=== PATIENT | female | born 1960 | race Caucasian/White ===

== ENCOUNTER → 2017-12-28 06:59 | Outpatient (CLI) | payer MEDICARE, SELFPAY ==
[2017-12-28 08:52] LABS: ALB/GLOB Ratio 0.9 RATIO (0.9-2.4); AST(SGOT) 15 U/L (15-37); Alanine Aminotransfer ALT/SGPT 30 U/L (13-56); Albumin, Serum 3.5 g/dL (3.2-5.0); Alkaline Phosphatase 111 U/L (45-117); Anion Gap 9 (5-15); BUN 21 mg/dL (7-18); BUN/Creat Ratio 24.3 RATIO (10-20); Calcium,Total 9.1 mg/dL (8.5-10.1); Chloride 99 mmol/L (98-107); Cholesterol 165 mg/dL (200); Creatinine, Serum 0.86 mg/dL (0.55-1.02); EST Glomerular Filtration Rate 71 mL/min (>60); Est Glom Filt Rate - Afr Amer 86 mL/min (>60); Globulin 3.8 g/dL (2.2-4.2); Glucose 96 mg/dL (70-110); High Density Lipoprotein 63 mg/dL; Potassium 4.2 mmol/L (3.5-5.1); Protein, Total 7.3 g/dL (6.4-8.2); Sodium Level 136 mmol/L (136-145); T4 Free Direct 1.17 ng/dL (0.76-1.46); Thyroid Stim Hormone (TSH) 1.09 uIU/mL (0.358-3.74); Triglycerides 137 mg/dL; Very Low Density Lipoprotein 27 mg/dL (5-40)
[2017-12-29 10:07] LABS: Vitamin D,25 Hydroxy 44.1 ng/mL (19.95-100.01)
== END ==
PROVIDERS: Family Provider Family Medicine; PCP Family Medicine; Visit Provider Internal Medicine Endocrinology, Diabetes & Metabolism
DX: E03.8 Other specified hypothyroidism (principal); E78.2 Mixed hyperlipidemia; E55.9 Vitamin D deficiency, unspecified
CPT/HCPCS: 36415; 80053; 80061; 82306; 84439; 84443

== ENCOUNTER 2018-01-04 21:58 | Observation (INO) | payer MEDICARE, SELFPAY ==
[2018-01-04 21:59] VITALS: BP 160/100; PULSE 61; RESP 25; TEMP 36.8; O2SAT 98; BMI 43.6
--- NOTE | 2018-01-04 22:01 | NURSING ---
CALLED FOR EKG PER RN REQUEST, PULLED OLD EKG'S FOR
--- NOTE | 2018-01-04 22:12 | EKG12_ITS ---
Test Reason : FLUTTER Blood Pressure : / mmHG Vent. Rate : 060 BPM Atrial Rate : 060 BPM P-R Int : 140 ms QRS Dur : 102 ms QT Int : 428 ms P-R-T Axes : 079 033 015 degrees QTc Int : 428 ms Atrial-paced rhythm Abnormal ECG Confirmed by ROD ELIAS, SUPRIYA ([id number]), clinical editor TAVO HOLLINS ([id number]) on 01/07/2018 2:01:13 PM Referred By: JONATHAN Confirmed By:SUPRIYA VELASCO MD
--- NOTE | 2018-01-04 22:14 | ED.VISSUMM ---
- ER Visit Summary Date of Service: 01/04/18 Chief Complaint: [palpitations, shortness of breath] History of Present Illness: The patient is a 57 F [who presents with palptiations and exertional shortness of breath for 2 days. She has felt very tired and weak. She has two episodes of loose stool nonbloody, nonmelanotic today. She denies fever,cough, congestion. She has had some mild swelling. No abdominal pain. She is afraid this is her heart. She has CAD s/p 5 vessel bypass.She has CHF. She has a history of atrial fibrillation. She is on xarelto. She has pacemaker/defibrillator.] Physical Examination: [] 160/100 rr 25 HR 61 obese tearful distant heart sounds no audible murmur or rub CTAB Symmetric radial pulses and DP pulses no peripheral edema abdomen is soft and nontender normal bowel sounds a/0x3 no focal neurological deficits anxious and tearful Test Results: [] Emergency Department Course and Treatment: [EKG is paced at a rate of 60 no acute ischemic changes. It is not changed from previous EKG. Chest x-ray is unremarkable. Screening labs show a leukocytosis at 14.2. She has got some acute renal insufficiency with a creatinine of 1.17 that is up from 0.8. Troponin is normal. Urine shows no evidence of infection. Patient is very high risk. She could be having episodes of A. fib with RVR versus increased anginal symptoms versus anxiety. PE is very low likely given that she is anticoagulated. She remained stable in the emergency department however on reevaluation she did have frequent PVCs.] Treatment Plan: [] Disposition: [Admit] Impression: [1. Exertional dyspnea 2. Generalized weakness 3. Extensive cardiac history 4. Palpitations] This note was generated with slinkset dictation software. It may contain incorrect words, spelling, and punctuation that were not noted in review of the chart prior to signing ED Disposition - Plan for ED Patient: Chief Complaint: Palpitations Referrals: Erik Barton [Primary Care Provider] -
[2018-01-04 22:15] VITALS: O2SAT 95
[2018-01-04] MEDS: Aspirin 81 MG TAB.CHEW 324 MG PO (22:19)
--- NOTE | 2018-01-04 22:30 | RAD_ITS ---
XR Chest 2 Views INDICATION: PT STATES SHE FEELS A FLULTER IN HER CHEST X3 DAYS. HX OF HEART ABLASION AND AFIB. ALSO C/O DIARRHEA STARTED TODAY COMPARISON: September 2016 TECHNIQUE: 2 views of the chest FINDINGS: Cardiac pacemaker/AICD is in stable position with battery pack over the left chest. Heart size is at the upper limits of normal. Sternotomy wires are noted. Lungs are clear without evidence of a consolidation or pleural effusion. RAD/Chest PA and Lateral IMPRESSION: No radiographic evidence of acute intrathoracic disease. at 2248 Reported and signed by: Kelsea Manzanares MD Electronically Signed: Kelsea Manzanares MD at 21:46 EST Tel , Service support ,
[2018-01-04 22:37] LABS: Absolute Lymphocyte Count 2.36 X10^3/ul (0.83-4.51); Absolute Neutrophil Count 10.4 X10^3/uL (2.0-7.7); Basophil# 0.03 X10^3/uL; Basophil% 0.2 % (0-1); Eosinophils% 0.7 % (0-5); Hematocrit 41.3 % (37-47); Hemoglobin 13.4 g/dl (12.0-15.0); Lymphocyte # 2.36 X10^3/ul (4.0); Lymphocyte % 16.6 % (19-41); Mean Corp Hgb Conc 32.4 g/gl (32-36); Mean Corpuscular Hgb 31.2 pg (27.0-32.0); Mean Corpuscular Volume 96.3 fL (81-99); Mean Platelet Vol. 10.7 fl (6.2-12.0); Monocyte# 1.27 X10^3/uL; Monocyte% 8.9 % (0-10); Neutrophil # 10.43 X10^3/uL (2.7-7.7); Neutrophil % 73.4 % (47-70); POSITIVE COUNT NO; POSITIVE DIFFERENTIAL NO; POSITIVE MORPHOLOGY NO; Platelet Count 194 K/mm3 (150-450); RBC Distribution Width CV 14.3 % (11.6-14.6); RBC Distribution Width SD 49.7 fl (35.1-43.9); Red Blood Count 4.29 M/mm3 (4.2-5.4); White Blood Count 14.2 K/mm3 (4.4-11.0)
[2018-01-04 22:56] LABS: Anion Gap 9 (5-15); BUN 26 mg/dL (7-18); BUN/Creat Ratio 22.2 RATIO (10-20); Calcium,Total 9.2 mg/dL (8.5-10.1); Chloride 99 mmol/L (98-107); Creatinine, Serum 1.17 mg/dL (0.55-1.02); EST Glomerular Filtration Rate 50 mL/min (>60); Est Glom Filt Rate - Afr Amer 61 mL/min (>60); Estimated Creatinine Clearance 44.71 ml/min; Glucose 104 mg/dL (74-106); Potassium 4.1 mmol/L (3.5-5.1); Sodium Level 137 mmol/L (136-145); Thyroid Stim Hormone (TSH) 1.69 uIU/mL (0.358-3.74)
[2018-01-04 23:02] LABS: BNP,B-Type NATRIURETIC PEPTIDE 81.5 pg/mL (0-100)
[2018-01-04 23:16] LABS: Bacteria 0 SEEN /hpf (None Seen); Red Blood Cells-Urine 0 SEEN /hpf (0-5)
[2018-01-04 23:19] LABS: Color, Urine Yellow (Yellow); Glucose, Dipstick Normal (Normal); Ketone-Dipstick Negative (Negative); Leukocyte Esterase-Dipstick 500 /ul (Negative); Nitrite-Dipstick Negative (Negative); Occult Blood-Urine Negative /ul (Negative); Protein-Dipstick Negative (Negative); Specific Gravity, Urine 1.015 (1.002-1.030); Urine Bilirubin Dipstick Negative (Negative); Urine Clarity Sl. Cloudy (Clear); Urine Urobilinogen Normal (Normal)
[2018-01-04 23:26] LABS: Hyaline Cast 5-10 SEEN /lpf (0-5); Mucous, Urine RARE /hpf (<or=2+)
[2018-01-04 23:27] LABS: White Blood Cells 5-10 SEEN /hpf (0-5)
[2018-01-04 23:28] LABS: Squamous Epithelial Cells - UA 0-5 SEEN /hpf (5-10)
[2018-01-04 23:50] VITALS: BP 109/70; PULSE 60; RESP 15; O2SAT 94
[2018-01-04 23:51] VITALS: BP 109/70; PULSE 60; RESP 16; TEMP 36.8; O2SAT 94
--- NOTE | 2018-01-04 23:58 | PCM.HP.STD ---
Problem List (1) CKD (chronic kidney disease), stage III Status: Chronic (2) DM2 (diabetes mellitus, type 2) Status: Chronic (3) Atrial fibrillation and flutter Status: Chronic (4) CAD (coronary artery disease) Status: Chronic (5) Cardiomyopathy, ischemic Status: Chronic (6) Congestive heart failure (CHF) Status: Chronic (7) History of TIA (transient ischemic attack) and stroke Status: Chronic (8) History of breast cancer Status: Chronic Comment: Right (9) History of percutaneous transluminal coronary angioplasty Status: Chronic (10) Hx of CABG Status: Chronic (11) Hyperlipidemia Status: Chronic (12) Hypothyroidism Status: Chronic (13) ICD (implantable cardioverter-defibrillator) in place Status: Chronic Comment: 2003 (14) Obesity (BMI 30-39.9) Status: Chronic (15) Paroxysmal a-fib Status: Chronic (16) Peripheral neuropathy Status: Chronic (17) Venous insufficiency Status: Chronic Comment: I87.2 (18) Palpitations Status: Acute History of Present Illness Date of Admission: 01/04/18 Chief Complaint: chest fluttering. The patient is a 57 year old F with an extensive cardiac history presents with 3 day history of heart fluttering. Denies any overt chest pain however. Patient just has not felt well and has been sleeping a lot during the day as well. Patient was concerned and presented to the emergency room. In the emergency room patient was assessed and had no really acute abnormalities other than some noted PVCs. Patient states that the fluttering is intermittent but does feel like when she has had flareups of her atrial fibrillation in the past. [] Past Medical History Past Medical History (Chronic Problems): Chronic Problems CKD (chronic kidney disease), stage III (Chronic) DM2 (diabetes mellitus, type 2) (Chronic) History of TIA (transient ischemic attack) and stroke (Chronic) History of percutaneous transluminal coronary angioplasty (Chronic) Peripheral neuropathy (Chronic) History of breast cancer (Chronic) Right Obesity (BMI 30-39.9) (Chronic) Venous insufficiency (Chronic) I87.2 Leg edema (Chronic) Delayed wound healing (Chronic) Malnutrition (Chronic) Chronic ulcer of left leg with fat layer exposed (Chronic) Renal insufficiency (Chronic) Cardiomyopathy, ischemic (Chronic) CAD (coronary artery disease) (Chronic) Type II diabetes mellitus, uncontrolled (Chronic) Atrial fibrillation and flutter (Chronic) SVT (supraventricular tachycardia) (Chronic) Afib (Chronic) Congestive heart failure (CHF) (Chronic) Cushings syndrome (Chronic) Hypothyroidism (Chronic) Hyperlipidemia (Chronic) Hypertension (Chronic) History of CVA (cerebrovascular accident) (Chronic) 2006 ICD (implantable cardioverter-defibrillator) in place (Chronic) 2002 Paroxysmal a-fib (Chronic) Hx of CABG (Chronic) Allergies Iodinated Contrast- Oral and IV Dye Allergy (Verified 01/04/18 22:13) Unknown ranolazine [From Ranexa] Allergy (Verified 01/04/18 22:13) Unknown MISC ANTIBIOTIC Allergy (Uncoded 01/04/18 22:13) Unknown Home Medications: Ambulatory Orders Medication Instructions Recorded Atorvastatin Calcium [Lipitor] 40 mg PO QHS 09/09/14 Isosorbide Mononitrate [Isosorbide 60 mg PO DAILY 09/09/14 Mononitrate ER] Levothyroxine [Synthroid] 88 mcg PO DAILY 09/09/14 Lisinopril [Zestril] 5 mg PO QHS 09/09/14 Gabapentin [Neurontin] 400 mg PO 4X/DAY 01/02/16 Lorazepam [Ativan] 1 mg PO 4X/DAY PRN PRN 01/02/16 Furosemide [Lasix] 40 mg PO BID@1000,1800 #60 tablet 10/25/16 Sotalol Hydrochloride [Betapace 80 mg PO BID #60 tablet 10/25/16 (Beta Otto)] Multivitamins,Therapeutic 1 tablet PO DAILY 07/21/17 [Multivitamin] Spironolactone [Aldactone] 25 mg PO DAILY 07/21/17 Calcium Carb/Vitamin D3/Vit K1 1 each PO DAILY 01/04/18 [Citracal Soft Chew] Calcium Carbonate [Calcium] 500 mg PO DAILY 01/04/18 Cholecalciferol (Vitamin D3) 5,000 unit PO DAILY 01/04/18 [Vitamin D3] Magnesium 200 mg PO DAILY 01/04/18 Metoprolol Tartrate 25 mg PO DAILY 01/04/18 Rivaroxaban [Xarelto] 20 mg PO DAILY 01/04/18 Surgical History: angioplasty, coronary bypass surgery, - - Pituitary surgery, right breast mastectomy (2000), hysterectomy, knee arthroscopy, implanted pacemaker/defibrillator, coronary revascularization in 1998, and coronary angioplasties ?18 with 5 implanted coronary stents. Smoking Status: Former smoker - *Family History Maternal History Items: Heart Disease, - - Patient's mother at the age of 58 with a history of breast cancer and myocardial infarction. Paternal History Items: Heart Disease, - - Patient's father at the age of 56, with a history of cardial infarction. Offspring History Items: Heart Disease - 5 heart attacks and her daughter Review of Systems Constitutional: Reports: Malaise. Denies: Anorexia, Chills, Fever Eyes: Denies: Blurred vision, Double vision HEENT: Denies: Head Aches, Sinus Congestion, Sinus Drainage Cardiovascular: Reports: Palpitations, - - Chest fluttering. Denies: Chest Pain Respiratory: Denies: Cough, Shortness of breath at rest, Sputum production Gastrointestinal: Denies: Abdominal Pain, Nausea, Vomiting Genitourinary: Denies: Dysuria Musculoskeletal: Denies: Joint Pain, Joint Tenderness Skin: Reports: Wounds - Healing wounds on her. Denies: Dryness Neurological: Denies: Numbness, Tingling, Focal weakness Psychiatric: Denies: Anxiety, Depression, Homicidal Ideations, Suicidal Ideations Hematologic/ Lymphatic: Denies: Easy Bruising, Easy Bleeding, Hx of blood clot VTE Information - Inpt Only VTE Present on Admission: No VTE Pharm Prophylaxis ordered?: Yes Patient Problems: Active and Suspected Problems Fluttering heart (Acute) Palpitations (Acute) - Physical Exam General: Alert, Cooperative, No apparent distress HEENT: Atraumatic, Normocephalic Neck: No Nodes, Thyroid Normal Size and Texture Lungs: Clear to auscultation, Normal air movement, No rhonchi, No wheeze Cardiovascular: Regular rate, Regular Rhythm, Normal S1, Normal S2, - - 2/6 ANGELES at RUSB Abdomen: Bowel Sounds Present, Soft, Non Tender, Non-Distended, No Hepato-splenomegaly Extremities: No edema, No Calf Tenderness Skin: - - healing LLE wounds Musculoskeletal: No Tenderness to Palpation of Joints or Extremities, No Muscle Wasting Neurological: Deep Tendon Reflexes 2+/4 and Symmetrical, Neuro grossly intact, Muscle tone normal, Sensory exam intact to light touch and pain Psych/Mental Status: Normal Affect, Appropriate Vital Signs Temp Pulse Resp BP Pulse Ox 36.8 C 60 16 109/70 94 01/04/18 23:51 01/04/18 23:51 01/04/18 23:51 01/04/18 23:51 01/04/18 23:51 Oxygen Flow Rate 2 Oxygen Delivery Method Room Air Weight: 115.3 kg Body Mass Index (BMI) 43.6 Microbiology Past 72 Hours 01/04/18 22:55 Influenza Types A,B Direct FA (OLIVIA) - Final Mucosa - Nose Laboratory Tests Past 24 Hrs 01/04/18 01/04/18 01/04/18 22:25 22:25 22:25 WBC 14.2 H RBC 4.29 Hgb 13.4 Hct 41.3 MCV 96.3 MCH 31.2 MCHC 32.4 RDW 14.3 RDW Differential 49.7 H Plt Count 194 MPV 10.7 Immature Gran % (Auto) 0.200 Neut % (Auto) 73.4 H Lymph % (Auto) 16.6 L [place] % (Auto) 8.9 Eos % (Auto) 0.7 Baso % (Auto) 0.2 Absolute Neuts (auto) 10.4 H Absolute Lymphs (auto) 2.36 Total Counted Not Reportable Sodium 137 Potassium 4.1 Chloride 99 Carbon Dioxide 29.0 Anion Gap 9 BUN 26 H Creatinine 1.17 H Estim Creat Clear Calc 44.71 Est GFR (MDRD) Af Amer 61 Est GFR (MDRD) Non-Af 50 L BUN/Creatinine Ratio 22.2 H Glucose 104 Calcium 9.2 Troponin I < 0.02 B-Natriuretic Peptide 81.5 TSH 1.69 Urine Color Urine Clarity Urine pH Ur Specific [place] Urine Protein Urine Glucose (UA) Urine Ketones Urine Occult Blood Urine Nitrite Urine Bilirubin Urine Urobilinogen Ur Leukocyte Esterase Urine RBC Urine WBC Ur Squamous Epith Cells Urine Bacteria Hyaline Casts Urine Mucus 01/04/18 23:10 WBC RBC Hgb Hct MCV MCH MCHC RDW RDW Differential Plt Count MPV Immature Gran % (Auto) Neut % (Auto) Lymph % (Auto) [place] % (Auto) Eos % (Auto) Baso % (Auto) Absolute Neuts (auto) Absolute Lymphs (auto) Total Counted Sodium Potassium Chloride Carbon Dioxide Anion Gap BUN Creatinine Estim Creat Clear Calc Est GFR (MDRD) Af Amer Est GFR (MDRD) Non-Af BUN/Creatinine Ratio Glucose Calcium Troponin I B-Natriuretic Peptide TSH Urine Color Yellow Urine Clarity Sl. Cloudy Urine pH 6.0 Ur Specific [place] 1.015 Urine Protein Negative Urine Glucose (UA) Normal Urine Ketones Negative Urine Occult Blood Negative Urine Nitrite Negative Urine Bilirubin Negative Urine Urobilinogen Normal Ur Leukocyte Esterase 500 H Urine RBC 0 SEEN Urine WBC 5-10 SEEN Ur Squamous Epith Cells 0-5 SEEN Urine Bacteria 0 SEEN Hyaline Casts 5-10 SEEN Urine Mucus RARE Clinical Impression(s) from Imaging Studies Chest X-Ray 01/04/18 22:30 IMPRESSION: No radiographic evidence of acute intrathoracic disease. at 2248 Reported and signed by: Kelsea Manzanares MD Electronically Signed: Kelsea Manzanares MD at 21:46 EST Tel , Service support , EKG was atrial paced. Telemetry reviewed and did show some PVCs. Assessment/Plan Active and Suspected Problems Fluttering heart (Acute) Palpitations (Acute) 1. Palpitations Is unclear if patient is experiencing PVCs or not or if she was having bouts of atrial fibrillation. Patient will be monitored on telemetry, cycle troponins. Check a chemical stress test. Additionally, check Lab work to make sure Her electrolytes to ensure that those are within normal limits. 2. Heart failure with reduced ejection fraction EF of 40% from echocardiogram from 01/03/2016. Clinically compensated at this time. Continue with Lasix, isosorbide, lisinopril, metoprolol tartrate, spironolactone 3. Atrial fibrillation Rate controlled. Continue with Xarelto and metoprolol 4. DVT prophylaxis with anticoagulation. History and physical performed on January 04, 2018. Code Visit OBSV E&M: 21705 Initial observation care L3 - for 01/04/18
[2018-01-05] VITALS (8 sets, daily range): BP systolic 108–147; BP diastolic 61–85; PULSE 60–61; RESP 16–18; TEMP 36.6–36.9; O2SAT 93–98; BMI 42.2
--- NOTE | 2018-01-05 00:08 | HP.PCM_ITS ---
Problem List (1) CKD (chronic kidney disease), stage III Status: Chronic (2) DM2 (diabetes mellitus, type 2) Status: Chronic (3) Atrial fibrillation and flutter Status: Chronic (4) CAD (coronary artery disease) Status: Chronic (5) Cardiomyopathy, ischemic Status: Chronic (6) Congestive heart failure (CHF) Status: Chronic (7) History of TIA (transient ischemic attack) and stroke Status: Chronic (8) History of breast cancer Status: Chronic Comment: Right (9) History of percutaneous transluminal coronary angioplasty Status: Chronic (10) Hx of CABG Status: Chronic (11) Hyperlipidemia Status: Chronic (12) Hypothyroidism Status: Chronic (13) ICD (implantable cardioverter-defibrillator) in place Status: Chronic Comment: 2003 (14) Obesity (BMI 30-39.9) Status: Chronic (15) Paroxysmal a-fib Status: Chronic (16) Peripheral neuropathy Status: Chronic (17) Venous insufficiency Status: Chronic Comment: I87.2 (18) Palpitations Status: Acute History of Present Illness Date of Admission: 01/04/18 Chief Complaint: chest fluttering. The patient is a 57 year old F with an extensive cardiac history presents with 3 day history of heart fluttering. Denies any overt chest pain however. Patient just has not felt well and has been sleeping a lot during the day as well. Patient was concerned and presented to the emergency room. In the emergency room patient was assessed and had no really acute abnormalities other than some noted PVCs. Patient states that the fluttering is intermittent but does feel like when she has had flareups of her atrial fibrillation in the past. [] Past Medical History Past Medical History (Chronic Problems): Chronic Problems CKD (chronic kidney disease), stage III (Chronic) DM2 (diabetes mellitus, type 2) (Chronic) History of TIA (transient ischemic attack) and stroke (Chronic) History of percutaneous transluminal coronary angioplasty (Chronic) Peripheral neuropathy (Chronic) History of breast cancer (Chronic) Right Obesity (BMI 30-39.9) (Chronic) Venous insufficiency (Chronic) I87.2 Leg edema (Chronic) Delayed wound healing (Chronic) Malnutrition (Chronic) Chronic ulcer of left leg with fat layer exposed (Chronic) Renal insufficiency (Chronic) Cardiomyopathy, ischemic (Chronic) CAD (coronary artery disease) (Chronic) Type II diabetes mellitus, uncontrolled (Chronic) Atrial fibrillation and flutter (Chronic) SVT (supraventricular tachycardia) (Chronic) Afib (Chronic) Congestive heart failure (CHF) (Chronic) Cushings syndrome (Chronic) Hypothyroidism (Chronic) Hyperlipidemia (Chronic) Hypertension (Chronic) History of CVA (cerebrovascular accident) (Chronic) 2006 ICD (implantable cardioverter-defibrillator) in place (Chronic) 2002 Paroxysmal a-fib (Chronic) Hx of CABG (Chronic) Allergies Iodinated Contrast- Oral and IV Dye Allergy (Verified 01/04/18 22:13) Unknown ranolazine [From Ranexa] Allergy (Verified 01/04/18 22:13) Unknown MISC ANTIBIOTIC Allergy (Uncoded 01/04/18 22:13) Unknown Home Medications: Ambulatory Orders Medication Instructions Recorded Atorvastatin Calcium [Lipitor] 40 mg PO QHS 09/09/14 Isosorbide Mononitrate [Isosorbide 60 mg PO DAILY 09/09/14 Mononitrate ER] Levothyroxine [Synthroid] 88 mcg PO DAILY 09/09/14 Lisinopril [Zestril] 5 mg PO QHS 09/09/14 Gabapentin [Neurontin] 400 mg PO 4X/DAY 01/02/16 Lorazepam [Ativan] 1 mg PO 4X/DAY PRN PRN 01/02/16 Furosemide [Lasix] 40 mg PO BID@1000,1800 #60 tablet 10/25/16 Sotalol Hydrochloride [Betapace 80 mg PO BID #60 tablet 10/25/16 (Beta Otto)] Multivitamins,Therapeutic 1 tablet PO DAILY 07/21/17 [Multivitamin] Spironolactone [Aldactone] 25 mg PO DAILY 07/21/17 Calcium Carb/Vitamin D3/Vit K1 1 each PO DAILY 01/04/18 [Citracal Soft Chew] Calcium Carbonate [Calcium] 500 mg PO DAILY 01/04/18 Cholecalciferol (Vitamin D3) 5,000 unit PO DAILY 01/04/18 [Vitamin D3] Magnesium 200 mg PO DAILY 01/04/18 Metoprolol Tartrate 25 mg PO DAILY 01/04/18 Rivaroxaban [Xarelto] 20 mg PO DAILY 01/04/18 Surgical History: angioplasty, coronary bypass surgery, - - Pituitary surgery, right breast mastectomy (2000), hysterectomy, knee arthroscopy, implanted pacemaker/defibrillator, coronary revascularization in 1998, and coronary angioplasties ?18 with 5 implanted coronary stents. Smoking Status: Former smoker - *Family History Maternal History Items: Heart Disease, - - Patient's mother at the age of 58 with a history of breast cancer and myocardial infarction. Paternal History Items: Heart Disease, - - Patient's father at the age of 56, with a history of cardial infarction. Offspring History Items: Heart Disease - 5 heart attacks and her daughter Review of Systems Constitutional: Reports: Malaise. Denies: Anorexia, Chills, Fever Eyes: Denies: Blurred vision, Double vision HEENT: Denies: Head Aches, Sinus Congestion, Sinus Drainage Cardiovascular: Reports: Palpitations, - - Chest fluttering. Denies: Chest Pain Respiratory: Denies: Cough, Shortness of breath at rest, Sputum production Gastrointestinal: Denies: Abdominal Pain, Nausea, Vomiting Genitourinary: Denies: Dysuria Musculoskeletal: Denies: Joint Pain, Joint Tenderness Skin: Reports: Wounds - Healing wounds on her. Denies: Dryness Neurological: Denies: Numbness, Tingling, Focal weakness Psychiatric: Denies: Anxiety, Depression, Homicidal Ideations, Suicidal Ideations Hematologic/ Lymphatic: Denies: Easy Bruising, Easy Bleeding, Hx of blood clot VTE Information - Inpt Only VTE Present on Admission: No VTE Pharm Prophylaxis ordered?: Yes Patient Problems: Active and Suspected Problems Fluttering heart (Acute) Palpitations (Acute) - Physical Exam General: Alert, Cooperative, No apparent distress HEENT: Atraumatic, Normocephalic Neck: No Nodes, Thyroid Normal Size and Texture Lungs: Clear to auscultation, Normal air movement, No rhonchi, No wheeze Cardiovascular: Regular rate, Regular Rhythm, Normal S1, Normal S2, - - 2/6 ANGELES at RUSB Abdomen: Bowel Sounds Present, Soft, Non Tender, Non-Distended, No Hepato- splenomegaly Extremities: No edema, No Calf Tenderness Skin: - - healing LLE wounds Musculoskeletal: No Tenderness to Palpation of Joints or Extremities, No Muscle Wasting Neurological: Deep Tendon Reflexes 2+/4 and Symmetrical, Neuro grossly intact, Muscle tone normal, Sensory exam intact to light touch and pain Psych/Mental Status: Normal Affect, Appropriate Vital Signs Temp Pulse Resp BP Pulse Ox 36.8 C 60 16 109/70 94 01/04/18 23:51 01/04/18 23:51 01/04/18 23:51 01/04/18 23:51 01/04/18 23:51 Oxygen Flow Rate 2 Oxygen Delivery Method Room Air Weight: 115.3 kg Body Mass Index (BMI) 43.6 Microbiology Past 72 Hours 01/04/18 22:55 Influenza Types A,B Direct FA (OLIVIA) - Final Mucosa - Nose Laboratory Tests Past 24 Hrs 01/04/18 01/04/18 01/04/18 22:25 22:25 22:25 WBC 14.2 H RBC 4.29 Hgb 13.4 Hct 41.3 MCV 96.3 MCH 31.2 MCHC 32.4 RDW 14.3 RDW Differential 49.7 H Plt Count 194 MPV 10.7 Immature Gran % (Auto) 0.200 Neut % (Auto) 73.4 H Lymph % (Auto) 16.6 L [place] % (Auto) 8.9 Eos % (Auto) 0.7 Baso % (Auto) 0.2 Absolute Neuts (auto) 10.4 H Absolute Lymphs (auto) 2.36 Total Counted Not Reportable Sodium 137 Potassium 4.1 Chloride 99 Carbon Dioxide 29.0 Anion Gap 9 BUN 26 H Creatinine 1.17 H Estim Creat Clear Calc 44.71 Est GFR (MDRD) Af Amer 61 Est GFR (MDRD) Non-Af 50 L BUN/Creatinine Ratio 22.2 H Glucose 104 Calcium 9.2 Troponin I < 0.02 B-Natriuretic Peptide 81.5 TSH 1.69 Urine Color Urine Clarity Urine pH Ur Specific [place] Urine Protein Urine Glucose (UA) Urine Ketones Urine Occult Blood Urine Nitrite Urine Bilirubin Urine Urobilinogen Ur Leukocyte Esterase Urine RBC Urine WBC Ur Squamous Epith Cells Urine Bacteria Hyaline Casts Urine Mucus 01/04/18 23:10 WBC RBC Hgb Hct MCV MCH MCHC RDW RDW Differential Plt Count MPV Immature Gran % (Auto) Neut % (Auto) Lymph % (Auto) [place] % (Auto) Eos % (Auto) Baso % (Auto) Absolute Neuts (auto) Absolute Lymphs (auto) Total Counted Sodium Potassium Chloride Carbon Dioxide Anion Gap BUN Creatinine Estim Creat Clear Calc Est GFR (MDRD) Af Amer Est GFR (MDRD) Non-Af BUN/Creatinine Ratio Glucose Calcium Troponin I B-Natriuretic Peptide TSH Urine Color Yellow Urine Clarity Sl. Cloudy Urine pH 6.0 Ur Specific [place] 1.015 Urine Protein Negative Urine Glucose (UA) Normal Urine Ketones Negative Urine Occult Blood Negative Urine Nitrite Negative Urine Bilirubin Negative Urine Urobilinogen Normal Ur Leukocyte Esterase 500 H Urine RBC 0 SEEN Urine WBC 5-10 SEEN Ur Squamous Epith Cells 0-5 SEEN Urine Bacteria 0 SEEN Hyaline Casts 5-10 SEEN Urine Mucus RARE Clinical Impression(s) from Imaging Studies Chest X-Ray 01/04/18 22:30 IMPRESSION: No radiographic evidence of acute intrathoracic disease. at 2248 Reported and signed by: Kelsea Manzanares MD Electronically Signed: Kelsea Manzanares MD at 21:46 EST Tel , Service support , EKG was atrial paced. Telemetry reviewed and did show some PVCs. Assessment/Plan Active and Suspected Problems Fluttering heart (Acute) Palpitations (Acute) 1. Palpitations * Is unclear if patient is experiencing PVCs or not or if she was having bouts of atrial fibrillation. Patient will be monitored on telemetry, cycle troponins. Check a chemical stress test. * Additionally, check Lab work to make sure Her electrolytes to ensure that those are within normal limits. 2. Heart failure with reduced ejection fraction * EF of 40% from echocardiogram from 01/03/2016. * Clinically compensated at this time. * Continue with Lasix, isosorbide, lisinopril, metoprolol tartrate, spironolactone 3. Atrial fibrillation * Rate controlled. Continue with Xarelto and metoprolol 4. DVT prophylaxis with anticoagulation. History and physical performed on January 04, 2018. Code Visit OBSV E&M: 16041 Initial observation care L3 - for 01/04/18
[2018-01-05] MEDS: 0.9% NaCl Peripheral Flush Adult/Peds IV ×2 (02:57→12:15)
[2018-01-05 05:05] LABS: International Normalized Ratio 1.5; Prothrombin Time (Protime)PT. 17.6 SECONDS (11.7-14.9)
[2018-01-05 05:06] LABS: Partial Thromboplast Time 31.5 Seconds (24.1-36.2)
[2018-01-05 05:14] LABS: Absolute Lymphocyte Count 2.19 X10^3/ul (0.83-4.51); Absolute Neutrophil Count 8.9 X10^3/uL (2.0-7.7); Anion Gap 9 (5-15); BUN 26 mg/dL (7-18); BUN/Creat Ratio 27.7 RATIO (10-20); Basophil# 0.04 X10^3/uL; Basophil% 0.3 % (0-1); Calcium,Total 9.1 mg/dL (8.5-10.1); Chloride 100 mmol/L (98-107); Creatinine, Serum 0.94 mg/dL (0.55-1.02); EST Glomerular Filtration Rate 65 mL/min (>60); Eosinophil# 0.08 X10^3/uL; Eosinophils% 0.7 % (0-5); Est Glom Filt Rate - Afr Amer 78 mL/min (>60); Estimated Creatinine Clearance 55.65 ml/min; Glucose 103 mg/dL (74-106); Hematocrit 37.8 % (37-47); Hemoglobin 12.5 g/dl (12.0-15.0); Lymphocyte # 2.19 X10^3/ul (4.0); Lymphocyte % 17.8 % (19-41); Magnesium 2.4 mg/dL (1.6-2.6); Mean Corp Hgb Conc 33.1 g/gl (32-36); Mean Corpuscular Hgb 31.6 pg (27.0-32.0); Mean Corpuscular Volume 95.7 fL (81-99); Mean Platelet Vol. 11.1 fl (6.2-12.0); Monocyte# 1.09 X10^3/uL; Monocyte% 8.9 % (0-10); Neutrophil # 8.87 X10^3/uL (2.7-7.7); Neutrophil % 72.1 % (47-70); Platelet Count 169 K/mm3 (150-450); Potassium 4.2 mmol/L (3.5-5.1); RBC Distribution Width CV 13.9 % (11.6-14.6); RBC Distribution Width SD 46.3 fl (35.1-43.9); Red Blood Count 3.95 M/mm3 (4.2-5.4); Sodium Level 136 mmol/L (136-145); White Blood Count 12.3 K/mm3 (4.4-11.0)
[2018-01-05 05:28] LABS: POSITIVE COUNT NO; POSITIVE DIFFERENTIAL NO; POSITIVE MORPHOLOGY NO
[2018-01-05] MEDS: Aspirin E.C. 81 MG Tablet PO (05:49)
[2018-01-05] MEDS: Levothyroxine 88 MCG Tablet PO (05:49)
--- NOTE | 2018-01-05 05:55 | EKG12_ITS ---
Test Reason : MORNING EKG Blood Pressure : / mmHG Vent. Rate : 060 BPM Atrial Rate : 060 BPM P-R Int : 176 ms QRS Dur : 100 ms QT Int : 420 ms P-R-T Axes : 083 032 028 degrees QTc Int : 420 ms Atrial-paced rhythm Nonspecific T wave abnormality Abnormal ECG When compared with ECG of 25-OCT-2016 09:20, Electronic atrial pacemaker has replaced Sinus rhythm Nonspecific T wave abnormality has replaced inverted T waves in Anterolateral leads Confirmed by ROD ELIAS, SUPRIYA ([id number]), newspaper managing editor TAVO HOLLINS ([id number]) on 01/11/2018 2:02:24 PM Referred By: Confirmed By:SUPRIYA VELASCO MD
[2018-01-05] MEDS: Metoprolol Tartrate 25 MG Tablet PO (09:18)
[2018-01-05] MEDS: Isosorbide Mononitrate 60 MG Tablet PO (09:18)
[2018-01-05] MEDS: Furosemide 40 MG Tablet PO (09:18)
[2018-01-05] MEDS: Rivaroxaban 20 MG Tablet PO (09:18)
[2018-01-05] MEDS: Magnesium Oxide 400 MG Tablet 200 MG PO (09:19)
[2018-01-05] MEDS: Multivitamins,Therapeutic Tablet 1 TABLET PO (09:19)
[2018-01-05] MEDS: Sotalol Hydrochloride 80 MG Tablet PO (09:19)
[2018-01-05] MEDS: Gabapentin 400 MG Capsule PO (09:19)
[2018-01-05] MEDS: Calcium (Elemental) 500 MG Tablet PO (09:19)
[2018-01-05] MEDS: Spironolactone 25 MG Tablet PO (09:19)
[2018-01-05] MEDS: Calcium Carb/Vitamin D 1 TABLET Tablet PO (09:20)
--- NOTE | 2018-01-05 09:22 | STRESSREP_ITS ---
Stress Test Report Pharmacologic myocardial perfusion stress test. 57-year-old lady with a history of coronary artery disease. Stress protocol: EKG demonstrates sinus rhythm with a rate of 62 bpm. Resting blood pressure is 132/68 mmHg. 0.4 mg of regadenoson was infused per usual protocol followed by rapid intravenous saline flush injection. Continuous EKG monitoring was performed. From heart rate attained was 99 bpm which was 61% of the maximum predicted heart rate the maximum workload attained was 1 metabolic equivalents. At rest and with infusion there were no ST or T-wave changes noted to suggest abnormal flow reserve. No angina was noted. The resting blood pressure is 132/ 68 mmHg with a final blood pressure 122/68 mmHg. MyoCardial perfusion protocol. 11.7 mCi of technetium 99m sestamibi was injected at rest. 0.4 mg of regadenoson was then infused per usual protocol. At peak infusion 33.1 mCi of technetium 99m sestamibi was injected. Stress images were obtained. Stress and resting images were reconstructed and compared in the short axis vertical long and horizontal long axis. Gated images were also obtained. PerFusion SPECT analysis. Review of the stress images demonstrate a normal cardiac silhouette size. The septum and anterior wall appear to be well perfused. There is a large defect involving the inferior wall on the stress images as well as the resting images. There is mild reduction of perfusion noted in the mid inferolateral wall on the stress images. The resting images demonstrate a similar perfusion abnormality in all areas with minimal improvement around the edges possibly suggesting enma-infarct ischemia in the inferolateral zone. Gated SPECT analysis. The gated ejection fraction is noted to be 48%. Conclusion: pharmacologic myocardial perfusion stress test with evidence of previous inferior infarct. Previous inferior lateral infarct noted. Minimal enma-infarct ischemia. Normal ejection fraction.
[2018-01-05] MEDS: LORazepam 1 MG Tablet PO (10:54)
--- NOTE | 2018-01-05 11:11 | PCM.DC ---
- Discharge Diagnoses Current Active Problems: Current Active and Chronic Problems Fluttering heart (Acute) CKD (chronic kidney disease), stage III (Chronic) DM2 (diabetes mellitus, type 2) (Chronic) Palpitations (Acute) You will use the following diet at home:: Cardiac Discharge Activity: Return to Normal Activity Allergies/Adverse Reactions: Allergies Iodinated Contrast- Oral and IV Dye Allergy (Verified 01/04/18 22:13) Unknown ranolazine [From Ranexa] Allergy (Verified 01/04/18 22:13) Unknown MISC ANTIBIOTIC Allergy (Uncoded 01/04/18 22:13) Unknown Medications to take at Discharge Atorvastatin Calcium [Lipitor] 40 mg PO QHS 09/09/14 Isosorbide Mononitrate [Isosorbide Mononitrate ER] 60 mg PO DAILY 09/09/14 Levothyroxine [Synthroid] 88 mcg PO DAILY 09/09/14 Lisinopril [Zestril] 5 mg PO QHS 09/09/14 Gabapentin [Neurontin] 400 mg PO 4X/DAY 01/02/16 Lorazepam [Ativan] 1 mg PO 4X/DAY PRN PRN 01/02/16 Furosemide [Lasix] 40 mg PO BID@1000,1800 #60 tablet 10/25/16 Sotalol Hydrochloride [Betapace (Beta Otto)] 80 mg PO BID #60 tablet 10/25/16 Multivitamins,Therapeutic [Multivitamin] 1 tablet PO DAILY 07/21/17 Spironolactone [Aldactone] 25 mg PO DAILY 07/21/17 Calcium Carb/Vitamin D3/Vit K1 [Citracal Soft Chew] 1 each PO DAILY 01/04/18 Calcium Carbonate [Calcium] 500 mg PO DAILY 01/04/18 Cholecalciferol (Vitamin D3) [Vitamin D3] 5,000 unit PO DAILY 01/04/18 Magnesium 200 mg PO DAILY 01/04/18 Metoprolol Tartrate 25 mg PO DAILY 01/04/18 Rivaroxaban [Xarelto] 20 mg PO DAILY 01/04/18 TraMADol [Ultram] 50 mg PO Q6H PRN PRN 01/05/18 Primary Care Physician: Erik Barton [Primary Care Provider] - Within 1 Week Proposed Discharge Date: 01/05/18
--- NOTE | 2018-01-05 11:13 | PCM.DC.SUM ---
Discharge Date and Diagnosis Date of Admission: 01/04/18 Date of Discharge: 01/05/18 - Primary Discharge Diagnosis Active and Suspected Problems Fluttering heart (Acute) Palpitations (Acute) - Secondary Discharge Diagnosis Chronic Problems CKD (chronic kidney disease), stage III (Chronic) DM2 (diabetes mellitus, type 2) (Chronic) History of TIA (transient ischemic attack) and stroke (Chronic) History of percutaneous transluminal coronary angioplasty (Chronic) Peripheral neuropathy (Chronic) History of breast cancer (Chronic) Right Obesity (BMI 30-39.9) (Chronic) Venous insufficiency (Chronic) I87.2 Leg edema (Chronic) Delayed wound healing (Chronic) Malnutrition (Chronic) Chronic ulcer of left leg with fat layer exposed (Chronic) Renal insufficiency (Chronic) Cardiomyopathy, ischemic (Chronic) CAD (coronary artery disease) (Chronic) Type II diabetes mellitus, uncontrolled (Chronic) Atrial fibrillation and flutter (Chronic) SVT (supraventricular tachycardia) (Chronic) Afib (Chronic) Congestive heart failure (CHF) (Chronic) Cushings syndrome (Chronic) Hypothyroidism (Chronic) Hyperlipidemia (Chronic) Hypertension (Chronic) History of CVA (cerebrovascular accident) (Chronic) 2006 ICD (implantable cardioverter-defibrillator) in place (Chronic) 2003 Paroxysmal a-fib (Chronic) Hx of CABG (Chronic) Hospital Course and Treatment Imaging Results: 01/05/18 05:55 Nuclear Stress Test - Chemical [NM] AM (NON MEDS) Operations: None Summary of Care Provided: He is a 57 year old F with an extensive cardiac history presents with 3 day history of heart fluttering. Denies any overt chest pain however. Patient just has not felt well and has been sleeping a lot during the day as well. Patient was concerned and presented to the emergency room. In the emergency room patient was assessed and had no really acute abnormalities other than some noted PVCs. Patient states that the fluttering is intermittent but does feel like when she has had flareups of her atrial fibrillation in the past. She was placed in the hospital for overnight observation, her cardiac enzymes were normal, she underwent a stress test that was negative for ischemia. Was then discharged home in a stable condition symptom-free. Physical exam at the time of discharge; vital signs were stable. He was alert and oriented to time place and person. He did not appear to be any form of distress. S1 and S2 heard no murmur or gallop Lung exam was clear to auscultation with no adventitious sounds. Abdomen was soft nontender with normal bowel sounds. extremity exam did not reveal any edema, palpable pulses bilaterally. Neurologic exam was grossly intact. Discharge Diet: No Restrictions Discharge Activity: Return to Normal Activity Home Medications: Medications to take at Discharge Atorvastatin Calcium [Lipitor] 40 mg PO QHS 09/09/14 Isosorbide Mononitrate [Isosorbide Mononitrate ER] 60 mg PO DAILY 09/09/14 Levothyroxine [Synthroid] 88 mcg PO DAILY 09/09/14 Lisinopril [Zestril] 5 mg PO QHS 09/09/14 Gabapentin [Neurontin] 400 mg PO 4X/DAY 01/02/16 Lorazepam [Ativan] 1 mg PO 4X/DAY PRN PRN 01/02/16 Furosemide [Lasix] 40 mg PO BID@1000,1800 #60 tablet 10/25/16 Sotalol Hydrochloride [Betapace (Beta Otto)] 80 mg PO BID #60 tablet 10/25/16 Multivitamins,Therapeutic [Multivitamin] 1 tablet PO DAILY 07/21/17 Spironolactone [Aldactone] 25 mg PO DAILY 07/21/17 Calcium Carb/Vitamin D3/Vit K1 [Citracal Soft Chew] 1 each PO DAILY 01/04/18 Calcium Carbonate [Calcium] 500 mg PO DAILY 01/04/18 Cholecalciferol (Vitamin D3) [Vitamin D3] 5,000 unit PO DAILY 01/04/18 Magnesium 200 mg PO DAILY 01/04/18 Metoprolol Tartrate 25 mg PO DAILY 01/04/18 Rivaroxaban [Xarelto] 20 mg PO DAILY 01/04/18 TraMADol [Ultram] 50 mg PO Q6H PRN PRN 01/05/18 Primary Care Physician: Erik Barton [Primary Care Provider] - Within 1 Week Disposition: Home Meaningful Use Info Meaningful Use Diagnoses (Choose all that apply): None applicable Code Visit OBSV E&M: 15572 Observation care discharge
== END 2018-01-05 12:37 | disposition home or self-care (01) ==
LOC: ED 23:00 → PCU 01-05 00:16
PROVIDERS: Emergency Provider Emergency Medicine; Family Provider Family Medicine; PCP Family Medicine; Visit Provider Internal Medicine
DX: I13.0 Hypertensive heart and chronic kidney disease with heart failure and stage 1 through stage 4 chronic kidney disease, or unspecified chronic kidney disease (principal); I50.22 Chronic systolic (congestive) heart failure; N18.3 Chronic kidney disease, stage 3 (moderate); E11.22 Type 2 diabetes mellitus with diabetic chronic kidney disease; E11.42 Type 2 diabetes mellitus with diabetic polyneuropathy; E66.9 Obesity, unspecified; I48.0 Paroxysmal atrial fibrillation; E78.5 Hyperlipidemia, unspecified; E11.65 Type 2 diabetes mellitus with hyperglycemia; I25.10 Atherosclerotic heart disease of native coronary artery without angina pectoris; E24.9 Cushing's syndrome, unspecified; E03.9 Hypothyroidism, unspecified; L97.922 Non-pressure chronic ulcer of unspecified part of left lower leg with fat layer exposed; E11.622 Type 2 diabetes mellitus with other skin ulcer; N28.9 Disorder of kidney and ureter, unspecified; I25.5 Ischemic cardiomyopathy; I25.2 Old myocardial infarction; Z79.899 Other long term (current) drug therapy; Z86.73 Personal history of transient ischemic attack (TIA), and cerebral infarction without residual deficits; Z85.3 Personal history of malignant neoplasm of breast; Z68.41 Body mass index [BMI] 40.0-44.9, adult; Z71.3 Dietary counseling and surveillance; Z95.1 Presence of aortocoronary bypass graft; Z95.810 Presence of automatic (implantable) cardiac defibrillator; Z79.01 Long term (current) use of anticoagulants; Z87.891 Personal history of nicotine dependence; Z86.74 Personal history of sudden cardiac arrest
CPT/HCPCS: 36415; 71046; 78452; 80048; 81001; 83735; 83880; 84443; 84484; 85025; 85610; 85730; 87086; 87088; 87804; 93005; 93017; 97802; 99218; 99285; A9500; A4216; G0378; J2785

== ENCOUNTER 2018-02-22 07:03 | Emergency (ER) | payer MEDICARE, SELFPAY ==
[2018-02-22 07:04] VITALS: BP 156/80; PULSE 56; RESP 18; TEMP 36.6; O2SAT 96; BMI 41.1
--- NOTE | 2018-02-22 07:15 | EKG12_ITS ---
Test Reason : EYE PAIN Blood Pressure : / mmHG Vent. Rate : 060 BPM Atrial Rate : 060 BPM P-R Int : 182 ms QRS Dur : 110 ms QT Int : 424 ms P-R-T Axes : 075 028 000 degrees QTc Int : 424 ms Atrial-paced rhythm Abnormal ECG Confirmed by SUPRIYA VELASCO MD ([id number]), index editor TAVO HOLLINS ([id number] on 02/24/2018 2:54:18 PM Referred By: NOREEN Confirmed By:SUPRIYA VELASCO MD
--- NOTE | 2018-02-22 07:15 | CT_ITS ---
STUDY: CT BRAIN WITHOUT CONTRAST REASON FOR EXAM: Female, 57 years old. Vision changes. The patient has history of prior CVA. RADIATION DOSAGE (If Supplied By Facility): CTDIvol = ( 44.99 ) mGy, DLP = ( 863.60 ) mGycm TECHNIQUE: Transaxial CT imaging of the brain was performed without administration of intravenous contrast material. Multiplanar reformations are submitted for interpretation. Individualized dose optimization techniques were used for this CT. COMPARISON: CT of the head dated December 2011. FINDINGS: There is a right-sided orbital mass. This is located within the inferior aspect of the orbit. The mass measures approximately 1.9 x 1.1 x 2.6 cm in size. This mass has increased attenuation. The left orbit has a grossly normal appearance. Additionally there may be a soft tissue mass in the region of the sphenoid sinuses. Normal calvarium. There is mild cerebral atrophy with widening of the extra-axial spaces and ventricular dilatation. There are areas of decreased attenuation within the white matter tracts of the supratentorial brain, consistent with microvascular disease changes. There appears to be an area of encephalomalacia in the right campos radiata, consistent with old infarct. This is unchanged since the previous CT. Normal basal ganglia and thalami. Normal brainstem. Normal cerebellum. There is no intracranial hemorrhage. There is mild atherosclerotic calcification of intracranial arteries. Patient appears of had extensive paranasal sinus surgery. There is a left maxillary mucous retention cyst and possible fluid. CT/Brain/Head without Contrast IMPRESSION: 1. Chronic involutional changes of the brain. 2. Right intraconal orbital mass. Differential considerations include lymphoma. 3. Chronic opacification of the sphenoid sinuses, unchanged since the previous CT. Electronically Signed: Cindy Rodriguez MD at 8:17 EDT , Service support ,
[2018-02-22] MEDS: Tetracaine 0.5% Ophthalmic Bottle 1 DRP EACH EYE (07:43)
[2018-02-22] MEDS: Ondansetron 4 MG/2 ML Vial IV (07:43)
[2018-02-22 07:55] LABS: Basophil# 0.05 X10^3/uL; Basophil% 0.5 % (0-1); Eosinophil# 0.09 X10^3/uL; Eosinophils% 0.8 % (0-5); Hematocrit 41.4 % (37-47); Hemoglobin 13.7 g/dl (12.0-15.0); Lymphocyte % 18.3 % (19-41); Mean Corp Hgb Conc 33.1 g/gl (32-36); Mean Corpuscular Volume 96.7 fL (81-99); Mean Platelet Vol. 10.7 fl (6.2-12.0); Monocyte# 0.74 X10^3/uL; Monocyte% 6.8 % (0-10); Neutrophil # 8.02 X10^3/uL (2.7-7.7); Neutrophil % 73.3 % (47-70); Platelet Count 202 K/mm3 (150-450); RBC Distribution Width CV 13.2 % (11.6-14.6); RBC Distribution Width SD 45.3 fl (35.1-43.9); Red Blood Count 4.28 M/mm3 (4.2-5.4); White Blood Count 10.9 K/mm3 (4.4-11.0)
--- NOTE | 2018-02-22 08:00 | RAD_ITS ---
STUDY: X-RAY CHEST REASON FOR EXAM: Female, 57 years old. Vision problems. Patient has history of breast cancer. TECHNIQUE: Single AP portable view of the chest. COMPARISON: January 04, 2018. FINDINGS: The patient has left-sided intracardiac pacemaker. Patient has had a sternotomy. There is hyperinflation of the lungs consistent with chronic obstructive lung disease (COPD). There is no demonstrated pleural abnormality. There is moderate cardiac enlargement. Normal mediastinum and anny. Normal visualized pulmonary arteries. There is atherosclerotic calcification of the aortic arch with tortuosity. There is demineralization of the osseous structures. Normal visualized ribs, clavicles, and shoulders. There is no demonstrated abnormality of the visualized soft tissue structures of the upper abdomen. RAD/Chest 1 View IMPRESSION: Postoperative changes and cardiomegaly without evidence of acute cardiopulmonary disease. Electronically Signed: Cindy Rodriguez MD at 8:44 EDT , Service support ,
[2018-02-22 08:02] LABS: POSITIVE COUNT NO; POSITIVE DIFFERENTIAL NO; POSITIVE MORPHOLOGY NO
[2018-02-22 08:04] VITALS: BP 138/79; PULSE 61; RESP 17; O2SAT 97; O2SAT 98
[2018-02-22 08:52] LABS: Partial Thromboplast Time 27.2 Seconds (24.1-36.2); Prothrombin Time (Protime)PT. 12.9 SECONDS (11.7-14.9)
--- NOTE | 2018-02-22 08:55 | ED.VISSUMM ---
- ER Visit Summary Date of Service: 02/22/18 Chief Complaint: Right eye pain History of Present Illness: The patient is a 57 F presenting with right eye pain. Patient states that she woke up around 3:30 AM and had pain in her right eye. She also complains of blurry and double vision in her right eye. She states her left eye is also occasionally blurry. No history of injury. She wears glasses, no contacts. She states she took Tylenol and went back to sleep. She woke up and again and had pain in her right eye and presented to the emergency room. Denies headache. She complains of nausea with no vomiting. Denies fever. Denies chest pain or shortness of breath. Denies numbness or weakness. Physical Examination: Vitals are stable. Patient is afebrile. Alert no acute distress. HEENT exam PERRL, EOMI Neck is supple. Lungs are clear and equal bilaterally. Heart is regular rate and rhythm. Abdomen is soft nontender nondistended. Extremities are unremarkable. Skin is warm and dry. No focal neurologic deficit. NIH 0. Remainder of exam is unremarkable. Emergency Department Course and Treatment: Patient was given zofran IV. EKG is paced at a rate of 60. Visual acuity 20/30 OD, 20/50 OS, 20/40 OU. Intraocular pressures range from 6-[address] brain shows right intraconal orbital mass, question of lymphoma. CBC is normal. On repeat evaluation, patient's symptoms are improving. She states her vision is back to baseline. Her pain has improved. Discussed with Dr. Camacho and he will see her in the office this morning. Disposition: Discharge home to follow up with ophtho this morning Impression: Right eye pain This note was generated with [employer] software. It may contain incorrect words, spelling, and punctuation that were not noted in review of the chart prior to signing ED Disposition - Plan for ED Patient: Chief Complaint: Eye Problem Instructions: How the Eye Works Referrals: Erik Barton [Primary Care Provider] - Gregory Camacho MD [STAFF PHYSICIAN] - Additional Instructions: Follow up with Dr Camacho this morning
--- NOTE | 2018-02-22 09:00 | ED.DEP ---
ED Disposition - Plan for ED Patient: Chief Complaint: Eye Problem Instructions: How the Eye Works Referrals: Erik Barton [Primary Care Provider] - Gregory Camacho MD [STAFF PHYSICIAN] - Additional Instructions: Follow up with Dr Camacho this morning
[2018-02-22 09:03] LABS: Anion Gap 4 (5-15); BUN 19 mg/dL (7-18); BUN/Creat Ratio 19.4 RATIO (10-20); Calcium,Total 9.2 mg/dL (8.5-10.1); Chloride 101 mmol/L (98-107); Creatinine, Serum 0.98 mg/dL (0.55-1.02); EST Glomerular Filtration Rate 62 mL/min (>60); Est Glom Filt Rate - Afr Amer 75 mL/min (>60); Estimated Creatinine Clearance 53.37 ml/min; Glucose 98 mg/dL (74-106); Potassium 3.9 mmol/L (3.5-5.1); Sodium Level 137 mmol/L (136-145)
[2018-02-22 09:12] VITALS: BP 142/67; PULSE 64; RESP 15; O2SAT 96
== END 2018-02-22 09:13 | disposition home or self-care (01) ==
PROVIDERS: Emergency Provider Emergency Medicine; Family Provider Family Medicine; PCP Family Medicine
DX: H57.11 Ocular pain, right eye (principal); H53.8 Other visual disturbances; H53.2 Diplopia; H05.89 Other disorders of orbit; I10 Essential (primary) hypertension; G62.9 Polyneuropathy, unspecified; Z79.01 Long term (current) use of anticoagulants; Z79.899 Other long term (current) drug therapy
CPT/HCPCS: 36415; 70450; 71045; 80048; 84484; 85025; 85610; 85730; 93005; 96374; 99285; A4216; J2405

== ENCOUNTER 2018-05-01 08:58 | Emergency (ER) | payer MEDICARE, SELFPAY ==
[2018-05-01 08:59] VITALS: BP 104/45; PULSE 64; RESP 17; TEMP 36.6; O2SAT 97; BMI 43.1
[2018-05-01 09:03] VITALS: PULSE 61; RESP 13; O2SAT 99
--- NOTE | 2018-05-01 09:26 | RAD_ITS ---
STUDY: X-RAY CHEST REASON FOR EXAM: Female, 57 years old. Chest pain. TECHNIQUE: Single AP portable view of the chest. COMPARISON: February 22, 2018. FINDINGS: The patient has had a sternotomy. Patient has left-sided intracardiac pacemaker. The lungs are hyperexpanded. There is perihilar interstitial thickening present in both lungs. There is no demonstrated pleural abnormality. There is mild cardiac enlargement. Normal mediastinum and anny. Normal visualized pulmonary arteries. There is atherosclerotic calcification of the aortic arch with tortuosity. There is demineralization of the osseous structures. Normal visualized ribs, clavicles, and shoulders. There is no demonstrated abnormality of the visualized soft tissue structures of the upper abdomen. RAD/Chest 1 View (Portable) IMPRESSION: Postoperative changes and cardiomegaly without evidence of acute cardiopulmonary disease. Electronically Signed: Cindy Rodriguez MD at 10:27 EDT , Service support ,
--- NOTE | 2018-05-01 09:26 | EKG12_ITS ---
Test Reason : CP Blood Pressure : / mmHG Vent. Rate : 065 BPM Atrial Rate : 065 BPM P-R Int : 184 ms QRS Dur : 100 ms QT Int : 412 ms P-R-T Axes : 070 028 -15 degrees QTc Int : 428 ms Atrial-paced rhythm T wave abnormality, consider anterior ischemia Abnormal ECG Confirmed by ROD ELIAS, SUPRIYA ([id number]), fashion editor TAVO HOLLINS ([id number]) on 05/11/2018 6:10:51 PM Referred By: AZAEL Confirmed By:SUPRIYA VELASCO MD
--- NOTE | 2018-05-01 09:33 | PCA ---
PRINTED OLD EKG
[2018-05-01 09:47] LABS: Absolute Lymphocyte Count 2.19 X10^3/ul (0.83-4.51); Absolute Neutrophil Count 8.8 X10^3/uL (2.0-7.7); Basophil# 0.06 X10^3/uL; Basophil% 0.5 % (0-1); Eosinophil# 0.13 X10^3/uL; Eosinophils% 1.1 % (0-5); Hemoglobin 13.9 g/dl (12.0-15.0); Lymphocyte # 2.19 X10^3/ul (4.0); Lymphocyte % 18.2 % (19-41); Mean Corp Hgb Conc 32.3 g/gl (32-36); Mean Corpuscular Hgb 31.1 pg (27.0-32.0); Mean Corpuscular Volume 96.2 fL (81-99); Mean Platelet Vol. 10.7 fl (6.2-12.0); Monocyte% 7.5 % (0-10); Neutrophil # 8.76 X10^3/uL (2.7-7.7); Neutrophil % 72.5 % (47-70); Platelet Count 218 K/mm3 (150-450); RBC Distribution Width CV 12.9 % (11.6-14.6); RBC Distribution Width SD 44.8 fl (35.1-43.9); Red Blood Count 4.47 M/mm3 (4.2-5.4); White Blood Count 12.1 K/mm3 (4.4-11.0)
[2018-05-01 09:50] LABS: POSITIVE COUNT NO; POSITIVE DIFFERENTIAL NO; POSITIVE MORPHOLOGY NO
[2018-05-01] MEDS: 0.9% Normal Saline 1,000 ML 150 ML IV (09:50)
[2018-05-01] MEDS: Aspirin 81 MG TAB.CHEW 324 MG PO (09:50)
--- NOTE | 2018-05-01 09:59 | ED.VISSUMM ---
- ER Visit Summary Date of Service: 05/01/18 Chief Complaint: Chest pain History of Present Illness: The patient is a [address] Barton and Dr. stanley. She reports that she has chest pain that awoke her from sleep at 1130 yesterday. It is been a constant burning pain since then. It is 10 out of 10 at worst and 8 out of 10 currently. It is unchanged with exertion. It is worsened by breathing. It is relieved by sitting up. She reports he was nauseated and vomited once, but this was prior to the onset of the pain. She does report that she feels slightly short of breath. Patient has no personal or family history of DVT. They drove to [place] 1 week ago. This was a [address] She denies any ankle swelling or calf pain. Patient and also reports that they are going through a lot of stress at home. They have 2 friends that are ill and in the hospital. Her [id number] recently . She definitely feels depressed and has been tearful over the past few days. No suicidal ideation. Physical Examination: Vitals: Stable. Afebrile. General: Well-nourished and well-developed. Head: Normocephalic atraumatic. Neck: Supple, no lymphadenopathy. No JVD. Nontender. Cardiovascular: Regular rate and rhythm. No murmurs. Respiratory: No respiratory distress. Clear to auscultation bilaterally. Mild tenderness palpation over the left side of her chest that does reproduce her pain. Abdominal: Soft, nontender, nondistended, normal bowel sounds. No guarding, rebound, or peritoneal signs. Back: Nontender. Extremities: Nontender, no edema. Skin: Normal color, no rash. Neurologic: Alert and oriented ?3. Cranial nerves II through XII are intact. Normal strength and sensation. Psych: Depressed affect and tearful. Test Results: EKG is atrial paced at 65 with T-wave inversions inferiorly in leads V2 to V6. This is unchanged from January of this year. CBC is marked for a white count of 12.1 with 73 segmented neutrophils and 18 lymphocytes. Chem-7 is normal. Troponin is negative despite 12 hours of constant pain. Chest x-ray shows cardiomegaly and no acute disease. Emergency Department Course and Treatment: Patient was treated with a GI cocktail. She is resting comfortably. On further questioning the patient she reports that she had a salad last night with iceberg lettuce and that this does give her heartburn. She also had a mixed drink and she only drinks approximately once a month. She reports that the symptoms got much worse when she laid down. I suspect that her chest pain is due to reflux. Treatment Plan: Patient will be discharged with instructions to use Zantac as needed. She is given a prescription for Paxil. Instructed to follow-up her primary care physician in 1 week for another exam. Return to the emergency department for any worsening symptoms. Disposition: To home in improved and stable condition. Impression: 1. Atypical chest pain. 2. HEMAL score 3. 3. Heart score 3. 4. Depression. This note was generated with [employer] dictation software. It may contain incorrect words, spelling, and punctuation that were not noted in review of the chart prior to signing ED Disposition - Plan for ED Patient: Chief Complaint: Chest Pain Instructions: ED Chest Pain Atypical Unkn Cause Prescriptions: Paroxetine HCl [Paxil] 20 mg PO DAILY #30 tablet Referrals: Erik Barton MD [Primary Care Provider] - 1 Week
[2018-05-01 10:01] LABS: Anion Gap 6 (5-15); BUN 18 mg/dL (7-18); BUN/Creat Ratio 19.2 RATIO (10-20); Calcium,Total 9.1 mg/dL (8.5-10.1); Chloride 102 mmol/L (98-107); Creatinine, Serum 0.94 mg/dL (0.55-1.02); EST Glomerular Filtration Rate 65 mL/min (>60); Est Glom Filt Rate - Afr Amer 79 mL/min (>60); Estimated Creatinine Clearance 55.65 ml/min; Glucose 99 mg/dL (74-106); Potassium 4.4 mmol/L (3.5-5.1); Sodium Level 137 mmol/L (136-145)
--- NOTE | 2018-05-01 10:02 | ED.DCSUM_ITS ---
- ER Visit Summary Date of Service: 05/01/18 Chief Complaint: Chest pain History of Present Illness: The patient is a [address] Barton and Dr. stanley. She reports that she has chest pain that awoke her from sleep at 1130 yesterday. It is been a constant burning pain since then. It is 10 out of 10 at worst and 8 out of 10 currently. It is unchanged with exertion. It is worsened by breathing. It is relieved by sitting up. She reports he was nauseated and vomited once, but this was prior to the onset of the pain. She does report that she feels slightly short of breath. Patient has no personal or family history of DVT. They drove to [place] 1 week ago. This was a [address] She denies any ankle swelling or calf pain. Patient and also reports that they are going through a lot of stress at home. They have 2 friends that are ill and in the hospital. Her lidxyu-[id number] recently . She definitely feels depressed and has been tearful over the past few days. No suicidal ideation. Physical Examination: Vitals: Stable. Afebrile. General: Well-nourished and well-developed. Head: Normocephalic atraumatic. Neck: Supple, no lymphadenopathy. No JVD. Nontender. Cardiovascular: Regular rate and rhythm. No murmurs. Respiratory: No respiratory distress. Clear to auscultation bilaterally. Mild tenderness palpation over the left side of her chest that does reproduce her pain. Abdominal: Soft, nontender, nondistended, normal bowel sounds. No guarding, rebound, or peritoneal signs. Back: Nontender. Extremities: Nontender, no edema. Skin: Normal color, no rash. Neurologic: Alert and oriented ?3. Cranial nerves II through XII are intact. Normal strength and sensation. Psych: Depressed affect and tearful. Test Results: EKG is atrial paced at 65 with T-wave inversions inferiorly in leads V2 to V6. This is unchanged from January of this year. CBC is marked for a white count of 12.1 with 73 segmented neutrophils and 18 lymphocytes. Chem-7 is normal. Troponin is negative despite 12 hours of constant pain. Chest x- ray shows cardiomegaly and no acute disease. Emergency Department Course and Treatment: Patient was treated with a GI cocktail. She is resting comfortably. On further questioning the patient she reports that she had a salad last night with iceberg lettuce and that this does give her heartburn. She also had a mixed drink and she only drinks approximately once a month. She reports that the symptoms got much worse when she laid down. I suspect that her chest pain is due to reflux. Treatment Plan: Patient will be discharged with instructions to use Zantac as needed. She is given a prescription for Paxil. Instructed to follow-up her primary care physician in 1 week for another exam. Return to the emergency department for any worsening symptoms. Disposition: To home in improved and stable condition. Impression: 1. Atypical chest pain. 2. HEMAL score 3. 3. Heart score 3. 4. Depression. This note was generated with [employer] dictation software. It may contain incorrect words, spelling, and punctuation that were not noted in review of the chart prior to signing ED Disposition - Plan for ED Patient: Chief Complaint: Chest Pain Instructions: ED Chest Pain Atypical Unkn Cause Prescriptions: Paroxetine HCl [Paxil] 20 mg PO DAILY #30 tablet Referrals: Erik Barton MD [Primary Care Provider] - 1 Week
[2018-05-01 10:08] VITALS: O2SAT 95
[2018-05-01 10:37] VITALS: BP 107/74; PULSE 60; RESP 17; O2SAT 98
== END 2018-05-01 10:38 | disposition home or self-care (01) ==
PROVIDERS: Emergency Provider Emergency Medicine; Family Provider Family Medicine; PCP Family Medicine
DX: R07.89 Other chest pain (principal); F32.9 Major depressive disorder, single episode, unspecified; R11.2 Nausea with vomiting, unspecified; R06.00 Dyspnea, unspecified; I25.10 Atherosclerotic heart disease of native coronary artery without angina pectoris; E11.22 Type 2 diabetes mellitus with diabetic chronic kidney disease; I13.0 Hypertensive heart and chronic kidney disease with heart failure and stage 1 through stage 4 chronic kidney disease, or unspecified chronic kidney disease; N18.9 Chronic kidney disease, unspecified; I50.9 Heart failure, unspecified; E78.00 Pure hypercholesterolemia, unspecified; E11.42 Type 2 diabetes mellitus with diabetic polyneuropathy; I48.91 Unspecified atrial fibrillation; E03.9 Hypothyroidism, unspecified; I25.5 Ischemic cardiomyopathy; Z86.73 Personal history of transient ischemic attack (TIA), and cerebral infarction without residual deficits; Z85.3 Personal history of malignant neoplasm of breast; Z95.1 Presence of aortocoronary bypass graft; Z95.810 Presence of automatic (implantable) cardiac defibrillator; Z79.82 Long term (current) use of aspirin; Z79.899 Other long term (current) drug therapy
CPT/HCPCS: 71045; 80048; 84484; 85025; 93005; 96360; 99285; J7030

== ENCOUNTER → 2018-07-05 07:07 | Outpatient (CLI) | payer MEDICARE, SELFPAY ==
[2018-07-05 08:29] LABS: AST(SGOT) 19 U/L (15-37); Alanine Aminotransfer ALT/SGPT 30 U/L (13-56); Albumin, Serum 3.5 g/dL (3.2-5.0); Alkaline Phosphatase 117 U/L (45-117); Anion Gap 6 (5-15); BUN 15 mg/dL (7-18); BUN/Creat Ratio 14.7 RATIO (10-20); Chloride 101 mmol/L (98-107); Creatinine, Serum 1.02 mg/dL (0.55-1.02); EST Glomerular Filtration Rate 59 mL/min (>60); Est Glom Filt Rate - Afr Amer 71 mL/min (>60); Globulin 3.6 g/dL (2.2-4.2); Glucose 97 mg/dL (74-106); Potassium 4.5 mmol/L (3.5-5.1); Protein, Total 7.1 g/dL (6.4-8.2); Sodium Level 141 mmol/L (136-145)
== END ==
PROVIDERS: Family Provider Family Medicine; PCP Family Medicine; Visit Provider Internal Medicine Endocrinology, Diabetes & Metabolism
DX: E03.8 Other specified hypothyroidism (principal)
CPT/HCPCS: 36415; 80053; 84443

== ENCOUNTER 2018-09-24 18:45 | Observation (INO) | payer MEDICARE, SELFPAY ==
[2018-09-24] VITALS (10 sets, daily range): BP systolic 115–144; BP diastolic 67–75; PULSE 60–69; RESP 15–21; TEMP 36.6–37; O2SAT 94–138; BMI 41.4; BMI 40.2; BMI 40.3
--- NOTE | 2018-09-24 18:55 | EKG12_ITS ---
Test Reason : CP ADMISSION Blood Pressure : / mmHG Vent. Rate : 069 BPM Atrial Rate : 069 BPM P-R Int : 196 ms QRS Dur : 106 ms QT Int : 412 ms P-R-T Axes : 085 044 -44 degrees QTc Int : 441 ms Atrial-paced rhythm with occasional ventricular-paced complexes and with occasional Premature ventric ular complexes Cannot rule out Inferior infarct , age undetermined ST & T wave abnormality, consider anterolateral ischemia Abnormal ECG Confirmed by VLADIMIR ELIAS, TALIB ([id number]), editorial project manager TAVO HOLLINS ([id number]) on 09/29/2018 4:07:40 PM Referred By: AMIE Confirmed By:TALIB GILBERT MD
--- NOTE | 2018-09-24 19:00 | RAD_ITS ---
STUDY: X-RAY CHEST REASON FOR EXAM: Female, 58 years old. Chest pain. TECHNIQUE: Single frontal view of the chest. COMPARISON: May 01, 2018 FINDINGS: There is no new focal consolidation. There is a pacer device in place. Sternal cerclage wires are present from a prior sternotomy. There is cardiomegaly. Normal mediastinum and anny. Normal visualized pulmonary arteries. Normal visualized aortic arch and descending thoracic aorta. Normal visualized thoracic spine. Normal visualized ribs, clavicles, and shoulders. There is no demonstrated abnormality of the visualized soft tissue structures of the upper abdomen. RAD/Chest 1 View (Portable) IMPRESSION: Cardiomegaly. Electronically Signed: Celeste Rouse MD at 19:45 EDT Tel , Service support ,
[2018-09-24 19:40] LABS: Absolute Lymphocyte Count 1.96 X10^3/ul (0.83-4.51); Basophil# 0.02 X10^3/uL; Basophil% 0.2 % (0-1); Eosinophil# 0.04 X10^3/uL; Eosinophils% 0.3 % (0-5); Hematocrit 41.5 % (37-47); Hemoglobin 13.2 g/dl (12.0-15.0); Lymphocyte # 1.96 X10^3/ul (4.0); Lymphocyte % 15.1 % (19-41); Mean Corp Hgb Conc 31.8 g/gl (32-36); Mean Corpuscular Hgb 30.5 pg (27.0-32.0); Mean Corpuscular Volume 95.8 fL (81-99); Mean Platelet Vol. 11.3 fl (6.2-12.0); Monocyte# 0.96 X10^3/uL; Monocyte% 7.4 % (0-10); Neutrophil # 9.99 X10^3/uL (2.7-7.7); Neutrophil % 76.8 % (47-70); POSITIVE COUNT NO; POSITIVE DIFFERENTIAL NO; POSITIVE MORPHOLOGY NO; Platelet Count 205 K/mm3 (150-450); RBC Distribution Width CV 13.3 % (11.6-14.6); RBC Distribution Width SD 46.2 fl (35.1-43.9); Red Blood Count 4.33 M/mm3 (4.2-5.4)
[2018-09-24 19:50] LABS: Anion Gap 7 (5-15); BUN 26 mg/dL (7-18); BUN/Creat Ratio 22.6 RATIO (10-20); Calcium,Total 9.4 mg/dL (8.5-10.1); Chloride 101 mmol/L (98-107); Creatinine, Serum 1.15 mg/dL (0.55-1.02); EST Glomerular Filtration Rate 51 mL/min (>60); Est Glom Filt Rate - Afr Amer 62 mL/min (>60); Estimated Creatinine Clearance 46.81 ml/min; Glucose 117 mg/dL (74-106); Potassium 3.5 mmol/L (3.5-5.1); Sodium Level 138 mmol/L (136-145)
--- NOTE | 2018-09-24 20:34 | HP.PCM_ITS ---
Problem List (1) Chest pain Status: Acute Qualifiers: Chest pain type: unspecified Qualified Code(s): R07.9 - Chest pain, unspecified (2) CKD (chronic kidney disease), stage III Status: Chronic (3) Peripheral neuropathy Status: Chronic Qualifiers: Peripheral neuropathy type: polyneuropathy, unspecified Qualified Code(s): G62.9 - Polyneuropathy, unspecified (4) History of breast cancer Status: Chronic Comment: Right (5) Cardiomyopathy, ischemic Status: Chronic (6) CAD (coronary artery disease) Status: Chronic Qualifiers: Coronary Disease-Associated Artery/Lesion type: unspecified vessel or lesion type [place] vs. transplanted heart: unspecified whether [place] or transplanted heart Associated angina: angina presence unspecified Qualified Code(s): I25.10 - Atherosclerotic heart disease of [place] coronary artery without angina pectoris (7) Type II diabetes mellitus, uncontrolled Status: Chronic (8) SVT (supraventricular tachycardia) Status: Chronic (9) Congestive heart failure (CHF) Status: Chronic Qualifiers: Heart failure type: systolic Heart failure chronicity: chronic Qualified Code(s): I50.22 - Chronic systolic (congestive) heart failure (10) Cushings syndrome Status: Chronic (11) Hypothyroidism Status: Chronic Qualifiers: Hypothyroidism type: unspecified Qualified Code(s): E03.9 - Hypothyroidism, unspecified (12) Hyperlipidemia Status: Chronic Qualifiers: Hyperlipidemia type: unspecified Qualified Code(s): E78.5 - Hyperlipidemia, unspecified (13) Hypertension Status: Chronic Qualifiers: Hypertension type: essential hypertension Qualified Code(s): I10 - Essential (primary) hypertension (14) History of CVA (cerebrovascular accident) Status: Chronic Comment: 2006 (15) ICD (implantable cardioverter-defibrillator) in place Status: Chronic Comment: 2002 (16) Paroxysmal a-fib Status: Chronic (17) Hx of CABG Status: Chronic History of Present Illness Date of Admission: 09/24/18 Chief Complaint: chest pain The patient is a 58 y/o F w/ PMHx: Anxiety and Depression, CKD stage III, Morbid Obesity, HTN, HLD, Hypothyroidism, CAD s/p CABG and PCI, History of R Breast CA, Chronic Atrial Fibrillation s/p pacemaker, History of CVA, Cushings Syndrome, Chronic Systolic CHF s/p AICD, Diabetes mellitus type II, Former Tobacco use who presents to the [facility] ED on 09/24/18 with history of onset chest pain, noted to be upper in location, across the chest with associated diaphoresis and dyspnea, intermittent, rated 10/10 when it does occur, sharp in nature, lasting 2-3 minutes and resolving, occurring several times per day over the last 2 days. She follows w/ Dr. Lane for Cardiology. She notes some concern that it could be from her AICD/pacemaker although she denies any kicks but has frequently had complaints of fluttering sensation. Work-up in the ED included T 98.6, heart rate 68, BP 131/67, respiratory rate 18, 94% room air, CBC with WBC 13, hemoglobin 13.2, platelet 205 with left shift, BMP with BUN creatinine 26/1.15, glucose 117, troponin < 0.015, EKG paced without acute findings, CXR with new megaly with no acute cardia pulmonary findings otherwise. In the ED patient ministered aspirin 325 mg p.o. x1. Past Medical History Past Medical History (Chronic Problems): Chronic Problems CKD (chronic kidney disease), stage III (Chronic) DM2 (diabetes mellitus, type 2) (Chronic) History of TIA (transient ischemic attack) and stroke (Chronic) History of percutaneous transluminal coronary angioplasty (Chronic) Peripheral neuropathy (Chronic) History of breast cancer (Chronic) Right Obesity (BMI 30-39.9) (Chronic) Venous insufficiency (Chronic) I87.2 Leg edema (Chronic) Delayed wound healing (Chronic) Malnutrition (Chronic) Chronic ulcer of left leg with fat layer exposed (Chronic) Renal insufficiency (Chronic) Cardiomyopathy, ischemic (Chronic) CAD (coronary artery disease) (Chronic) Type II diabetes mellitus, uncontrolled (Chronic) Atrial fibrillation and flutter (Chronic) SVT (supraventricular tachycardia) (Chronic) Afib (Chronic) Congestive heart failure (CHF) (Chronic) Cushings syndrome (Chronic) Hypothyroidism (Chronic) Hyperlipidemia (Chronic) Hypertension (Chronic) History of CVA (cerebrovascular accident) (Chronic) 2006 ICD (implantable cardioverter-defibrillator) in place (Chronic) 2002 Paroxysmal a-fib (Chronic) Hx of CABG (Chronic) Allergies Iodinated Contrast- Oral and IV Dye Allergy (Verified 09/24/18 18:54) Unknown ranolazine [From Ranexa] Allergy (Verified 09/24/18 18:54) Unknown MISC ANTIBIOTIC Allergy (Uncoded 09/24/18 18:54) Unknown Home Medications: Ambulatory Orders Medication Instructions Recorded Atorvastatin Calcium [Lipitor] 40 mg PO QHS 09/09/14 Isosorbide Mononitrate [Isosorbide 60 mg PO DAILY 09/09/14 Mononitrate ER] Levothyroxine [Synthroid] 88 mcg PO DAILY 09/09/14 Lisinopril [Zestril] 5 mg PO QHS 09/09/14 Gabapentin [Neurontin] 400 mg PO 4X/DAY 01/02/16 Lorazepam [Ativan] 1 mg PO 4X/DAY PRN PRN 01/02/16 Furosemide [Lasix] 40 mg PO BID@1000,1800 #60 tablet 10/25/16 Multivitamins,Therapeutic 1 tablet PO DAILY 07/21/17 [Multivitamin] Spironolactone [Aldactone] 25 mg PO DAILY 07/21/17 Calcium Carb/Vitamin D3/Vit K1 1 each PO DAILY 01/04/18 [Citracal Soft Chew] Calcium Carbonate [Calcium] 1,200 mg PO DAILY 01/04/18 Cholecalciferol (Vitamin D3) 5,000 unit PO DAILY 01/04/18 [Vitamin D3] Magnesium 200 mg PO DAILY 01/04/18 Metoprolol Tartrate 50 mg PO BID 01/04/18 traMADol [Ultram] 50 mg PO Q6H PRN PRN 01/05/18 Aspirin [Adult Aspirin Regimen] 81 mg PO QODAY 05/01/18 Paroxetine HCl [Paxil] 20 mg PO DAILY #30 tablet 05/01/18 Surgical History: angioplasty, coronary bypass surgery, - - Pituitary surgery, right breast mastectomy (2000), hysterectomy, knee arthroscopy, implanted pacemaker/defibrillator, coronary revascularization in 1998, and coronary angioplasties ?18 with 5 implanted coronary stents. 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 Paternal History Items: Heart Disease, - - Patient's father at the age of 56, with a history of cardial infarction. Review of Systems Constitutional: Reports: Fatigue. Denies: Chills, Fever, Weight Change HEENT: Denies: Head Aches, Sinus Congestion, Sinus Drainage Cardiovascular: Reports: Chest Pain, Light Headedness. Denies: Orthopnea, Palpitations, Syncope Respiratory: Reports: Shortness of Breath, Shortness of breath at rest, Shortness of breath upon exertion. Denies: Cough, Sputum production Gastrointestinal: Reports: Nausea. Denies: Abdominal Pain, Vomiting Genitourinary: Denies: Dysuria Musculoskeletal: Reports: Back Pain, Joint Pain. Denies: Joint Tenderness Skin: Denies: Rash, Wounds Neurological: Denies: Numbness, Tingling, Focal weakness Psychiatric: Reports: Anxiety, Depression. Denies: Homicidal Ideations, Suicidal Ideations Hematologic/ Lymphatic: Reports: Anemia. Denies: Easy Bruising, Easy Bleeding VTE Information - Inpt Only VTE Present on Admission: No VTE Mechan Device Prophylaxis: SCD's VTE Pharm Prophylaxis ordered?: Yes Patient Problems: Active and Suspected Problems Chest pain (Acute) Subjective: Seated upright in the ED bed, NAD, denies any current chest pain. Objective: Physical Examination: General: awake, alert, oriented x 3 and cooperative, seated upright in the ED bed in no apparent distress. Skin: normal color, turgor, no icterus, cyanosis. HEENT: AT/NC, EOMI, PERRLA, MMM, no carotid bruits or JVD noted; however, thickened neck makes examination difficult. Lungs: CTA bilaterally, moderate effort, mild decrease BL bases, no rales, ronchi or wheezing. Heart: Regular rate and rhythm (paced); no gallop, rub audible. Abdomen: soft, morbidly obese, NTTP, ND, normal BS, no HSM; however, habitus makes examination difficult. Extremities: no cyanosis, clubbing, mild BL ankle non-pitting edema. Neurological: patient awake, alert, oriented x 3; cognitive function intact; pupils equally reactive to light and accomodation; cranial nerves II-XII grossly normal, moving all 4 extremities, no focal deficits, strength moderately globally decreased. Psychiatric: affect appears normal, no acute evidence of depressive or anxiety feelings. - Physical Exam Vital Signs Temp Pulse Resp BP Pulse Ox 98.6 F 60 15 138/71 H 138 09/24/18 18:47 09/24/18 20:08 09/24/18 20:08 09/24/18 20:08 09/24/18 20:08 Oxygen Delivery Method Room Air Weight: 249 lb Body Mass Index (BMI) 41.4 Laboratory Tests Past 24 Hrs 09/24/18 09/24/18 18:55 18:55 WBC 13.0 H RBC 4.33 Hgb 13.2 Hct 41.5 MCV 95.8 MCH 30.5 MCHC 31.8 L RDW 13.3 RDW Differential 46.2 H Plt Count 205 MPV 11.3 Immature Gran % (Auto) 0.200 Neut % (Auto) 76.8 H Lymph % (Auto) 15.1 L [place] % (Auto) 7.4 Eos % (Auto) 0.3 Baso % (Auto) 0.2 Absolute Neuts (auto) 10.0 H Absolute Lymphs (auto) 1.96 Total Counted Not Reportable Sodium 138 Potassium 3.5 Chloride 101 Carbon Dioxide 30.0 Anion Gap 7 BUN 26 H Creatinine 1.15 H Estim Creat Clear Calc 46.81 Est GFR (MDRD) Af Amer 62 Est GFR (MDRD) Non-Af 51 L BUN/Creatinine Ratio 22.6 H Glucose 117 H Calcium 9.4 Troponin I < 0.015 Assessment/Plan All Active Problems Fluttering heart (Acute) Palpitations (Acute) Chest pain (Acute) Cellulitis, leg (Resolved) VICENTE (acute kidney injury) (Acute) Chest pain (Acute) The patient is a 58 y/o F w/ PMHx: Anxiety and Depression, CKD stage III, Morbid Obesity, HTN, HLD, Hypothyroidism, CAD s/p CABG and PCI, History of R Breast CA, Chronic Atrial Fibrillation s/p pacemaker, History of CVA, Cushings Syndrome, Chronic Systolic CHF s/p AICD, Diabetes mellitus type II, Former Tobacco use who presents to the [facility] ED on 09/24/18 with history of onset chest pain, noted to be upper in location, across the chest with associated diaphoresis and dyspnea, intermittent, rated 10/10 when it does occur, sharp in nature, lasting 2-3 minutes and resolving, occurring several times per day over the last 2 days. (1) Chest Pain: EKG in ED no acute evidence of ischemia, CXR w/ no acute findings, initial trop normal x 1. Will admit to PCU, place on a monitored bed to assure no acute myocardial infarction with serial cardiac enzymes and EKGs. Patient w/ recent stress testing performed 01/05/18 noting evidence of prior inferior infarct with minimal enma-infarct ischemia with normal EF negative for any acute evidence of ischemia. Will request Cardiology consultation given recent stress testing and underlying notable history. ASA, NG, morphine. FLP in AM. Mag pending. (2) CAD: s/p CABG and PCI, recent stress testing performed 01/05/18 noting evidence of prior inferior infarct with minimal enma-infarct ischemia with normal EF negative for any acute evidence of ischemia, maintain on aspirin, statin, metoprolol. (3) Chronic Systolic CHF: Compensated, noted last ECHO 01/02/16 w/ mild segmental systolic dysfunction, EF 40%, mildly enlarged LA, trivial MVI, trivial TBI, trivial PVI, trivial PVI, maintain on aspirin, statin, Lasix, lisinopril, metoprolol, spironolactone. (4) Chronic Atrial fibrillation: s/p AICD/pacemaker, will request interrogation given vague presentation, maintain on metoprolol, not anticoagulated currently but was prior and given no events x 1 year was taken off. (5) ? Diabetes mellitus type II: Noted history, not on regimen, obtain HgBA1c, in interim ADA diet, accu checks w/ ISS. (6) Chronic Kidney Disease Stage III: Admission BUN/Cr 26/1.15, consistent with her baseline renal function, repeat BMP in AM. (7) Hypertension: Continue home regimen including Lasix, isosorbide, lisinopril, metoprolol, spironolactone, PRN hydralazine. (8) Hyperlipidemia: Continue home statin regimen. AM FLP. (9) Hypothyroidism: Continue home synthroid regimen. (10) Morbid Obesity: Weight loss and lifestyle changes encouraged, nutrition consulted. (11) Anxiety and Depression: Continue home paxil and ativan regimen. (12) Former Tobacco use: Encourage continued tobacco cessation. (13) History of R Breast CA: s/p mastectomy, remission. (14) DVT prophylaxis: SCDs, renally dose Lovenox. Code Visit OBSV E&M: [id number] Initial observation care L3
--- NOTE | 2018-09-24 20:45 | ED.DCSUM_ITS ---
- ER Visit Summary Date of Service: 09/24/18 Chief Complaint: Chest pain History of Present Illness: The patient is a 58 F with upper chest pain for the past 2 days. This has been increasing in severity and today she had diaphoresis. She had similar symptoms in the past with her myocardial infarction in 1996. The patient has a history of hypertension and hyperlipidemia. She has breast cancer in remission and an implanted defibrillator for atrial fibrillation, according to the patient. Physical Examination: Afebrile and vital signs unremarkable. Patient sitting upright and appears comfortable and in no acute distress. Alert and oriented. Skin appears normal without diaphoresis or pallor. Heart regular rate and rhythm. Lungs clear bilaterally. Abdomen soft and nontender. Calves soft and supple. Pulses strong and equal. Test Results: EKG showed a paced rhythm at a rate of 60. Nonspecific T wave changes. No sign of acute infarction pattern. CBC showed a white count of 13 but was otherwise unremarkable. BUN 26 and creatinine 1.15. Troponin normal. Chest x-ray showed cardiomegaly but no acute issues. Emergency Department Course and Treatment: Patient treated with aspirin. On reevaluation, she does have some continued discomfort. She is concerned it is related to her pacemaker. She denies any sudden and severe pains that would indicate a defibrillation. I am concerned given her history and similar symptoms with a prior NE, she will be admitted for further care. Treatment Plan: As above Disposition: Admission Impression: 1. Chest pain This note was generated with [employer] dictation software. It may contain incorrect words, spelling, and punctuation that were not noted in review of the chart prior to signing ED Disposition - Plan for ED Patient: Chief Complaint: Chest Pain Referrals: Erik Barton MD [Primary Care Provider] -
[2018-09-24] MEDS: fentaNYL 100 MCG/2 ML Ampul 50 MCG IV (21:19)
--- NOTE | 2018-09-24 22:00 | ECHOD_ITS ---
[id number] ECHO^ECHOD^Echo Complete [id number] TAG_START Cardiovascular Services Echocardiogram [address] [place], [place] [address] Ordering Physician: Sherly Goldberg TAG_ENDED TAG_START Name: LENNOX SNELL Study Date: 09/26/2018 10:04 AM BP: 104/56 mmHg Patient Location: [facility]^[id number]^1 BSA: 2.1 m2 : 1960 Gender: Female Height: 65 in Age: 58 yrs Weight: 230 lb History: CKD stage III, CMP, CAD, CABG, DM II, SVT, CHF, Cushings syndrome, Hypothyroid, HLD, HTN, Previous smoker, Hx of CVA, AICD, PAF, Obesity, Hx of breast CA TAG_ENDED Reason For Study: CHF Procedure This was a 2D Doppler, Color Flow transthoracic echocardiogram. Myocardial strain analysis was performed in this exam to aid in the assessment of cardiac function. Exam performed in department. Left Ventricle Moderately dilated left ventricle. The estimated ejection fraction is 40-45 %. Stage 2 diastolic dysfunction. There are regional wall motion abnormalities as specified. Posterior-Basal: Hypokinetic. Infero-Basal: Hypokinetic. Mid-Inferior: Severely Hypokinetic. TAG_START I Segments Size 1-2 small X - Cannot 1 - Normal 2 - 3 - Akinetic 4 - Dyskinetic3-5 moderate Interpret Hypokinetic 6-14 large 5 - Aneurysmal 15-16 diffuse TAG_ENDED Right Ventricle Normal size and thickness. ICD or pacer leads identified within the right ventricle. Normal systolic function. Atria Normal left atrium. Normal right atrium. Normal atrial septum. Mitral Valve The mitral valve is structurally normal. No prolapse or stenosis seen. Tricuspid Valve Normal tricuspid valve. Trivial tricuspid valve insufficiency. Right ventricular systolic pressure estimated to be 22 mmHg. Aortic Valve Trisinus/trileaflet aortic valve. Mild diffuse aortic valve thickening. Mild (1+) aortic valve insufficiency. Pulmonic Valve Normal pulmonic valve. Great Vessels Normal aortic root. Normal arch. Normal inferior vena cava. Inferior vena cava collapse with sniff. Pericardium/Pleural No pericardial effusion. MMode/2D Measurements & Calculations LVIDd: 5.7 cm IVSd: 1.3 cm Ao root diam: 3.8 cm LVIDs: 4.5 cm LVPWd: 1.2 cm RVDd: 3.3 cm FS: 20.7 % LAV(MOD-bp): 46.7 ml LVAd ap4: 30.2 cm2 SV(MOD-sp4): 42.5 ml LAV(MOD-bp) Indexed: 22.3 ml/m2 EDV(MOD-sp4): 91.3 ml LAV(MOD-sp2): 41.1 ml EDV(sp4-el): 90.2 ml LAV(MOD-sp4): 52.0 ml LVAs ap4: 20.7 cm2 ESV(MOD-sp4): 48.8 ml ESV(sp4-el): 46.1 ml EF(MOD-sp4): 46.6 % EF(sp4-el): 48.9 % SV(sp4-el): 44.1 ml LA A4 area: 18.9 cm2 LA dimension(2D): 3.7 cm RA A4 area: 15.0 cm2 Doppler Measurements & Calculations MV E max hola: 83.5 cm/sec Lat Peak E' Hola: 8.1 cm/sec Med Peak E' Hola: 3.8 cm/sec MV A max hola: 66.6 cm/sec E/E' lat: 10.3 E/E' med: 21.9 MV E/A: 1.3 Ao V2 max: 156.3 cm/sec AI max hola: 337.8 cm/sec LV V1 max: 132.6 cm/sec Ao max P.8 mmHg AI max P.7 mmHg LV V1 max P.0 mmHg Ao V2 mean: 108.2 cm/sec AI dec slope: 152.0 cm/sec2 Ao mean P.3 mmHg AI P1/2t: 650.7 msec Ao V2 VTI: 35.6 cm PA V2 max: 81.7 cm/sec TR max hola: 203.7 cm/sec TR max P.6 mmHg Interpretation Summary Moderately dilated left ventricle. The estimated ejection fraction is 40-45 %. Stage 2 diastolic dysfunction. There are regional wall motion abnormalities as specified. Right ventricular systolic pressure estimated to be 22 mmHg. Trivial to mild (1+) aortic valve insufficiency. Compared to echo report dated 01/03/2016, no appreciable changes noted. TAG_START TAG_ENDED Ordering Physician: Sherly Goldberg Referring Physician: Erik Barton Performed By: Cecilia Joy RDCS, RVT
--- NOTE | 2018-09-24 22:00 | EKG12_ITS ---
Test Reason : CP Blood Pressure : / mmHG Vent. Rate : 065 BPM Atrial Rate : 065 BPM P-R Int : 188 ms QRS Dur : 110 ms QT Int : 452 ms P-R-T Axes : 072 037 267 degrees QTc Int : 470 ms Atrial-paced rhythm with occasional Premature ventricular complexes Possible Inferior infarct , age undetermined Nonspecific ST and T wave abnormality Abnormal ECG Confirmed by VLADIMIR ELIAS, TALIB ([id number]), supervising editor trailer TAVO HOLLINS ([id number]) on 09/29/2018 4:07:05 PM Referred By: AMIE Confirmed By:TALIB GILBERT MD
[2018-09-24 22:33] LABS: Hemoglobin A1c 5.8 % (4.2-6.3)
[2018-09-24 22:34] LABS: Magnesium 2.2 mg/dL (1.6-2.6)
[2018-09-24] MEDS: Atorvastatin Calcium 40 MG Tablet PO (22:57)
[2018-09-24] MEDS: Lisinopril 5 MG Tablet PO (22:57)
[2018-09-24] MEDS: Gabapentin 400 MG Capsule PO (22:57)
[2018-09-24] MEDS: Metoprolol Tartrate 25 MG Tablet 50 MG PO (22:58)
[2018-09-24 23:06] LABS: Bedside Glucose 159 mg/dL (70-110)
[2018-09-25] VITALS (15 sets, daily range): BP systolic 105–143; BP diastolic 51–77; PULSE 60–63; RESP 12–18; TEMP 36.5–37; O2SAT 93–98
[2018-09-25] MEDS: HYDROcodone Bitartrate/Apap 5/325 Tablet PO ×2 (03:06→23:14)
[2018-09-25] MEDS: Levothyroxine 88 MCG Tablet PO (05:28)
--- NOTE | 2018-09-25 05:46 | NURSING ---
During admission process, pt made concerning statements. Pt stated, tired of fighting. States she does not like taking her meds. Pt states, I would never do anything. Pt states she was revived at this hospital in 1996, states, sometimes I wonder why. assistant curator called to pt room d/t concerning statements. assistant curator and this RN spoke with pt and pt adamantly confirmed that she would not hurt herself.
--- NOTE | 2018-09-25 05:55 | EKG12_ITS ---
Test Reason : AM EKG Blood Pressure : / mmHG Vent. Rate : 060 BPM Atrial Rate : 060 BPM P-R Int : 208 ms QRS Dur : 108 ms QT Int : 442 ms P-R-T Axes : 000 037 -29 degrees QTc Int : 442 ms Atrial-paced rhythm Possible Inferior infarct , age undetermined Nonspecific ST and T wave abnormality Abnormal ECG Confirmed by VLADIMIR ELIAS, TALIB ([id number]), continuity editor TAVO HOLLINS ([id number]) on 09/29/2018 4:05:25 PM Referred By: AMIE Confirmed By:TALIB GILBERT MD
[2018-09-25 07:09] LABS: Hematocrit 38.3 % (37-47); Hemoglobin 12.1 g/dl (12.0-15.0); Mean Corp Hgb Conc 31.6 g/gl (32-36); Mean Corpuscular Hgb 30.3 pg (27.0-32.0); Mean Platelet Vol. 11.4 fl (6.2-12.0); Platelet Count 181 K/mm3 (150-450); RBC Distribution Width CV 13.4 % (11.6-14.6); Red Blood Count 3.99 M/mm3 (4.2-5.4); White Blood Count 9.9 K/mm3 (4.4-11.0)
[2018-09-25 07:15] LABS: Scan Indicated on CBC? Y/N NO
[2018-09-25 07:47] LABS: AST(SGOT) 16 U/L (15-37); Alanine Aminotransfer ALT/SGPT 30 U/L (13-56); Albumin, Serum 3.3 g/dL (3.2-5.0); Alkaline Phosphatase 115 U/L (45-117); Anion Gap 9 (5-15); BUN 21 mg/dL (7-18); BUN/Creat Ratio 24.2 RATIO (10-20); Calcium,Total 9.1 mg/dL (8.5-10.1); Chloride 102 mmol/L (98-107); Cholesterol 147 mg/dL (200); Creatinine, Serum 0.87 mg/dL (0.55-1.02); EST Glomerular Filtration Rate 71 mL/min (>60); Est Glom Filt Rate - Afr Amer 86 mL/min (>60); Estimated Creatinine Clearance 61.88 ml/min; Globulin 3.3 g/dL (2.2-4.2); Glucose 104 mg/dL (74-106); High Density Lipoprotein 55 mg/dL; Protein, Total 6.6 g/dL (6.4-8.2); Sodium Level 139 mmol/L (136-145); Triglycerides 110 mg/dL; Very Low Density Lipoprotein 22 mg/dL (5-40)
[2018-09-25] MEDS: Spironolactone 25 MG Tablet PO (08:55)
[2018-09-25] MEDS: Metoprolol Tartrate 25 MG Tablet 50 MG PO ×2 (08:56→21:55)
[2018-09-25] MEDS: Furosemide 40 MG Tablet PO ×2 (08:56→18:24)
[2018-09-25] MEDS: Enoxaparin 30 MG/0.3 ML Syringe SC (08:56)
[2018-09-25] MEDS: Isosorbide Mononitrate 60 MG Tablet PO (08:56)
[2018-09-25] MEDS: Gabapentin 400 MG Capsule PO ×4 (08:57→21:56)
--- NOTE | 2018-09-25 10:14 | STEWCON_ITS ---
[id number] ECHO^STEWCON^Stress Test Echo W/Contrast [id number] TAG_START Cardiovascular Services Stress Echocardiogram [address] [id number] Ordering Physician: Kamlesh^Raymond^^^ TAG_ENDED TAG_START Name: LENNOX SNELL Study Date: 09/26/2018 10:57 AM Patient Location: [facility]^1 BSA: 2.1 m2 : 1960 Gender: Female Height: 65 in Age: 58 yrs Weight: 241 lb History: Chest Pain,Cardiomyopathy, Hx of Afib, CABG x 4 1988, Hypertension,. Hyperlipidemia, ICD, Diabetic - Type II, + Family Hx TAG_ENDED Reason For Study: CAD/ASHD Stress Results Protocol: Dobutamine Stress Echocardiogram Maximum Predicted HR: 160 bpm Target HR: 136 bpm % Maximum Predicted HR: 69 % Heart Stage Duration Rate BP Dose Comment (mm:ss) (bpm) BASELINE 60 128/74 DILUTED DEFINITY USED- 7 ML DSE- 10 MCG 3:50 63 107/6710.00 DSE- 20 MCG 3:34 60 129/6620.00 DSE- 30 NUMBNESS/TINGLING IN FACE NECK, ATROPINE 0.25 MG IVP GIVEN MCG 3:25 83 117/5630.00@1145 DSE- 40 MCG 3:16 111 126/6140.00ATROPINE 0.25 MG IVP GIVEN @ 1148 RECOVERY 70 102/74 Stress Duration: 14:05 mm:ss Maximum Stress HR: 111 bpm TAG_START I Segments Size 1-2 small X - Cannot 1 - Normal 2 - 3 - Akinetic 4 - Dyskinetic3-5 moderate Interpret Hypokinetic 6-14 large 5 - Aneurysmal 15-16 diffuse TAG_ENDED Baseline Echocardiogram Findings The estimated ejection fraction is 45 %. Stress Echo Wall motion Data Resting WM Intermediate WM Stress WM Resting Wall Motion Posterior-Basal: Mildly hypokinetic. Mid-Posterior: Mildly hypokinetic. Mid-Inferior: Mildly hypokinetic. EKG Data The baseline ECG displays normal sinus rhythm. The patient was titrated from 10 mcg to a maximum of 40 mcg of dobutamine during the stress. The maximum heart rate attained was 111 beats per minute. This was 69% of maximum predicted heart rate. During dobutamine infusion, there were no ST or T wave changes noted to suggest ischemia. No clinical angina was noted. Interpretation Summary The estimated ejection fraction is 45 %. Normal, adequate, dobutamine echocardiogram. Negative for ischemia by EKG and echocardiographic criteria. No anginal symptoms noted. Moderate PVCs noted with peak dobutamine infusion. Although patient did not reach target heart rate, she did have an adequate rate pressure product of 11,466. Patient had baseline inferior posterior hypokinesis due to previous NM, and had good augmentation of the anterior lateral khalil. Final LVEF of 55%. Test terminated due to the end of dobutamine run. No complications. TAG_START TAG_ENDED Ordering Physician: Kamlesh^Raymond^^^ Referring Physician: Erik Barton MD Performed By:
[2018-09-25] MEDS: 0.9% NaCl Peripheral Flush Adult/Peds IV ×2 (11:07→18:22)
[2018-09-25] MEDS: Morphine 2 MG/ML Syringe IV ×2 (11:07→18:23)
--- NOTE | 2018-09-25 11:09 | EKG12_ITS ---
Test Reason : CHESTPAIN Blood Pressure : / mmHG Vent. Rate : 060 BPM Atrial Rate : 060 BPM P-R Int : 200 ms QRS Dur : 102 ms QT Int : 436 ms P-R-T Axes : 052 035 -49 degrees QTc Int : 436 ms Atrial-paced rhythm Cannot rule out Inferior infarct , age undetermined T wave abnormality, consider anterolateral ischemia Abnormal ECG Confirmed by VLADIMIR ELIAS, TALIB ([id number]), editor news TAVO HOLLINS ([id number]) on 09/29/2018 4:01:54 PM Referred By: AMIE Confirmed By:TALIB GILBERT MD
--- NOTE | 2018-09-25 12:16 | PCM.PN.HOSP ---
Patient Problems: Active and Suspected Problems Chest pain (Acute) Subjective: Patient was seen and examined. Had an episode of chest pain in the morning that radiated to the right side of the neck, relieved somehow with morphine. She is due to have a stress test in the a.m. Vitals/I&O's: Vital Signs Temp Pulse Resp BP Pulse Ox 98.0 F 63 18 127/62 H 98 09/25/18 09:00 09/25/18 10:59 09/25/18 09:00 09/25/18 09:00 09/25/18 09:00 Oxygen Delivery Method Room Air Weight: 109.8 kg Body Mass Index (BMI) 40.2 Intake and Output for Last 24 Hours 09/23/18 09/24/18 09/25/18 23:59 23:59 23:59 Intake Total 170 / 170 80 / 80 Balance 170 / 170 80 / 80 General: Alert, Oriented x3, Cooperative, - - Obese HEENT: Atraumatic, PERRLA, EOMI, Normocephalic Oral: Moist Mucosa Neck: Supple Lungs: Clear to auscultation, Normal air movement, - - Midsternal incisional scar Cardiovascular: Regular rate, Regular Rhythm, Normal S1, Normal S2, No murmurs Abdomen: Bowel Sounds Present, Soft, Non Tender, Non-Distended, No Hepato-splenomegaly Extremities: No edema Skin: No rashes, No breakdown Musculoskeletal: No Tenderness to Palpation of Joints or Extremities Lymphatic: No Cervical, Supraclavicular, or Inguinal Adenopathy Neurological: Cranial nerves II-XII grossly intact, Neuro grossly intact Psych/Mental Status: Normal Affect, Appropriate Laboratory Results 09/24/18 18:55: WBC 13.0 H, RBC 4.33, Hgb 13.2, Hct 41.5, MCV 95.8, MCH 30.5, MCHC 31.8 L, RDW 13.3, RDW Differential 46.2 H, Plt Count 205, MPV 11.3, Immature Gran % (Auto) 0.200, Neut % (Auto) 76.8 H, Lymph % (Auto) 15.1 L, [place] % (Auto) 7.4, Eos % (Auto) 0.3, Baso % (Auto) 0.2, Absolute Neuts (auto) 10.0 H, Absolute Lymphs (auto) 1.96, Total Counted Not Reportable 09/24/18 18:55: Sodium 138, Potassium 3.5, Chloride 101, Carbon Dioxide 30.0, Anion Gap 7, BUN 26 H, Creatinine 1.15 H, Estim Creat Clear Calc 46.81, Est GFR (MDRD) Af Amer 62, Est GFR (MDRD) Non-Af 51 L, BUN/Creatinine Ratio 22.6 H, Glucose 117 H, Calcium 9.4, Troponin I < 0.015 09/24/18 18:55: Hemoglobin A1c 5.8 09/24/18 21:53: Troponin I < 0.015 09/24/18 21:53: Magnesium 2.2 09/24/18 22:54: POC Glucose 159 H 09/25/18 01:07: Troponin I < 0.015 09/25/18 06:12: WBC 9.9, RBC 3.99 L, Hgb 12.1, Hct 38.3, MCV 96.0, MCH 30.3, MCHC 31.6 L, RDW 13.4, RDW Differential 47.0 H, Plt Count 181, MPV 11.4 09/25/18 06:12: Sodium 139, Potassium 4.0, Chloride 102, Carbon Dioxide 28.0, Anion Gap 9, BUN 21 H, Creatinine 0.87, Estim Creat Clear Calc 61.88, Est GFR (MDRD) Af Amer 86, Est GFR (MDRD) Non-Af 71, BUN/Creatinine Ratio 24.2 H, Glucose 104, Calcium 9.1, Total Bilirubin 0.20, AST 16, ALT 30, Alkaline Phosphatase 115, Total Protein 6.6, Albumin 3.3, Globulin 3.3, Albumin/Globulin Ratio 1.0, Triglycerides 110, Cholesterol 147, LDL Cholesterol 70, VLDL Cholesterol 22, HDL Cholesterol 55 Current Medications Hydrocodone Bitart/Acetaminophen ([place] 5mg-325mg) 1 - 2 tablet PO Q6H PRN PRN PRN Reason: Moderate-severe pain Last Admin: 09/25/18 03:06 Dose: 1 tablet Al Hydroxide/Mg Hydroxide (Mylanta Ii) 30 ml PO Q6H PRN PRN PRN Reason: Gastric burning Aspirin (Ecotrin) 81 mg PO QODAY KIYA Atorvastatin Calcium (Lipitor) 40 mg PO QHS KIYA Last Admin: 09/24/18 22:57 Dose: 40 mg Enoxaparin Sodium (Lovenox) 30 mg SC DAILY@1000 [facility] Last Admin: 09/25/18 08:56 Dose: 30 mg Furosemide (Lasix) 40 mg PO BID@1000,1800 [facility] Last Admin: 09/25/18 08:56 Dose: 40 mg Gabapentin (Neurontin) 400 mg PO 4X/DAY [facility] Last Admin: 09/25/18 08:57 Dose: 400 mg Isosorbide Mononitrate (Imdur) 60 mg PO DAILY [facility] Last Admin: 09/25/18 08:56 Dose: 60 mg Levothyroxine Sodium (Synthroid) 88 mcg PO DAILY@0600 [facility] Last Admin: 09/25/18 05:28 Dose: 88 mcg Lisinopril (Zestril) 5 mg PO QHS [facility] Last Admin: 09/24/18 22:57 Dose: 5 mg Lorazepam (Ativan) 1 mg PO 4X/DAY PRN PRN PRN Reason: ANXIETY Magnesium Hydroxide (Milk Of Magnesia) 30 ml PO DAILY PRN PRN Reason: Constipation Metoprolol Tartrate (Lopressor (Beta Otto)) 50 mg PO BID [facility] Last Admin: 09/25/18 08:56 Dose: 50 mg Morphine Sulfate () 1 - 2 mg IV Q4H PRN PRN PRN Reason: PAIN Last Admin: 09/25/18 11:07 Dose: 2 mg Nitroglycerin (Nitrostat) 0.4 mg SUBLINGUAL Q5M PRN PRN Reason: CHEST PAIN Nutritional Formula (Lactose Free) (Ensure Enlive) 120 ml PO 4X/DAY [facility] Last Admin: 09/25/18 08:55 Dose: 120 ml Ondansetron HCl (Zofran) 4 mg IV Q8H PRN PRN PRN Reason: NAUSEA Paroxetine HCl (Paxil) 20 mg PO DAILY [facility] Last Admin: 09/25/18 08:57 Dose: 20 mg Promethazine HCl (Phenergan) 12.5 mg IV Q6H PRN PRN PRN Reason: NAUSEA/VOMITING Sodium Chloride () 5 - 30 ml IV UD PRN PRN Reason: SALINE FLUSH Last Admin: 09/25/18 11:07 Dose: 10 ml Spironolactone (Aldactone) 25 mg PO DAILY [facility] Last Admin: 09/25/18 08:55 Dose: 25 mg Medical Necessity - Tobacco Use Smoking Status: Former smoker Tobacco Use: Cigarettes Assessment/Plan All Active Problems Fluttering heart (Acute) Palpitations (Acute) Chest pain (Acute) Cellulitis, leg (Resolved) VICENTE (acute kidney injury) (Acute) Chest pain (Acute) 58-year-old with past medical history of morbid obesity, hypertension, hyperlipidemia, hypothyroidism, CAD status post CABG, comes in with complaints of chest pain. 1. Chest pain, atypical, troponins x3 are negative, you have CAD status post CABG, status post multiple PCI Stress ECHO planned for a.m. 2. Chronic Systolic CHF, not in acute decompensation, continue on Lasix, EMMY inhibitor, Aldactone 3. Type II DM, HbA1c is 5.8, not on meds, diet controlled 4. Chronic atrial fibrillation status post AICD status post pacemaker, rate controlled, on metoprolol, pacemaker device check to be done 5. VICENTE on CKD stage III, likely secondary to dehydration, improved, creatinine improved from 1.15 to 0.87, will trend BMP 6. Hypertension, BP is controlled, on Lisinopril, metoprolol, spironolactone, continue to monitor 7. Hyperlipidemia, on statin 8. Hypothyroidism, on levothyroxine 9. Morbid obesity, BMI is 40.3, diet and exercise is recommended 10. Anxiety/depression, on Paxil 11. DVT prophylaxis with Lovenox subcu Code Visit Inpatient E&M: 73494 Subs Hosp L2
--- NOTE | 2018-09-25 12:25 | PCM.CONS.C ---
Problem List (1) Fluttering heart Status: Acute (2) Palpitations Status: Acute (3) Chest pain Status: Acute Qualifiers: Chest pain type: unspecified Qualified Code(s): R07.9 - Chest pain, unspecified (4) History of percutaneous transluminal coronary angioplasty Status: Chronic (5) Cardiomyopathy, ischemic Status: Chronic (6) CAD (coronary artery disease) Status: Chronic Qualifiers: Coronary Disease-Associated Artery/Lesion type: unspecified vessel or lesion type [place] vs. transplanted heart: unspecified whether [place] or transplanted heart Associated angina: angina presence unspecified Qualified Code(s): I25.10 - Atherosclerotic heart disease of [place] coronary artery without angina pectoris (7) Afib Status: Chronic (8) Hyperlipidemia Status: Chronic Qualifiers: Hyperlipidemia type: unspecified Qualified Code(s): E78.5 - Hyperlipidemia, unspecified (9) Hypertension Status: Chronic Qualifiers: Hypertension type: essential hypertension Qualified Code(s): I10 - Essential (primary) hypertension (10) ICD (implantable cardioverter-defibrillator) in place Status: Chronic Comment: 2002 (11) Hx of CABG Status: Chronic Reason for Consult Date of Consultation: 09/25/18 Reason for Consultation: Coronary artery disease, status post angioplasty, status post CABG, atrial fibrillation, chronic renal insufficiency, hypertension, hypercholesterolemia, history of TIA History of Present Illness: The patient is a 58 year old F with multiple medical problems including hypertension, hypercholesterolemia, former smoker of approximately 20 pack years who quit around 10 years ago, coronary artery disease status post myocardial infarction on 09/14/1997 with apparently no stents at that time. According the patient she has had multiple angioplasties and stenting between 1996 and 1998, finally culminating and coronary bypass surgery x3 in 1998. This apparently took place at [facility]. In addition she has a history of what sounds like either SVT or atrial fibrillation ablation in the past. She has had several heart caths since her bypass with 5 stents placed since that time. Her last catheterization according to the patient was April 2017 but did not require any stenting at that time. In addition she has a history of breast cancer status post right-sided mastectomy in 2000. She also is a history of ischemic cardiomyopathy and is status post AICD placement. She also has a strong positive family history of coronary disease in multiple family members particularly at a young age including her daughter at age 33. Patient was doing well until yesterday when she developed a sharp knifelike pain which was reportedly dissimilar from her previous angina which lasted about 10-15 minutes. She had associated diaphoresis but no nausea or vomiting and did have shortness of breath. Patient took a sublingual nitroglycerin without much relief and reported to [facility] ER. In the ER her EKG showed normal sinus rhythm with old inferior/posterior wall myocardial infarction, and no acute changes. She is ruled out for myocardial infarction with troponins negative x3. She has had no subsequent angina. On further history she reports that her anginal chest pain is composed of chest heaviness and pressure with associated shortness of breath. She reports she is compliant with her medications. She has never had her AICD go off. She denies any presyncope, syncope, lower extremity edema, positional lightheadedness or dizziness. The patient sees Dr. 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.] Past Medical History Allergies/Adverse Reactions: Allergies Iodinated Contrast- Oral and IV Dye Allergy (Verified 09/24/18 18:54) Unknown ranolazine [From Ranexa] Allergy (Verified 09/24/18 18:54) Unknown MISC ANTIBIOTIC Allergy (Uncoded 09/24/18 18:54) Unknown Home Medications: Ambulatory Orders Medication Instructions Recorded Atorvastatin Calcium [Lipitor] 40 mg PO QHS 09/09/14 Isosorbide Mononitrate [Isosorbide 60 mg PO DAILY 09/09/14 Mononitrate ER] Levothyroxine [Synthroid] 88 mcg PO DAILY 09/09/14 Lisinopril [Zestril] 5 mg PO QHS 09/09/14 Gabapentin [Neurontin] 400 mg PO 4X/DAY 01/02/16 Lorazepam [Ativan] 1 mg PO 4X/DAY PRN PRN 01/02/16 Furosemide [Lasix] 40 mg PO BID@1000,1800 #60 tablet 10/25/16 Multivitamins,Therapeutic 1 tablet PO DAILY 07/21/17 [Multivitamin] Spironolactone [Aldactone] 25 mg PO DAILY 07/21/17 Calcium Carb/Vitamin D3/Vit K1 1 each PO DAILY 01/04/18 [Citracal Soft Chew] Calcium Carbonate [Calcium] 1,200 mg PO DAILY 01/04/18 Cholecalciferol (Vitamin D3) 5,000 unit PO DAILY 01/04/18 [Vitamin D3] Magnesium 200 mg PO DAILY 01/04/18 Metoprolol Tartrate 50 mg PO BID 01/04/18 Aspirin [Adult Aspirin Regimen] 81 mg PO QODAY 05/01/18 Paroxetine HCl [Paxil] 20 mg PO DAILY #30 tablet 05/01/18 Past Medical History (Chronic Problems): Chronic Problems CKD (chronic kidney disease), stage III (Chronic) DM2 (diabetes mellitus, type 2) (Chronic) History of TIA (transient ischemic attack) and stroke (Chronic) History of percutaneous transluminal coronary angioplasty (Chronic) Peripheral neuropathy (Chronic) History of breast cancer (Chronic) Right Obesity (BMI 30-39.9) (Chronic) Venous insufficiency (Chronic) I87.2 Leg edema (Chronic) Delayed wound healing (Chronic) Malnutrition (Chronic) Chronic ulcer of left leg with fat layer exposed (Chronic) Renal insufficiency (Chronic) Cardiomyopathy, ischemic (Chronic) CAD (coronary artery disease) (Chronic) Type II diabetes mellitus, uncontrolled (Chronic) Atrial fibrillation and flutter (Chronic) SVT (supraventricular tachycardia) (Chronic) Afib (Chronic) Congestive heart failure (CHF) (Chronic) [place] syndrome (Chronic) Hypothyroidism (Chronic) Hyperlipidemia (Chronic) Hypertension (Chronic) History of CVA (cerebrovascular accident) (Chronic) 2006 ICD (implantable cardioverter-defibrillator) in place (Chronic) 2003 Paroxysmal a-fib (Chronic) Hx of CABG (Chronic) Surgical History: angioplasty, coronary bypass surgery, - - Pituitary surgery, right breast mastectomy (2000), hysterectomy, knee arthroscopy, implanted pacemaker/defibrillator, coronary revascularization in 1998, and coronary angioplasties ?18 with 5 implanted coronary stents. 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 Paternal History Items: Heart Disease, - - Patient's father at the age of 56, with a history of cardial infarction. Lives: Spouse/ Significant Other, With Family Smoking Status: Former smoker Tobacco Use: Cigarettes Alcohol: Occasional Drugs: None Review of Systems - Review of Systems General: Denies: Fever, Night Sweats, Fatigue Cardiovascular: Reports: Chest Discomfort, Chest Discomfort at Rest, Shortness of Breath, Shortness of Breath at Rest. Denies: Orthopnea, PND, Peripheral Edema, Palpitations, Lightheadedness, Dizziness, Near Syncope, Syncope Respiratory: Denies: Cough, Sputum Production, Hemoptysis Gastrointestinal: Denies: Hematemesis, Hematochezia, Melena Genitourinary: Denies: Dysuria, Hematuria Skin: Denies: Rash Subjectve: Patient laying in bed, no acute distress. Resting comfortably. Telemetry showed paced atrial rhythm with PVC Objective: Vital Signs Temp Pulse Resp BP Pulse Ox 98.0 F 63 18 127/62 H 98 09/25/18 09:00 09/25/18 10:59 09/25/18 09:00 09/25/18 09:00 09/25/18 09:00 Oxygen Delivery Method Room Air Weight: 242 lb 1.081 oz Body Mass Index (BMI) 40.2 Intake and Output for Last 24 Hours 09/23/18 09/24/18 09/25/18 23:59 23:59 23:59 Intake Total 170 / 170 80 / 80 Balance 170 / 170 80 / 80 General: Awake, Alert, Oriented x 3 HEENT: PERRL, EOMI, Sclera Non Icteric Neck: Supple, Good ROM, No Lymph Node Enlargement Lungs: Clear to auscultation Cardiovascular: Regular Rhythm, Normal S1, Normal S2, No Murmurs, No Rubs, No Gallops Vascular: No Carotid Bruits, Normal Femoral Pulses, Normal Radial Pulses, Normal Dorsalis Pedal Pulse, Normal Posterior Tibial Pulses Abdomen: Bowel Sounds Present, Soft, Non Tender, No HSM, No Organomegaly Extremities: No Cyanosis, No Clubbing, No edema Neurological: No Focal Motor or Sensory Deficit 09/24/18 18:55: WBC 13.0 H, RBC 4.33, Hgb 13.2, Hct 41.5, MCV 95.8, MCH 30.5, MCHC 31.8 L, RDW 13.3, RDW Differential 46.2 H, Plt Count 205, MPV 11.3, Immature Gran % (Auto) 0.200, Neut % (Auto) 76.8 H, Lymph % (Auto) 15.1 L, [place] % (Auto) 7.4, Eos % (Auto) 0.3, Baso % (Auto) 0.2, Absolute Neuts (auto) 10.0 H, Total Counted Not Reportable 09/24/18 18:55: Sodium 138, Potassium 3.5, Chloride 101, Carbon Dioxide 30.0, Anion Gap 7, BUN 26 H, Creatinine 1.15 H, Est GFR (MDRD) Af Amer 62, Est GFR (MDRD) Non-Af 51 L, BUN/Creatinine Ratio 22.6 H, Glucose 117 H, Calcium 9.4, Troponin I < 0.015 09/24/18 18:55: Hemoglobin A1c 5.8 09/24/18 21:53: Troponin I < 0.015 09/24/18 21:53: Magnesium 2.2 09/25/18 01:07: Troponin I < 0.015 09/25/18 06:12: WBC 9.9, RBC 3.99 L, Hgb 12.1, Hct 38.3, MCV 96.0, MCH 30.3, MCHC 31.6 L, RDW 13.4, RDW Differential 47.0 H, Plt Count 181, MPV 11.4 09/25/18 06:12: Sodium 139, Potassium 4.0, Chloride 102, Carbon Dioxide 28.0, Anion Gap 9, BUN 21 H, Creatinine 0.87, Est GFR (MDRD) Af Amer 86, Est GFR (MDRD) Non-Af 71, BUN/Creatinine Ratio 24.2 H, Glucose 104, Calcium 9.1, Total Bilirubin 0.20, Triglycerides 110, Cholesterol 147, LDL Cholesterol 70, VLDL Cholesterol 22, HDL Cholesterol 55 Rhythm: EKG: ECHO: Pending Stress Test: Pending Cardiac Cath: PCI: CT Surgery: Holter monitor: EPS: PPM: CXR: Chest CT Scan: Assessment/Plan 1. Coronary artery disease: The patient presents with atypical nonexertional chest pain, reportedly dissimilar from her previous angina but the patient has a complex and long cardiac history. At this point I am uncertain whether the patient's chest pain symptoms are anginal or nonanginal at this time. Given the patient's chronic renal insufficiency, and the fact that she has had negative troponins x3, I recommend that she undergo a stress echocardiogram tomorrow morning to determine if she has any recurrent exertional anginal pain, or evidence of ischemia. Her EKG suggest these had a previous inferior posterior wall myocardial infarction so is my suspicion is that her inferior posterior wall may be hypokinetic at baseline. In addition I recommend that she undergo a 2D echo with Doppler to document her LV function, pulmonary pressures, and valvular status. In addition I recommend she undergo an AICD interrogation to determine if she has had any aborted V. tach or V. fib episodes or whether her defibrillator actually discharged which may have been consistent with her symptoms yesterday. If her stress test is markedly abnormal, she may require repeat catheterization and graft angiography. Would recommend obtaining an old record from Dr. stanley's office to identify her coronary anatomy, previous stent sites, and type of stents if possible. She apparently had this done at [facility]. 2. Hyperlipidemia: Her LDL is 70 and HDL is 55. This is within acceptable limits. Continue Lipitor. 3. Hypertension: Her blood pressure and heart rate are fairly well-controlled. Continue current antihypertensive profile. The patient may benefit from switching to Coreg from Lopressor, as well as increasing her lisinopril given her LV dysfunction. Will await echocardiogram results. 4. Thank you very much for the opportunity to participate in the cardiac care of your patient. Consultation time took place between 1030 and 11 AM. Code Visit Inpatient E&M: 26495 Init Hosp L2
--- NOTE | 2018-09-25 12:30 | CON.PCM_ITS ---
Problem List (1) Fluttering heart Status: Acute (2) Palpitations Status: Acute (3) Chest pain Status: Acute Qualifiers: Chest pain type: unspecified Qualified Code(s): R07.9 - Chest pain, uns pecified (4) History of percutaneous transluminal coronary angioplasty Status: Chronic (5) Cardiomyopathy, ischemic Status: Chronic (6) CAD (coronary artery disease) Status: Chronic Qualifiers: Coronary Disease-Associated Artery/Lesion type: unspecified vessel or lesion type [place] vs. transplanted heart: unspecified whether [place] or transplanted heart Associated angina: angina presence unspecified Qualified Code(s): I25.10 - Atherosclerotic heart disease of [place] coronary artery without angina pectoris (7) Afib Status: Chronic (8) Hyperlipidemia Status: Chronic Qualifiers: Hyperlipidemia type: unspecified Qualified Code(s): E78.5 - Hyperlipidemia, unspecified (9) Hypertension Status: Chronic Qualifiers: Hypertension type: essential hypertension Qualified Code(s): I10 - Essential (primary) hypertension (10) ICD (implantable cardioverter-defibrillator) in place Status: Chronic Comment: 2002 (11) Hx of CABG Status: Chronic Reason for Consult Date of Consultation: 09/25/18 Reason for Consultation: Coronary artery disease, status post angioplasty, status post CABG, atrial fibrillation, chronic renal insufficiency, hyperten vipin, hypercholesterolemia, history of TIA History of Present Illness: The patient is a 58 year old F with multiple medical problems including hypertension, hypercholesterolemia, former smoker of approximately 20 pack years who quit around 10 years ago, coronary artery disease status post myocardial infarction on 09/14/1997 with apparently no stents at that time. According the patient she has had multiple angioplasties and stenting between 1996 and 1998, finally culminating and coronary bypass surgery x3 in 1998. This apparently took place at [facility]. In addition she has a history of what sounds like either SVT or atrial fibrillation ablation in the past. She has had several heart caths since her bypass with 5 stents placed since that time. Her last catheterization according to the patient was April 2017 but did not require any stenting at that time. In addition she has a history of breast cancer status post right-sided mas tectomy in 2000. She also is a history of ischemic cardiomyopathy and is status post AICD placement. She also has a strong positive family history of coronary disease in multiple family members particularly at a young age including her daughter at age 33. Patient was doing well until yesterday when she developed a sharp knifelike pain which was reportedly dissimilar from her previous angina which lasted about 10- 15 minutes. She had associated diaphoresis but no nausea or vomiting and did have shortness of breath. Patient took a sublingual nitroglycerin without much relief and reported to [facility] ER. In the ER her EKG showed normal sinus rhythm with old inferior/posterior wall myocardial infarction, and no acute changes. She is ruled out for myocardial infarction with troponins negative x3. She has had no subsequent angina. On further history she reports that her anginal chest pain is composed of chest heaviness and pressure with associated shortness of breath. She reports she is compliant with her medications. She has never had her AICD go off. She denies any presyncope, syncope, lower extremity edema, positional lightheadedness or dizziness. The patient sees Dr. 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 primary global account manager.] Past Medical History Allergies/Adverse Reactions: Allergies Iodinated Contrast- Oral and IV Dye Allergy (Verified 09/24/18 18:54) Unknown ranolazine [From Ranexa] Allergy (Verified 09/24/18 18:54) Unknown MISC ANTIBIOTIC Allergy (Uncoded 09/24/18 18:54) Unknown Home Medications: Ambulatory Orders Medication Instructions Recorded Atorvastatin Calcium [Lipitor] 40 mg PO QHS 09/09/14 Isosorbide Mononitrate [Isosorbide 60 mg PO DAILY 09/09/14 Mononitrate ER] Levothyroxine [Synthroid] 88 mcg PO DAILY 09/09/14 Lisinopril [Zestril] 5 mg PO QHS 09/09/14 Gabapentin [Neurontin] 400 mg PO 4X/DAY 01/02/16 Lorazepam [Ativan] 1 mg PO 4X/DAY PRN PRN 01/02/16 Furosemide [Lasix] 40 mg PO BID@1000,1800 #60 tablet 10/25/16 Multivitamins,Therapeutic 1 tablet PO DAILY 07/21/17 [Multivitamin] Spironolactone [Aldactone] 25 mg PO DAILY 07/21/17 Calcium Carb/Vitamin D3/Vit K1 1 each PO DAILY 01/04/18 [Citracal Soft Chew] Calcium Carbonate [Calcium] 1,200 mg PO DAILY 01/04/18 Cholecalciferol (Vitamin D3) 5,000 unit PO DAILY 01/04/18 [Vitamin D3] Magnesium 200 mg PO DAILY 01/04/18 Metoprolol Tartrate 50 mg PO BID 01/04/18 Aspirin [Adult Aspirin Regimen] 81 mg PO QODAY 05/01/18 Paroxetine HCl [Paxil] 20 mg PO DAILY #30 tablet 05/01/18 Past Medical History (Chronic Problems): Chronic Problems CKD (chronic kidney disease), stage III (Chronic) DM2 (diabetes mellitus, type 2) (Chronic) History of TIA (transient ischemic attack) and stroke (Chronic) History of percutaneous transluminal coronary angioplasty (Chronic) Peripheral neuropathy (Chronic) History of breast cancer (Chronic) Right Obesity (BMI 30-39.9) (Chronic) Venous insufficiency (Chronic) I87.2 Leg edema (Chronic) Delayed wound healing (Chronic) Malnutrition (Chronic) Chronic ulcer of left leg with fat layer exposed (Chronic) Renal insufficiency (Chronic) Cardiomyopathy, ischemic (Chronic) CAD (coronary artery disease) (Chronic) Type II diabetes mellitus, uncontrolled (Chronic) Atrial fibrillation and flutter (Chronic) SVT (supraventricular tachycardia) (Chronic) Afib (Chronic) Congestive heart failure (CHF) (Chronic) Cushings syndrome (Chronic) Hypothyroidism (Chronic) Hyperlipidemia (Chronic) Hypertension (Chronic) History of CVA (cerebrovascular accident) (Chronic) 2006 ICD (implantable cardioverter-defibrillator) in place (Chronic) 2002 Paroxysmal a-fib (Chronic) Hx of CABG (Chronic) Surgical History: angioplasty, coronary bypass surgery, - - Pituitary surgery, right breast mastectomy (2000), hysterectomy, knee arthroscopy, implanted pacemaker/defibrillator, coronary revascularization in 1998, and coronary angioplasties ?18 with 5 implanted coronary stents. Psychiatric History: No pertinent psych hx CALL CENTER PROFESSIONAL History: No pertinent CALL CENTER PROFESSIONAL history - *Family History Offspring History Items: Heart Disease - 5 heart attacks and her daughter Maternal History Items: Heart Disease, - - Patient's mother at the age of 58 with a history of breast cancer and myocardial infarction. Paternal History Items: Heart Disease, - - Patient's father at the age of 56, with a history of cardial infarction. Lives: Spouse/ Significant Other, With Family Smoking Status: Former smoker Tobacco Use: Cigarettes Alcohol: Occasional Drugs: None Review of Systems - Review of Systems General: Denies: Fever, Night Sweats, Fatigue Cardiovascular: Reports: Chest Discomfort, Chest Discomfort at Rest, Shortness of Breath, Shortness of Breath at Rest. Denies: Orthopnea, PND, Peripheral Edema, Palpitations, Lightheadedness, Dizziness, Near Syncope, Syncope Respiratory: Denies: Cough, Sputum Production, Hemoptysis Gastrointestinal: Denies: Hematemesis, Hematochezia, Melena Genitourinary: Denies: Dysuria, Hematuria Skin: Denies: Rash Subjectve: Patient laying in bed, no acute distress. Resting comfortably. Telemetry showed paced atrial rhythm with PVC Objective: Vital Signs Temp Pulse Resp BP Pulse Ox 98.0 F 63 18 127/62 H 98 09/25/18 09:00 09/25/18 10:59 09/25/18 09:00 09/25/18 09:00 09/25/18 09:00 Oxygen Delivery Method Room Air Weight: 242 lb 1.081 oz Body Mass Index (BMI) 40.2 Intake and Output for Last 24 Hours 09/23/18 09/24/18 09/25/18 23:59 23:59 23:59 Intake Total 170 / 170 80 / 80 Balance 170 / 170 80 / 80 General: Awake, Alert, Oriented x 3 HEENT: PERRL, EOMI, Sclera Non Icteric Neck: Supple, Good ROM, No Lymph Node Enlargement Lungs: Clear to auscultation Cardiovascular: Regular Rhythm, Normal S1, Normal S2, No Murmurs, No Rubs, No Gallops Vascular: No Carotid Bruits, Normal Femoral Pulses, Normal Radial Pulses, Normal Dorsalis Pedal Pulse, Normal Posterior Tibial Pulses Abdomen: Bowel Sounds Present, Soft, Non Tender, No HSM, No Organomegaly Extremities: No Cyanosis, No Clubbing, No edema Neurological: No Focal Motor or Sensory Deficit 09/24/18 18:55: WBC 13.0 H, RBC 4.33, Hgb 13.2, Hct 41.5, MCV 95.8, MCH 30.5, MCHC 31.8 L, RDW 13.3, RDW Differential 46.2 H, Plt Count 205, MPV 11.3, Immature Gran % (Auto) 0.200, Neut % (Auto) 76.8 H, Lymph % (Auto) 15.1 L, [place] % (Auto) 7.4, Eos % (Auto) 0.3, Baso % (Auto) 0.2, Absolute Neuts (auto) 10.0 H, Total Counted Not Reportable 09/24/18 18:55: Sodium 138, Potassium 3.5, Chloride 101, Carbon Dioxide 30.0, Anion Gap 7, BUN 26 H, Creatinine 1.15 H, Est GFR (MDRD) Af Amer 62, Est GFR (MDRD) Non-Af 51 L, BUN/Creatinine Ratio 22.6 H, Glucose 117 H, Calcium 9.4, Troponin I < 0.015 09/24/18 18:55: Hemoglobin A1c 5.8 09/24/18 21:53: Troponin I < 0.015 09/24/18 21:53: Magnesium 2.2 09/25/18 01:07: Troponin I < 0.015 09/25/18 06:12: WBC 9.9, RBC 3.99 L, Hgb 12.1, Hct 38.3, MCV 96.0, MCH 30.3, MCHC 31.6 L, RDW 13.4, RDW Differential 47.0 H, Plt Count 181, MPV 11.4 09/25/18 06:12: Sodium 139, Potassium 4.0, Chloride 102, Carbon Dioxide 28.0, Anion Gap 9, BUN 21 H, Creatinine 0.87, Est GFR (MDRD) Af Amer 86, Est GFR (MDRD) Non-Af 71, BUN/Creatinine Ratio 24.2 H, Glucose 104, Calcium 9.1, Total Bilirubin 0.20, Triglycerides 110, Cholesterol 147, LDL Cholesterol 70, VLDL Cholesterol 22, HDL Cholesterol 55 Rhythm: EKG: ECHO: Pending Stress Test: Pending Cardiac Cath: PCI: CT Surgery: Holter monitor: EPS: PPM: CXR: Chest CT Scan: Assessment/Plan 1. Coronary artery disease: The patient presents with atypical nonexertional chest pain, reportedly dissimilar from her previous angina but the patient has a complex and long cardiac history. At this point I am uncertain whether the patient's chest pain symptoms are anginal or nonanginal at this time. Given the patient's chronic renal insufficiency, and the fact that she has had negative troponins x3, I recommend that she undergo a stress echocardiogram tomorrow morning to determine if she has any recurrent exertional anginal pain, or evidence of ischemia. Her EKG suggest these had a previous inferior posterior wall myocardial infarction so is my suspicion is that her inferior posterior wall may be hypokinetic at baseline. In addition I recommend that she undergo a 2D echo with Doppler to document her LV function, pulmonary pressures, and valvular status. In addition I recommend she undergo an AICD interrogation to determine if she has had any aborted V. tach or V. fib episodes or whether her defibrillator actually discharged which may have been consistent with her symptoms yesterday. If her stress test is markedly abnormal, she may require repeat catheterization and graft angiography. Would recommend obtaining an old record from Dr. stanley's office to identify her coronary anatomy, previous stent sites, and type of stents if possible. She apparently had this done at [facility]. 2. Hyperlipidemia: Her LDL is 70 and HDL is 55. This is within acceptable limits. Continue Lipitor. 3. Hypertension: Her blood pressure and heart rate are fairly well-controlled. Continue current antihypertensive profile. The patient may benefit from switching to Coreg from Lopressor, as well as increasing her lisinopril given her LV dysfunction. Will await echocardiogram results. 4. Thank you very much for the opportunity to participate in the cardiac care of your patient. Consultation time took place between 1030 and 11 AM. Code Visit Inpatient E&M: [id number] Init Hosp L2
--- NOTE | 2018-09-25 16:41 | EKG12_ITS ---
Test Reason : CHEST PAIN Blood Pressure : / mmHG Vent. Rate : 060 BPM Atrial Rate : 060 BPM P-R Int : 182 ms QRS Dur : 104 ms QT Int : 424 ms P-R-T Axes : 080 046 -59 degrees QTc Int : 424 ms Atrial-paced rhythm Cannot rule out Inferior infarct , age undetermined T wave abnormality, consider anterior ischemia Abnormal ECG Confirmed by VLADIMIR ELIAS, TALIB ([id number]), international editorial producer TAVO HOLLINS ([id number]) on 09/29/2018 4:01:19 PM Referred By: AMIE Confirmed By:TALIB GILBERT MD
[2018-09-25] MEDS: Atorvastatin Calcium 40 MG Tablet PO (21:55)
[2018-09-25] MEDS: Lisinopril 5 MG Tablet PO (21:56)
--- NOTE | 2018-09-25 22:27 | EKG12_ITS ---
Test Reason : CP Blood Pressure : / mmHG Vent. Rate : 060 BPM Atrial Rate : 060 BPM P-R Int : 186 ms QRS Dur : 112 ms QT Int : 430 ms P-R-T Axes : 085 045 -60 degrees QTc Int : 430 ms Atrial-paced rhythm Possible Inferior infarct , age undetermined T wave abnormality, consider anterolateral ischemia Abnormal ECG Confirmed by VLADIMIR ELIAS, TALIB ([id number]), editorial intern TAVO HOLLINS ([id number]) on 09/29/2018 4:00:08 PM Referred By: AMIE Confirmed By:TALIB GILBERT MD
[2018-09-26] VITALS (9 sets, daily range): BP systolic 104–138; BP diastolic 56–78; PULSE 58–66; RESP 10–16; TEMP 36.5–36.7; O2SAT 95–97
[2018-09-26] MEDS: Levothyroxine 88 MCG Tablet PO (04:59)
[2018-09-26] MEDS: Aspirin E.C. 81 MG Tablet PO (05:00)
--- NOTE | 2018-09-26 05:55 | EKG12_ITS ---
Test Reason : AM EKG Blood Pressure : / mmHG Vent. Rate : 060 BPM Atrial Rate : 060 BPM P-R Int : 198 ms QRS Dur : 108 ms QT Int : 430 ms P-R-T Axes : 079 050 -55 degrees QTc Int : 430 ms Atrial-paced rhythm Cannot rule out Inferior infarct , age undetermined T wave abnormality, consider anterior ischemia Abnormal ECG Confirmed by VLADIMIR ELIAS, TALIB ([id number]), online editor TAVO HOLLINS ([id number]) on 09/29/2018 3:58:37 PM Referred By: NUBIA Confirmed By:TALIB GILBERT MD
[2018-09-26 06:14] LABS: Absolute Lymphocyte Count 1.78 X10^3/ul (0.83-4.51); Absolute Neutrophil Count 6.6 X10^3/uL (2.0-7.7); Basophil# 0.02 X10^3/uL; Basophil% 0.2 % (0-1); Eosinophil# 0.03 X10^3/uL; Eosinophils% 0.3 % (0-5); Hematocrit 40.1 % (37-47); Lymphocyte # 1.78 X10^3/ul (4.0); Lymphocyte % 19.6 % (19-41); Mean Corp Hgb Conc 32.4 g/gl (32-36); Mean Corpuscular Hgb 31.2 pg (27.0-32.0); Mean Corpuscular Volume 96.2 fL (81-99); Mean Platelet Vol. 11.3 fl (6.2-12.0); Monocyte% 6.6 % (0-10); Neutrophil # 6.63 X10^3/uL (2.7-7.7); Platelet Count 167 K/mm3 (150-450); RBC Distribution Width CV 13.2 % (11.6-14.6); RBC Distribution Width SD 45.1 fl (35.1-43.9); Red Blood Count 4.17 M/mm3 (4.2-5.4); White Blood Count 9.1 K/mm3 (4.4-11.0)
[2018-09-26 06:24] LABS: Prothrombin Time (Protime)PT. 12.8 SECONDS (11.7-14.9)
[2018-09-26 06:30] LABS: Anion Gap 9 (5-15); BUN 24 mg/dL (7-18); Calcium,Total 9.2 mg/dL (8.5-10.1); Chloride 101 mmol/L (98-107); Creatinine, Serum 0.96 mg/dL (0.55-1.02); EST Glomerular Filtration Rate 63 mL/min (>60); Est Glom Filt Rate - Afr Amer 76 mL/min (>60); Estimated Creatinine Clearance 56.08 ml/min; Glucose 91 mg/dL (74-106); Potassium 3.9 mmol/L (3.5-5.1); Sodium Level 140 mmol/L (136-145)
[2018-09-26 06:39] LABS: POSITIVE COUNT NO; POSITIVE DIFFERENTIAL NO; POSITIVE MORPHOLOGY NO
[2018-09-26 06:45] LABS: Partial Thromboplast Time 27.7 Seconds (24.1-36.2)
[2018-09-26] MEDS: HYDROcodone Bitartrate/Apap 5/325 Tablet PO (08:04)
--- NOTE | 2018-09-26 12:21 | PN.CARD_ITS ---
Subjectve: Patient doing fairly well this morning. No 24-hour events. Underwent echo and dobutamine echo this morning with results pending. Echocardiogram suggested old inferior posterior wall myocardial infarction, with a EF around 40-45%, and trivial to mild aortic insufficiency, with normal RVSP by echocardiogram. Debridement echo pending. Objective: Vital Signs Temp Pulse Resp BP Pulse Ox 97.7 F L 60 16 138/78 H 96 09/26/18 09:50 09/26/18 09:50 09/26/18 09:50 09/26/18 09:50 09/26/18 09:50 Oxygen Delivery Method Room Air Weight: 241 lb 6.499 oz Body Mass Index (BMI) 40.2 Intake and Output for Last 24 Hours 09/24/18 09/25/18 09/26/18 23:59 23:59 23:59 Intake Total 170 / 170 1395 / 1395 35 / 35 Balance 170 / 170 1395 / 1395 35 / 35 General: Awake, Alert, Oriented x 3 HEENT: PERRL, EOMI, Sclera Non Icteric Neck: Supple, Good ROM, No Lymph Node Enlargement Lungs: Clear to auscultation Cardiovascular: Regular Rhythm, Normal S1, Normal S2, No Murmurs, No Rubs, No Gallops Vascular: No Carotid Bruits, Normal Femoral Pulses, Normal Radial Pulses, Normal Dorsalis Pedal Pulse, Normal Posterior Tibial Pulses Abdomen: Bowel Sounds Present, Soft, Non Tender, No HSM, No Organomegaly Extremities: No Cyanosis, No Clubbing, No edema Neurological: No Focal Motor or Sensory Deficit 09/26/18 05:15: WBC 9.1, RBC 4.17 L, Hgb 13.0, Hct 40.1, MCV 96.2, MCH 31.2, MCHC 32.4, RDW 13.2, RDW Differential 45.1 H, Plt Count 167, MPV 11.3, Immature Gran % (Auto) 0.300, Neut % (Auto) 73.0 H, Lymph % (Auto) 19.6, [place] % (Auto) 6.6, Eos % (Auto) 0.3, Baso % (Auto) 0.2, Absolute Neuts (auto) 6.6, Total Counted Not Reportable 09/26/18 05:15: PT 12.8, INR 1.0, APTT 27.7 09/26/18 05:15: Sodium 140, Potassium 3.9, Chloride 101, Carbon Dioxide 30.0, Anion Gap 9, BUN 24 H, Creatinine 0.96, Est GFR (MDRD) Af Amer 76, Est GFR (MDRD) Non-Af 63, BUN/Creatinine Ratio 25.0 H, Glucose 91, Calcium 9.2 Rhythm: EKG: ECHO:Echocardiogram suggested old inferior posterior wall myocardial infarction, with a EF around 40-45%, and trivial to mild aortic insufficiency, with normal RVSP by echocardiogram. Stress Test: Pending Cardiac Cath: PCI: CT Surgery: Holter monitor: EPS: PPM: CXR: Chest CT Scan: Medical Necessity - Tobacco Use Smoking Status: Former smoker Tobacco Use: Cigarettes Assessment/Plan 1. Coronary artery disease: The patient presents with atypical nonexertional chest pain, reportedly dissimilar from her previous angina but the patient has a complex and long cardiac history. At this point I am uncertain whether the patient's chest pain symptoms are anginal or nonanginal at this time. Given the patient's chronic renal insufficiency, and the fact that she has had negative troponins x3, I recommended that she undergo a dobutamine echocardiogram which was performed this morning with results pending. Repeat echocardiogram this morning showed old inferior posterior wall myocardial infarction with an RV SP of 22 mmHg, and trivial to mild aortic insufficiency.. Her EKG suggest these had a previous inferior posterior wall myocardial infarction so is my suspicion is that her inferior posterior wall may be hypokinetic at baseline. If her stress test shows evidence of anterior lateral hypokinesis she may require repeat catheterization. If her stress test is negative, would recommend medical management at this time. In addition I recommend that she undergo a 2D echo with Doppler to document her LV function, pulmonary pressures, and valvular status. In addition I recommend she undergo an AICD interrogation to determine if she has had any aborted V. tach or V. fib episodes or whether her defibrillator actually discharged which may have been consistent with her symptoms yesterday. If her stress test is markedly abnormal, she may require repeat catheterization and graft angiography. Would recommend obtaining an old record from Dr. stanley's office to identify her coronary anatomy, previous stent sites, and type of stents if possible. She apparently had this done at [facility]. 2. Hyperlipidemia: Her LDL is 70 and HDL is 55. This is within acceptable limits. Continue Lipitor. 3. Hypertension: Her blood pressure and heart rate are fairly well-controlled. Continue current antihypertensive profile. The patient may benefit from switching to Coreg from Lopressor, as well as increasing her lisinopril given her LV dysfunction. 4. Thank you very much for the opportunity to participate in the cardiac care of your patient. Code Visit Inpatient E&M: [id number] Subs Hosp L2
[2018-09-26] MEDS: Metoprolol Tartrate 25 MG Tablet 50 MG PO (12:35)
[2018-09-26] MEDS: Isosorbide Mononitrate 60 MG Tablet PO (12:35)
[2018-09-26] MEDS: Furosemide 40 MG Tablet PO (12:35)
[2018-09-26] MEDS: Spironolactone 25 MG Tablet PO (12:35)
[2018-09-26] MEDS: Gabapentin 400 MG Capsule PO (12:36)
[2018-09-26] MEDS: Morphine 2 MG/ML Syringe IV (12:59)
[2018-09-26] MEDS: 0.9% NaCl Peripheral Flush Adult/Peds IV (13:04)
--- NOTE | 2018-09-26 14:22 | PCM.DC ---
- Discharge Diagnoses Current Active Problems: Current Active and Chronic Problems Chest pain (Acute) Reason(s) for Visit for Discharge Instructions: Chest pain You will use the following diet at home:: Calorie/Carbohydrate Controlled (specify 1200, 1400, etc), Cardiac Your food should be the consistency of: Regular Your liquids should be the consistency of: Regular/Thin Discharge Activity: Return to Normal Activity Additional Instructions: Continue with all medications. Follow-up with cardiology as scheduled. Allergies/Adverse Reactions: Allergies Iodinated Contrast- Oral and IV Dye Allergy (Verified 09/24/18 18:54) Unknown ranolazine [From Ranexa] Allergy (Verified 09/24/18 18:54) Unknown MISC ANTIBIOTIC Allergy (Uncoded 09/24/18 18:54) Unknown Medications to take at Discharge Atorvastatin Calcium [Lipitor] 40 mg PO QHS 09/09/14 Isosorbide Mononitrate [Isosorbide Mononitrate ER] 60 mg PO DAILY 09/09/14 Levothyroxine [Synthroid] 88 mcg PO DAILY 09/09/14 Lisinopril [Zestril] 5 mg PO QHS 09/09/14 Gabapentin [Neurontin] 400 mg PO 4X/DAY 01/02/16 Lorazepam [Ativan] 1 mg PO 4X/DAY PRN PRN 01/02/16 Furosemide [Lasix] 40 mg PO BID@1000,1800 #60 tablet 10/25/16 Multivitamins,Therapeutic [Multivitamin] 1 tablet PO DAILY 07/21/17 Spironolactone [Aldactone] 25 mg PO DAILY 07/21/17 Calcium Carb/Vitamin D3/Vit K1 [Citracal Soft Chew] 1 each PO DAILY 01/04/18 Calcium Carbonate [Calcium] 1,200 mg PO DAILY 01/04/18 Cholecalciferol (Vitamin D3) [Vitamin D3] 5,000 unit PO DAILY 01/04/18 Magnesium 200 mg PO DAILY 01/04/18 Metoprolol Tartrate 50 mg PO BID 01/04/18 Aspirin [Adult Aspirin Regimen] 81 mg PO QODAY 05/01/18 Paroxetine HCl [Paxil] 20 mg PO DAILY #30 tablet 05/01/18 Ensure Enlive 120 ml PO 4X/DAY #100 liquid 09/26/18 The following prescriptions were given: Ensure Enlive 120 ml PO 4X/DAY #100 liquid Primary Care Physician: Erik Barton MD [Primary Care Provider] - Please follow up with your Primary Care Physician in: within 2 weeks Test Results: Test results from this visit will be discussed in further detail at your follow-up appointment, if applicable. When: Your barber shop operator, Dr. Lane as scheduled Proposed Discharge Date: 09/26/18
--- NOTE | 2018-09-26 14:32 | DCINST_ITS ---
- Discharge Diagnoses Current Active Problems: Current Active and Chronic Problems Chest pain (Acute) Reason(s) for Visit for Discharge Instructions: Chest pain You will use the following diet at home:: Calorie/Carbohydrate Controlled (specify 1200, 1400, etc), Cardiac Your food should be the consistency of: Regular Your liquids should be the consistency of: Regular/Thin Discharge Activity: Return to Normal Activity Additional Instructions: Continue with all medications. Follow-up with cardiology as scheduled. Allergies/Adverse Reactions: Allergies Iodinated Contrast- Oral and IV Dye Allergy (Verified 09/24/18 18:54) Unknown ranolazine [From Ranexa] Allergy (Verified 09/24/18 18:54) Unknown MISC ANTIBIOTIC Allergy (Uncoded 09/24/18 18:54) Unknown Medications to take at Discharge Atorvastatin Calcium [Lipitor] 40 mg PO QHS 09/09/14 Isosorbide Mononitrate [Isosorbide Mononitrate ER] 60 mg PO DAILY 09/09/14 Levothyroxine [Synthroid] 88 mcg PO DAILY 09/09/14 Lisinopril [Zestril] 5 mg PO QHS 09/09/14 Gabapentin [Neurontin] 400 mg PO 4X/DAY 01/02/16 Lorazepam [Ativan] 1 mg PO 4X/DAY PRN PRN 01/02/16 Furosemide [Lasix] 40 mg PO BID@1000,1800 #60 tablet 10/25/16 Multivitamins,Therapeutic [Multivitamin] 1 tablet PO DAILY 07/21/17 Spironolactone [Aldactone] 25 mg PO DAILY 07/21/17 Calcium Carb/Vitamin D3/Vit K1 [Citracal Soft Chew] 1 each PO DAILY 01/04/18 Calcium Carbonate [Calcium] 1,200 mg PO DAILY 01/04/18 Cholecalciferol (Vitamin D3) [Vitamin D3] 5,000 unit PO DAILY 01/04/18 Magnesium 200 mg PO DAILY 01/04/18 Metoprolol Tartrate 50 mg PO BID 01/04/18 Aspirin [Adult Aspirin Regimen] 81 mg PO QODAY 05/01/18 Paroxetine HCl [Paxil] 20 mg PO DAILY #30 tablet 05/01/18 Ensure Enlive 120 ml PO 4X/DAY #100 liquid 09/26/18 The following prescriptions were given: Ensure Enlive 120 ml PO 4X/DAY #100 liquid Primary Care Physician: Erik Barton MD [Primary Care Provider] - Please follow up with your Primary Care Physician in: within 2 weeks Test Results: Test results from this visit will be discussed in further detail at your follow- up appointment, if applicable. When: Your movers, Dr. Lane as scheduled Proposed Discharge Date: 09/26/18
--- NOTE | 2018-09-26 14:32 | DS.PCM_ITS ---
Discharge Date and Diagnosis - Problem List Patient Problems: Active and Suspected Problems Chest pain (Acute) Date of Admission: 09/24/18 Date of Discharge: 09/26/18 - Primary Discharge Diagnosis Active and Suspected Problems Chest pain (Acute), ACS ruled out - Secondary Discharge Diagnosis Chronic Problems CKD (chronic kidney disease), stage III (Chronic) DM2 (diabetes mellitus, type 2) (Chronic) History of TIA (transient ischemic attack) and stroke (Chronic) History of percutaneous transluminal coronary angioplasty (Chronic) Peripheral neuropathy (Chronic) History of breast cancer (Chronic) Right Obesity (BMI 30-39.9) (Chronic) Venous insufficiency (Chronic) I87.2 Leg edema (Chronic) Delayed wound healing (Chronic) Malnutrition (Chronic) Chronic ulcer of left leg with fat layer exposed (Chronic) Renal insufficiency (Chronic) Cardiomyopathy, ischemic (Chronic) CAD (coronary artery disease) (Chronic) Type II diabetes mellitus, uncontrolled (Chronic) Atrial fibrillation and flutter (Chronic) SVT (supraventricular tachycardia) (Chronic) Afib (Chronic) Congestive heart failure (CHF) (Chronic) Cushings syndrome (Chronic) Hypothyroidism (Chronic) Hyperlipidemia (Chronic) Hypertension (Chronic) History of CVA (cerebrovascular accident) (Chronic) 2007 ICD (implantable cardioverter-defibrillator) in place (Chronic) 2002 Paroxysmal a-fib (Chronic) Hx of CABG (Chronic) Hospital Course and Treatment Imaging Results: Clinical Impression(s) from Imaging Studies Chest X-Ray 09/24/18 19:00 IMPRESSION: Cardiomegaly. Electronically Signed: Celeste Rouse MD at 19:45 EDT Tel , Service support , Cardiology Operations: None Procedures: 2-D Echocardiogram, Stress test Summary of Care Provided: 58-year-old with past medical history of morbid obesity, hypertension, hyperli pidemia, hypothyroidism, CAD status post CABG, comes in with complaints of chest pain. EKG showed previous inferior posterior wall AR, troponins were negative, underwent a stress echo that was reportedly negative for acute reversible ischemia. She was monitored on a telemetry bed. Her acute kidney injury on presentation resolved with IV fluids. Her AICD was interrogated and no arrhythmias were found. 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 du, appointment scheduled already for Wednesday. Patient Problems: Active and Suspected Problems Chest pain (Acute) Subjective: On the day of discharge, patient denied any new complaints. Objective: General: Awake, Alert, Oriented x 3 HEENT: PERRL, EOMI, Sclera Non Icteric Neck: Supple, Good ROM, No Lymph Node Enlargement Lungs: Clear to auscultation Cardiovascular: Regular Rhythm, Normal S1, Normal S2, No Murmurs, No Rubs, No Gallops Vascular: No Carotid Bruits, Normal Femoral Pulses, Normal Radial Pulses, Normal Dorsalis Pedal Pulse, Normal Posterior Tibial Pulses Abdomen: Bowel Sounds Present, Soft, Non Tender, No HSM, No Organomegaly Extremities: No Cyanosis, No Clubbing, No edema Neurological: No Focal Motor or Sensory Deficit - Physical Exam Vital Signs Temp Pulse Resp BP Pulse Ox 98.0 F 60 16 106/61 96 09/26/18 12:29 09/26/18 12:35 09/26/18 12:29 09/26/18 12:35 09/26/18 12:29 Oxygen Delivery Method Room Air Weight: 109.5 kg Body Mass Index (BMI) 40.2 Intake and Output for Last 24 Hours 09/24/18 09/25/18 09/26/18 23:59 23:59 23:59 Intake Total 170 / 170 1395 / 1395 275 / 275 Balance 170 / 170 1395 / 1395 275 / 275 Laboratory Tests Past 24 Hrs 09/26/18 09/26/18 09/26/18 05:15 05:15 05:15 WBC 9.1 RBC 4.17 L Hgb 13.0 Hct 40.1 MCV 96.2 MCH 31.2 MCHC 32.4 RDW 13.2 RDW Differential 45.1 H Plt Count 167 MPV 11.3 Immature Gran % (Auto) 0.300 Neut % (Auto) 73.0 H Lymph % (Auto) 19.6 [place] % (Auto) 6.6 Eos % (Auto) 0.3 Baso % (Auto) 0.2 Absolute Neuts (auto) 6.6 Absolute Lymphs (auto) 1.78 Total Counted Not Reportable PT 12.8 INR 1.0 APTT 27.7 Sodium 140 Potassium 3.9 Chloride 101 Carbon Dioxide 30.0 Anion Gap 9 BUN 24 H Creatinine 0.96 Estim Creat Clear Calc 56.08 Est GFR (MDRD) Af Amer 76 Est GFR (MDRD) Non-Af 63 BUN/Creatinine Ratio 25.0 H Glucose 91 Calcium 9.2 Discharge Diet: Low fat/ Low Cholesterol, 2000 mg Sodium Diet, Carb Control Diet Discharge Activity: Return to Normal Activity Home Medications: Medications to take at Discharge Atorvastatin Calcium [Lipitor] 40 mg PO QHS 09/09/14 Isosorbide Mononitrate [Isosorbide Mononitrate ER] 60 mg PO DAILY 09/09/14 Levothyroxine [Synthroid] 88 mcg PO DAILY 09/09/14 Lisinopril [Zestril] 5 mg PO QHS 09/09/14 Gabapentin [Neurontin] 400 mg PO 4X/DAY 01/02/16 Lorazepam [Ativan] 1 mg PO 4X/DAY PRN PRN 01/02/16 Furosemide [Lasix] 40 mg PO BID@1000,1800 #60 tablet 10/25/16 Multivitamins,Therapeutic [Multivitamin] 1 tablet PO DAILY 07/21/17 Spironolactone [Aldactone] 25 mg PO DAILY 07/21/17 Calcium Carb/Vitamin D3/Vit K1 [Citracal Soft Chew] 1 each PO DAILY 01/04/18 Calcium Carbonate [Calcium] 1,200 mg PO DAILY 01/04/18 Cholecalciferol (Vitamin D3) [Vitamin D3] 5,000 unit PO DAILY 01/04/18 Magnesium 200 mg PO DAILY 01/04/18 Metoprolol Tartrate 50 mg PO BID 01/04/18 Aspirin [Adult Aspirin Regimen] 81 mg PO QODAY 05/01/18 Paroxetine HCl [Paxil] 20 mg PO DAILY #30 tablet 05/01/18 Ensure Enlive 120 ml PO 4X/DAY #100 liquid 09/26/18 Following Prescrptions Were Given to Patient: Ensure Enlive 120 ml PO 4X/DAY #100 liquid Primary Care Physician: Erik Barton MD [Primary Care Provider] - Please follow up with your Primary Care Physician in: within 2 weeks When: Your dock operations supervisor, Dr. Lane as scheduled Disposition: Home Minutes spent on discharge:: 40 Patient Condition:: Stable Medical Necessity - Tobacco Use Smoking Status: Former smoker Tobacco Use: Cigarettes Meaningful Use Info Meaningful Use Diagnoses (Choose all that apply): None applicable Code Visit OBSV E&M: 48809 Observation care discharge
--- NOTE | 2018-09-26 14:40 | CASEMGMT ---
RN CM NOTE: CARRION form explained to pt. questions answered and explained that pt's [employer] insurance will cover under outpt benefits. Form signed/dated/timed. Plan is for dc home today. No concerns re: dc plan to home voiced by pt. Chaparrita OSPINA RN AC
== END 2018-09-26 14:19 | disposition home or self-care (01) ==
LOC: ED 19:09 → PCU 21:17
PROVIDERS: Family Medicine; Admitting Provider Internal Medicine; Emergency Provider Emergency Medicine; Family Provider Family Medicine; PCP Family Medicine; Visit Provider Internal Medicine
DX: R07.89 Other chest pain (principal); I13.0 Hypertensive heart and chronic kidney disease with heart failure and stage 1 through stage 4 chronic kidney disease, or unspecified chronic kidney disease; I50.22 Chronic systolic (congestive) heart failure; N18.3 Chronic kidney disease, stage 3 (moderate); E11.22 Type 2 diabetes mellitus with diabetic chronic kidney disease; E11.65 Type 2 diabetes mellitus with hyperglycemia; E66.01 Morbid (severe) obesity due to excess calories; I25.10 Atherosclerotic heart disease of native coronary artery without angina pectoris; E11.42 Type 2 diabetes mellitus with diabetic polyneuropathy; E03.9 Hypothyroidism, unspecified; E78.5 Hyperlipidemia, unspecified; I48.0 Paroxysmal atrial fibrillation; E24.9 Cushing's syndrome, unspecified; I25.2 Old myocardial infarction; N17.9 Acute kidney failure, unspecified; Z85.3 Personal history of malignant neoplasm of breast; Z86.73 Personal history of transient ischemic attack (TIA), and cerebral infarction without residual deficits; Z68.41 Body mass index [BMI] 40.0-44.9, adult; Z71.3 Dietary counseling and surveillance; Z95.810 Presence of automatic (implantable) cardiac defibrillator; Z79.899 Other long term (current) drug therapy; Z95.1 Presence of aortocoronary bypass graft; Z87.891 Personal history of nicotine dependence; F41.9 Anxiety disorder, unspecified; F32.9 Major depressive disorder, single episode, unspecified
CPT/HCPCS: 36415; 71045; 80048; 80053; 80061; 82962; 83036; 83735; 84484; 85025; 85027; 85610; 85730; 93005; 93017; 93306; 93350; 96372; 96374; 96375; 96376; 99218; 99285; J7030; Q9957; A4216; C8928; G0378

== ENCOUNTER → 2018-11-01 07:01 | Outpatient (CLI) | payer MEDICARE, SELFPAY ==
[2018-11-01 07:01] VITALS: BMI 42.2
[2018-11-01 09:54] LABS: ALB/GLOB Ratio 0.8 RATIO (0.9-2.4); AST(SGOT) 18 U/L (15-37); Alanine Aminotransfer ALT/SGPT 27 U/L (13-56); Albumin, Serum 3.2 g/dL (3.2-5.0); Alkaline Phosphatase 123 U/L (45-117); Anion Gap 9 (5-15); BUN 19 mg/dL (7-18); BUN/Creat Ratio 19.5 RATIO (10-20); Calcium,Total 9.1 mg/dL (8.5-10.1); Chloride 101 mmol/L (98-107); Cholesterol 154 mg/dL (200); Creatinine, Serum 0.97 mg/dL (0.55-1.02); EST Glomerular Filtration Rate 62 mL/min (>60); Est Glom Filt Rate - Afr Amer 75 mL/min (>60); Globulin 3.8 g/dL (2.2-4.2); Glucose 92 mg/dL (74-106); High Density Lipoprotein 57 mg/dL; Potassium 4.3 mmol/L (3.5-5.1); Sodium Level 143 mmol/L (136-145); Thyroid Stim Hormone (TSH) 1.54 uIU/mL (0.358-3.74); Triglycerides 128 mg/dL; Very Low Density Lipoprotein 26 mg/dL (5-40)
[2018-11-01 10:09] LABS: Vitamin D,25 Hydroxy 70.8 ng/mL (29.95-100.01)
== END ==
PROVIDERS: Family Provider Family Medicine; PCP Family Medicine; Referring Provider Internal Medicine Endocrinology, Diabetes & Metabolism; Visit Provider Internal Medicine Endocrinology, Diabetes & Metabolism
DX: E03.8 Other specified hypothyroidism (principal); E78.2 Mixed hyperlipidemia; E55.9 Vitamin D deficiency, unspecified
CPT/HCPCS: 36415; 80053; 80061; 82306; 84443

== ENCOUNTER → 2019-01-03 07:29 | Outpatient (CLI) | payer MEDICARE, SELFPAY ==
[2018-11-01 07:01] VITALS: BMI 42.2
[2019-01-03 08:03] LABS: 24Hr.Lytes Total Volume 2200 mL; Sodium 24 HR UR 275 mmol/24h (40-220); Urine Chloride 116 mmol/L (Not Establ.); Urine Chloride / 24 Hours 255 mmol/24h (110-250); Urine Sodium 125 mmol/L (Not Establ.)
[2019-01-03 08:04] LABS: 24HR UR TOTAL VOLUME 2200 ml; Calcium Urine pH Range 2; Urine Calcium (Random) 10.5 (Not Estab.)
[2019-01-03 08:05] LABS: 24HR. Urine Creatinine 1.25 g/24 HR (0.70-1.90)
[2019-01-03 08:40] LABS: AST(SGOT) 16 U/L (15-37); Alanine Aminotransfer ALT/SGPT 25 U/L (13-56); Albumin, Serum 3.5 g/dL (3.2-5.0); Alkaline Phosphatase 122 U/L (45-117); Anion Gap 4 (5-15); BUN 17 mg/dL (7-18); BUN/Creat Ratio 17.5 RATIO (10-20); Calcium,Total 9.2 mg/dL (8.5-10.1); Chloride 101 mmol/L (98-107); Creatinine, Serum 0.97 mg/dL (0.55-1.02); EST Glomerular Filtration Rate 62 mL/min (>60); Est Glom Filt Rate - Afr Amer 75 mL/min (>60); Globulin 3.5 g/dL (2.2-4.2); Glucose 94 mg/dL (74-106); Sodium Level 137 mmol/L (136-145)
[2019-01-03 09:45] LABS: PTHIN 116.9 pg/mL (18.4-80.1)
== END ==
PROVIDERS: Family Provider Family Medicine; PCP Family Medicine; Referring Provider Nurse Practitioner Adult Health; Visit Provider Nurse Practitioner Adult Health
DX: E03.8 Other specified hypothyroidism (principal); E21.5 Disorder of parathyroid gland, unspecified; M81.0 Age-related osteoporosis without current pathological fracture
CPT/HCPCS: 36415; 80053; 82340; 82436; 82570; 83970; 84133; 84300

== ENCOUNTER 2019-01-19 22:18 | Observation (INO) | payer MEDICARE, SELFPAY ==
[2018-11-01 07:01] VITALS: BMI 42.2
[2019-01-19 22:18] VITALS: BP 165/83; PULSE 60; RESP 18; TEMP 36.7; O2SAT 98; BMI 40.5
--- NOTE | 2019-01-19 22:54 | EKG12_ITS ---
Test Reason : CP Blood Pressure : / mmHG Vent. Rate : 060 BPM Atrial Rate : 060 BPM P-R Int : 196 ms QRS Dur : 114 ms QT Int : 424 ms P-R-T Axes : 085 032 -41 degrees QTc Int : 424 ms Atrial-paced rhythm with occasional ventricular-paced complexes Possible Inferior infarct , age undetermined T wave abnormality, consider anterolateral ischemia Abnormal ECG Confirmed by ROD ELIAS, SUPRIYA ([id number]), content editor JOSELINE MARIA ([id number] on 01/24/2019 4:38:26 PM Referred By: GENESIS Confirmed By:SUPRYIA VELASCO MD
--- NOTE | 2019-01-19 23:00 | RAD_ITS ---
STUDY: X-RAY CHEST REASON FOR EXAM: Female, 58 years old. Chest pain TECHNIQUE: PA and lateral views of the chest. COMPARISON: 09/24/2018 FINDINGS: There are superimposed monitor leads. There is a multilead permanent pacemaker. The lungs are clear and expanded. There is no demonstrated pleural abnormality. Sternal cerclage wires and vascular clips are present from a prior sternotomy and coronary artery bypass graft procedure (CABG). There is cardiac enlargement. Normal mediastinum and anny. Normal visualized pulmonary arteries. There is atherosclerotic calcification of the aortic arch with tortuosity. There is demineralization of the osseous structures. Degenerative changes of the thoracic spine. Normal visualized ribs, clavicles, and shoulders. There is no demonstrated abnormality of the visualized soft tissue structures of the upper abdomen. RAD/Chest PA and Lateral IMPRESSION: Stable cardiomegaly with postsurgical changes. No pulmonary edema, congestive heart failure or confluent pneumonia. Electronically Signed: Latricia Licea MD at 23:23 EST , Service support ,
[2019-01-19] MEDS: Morphine 4 MG/ML Syringe IV (23:14)
[2019-01-19] MEDS: Aspirin 81 MG TAB.CHEW 324 MG PO (23:14)
[2019-01-19 23:17] VITALS: O2SAT 97
[2019-01-19 23:21] LABS: Absolute Neutrophil Count 6.2 X10^3/uL (2.0-7.7); Basophil# 0.07 X10^3/uL; Basophil% 0.5 % (0-1); Eosinophil# 0.12 X10^3/uL; Eosinophils% 1.2 % (0-5); Hematocrit 41.5 % (37-47); Hemoglobin 13.6 g/dl (12.0-15.0); Lymphocyte % 24.6 % (19-41); Mean Corp Hgb Conc 31.9 g/gl (32-36); Mean Corpuscular Hgb 32.3 pg (27.0-32.0); Mean Platelet Vol. 11.7 fl (6.2-12.0); Monocyte# 0.68 X10^3/uL; Monocyte% 8.1 % (0-10); Neutrophil # 6.21 X10^3/uL (2.7-7.7); Neutrophil % 63.8 % (47-70); Platelet Count 136 K/mm3 (150-450); RBC Distribution Width CV 13.6 % (11.6-14.6); RBC Distribution Width SD 48.7 fl (35.1-43.9)
[2019-01-19 23:23] LABS: Differential Indicated SCAN CRITERIA MET; POSITIVE COUNT YES; POSITIVE DIFFERENTIAL NO; POSITIVE MORPHOLOGY NO
[2019-01-19 23:29] LABS: Anion Gap 7 (5-15); BUN 20 mg/dL (7-18); BUN/Creat Ratio 19.6 RATIO (10-20); Calcium,Total 9.6 mg/dL (8.5-10.1); Chloride 101 mmol/L (98-107); Creatinine, Serum 1.02 mg/dL (0.55-1.02); EST Glomerular Filtration Rate 59 mL/min (>60); Est Glom Filt Rate - Afr Amer 71 mL/min (>60); Estimated Creatinine Clearance 50.65 ml/min; Glucose 103 mg/dL (74-106); Potassium 5.6 mmol/L (3.5-5.1); Sodium Level 134 mmol/L (136-145)
[2019-01-19 23:58] LABS: Differential Comment SCANNED
[2019-01-20] VITALS (8 sets, daily range): BP systolic 103–138; BP diastolic 65–70; PULSE 60–69; RESP 15–18; TEMP 36.5–36.6; O2SAT 94–99; BMI 40.8; BMI 40.9
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
--- NOTE | 2019-01-20 01:43 | EKG12_ITS ---
Test Reason : CP ADMIT Blood Pressure : / mmHG Vent. Rate : 060 BPM Atrial Rate : 060 BPM P-R Int : 198 ms QRS Dur : 104 ms QT Int : 422 ms P-R-T Axes : 106 038 -31 degrees QTc Int : 422 ms Atrial-paced rhythm Cannot rule out Inferior infarct , age undetermined T wave abnormality, consider anterolateral ischemia Abnormal ECG Confirmed by VLADIMIR ELIAS, TALIB ([id number]), brands editor JOSELINE MARIA ([id number]) on 01/25/2019 11:00:00 AM Referred By: BRAD Confirmed By:TALIB GILBERT MD
[2019-01-20] MEDS: Polyethylene Glycol 3350 17 GM PACKET PO (03:44)
[2019-01-20] MEDS: Sodium Polystyrene Sulfonate 15 GM/60 ML UDC 30 GM PO (03:44)
[2019-01-20] MEDS: Morphine 2 MG/ML Syringe IV ×2 (04:44→08:56)
--- NOTE | 2019-01-20 04:48 | NURSING ---
Attempted IV start x 3. Called Amanda Electromedical Equipment Technician to start.
[2019-01-20 05:48] LABS: Absolute Lymphocyte Count 2.67 X10^3/ul (0.83-4.51); Absolute Neutrophil Count 6.2 X10^3/uL (2.0-7.7); Anion Gap 9 (5-15); BUN 17 mg/dL (7-18); BUN/Creat Ratio 16.5 RATIO (10-20); Basophil# 0.05 X10^3/uL; Basophil% 0.5 % (0-1); Calcium,Total 9.3 mg/dL (8.5-10.1); Chloride 103 mmol/L (98-107); Cholesterol 152 mg/dL (200); Creatinine, Serum 1.03 mg/dL (0.55-1.02); EST Glomerular Filtration Rate 58 mL/min (>60); Eosinophil# 0.12 X10^3/uL; Eosinophils% 1.2 % (0-5); Est Glom Filt Rate - Afr Amer 70 mL/min (>60); Estimated Creatinine Clearance 50.16 ml/min; Glucose 110 mg/dL (74-106); Hematocrit 42.5 % (37-47); Hemoglobin 13.5 g/dl (12.0-15.0); High Density Lipoprotein 62 mg/dL; Lymphocyte # 2.67 X10^3/ul (4.0); Lymphocyte % 27.2 % (19-41); Mean Corp Hgb Conc 31.8 g/gl (32-36); Mean Corpuscular Volume 97.7 fL (81-99); Mean Platelet Vol. 11.1 fl (6.2-12.0); Monocyte# 0.73 X10^3/uL; Monocyte% 7.4 % (0-10); Neutrophil # 6.24 X10^3/uL (2.7-7.7); Neutrophil % 63.5 % (47-70); Platelet Count 198 K/mm3 (150-450); Potassium 4.6 mmol/L (3.5-5.1); RBC Distribution Width CV 13.6 % (11.6-14.6); RBC Distribution Width SD 47.6 fl (35.1-43.9); Red Blood Count 4.35 M/mm3 (4.2-5.4); Sodium Level 136 mmol/L (136-145); Triglycerides 118 mg/dL; Very Low Density Lipoprotein 24 mg/dL (5-40); White Blood Count 9.8 K/mm3 (4.4-11.0)
[2019-01-20 05:49] LABS: POSITIVE COUNT NO; POSITIVE DIFFERENTIAL NO; POSITIVE MORPHOLOGY NO
[2019-01-20 05:51] LABS: Partial Thromboplast Time 28.9 Seconds (24.1-36.2)
[2019-01-20 05:56] LABS: Prothrombin Time (Protime)PT. 12.9 SECONDS (11.7-14.9)
[2019-01-20] MEDS: Levothyroxine 88 MCG Tablet PO (06:02)
[2019-01-20] MEDS: Aspirin E.C. 81 MG Tablet PO (06:03)
[2019-01-20] MEDS: Gabapentin 400 MG Capsule PO (06:03)
[2019-01-20] MEDS: 0.9% NaCl Peripheral Flush Adult/Peds IV (08:56)
--- NOTE | 2019-01-20 10:41 | STRESSREP ---
Stress Test Report Date: 01-20-2019 Procedure: Pharmacologic stress nuclear imaging study Indications: Chest pain; CAD; PCI; CABG; PAF Consent: Per the patient Procedure: The patient underwent pharmacologic (Regadenoson) evaluation with a peak heart rate of 75 beats per minute (46% predicted maximal heart rate) and a peak blood pressure of 146/72 mmHg. The baseline ECG demonstrated normal sinus rhythm; incomplete left bundle branch block pattern . The peak pharmacologic ECG demonstrated no obvious ECG changes . There was a rare PVC during recovery . There was no complaint of chest discomfort during pharmacologic infusion or recovery. The examination was discontinued secondary to completion of protocol. Impression: 1. Pharmacologic (Regadenoson) evaluation 2. Peak pharmacologic ECG with no obvious ECG changes . 3. There was a rare PVC during recovery . 4. Nuclear images pending Myocardial perfusion imaging study: Technique: The patient was injected with 14.8 millicuries of technetium 99m Cardiolite and subsequently rest SPECT Cardiolite nuclear imaging was obtained in the horizontal long, vertical long, and short axis views. The patient underwent pharmacologic (Regadenoson) evaluation with a peak heart rate of 75 beats per minute (46 % percent predicted maximal heart rate) and a peak blood pressure of 146/72 mmHg. The patient was injected with 44.6 millicuries of technetium 99m Cardiolite and subsequently stress SPECT Cardiolite nuclear imaging was obtained in the horizontal long, vertical long, and short axis views. A gated Cardiolite study at peak stress was obtained. Interpretation: Rest and stress SPECT Cardiolite nuclear imaging status post realignment, normalization, and attenuation correction demonstrate areas of extra cardiac/gastrointestinal tracer uptake near the inferior segments. At rest and stress there is notation of diminished absence of tracer uptake in portions of the basal towards distal inferior lateral segments. Status post stress there is notation of additional diminished myocardial perfusion/tracer uptake in portions of the mid towards distal inferior lateral/inferoapical/lateral apical segments. . There is diminished end systolic thickening and brightening. . The gated Cardiolite study demonstrates diminished myocardial thickening and inward wall motion. . The reported LVEF is 53 %. Impression: 1. Rest and stress SPECT Cardiolite nuclear imaging demonstrate myocardial perfusion changes appearing compatible with an area of previous myocardial injury/infarction involving portions of the basal towards distal inferolateral segments with post stress myocardial perfusion changes appearing compatible with mild enma-infarct related myocardial ischemia involving portions of the distal inferior lateral, inferoapical, and lateral apical segments. . 2. The gated Cardiolite study reports an LVEF of 53 %. Comment: Of note: The aforementioned findings appears similar to findings reported on a pharmacologic stress nuclear imaging study from 01-05-2018. This note was generated with [employer] software. It may contain incorrect words, spelling, and punctuation that were not noted in checking the note before signing.
[2019-01-20] MEDS: Spironolactone 25 MG Tablet PO (11:07)
[2019-01-20] MEDS: Metoprolol Tartrate 50 MG Tablet PO (11:07)
[2019-01-20] MEDS: Isosorbide Mononitrate 60 MG Tablet PO (11:07)
[2019-01-20] MEDS: Furosemide 40 MG Tablet PO (11:07)
[2019-01-20] MEDS: Paroxetine 20 MG Tablet PO (11:07)
--- NOTE | 2019-01-20 11:52 | DCINST_ITS ---
- Discharge Diagnoses Reason(s) for Visit for Discharge Instructions: Chest pain You will use the following diet at home:: Calorie/Carbohydrate Controlled (specify 1200, 1400, etc) Your food should be the consistency of: Regular Your liquids should be the consistency of: Regular/Thin Discharge Activity: Return to Normal Activity Additional Instructions: Continue to take all your meducations. Follow a low salt, low fat diet Allergies/Adverse Reactions: Allergies Iodinated Contrast- Oral and IV Dye Allergy (Verified 01/19/19 22:20) Unknown ranolazine [From Ranexa] Allergy (Verified 01/19/19 22:20) Unknown MISC ANTIBIOTIC Allergy (Uncoded 01/19/19 22:20) Unknown Medications to take at Discharge Atorvastatin Calcium [Lipitor] 40 mg PO QHS 09/09/14 Isosorbide Mononitrate [Isosorbide Mononitrate ER] 60 mg PO DAILY 09/09/14 Levothyroxine [Synthroid] 88 mcg PO DAILY 09/09/14 Lisinopril [Zestril] 5 mg PO QHS 09/09/14 Gabapentin [Neurontin] 400 mg PO 4X/DAY 01/02/16 Lorazepam [Ativan] 1 mg PO 4X/DAY PRN PRN 01/02/16 Furosemide [Lasix] 40 mg PO BID@1000,1800 #60 tablet 10/25/16 Multivitamins,Therapeutic [Multivitamin] 1 tablet PO DAILY 07/21/17 Spironolactone [Aldactone] 25 mg PO DAILY 07/21/17 Calcium Carb/Vitamin D3/Vit K1 [Citracal Soft Chew] 2 each PO DAILY 01/04/18 Calcium Carbonate [Calcium] 1,200 mg PO DAILY 01/04/18 Cholecalciferol (Vitamin D3) [Vitamin D3] 5,000 unit PO DAILY 01/04/18 Magnesium 200 mg PO DAILY 01/04/18 Metoprolol Tartrate 50 mg PO BID 01/04/18 Aspirin [Adult Aspirin Regimen] 81 mg PO QODAY 05/01/18 Paroxetine [Paxil] 20 mg PO DAILY #30 tablet 05/01/18 Primary Care Physician: Erik Barton MD [Primary Care Provider] - Please follow up with your Primary Care Physician in: within 1-2 weeks Test Results: Test results from this visit will be discussed in further detail at your follow- up appointment, if applicable. Please Follow Up With: Sudheer Lane, DO When: within 1-2 weeks Proposed Discharge Date: 01/20/19
--- NOTE | 2019-01-20 11:55 | PCM.DC.SUM ---
Discharge Date and Diagnosis Date of Admission: 01/20/19 Date of Discharge: 01/20/19 - Primary Discharge Diagnosis Chest pain - Secondary Discharge Diagnosis Chronic Problems CKD (chronic kidney disease), stage III (Chronic) DM2 (diabetes mellitus, type 2) (Chronic) History of TIA (transient ischemic attack) and stroke (Chronic) History of percutaneous transluminal coronary angioplasty (Chronic) Peripheral neuropathy (Chronic) History of breast cancer (Chronic) Right Obesity (BMI 30-39.9) (Chronic) Venous insufficiency (Chronic) I87.2 Leg edema (Chronic) Delayed wound healing (Chronic) Malnutrition (Chronic) Chronic ulcer of left leg with fat layer exposed (Chronic) Renal insufficiency (Chronic) Cardiomyopathy, ischemic (Chronic) CAD (coronary artery disease) (Chronic) Type II diabetes mellitus, uncontrolled (Chronic) Atrial fibrillation and flutter (Chronic) SVT (supraventricular tachycardia) (Chronic) Afib (Chronic) Congestive heart failure (CHF) (Chronic) Cushings syndrome (Chronic) Hypothyroidism (Chronic) Hyperlipidemia (Chronic) Hypertension (Chronic) History of CVA (cerebrovascular accident) (Chronic) 2006 ICD (implantable cardioverter-defibrillator) in place (Chronic) 2002 Paroxysmal a-fib (Chronic) Hx of CABG (Chronic) Hospital Course and Treatment Imaging Results: Clinical Impression(s) from Imaging Studies Chest X-Ray 01/19/19 23:00 IMPRESSION: Stable cardiomegaly with postsurgical changes. No pulmonary edema, congestive heart failure or confluent pneumonia. Electronically Signed: Latricia Licea MD at 23:23 EST , Service support , None Operations: None Procedures: Nuclear stress test Summary of Care Provided: The patient is a 58 year old F past medical history of CAD status post CABG and stents, hypertension, kidney disease, breast cancer status post mastectomy and chemotherapy, status post pacemaker, chronic atrial fibrillation status post ablation who presents with complaints of left-sided chest pain that radiates to her left jaw and chest. This was associated with nausea without vomiting without diaphoresis. She admits to being under stress lately. She was seen in the ED, vitals were stable, EKG showed no acute ST-T changes. Patient was admitted to a monitored bed, remains asymptomatic. Had a stress test that was negative. Patient was asked to follow-up with a primary labor relations or personnel negotiator, Dr. Lane in the outpatient. Subjective: On the day of exam, patient was seen and examined. Denied any new complaints. Denies any chest pain or dizziness or palpitations. - Physical Exam General: Alert, Oriented x3, Cooperative, No apparent distress, - - obese HEENT: Atraumatic, PERRLA, EOMI, Normocephalic Oral: Moist Mucosa Neck: Supple Lungs: Clear to auscultation, Normal air movement Cardiovascular: Regular rate, Regular Rhythm, Normal S1, Normal S2, No murmurs Abdomen: Bowel Sounds Present, Soft, Non Tender, Non-Distended, No Hepato-splenomegaly Extremities: No edema Skin: No rashes, No breakdown Musculoskeletal: No Tenderness to Palpation of Joints or Extremities Lymphatic: No Cervical, Supraclavicular, or Inguinal Adenopathy Neurological: Cranial nerves II-XII grossly intact, Neuro grossly intact Psych/Mental Status: Normal Affect, Appropriate Vital Signs Temp Pulse Resp BP Pulse Ox 97.8 F 60 15 138/70 H 95 01/20/19 11:01 01/20/19 11:07 01/20/19 11:01 01/20/19 11:07 01/20/19 11:01 Oxygen Delivery Method Room Air Weight: 108 kg Body Mass Index (BMI) 40.8 Intake and Output for Last 24 Hours 01/18/19 01/19/19 01/20/19 23:59 23:59 23:59 Intake Total 710 / 710 Balance 710 / 710 Laboratory Tests Past 24 Hrs 01/19/19 01/19/19 01/20/19 22:55 22:55 02:35 WBC 10.0 RBC 4.40 Hgb 13.6 Hct 41.5 MCV 97.0 MCH 32.3 H MCHC 31.9 L RDW 13.6 RDW Differential 48.7 H Plt Count 136 L MPV 11.7 Immature Gran % (Auto) 0.800 Neut % (Auto) 63.8 Lymph % (Auto) 24.6 [place] % (Auto) 8.1 Eos % (Auto) 1.2 Baso % (Auto) 0.5 Absolute Neuts (auto) 6.2 Absolute Lymphs (auto) 2.60 Total Counted Not Reportable Differential Comment SCANNED PT INR APTT Sodium 134 L Potassium 5.6 H Chloride 101 Carbon Dioxide 26.0 Anion Gap 7 BUN 20 H Creatinine 1.02 Estim Creat Clear Calc 50.65 Est GFR (MDRD) Af Amer 71 Est GFR (MDRD) Non-Af 59 L BUN/Creatinine Ratio 19.6 Glucose 103 Calcium 9.6 Troponin I < 0.015 < 0.015 Triglycerides Cholesterol LDL Cholesterol VLDL Cholesterol HDL Cholesterol 01/20/19 01/20/19 01/20/19 05:20 05:20 05:20 WBC 9.8 RBC 4.35 Hgb 13.5 Hct 42.5 MCV 97.7 MCH 31.0 MCHC 31.8 L RDW 13.6 RDW Differential 47.6 H Plt Count 198 MPV 11.1 Immature Gran % (Auto) 0.200 Neut % (Auto) 63.5 Lymph % (Auto) 27.2 [place] % (Auto) 7.4 Eos % (Auto) 1.2 Baso % (Auto) 0.5 Absolute Neuts (auto) 6.2 Absolute Lymphs (auto) 2.67 Total Counted Not Reportable Differential Comment PT 12.9 INR 1.0 APTT Sodium 136 Potassium 4.6 Chloride 103 Carbon Dioxide 24.0 Anion Gap 9 BUN 17 Creatinine 1.03 H Estim Creat Clear Calc 50.16 Est GFR (MDRD) Af Amer 70 Est GFR (MDRD) Non-Af 58 L BUN/Creatinine Ratio 16.5 Glucose 110 H Calcium 9.3 Troponin I < 0.015 Triglycerides 118 Cholesterol 152 LDL Cholesterol 66 VLDL Cholesterol 24 HDL Cholesterol 62 01/20/19 05:20 WBC RBC Hgb Hct MCV MCH MCHC RDW RDW Differential Plt Count MPV Immature Gran % (Auto) Neut % (Auto) Lymph % (Auto) [place] % (Auto) Eos % (Auto) Baso % (Auto) Absolute Neuts (auto) Absolute Lymphs (auto) Total Counted Differential Comment PT INR APTT 28.9 Sodium Potassium Chloride Carbon Dioxide Anion Gap BUN Creatinine Estim Creat Clear Calc Est GFR (MDRD) Af Amer Est GFR (MDRD) Non-Af BUN/Creatinine Ratio Glucose Calcium Troponin I Triglycerides Cholesterol LDL Cholesterol VLDL Cholesterol HDL Cholesterol Discharge Diet: Low fat/ Low Cholesterol, 2000 mg Sodium Diet Discharge Activity: Return to Normal Activity Home Medications: Medications to take at Discharge Atorvastatin Calcium [Lipitor] 40 mg PO QHS 09/09/14 Isosorbide Mononitrate [Isosorbide Mononitrate ER] 60 mg PO DAILY 09/09/14 Levothyroxine [Synthroid] 88 mcg PO DAILY 09/09/14 Lisinopril [Zestril] 5 mg PO QHS 09/09/14 Gabapentin [Neurontin] 400 mg PO 4X/DAY 01/02/16 Lorazepam [Ativan] 1 mg PO 4X/DAY PRN PRN 01/02/16 Furosemide [Lasix] 40 mg PO BID@1000,1800 #60 tablet 10/25/16 Multivitamins,Therapeutic [Multivitamin] 1 tablet PO DAILY 07/21/17 Spironolactone [Aldactone] 25 mg PO DAILY 07/21/17 Calcium Carb/Vitamin D3/Vit K1 [Citracal Soft Chew] 2 each PO DAILY 01/04/18 Calcium Carbonate [Calcium] 1,200 mg PO DAILY 01/04/18 Cholecalciferol (Vitamin D3) [Vitamin D3] 5,000 unit PO DAILY 01/04/18 Magnesium 200 mg PO DAILY 01/04/18 Metoprolol Tartrate 50 mg PO BID 01/04/18 Aspirin [Adult Aspirin Regimen] 81 mg PO QODAY 05/01/18 Paroxetine [Paxil] 20 mg PO DAILY #30 tablet 05/01/18 Primary Care Physician: Erik Barton MD [Primary Care Provider] - Please follow up with your Primary Care Physician in: within 1-2 weeks Please Follow Up With: Sudheer Lane DO When: within 1-2 weeks Disposition: Home Minutes spent on discharge:: 40 Patient Condition:: Stable Medical Necessity - Tobacco Use Smoking Status: Never smoker Tobacco Use: Non-smoker Meaningful Use Info Meaningful Use Diagnoses (Choose all that apply): None applicable Code Visit Inpatient E&M: 37979 Disch Hosp
== END 2019-01-20 11:51 | disposition home or self-care (01) ==
LOC: ED 23:57 → PCU 01-20 00:41
PROVIDERS: Admitting Provider Hospitalist; Emergency Provider Emergency Medicine; Family Provider Family Medicine; PCP Family Medicine; Visit Provider Internal Medicine
DX: R07.89 Other chest pain (principal); R06.02 Shortness of breath; E24.9 Cushing's syndrome, unspecified; I25.10 Atherosclerotic heart disease of native coronary artery without angina pectoris; E11.22 Type 2 diabetes mellitus with diabetic chronic kidney disease; N18.3 Chronic kidney disease, stage 3 (moderate); E66.9 Obesity, unspecified; E11.42 Type 2 diabetes mellitus with diabetic polyneuropathy; E03.9 Hypothyroidism, unspecified; I48.0 Paroxysmal atrial fibrillation; E78.5 Hyperlipidemia, unspecified; I13.0 Hypertensive heart and chronic kidney disease with heart failure and stage 1 through stage 4 chronic kidney disease, or unspecified chronic kidney disease; E11.65 Type 2 diabetes mellitus with hyperglycemia; I50.9 Heart failure, unspecified; Z95.1 Presence of aortocoronary bypass graft; Z85.3 Personal history of malignant neoplasm of breast; Z92.21 Personal history of antineoplastic chemotherapy; Z95.810 Presence of automatic (implantable) cardiac defibrillator; Z68.41 Body mass index [BMI] 40.0-44.9, adult; Z71.3 Dietary counseling and surveillance; Z79.899 Other long term (current) drug therapy; Z79.82 Long term (current) use of aspirin; E87.5 Hyperkalemia; F41.9 Anxiety disorder, unspecified
CPT/HCPCS: 36415; 71046; 78452; 80048; 80061; 84484; 85025; 85610; 85730; 93005; 93017; 96374; 96376; 97802; 99218; 99285; A9500; A4216; G0378; J2785

== ENCOUNTER → 2019-02-28 07:39 | Outpatient (CLI) | payer MEDICARE, SELFPAY ==
[2019-01-20 01:52] VITALS: BMI 40.8
[2019-02-28 08:56] LABS: ALB/GLOB Ratio 0.9 RATIO (0.9-2.4); AST(SGOT) 13 U/L (15-37); Alanine Aminotransfer ALT/SGPT 26 U/L (13-56); Albumin, Serum 3.3 g/dL (3.2-5.0); Alkaline Phosphatase 117 U/L (45-117); Anion Gap 6 (5-15); BUN 30 mg/dL (7-18); BUN/Creat Ratio 30.4 RATIO (10-20); Calcium,Total 9.2 mg/dL (8.5-10.1); Chloride 97 mmol/L (98-107); Creatinine, Serum 0.99 mg/dL (0.55-1.02); EST Glomerular Filtration Rate 61 mL/min (>60); Est Glom Filt Rate - Afr Amer 74 mL/min (>60); Globulin 3.7 g/dL (2.2-4.2); Glucose 102 mg/dL (74-106); Magnesium 2.1 mg/dL (1.6-2.6); Potassium 4.1 mmol/L (3.5-5.1); Sodium Level 136 mmol/L (136-145)
[2019-02-28 09:09] LABS: Vitamin D,25 Hydroxy 67.5 ng/mL (29.95-100.01)
[2019-02-28 09:10] LABS: PTHIN 76.6 pg/mL (18.4-80.1)
== END ==
PROVIDERS: Family Provider Family Medicine; PCP Family Medicine; Referring Provider Internal Medicine Endocrinology, Diabetes & Metabolism; Visit Provider Internal Medicine Endocrinology, Diabetes & Metabolism
DX: E03.8 Other specified hypothyroidism (principal); E21.5 Disorder of parathyroid gland, unspecified; M81.0 Age-related osteoporosis without current pathological fracture; E55.9 Vitamin D deficiency, unspecified; E61.2 Magnesium deficiency
CPT/HCPCS: 36415; 80053; 82306; 83735; 83970

== ENCOUNTER 2019-04-23 13:18 | Emergency (ER) | payer MEDICARE, SELFPAY ==
[2019-01-20 01:52] VITALS: BMI 40.8
[2019-04-23 13:21] VITALS: BP 152/108; PULSE 68; RESP 18; TEMP 36.6; O2SAT 97; BMI 39.9
--- NOTE | 2019-04-23 14:12 | CT_ITS ---
STUDY: CT BRAIN WITHOUT CONTRAST REASON FOR EXAM: Female, 58 years old. Trauma, dizzy and multiple falls recently, hit head, abrasions to forehead, chin and nose, leg weakness and neuropathy. Hx CVA, [place], breast cancer. RADIATION DOSAGE (If Supplied By Facility): CTDIvol = ( 44.99 ) mGy, DLP = ( 829.85 ) mGycm TECHNIQUE: Transaxial CT imaging of the brain was performed without administration of intravenous contrast material. Individualized dose optimization techniques were used for this CT. COMPARISON: No relevant priors. FINDINGS: Normal soft tissue structures. Normal calvarium. There is mild cerebral atrophy with widening of the extra-axial spaces and ventricular dilatation. There are areas of decreased attenuation within the white matter tracts of the supratentorial brain, consistent with microvascular disease changes. Right basal ganglia lacunar infarction is stable since the prior study. Normal brainstem. Normal cerebellum. There is no intracranial hemorrhage. There are no findings of an acute ischemic infarction. There is mucoperiosteal inflammatory disease of the left maxillary sinus consistent with mild chronic sinusitis. CT/Brain/Head without Contrast IMPRESSION: 1. No acute intracranial hemorrhage or mass effect. 2. Central parenchymal volume loss. White matter changes that are nonspecific but most commonly associated with chronic small vessel ischemic disease. 3. Right basal ganglia lacunar infarction, stable. Electronically Signed: Harry Aguilar MD at 14:54 EDT , Service support ,
--- NOTE | 2019-04-23 14:21 | ED.VIS.GEN ---
History of Present Illness Chief Complaint: Fall Informant: Patient Onset: Today Context: Sudden Onset Timing: Continuous Quality: pain Location: left elbow, head Current Severity: Severe Maximum Severity: Severe Worsened by: moving left elbow Relieved by: remaining still Associated Symptoms: scrapes/abrasions. dizzy/spinning, which made her fall. Narrative: Patient states she was on her way home from [place], [place] today, at a rest area in [place] she was having disequilibrium, and fell because of the dizziness to the concrete, injuring her left elbow her forehead, her knees, toes because she was wearing sandals, she has many bruises and scrapes from before because of a fall 3 weeks ago. States she accidentally hit her head several days ago when she stood up into something; had no LOC or focal neurologic sx. Recent Illness/Hospitalization: No - Past Medical History (1) CAD (coronary artery disease) Status: Chronic (2) History of CVA (cerebrovascular accident) Status: Chronic Comment: 2006 (3) History of TIA (transient ischemic attack) and stroke Status: Chronic (4) History of breast cancer Status: Chronic Comment: Right (5) Hyperlipidemia Status: Chronic (6) Hypertension Status: Chronic (7) Hypothyroidism Status: Chronic (8) ICD (implantable cardioverter-defibrillator) in place Status: Chronic Comment: 2002 (9) Paroxysmal a-fib Status: Chronic (10) Peripheral neuropathy Status: Chronic (11) Renal insufficiency Status: Chronic (12) SVT (supraventricular tachycardia) Status: Resolved (13) Type II diabetes mellitus, uncontrolled Status: Chronic (14) Venous insufficiency Status: Chronic Comment: I87.2 Past Medical History - Allergies and Home Meds Allergies/Adverse Reactions: Allergies Iodinated Contrast- Oral and IV Dye Allergy (Verified 04/23/19 13:20) Unknown levofloxacin [From Levaquin] Allergy (Verified 04/23/19 13:20) Unknown ranolazine [From Ranexa] Allergy (Verified 04/23/19 13:20) Unknown sulfamethoxazole [From Bactrim] Allergy (Verified 04/23/19 13:20) Unknown trimethoprim [From Bactrim] Allergy (Verified 04/23/19 13:20) Unknown Primary Care Physician: Mona Mcdonnell DO [STAFF PHYSICIAN] - 1-2 Weeks (call for appt) Erik Barton MD [Primary Care Provider] - 1 Week if not improving (with regards to dizziness) Surgical History: angioplasty, coronary bypass surgery, - - Pituitary surgery, right breast mastectomy (2000), hysterectomy, knee arthroscopy, implanted pacemaker/defibrillator, coronary revascularization in 1998, and coronary angioplasties ?18 with 5 implanted coronary stents. Lives: Spouse/ Significant Other Smoking Status: Former smoker - Family History Offspring Family History: Reports: Heart Disease - 5 heart attacks and her daughter Maternal Family History: Reports: Heart Disease, - - Patient's mother at the age of 58 with a history of breast cancer and myocardial infarction. Paternal Family History: Reports: Heart Disease, - - Patient's father at the age of 56, with a history of cardial infarction. Review of Systems General: Denies: Chills, Fever, Sweats Eyes: Denies: Visual changes - bilaterally, Diplopia ENT: Denies: Rhinorrhea, Sore throat Cardiovascular: Denies: Chest pain, Palpitations Respiratory: Denies: Dyspnea, Cough, Dyspnea on exertion Gastrointestinal: Denies: Abdominal pain, Nausea, Vomiting, Diarrhea, Melena, Hematochezia Genitourinary: Denies: Dysuria, Hematuria, Frequency Musculoskeletal: Reports: Extremity Pain. Denies: Back pain Skin: Reports: Abrasions, Wounds. Denies: Rash Neurological: Reports: Headache - BLE chronic due to neuropathy, unchanged, Numbness - chronic due to neuropathy, unchanged. Denies: Weakness Physical Exam Vital Signs/Narrative: Vital Signs Temp Pulse Resp BP Pulse Ox 04/23/19 13:21 97.8 F 68 18 152/108 H 97 Inital Vital Signs reviewed: Yes General: Well nourished, Well developed, No Acute Distress Head: Normocephalic, Atraumatic Eyes: Perrl, EOMI ENT: Moist mucous membranes, No rhinorrhea, TM's clear Neck: Supple, Nontender Cardiovascular: Regular rate, Regular rhythm, No murmurs Respiratory: No distress, CTA bilaterally, Chest nontender Abdomen: Soft, Nontender, Nondistended, Normal bowel sounds Back: Nontender, Normal Inspection Extremities: No edema, Tenderness - lateral aspect of left elbow, w/ very limited ROM due to pain. rest of LUE nontender. no other bony ext tenderness. NVID. Skin: Normal color, Trauma - multiple contusions/abrasions w/ several superficial skin tears of various ages; no lacerations/suturable wounds. Neurological: Alert, Oriented x3, Cranial nerves II-XII grossly intact, Normal Strength, Normal Sensation, - - nml FTN and HTS (LUE not tested). pos [place] to left. Psychological: Normal affect, Normal Mood Diagnostic/Tx/Re-eval Clinical Impression(s) from Imaging Studies Brain CT 04/23/19 14:12 IMPRESSION: 1. No acute intracranial hemorrhage or mass effect. 2. Central parenchymal volume loss. White matter changes that are nonspecific but most commonly associated with chronic small vessel ischemic disease. 3. Right basal ganglia lacunar infarction, stable. Electronically Signed: Harry Aguilar MD at 14:54 EDT , Service support , Elbow X-Ray 04/23/19 14:33 IMPRESSION: Nondisplaced radial neck fracture suspected. Joint effusion. Electronically Signed: Harry Aguilar MD at 14:55 EDT , Service support , - Medical Decision Making Work-up shows a nondisplaced radial head fracture, that was splinted and she was placed in a sling after being given pain medication and meclizine. Her vertigo is better after that. CT head is negative. Advised to follow-up with orthopedics and given a prescription for [place] in addition to the meclizine and she is comfortable with this plan and has a ride home. Procedures - Upper Extremity Splints Upper Extremity Splint: Orthoglass, Sling, - - sugartong Splint Fabrication: Fabricated - NVID after placement Location: Left ED Disposition - Plan for ED Patient: Disposition: Home or Assisted Living Diagnosis: Closed fracture of head of left radius, Closed head injury without loss of consciousness, Abrasions of multiple sites, Peripheral vertigo, unspecified Instructions: ED Abrasion, ED Fx Radial Head, ED Vertigo Unspecified Prescriptions: Hydrocodone Bitart/Apap 5-325 [[place] 5MG-325MG] 1 tab PO Q4H PRN PRN 2 Days #10 tab PRN Reason: Pain Meclizine HCl 25 mg PO Q8H PRN #16 tab PRN Reason: Vertigo Referrals: Mona Mcdonnell DO [STAFF PHYSICIAN] - 1-2 Weeks (call for appt) Erik Barton MD [Primary Care Provider] - 1 Week if not improving (with regards to dizziness)
[2019-04-23] MEDS: Ondansetron ODT 4 MG Tablet 8 MG PO (14:24)
[2019-04-23] MEDS: oxyCODONE 5 MG Tablet PO (14:25)
[2019-04-23] MEDS: Meclizine HCl 25 MG Tablet PO (14:25)
--- NOTE | 2019-04-23 14:33 | RAD_ITS ---
STUDY: X-RAY - LEFT ELBOW REASON FOR EXAM: Female, 58 years old. Multiple falls, left elbow pain TECHNIQUE: 3 view(s) of the elbow. COMPARISON: None. FINDINGS: There is slight cortical step-off of the anterior radial neck on lateral view. Joint effusion is noted. Normal radiocapitellar and ulnotrochlear articulations. The soft tissue structures are otherwise unremarkable. RAD/Elbow min 3 Views IMPRESSION: Nondisplaced radial neck fracture suspected. Joint effusion. Electronically Signed: Harry Aguilar MD at 14:55 EDT , Service support ,
--- NOTE | 2019-04-23 15:37 | ED.DCSUM_ITS ---
History of Present Illness Chief Complaint: Fall Informant: Patient Onset: Today Context: Sudden Onset Timing: Continuous Quality: pain Location: left elbow, head Current Severity: Severe Maximum Severity: Severe Worsened by: moving left elbow Relieved by: remaining still Associated Symptoms: scrapes/abrasions. dizzy/spinning, which made her fall. Narrative: Patient states she was on her way home from [place], [place] today, at a rest area in [place] she was having disequilibrium, and fell because of the dizziness to the concrete, injuring her left elbow her forehead, her knees, toes because she was wearing sandals, she has many bruises and scrapes from before because of a fall 3 weeks ago. States she accidentally hit her head several days ago when she stood up into something; had no LOC or focal neurologic sx. Recent Illness/Hospitalization: No - Past Medical History (1) CAD (coronary artery disease) Status: Chronic (2) History of CVA (cerebrovascular accident) Status: Chronic Comment: 2006 (3) History of TIA (transient ischemic attack) and stroke Status: Chronic (4) History of breast cancer Status: Chronic Comment: Right (5) Hyperlipidemia Status: Chronic (6) Hypertension Status: Chronic (7) Hypothyroidism Status: Chronic (8) ICD (implantable cardioverter-defibrillator) in place Status: Chronic Comment: 2002 (9) Paroxysmal a-fib Status: Chronic (10) Peripheral neuropathy Status: Chronic (11) Renal insufficiency Status: Chronic (12) SVT (supraventricular tachycardia) Status: Resolved (13) Type II diabetes mellitus, uncontrolled Status: Chronic (14) Venous insufficiency Status: Chronic Comment: I87.2 Past Medical History - Allergies and Home Meds Allergies/Adverse Reactions: Allergies Iodinated Contrast- Oral and IV Dye Allergy (Verified 04/23/19 13:20) Unknown levofloxacin [From Levaquin] Allergy (Verified 04/23/19 13:20) Unknown ranolazine [From Ranexa] Allergy (Verified 04/23/19 13:20) Unknown sulfamethoxazole [From Bactrim] Allergy (Verified 04/23/19 13:20) Unknown trimethoprim [From Bactrim] Allergy (Verified 04/23/19 13:20) Unknown Primary Care Physician: Mona Mcdonnell DO [STAFF PHYSICIAN] - 1-2 Weeks (call for appt) Erik Barton MD [Primary Care Provider] - 1 Week if not improving (with regards to dizziness) Surgical History: angioplasty, coronary bypass surgery, - - Pituitary surgery, right breast mastectomy (2000), hysterectomy, knee arthroscopy, implanted pacemaker/defibrillator, coronary revascularization in 1998, and coronary angioplasties ?18 with 5 implanted coronary stents. Lives: Spouse/ Significant Other Smoking Status: Former smoker - Family History Offspring Family History: Reports: Heart Disease - 5 heart attacks and her daughter Maternal Family History: Reports: Heart Disease, - - Patient's mother at the age of 58 with a history of breast cancer and myocardial infarction. Paternal Family History: Reports: Heart Disease, - - Patient's father at the age of 56, with a history of cardial infarction. Review of Systems General: Denies: Chills, Fever, Sweats Eyes: Denies: Visual changes - bilaterally, Diplopia ENT: Denies: Rhinorrhea, Sore throat Cardiovascular: Denies: Chest pain, Palpitations Respiratory: Denies: Dyspnea, Cough, Dyspnea on exertion Gastrointestinal: Denies: Abdominal pain, Nausea, Vomiting, Diarrhea, Melena, Hematochezia Genitourinary: Denies: Dysuria, Hematuria, Frequency Musculoskeletal: Reports: Extremity Pain. Denies: Back pain Skin: Reports: Abrasions, Wounds. Denies: Rash Neurological: Reports: Headache - BLE chronic due to neuropathy, unchanged, Numbness - chronic due to neuropathy, unchanged. Denies: Weakness Physical Exam Vital Signs/Narrative: Vital Signs Temp Pulse Resp BP Pulse Ox 04/23/19 13:21 97.8 F 68 18 152/108 H 97 Inital Vital Signs reviewed: Yes General: Well nourished, Well developed, No Acute Distress Head: Normocephalic, Atraumatic Eyes: Perrl, EOMI ENT: Moist mucous membranes, No rhinorrhea, TM's clear Neck: Supple, Nontender Cardiovascular: Regular rate, Regular rhythm, No murmurs Respiratory: No distress, CTA bilaterally, Chest nontender Abdomen: Soft, Nontender, Nondistended, Normal bowel sounds Back: Nontender, Normal Inspection Extremities: No edema, Tenderness - lateral aspect of left elbow, w/ very limited ROM due to pain. rest of LUE nontender. no other bony ext tenderness. NVID. Skin: Normal color, Trauma - multiple contusions/abrasions w/ several superficial skin tears of various ages; no lacerations/suturable wounds. Neurological: Alert, Oriented x3, Cranial nerves II-XII grossly intact, Normal Strength, Normal Sensation, - - nml FTN and HTS (LUE not tested). pos Thurmond- Hallpike to left. Psychological: Normal affect, Normal Mood Diagnostic/Tx/Re-eval Clinical Impression(s) from Imaging Studies Brain CT 04/23/19 14:12 IMPRESSION: 1. No acute intracranial hemorrhage or mass effect. 2. Central parenchymal volume loss. White matter changes that are nonspecific but most commonly associated with chronic small vessel ischemic disease. 3. Right basal ganglia lacunar infarction, stable. Electronically Signed: Harry Aguilar MD at 14:54 EDT , Service support , Elbow X-Ray 04/23/19 14:33 IMPRESSION: Nondisplaced radial neck fracture suspected. Joint effusion. Electronically Signed: Harry Aguilar MD at 14:55 EDT , Service support , - Medical Decision Making Work-up shows a nondisplaced radial head fracture, that was splinted and she was placed in a sling after being given pain medication and meclizine. Her vertigo is better after that. CT head is negative. Advised to follow-up with orthopedics and given a prescription for [place] in addition to the meclizine and she is comfortable with this plan and has a ride home. Procedures - Upper Extremity Splints Upper Extremity Splint: Orthoglass, Sling, - - sugartong Splint Fabrication: Fabricated - NVID after placement Location: Left ED Disposition - Plan for ED Patient: Disposition: Home or Assisted Living Diagnosis: Closed fracture of head of left radius, Closed head injury without loss of consciousness, Abrasions of multiple sites, Peripheral vertigo, unspecified Instructions: ED Abrasion, ED Fx Radial Head, ED Vertigo Unspecified Prescriptions: Hydrocodone Bitart/Apap 5-325 [[place] 5MG-325MG] 1 tab PO Q4H PRN PRN 2 Days #10 tab PRN Reason: Pain Meclizine HCl 25 mg PO Q8H PRN #16 tab PRN Reason: Vertigo Referrals: Mona Mcdonnell DO [STAFF PHYSICIAN] - 1-2 Weeks (call for appt) Erik Barton MD [Primary Care Provider] - 1 Week if not improving (with regards to dizziness)
[2019-04-23 17:45] VITALS: PULSE 74; RESP 16; O2SAT 97
== END 2019-04-23 17:46 | disposition home or self-care (01) ==
PROVIDERS: Emergency Provider Emergency Medicine; Family Provider Family Medicine; PCP Family Medicine
DX: S52.125A Nondisplaced fracture of head of left radius, initial encounter for closed fracture (principal); S09.90XA Unspecified injury of head, initial encounter; T14.8XXA Other injury of unspecified body region, initial encounter; H81.399 Other peripheral vertigo, unspecified ear; W19.XXXA Unspecified fall, initial encounter; Y93.9 Activity, unspecified; Y92.9 Unspecified place or not applicable; I25.10 Atherosclerotic heart disease of native coronary artery without angina pectoris; E78.5 Hyperlipidemia, unspecified; I10 Essential (primary) hypertension; E03.9 Hypothyroidism, unspecified; I48.0 Paroxysmal atrial fibrillation; N28.9 Disorder of kidney and ureter, unspecified; I47.1 Supraventricular tachycardia; E11.42 Type 2 diabetes mellitus with diabetic polyneuropathy; I87.2 Venous insufficiency (chronic) (peripheral); Z86.73 Personal history of transient ischemic attack (TIA), and cerebral infarction without residual deficits; Z85.3 Personal history of malignant neoplasm of breast; Z95.810 Presence of automatic (implantable) cardiac defibrillator; Z79.82 Long term (current) use of aspirin; Z79.899 Other long term (current) drug therapy; Z87.891 Personal history of nicotine dependence
CPT/HCPCS: 29125; 70450; 73080; 99284

== ENCOUNTER → 2019-05-12 | Outpatient (CLI) | payer MEDICARE, SELFPAY ==
[2019-05-12 07:57] VITALS: BMI 39.9
--- NOTE | 2019-05-12 09:28 | RAD_ITS ---
HISTORY:injury, pain injury, pain COMPARISON: None FINDINGS: # of images incl. paperwork: 3 XR Elbow Min 3 Views: Left BONE AND JOINTS: nondisplaced fracture involving the radial neck. SOFT TISSUES: Associated joint effusion No radiopaque foreign body. RAD/Elbow min 3 Views IMPRESSION: Radial neck fracture left at 1940 Reported and signed by: Kristi Pizano DO Electronically Signed: Kristi Pizano DO at 19:39 EDT Tel , Service support ,
== END | disposition home or self-care (01) ==
LOC: HPRAD 09:27
PROVIDERS: Family Provider Family Medicine; PCP Family Medicine; Referring Provider Orthopaedic Surgery; Visit Provider Orthopaedic Surgery
DX: S52.132A Displaced fracture of neck of left radius, initial encounter for closed fracture (principal)
CPT/HCPCS: 73080

== ENCOUNTER → 2019-05-17 | Outpatient (CLI) | payer MEDICARE, SELFPAY ==
[2019-05-12 07:57] VITALS: BMI 39.9
[2019-05-17 08:15] LABS: ALB/GLOB Ratio 0.8 RATIO (0.9-2.4); AST(SGOT) 17 U/L (15-37); Alanine Aminotransfer ALT/SGPT 25 U/L (13-56); Albumin, Serum 3.2 g/dL (3.2-5.0); Alkaline Phosphatase 117 U/L (45-117); Anion Gap 8 (5-15); BUN 27 mg/dL (7-18); BUN/Creat Ratio 25.7 RATIO (10-20); Calcium,Total 9.4 mg/dL (8.5-10.1); Chloride 97 mmol/L (98-107); Cholesterol 164 mg/dL (200); Creatinine, Serum 1.05 mg/dL (0.55-1.02); EST Glomerular Filtration Rate 57 mL/min (>60); Est Glom Filt Rate - Afr Amer 69 mL/min (>60); Globulin 3.8 g/dL (2.2-4.2); Glucose 118 mg/dL (74-106); High Density Lipoprotein 62 mg/dL; Potassium 3.9 mmol/L (3.5-5.1); Sodium Level 138 mmol/L (136-145); Thyroid Stim Hormone (TSH) 1.63 uIU/mL (0.358-3.74); Triglycerides 100 mg/dL; Very Low Density Lipoprotein 20 mg/dL (5-40)
[2019-05-17 09:22] LABS: Vitamin D,25 Hydroxy 76.8 ng/mL (29.95-100.01)
== END | disposition home or self-care (01) ==
PROVIDERS: Family Provider Family Medicine; PCP Family Medicine; Referring Provider Internal Medicine Endocrinology, Diabetes & Metabolism; Visit Provider Internal Medicine Endocrinology, Diabetes & Metabolism
DX: E03.8 Other specified hypothyroidism (principal); E78.2 Mixed hyperlipidemia; E55.9 Vitamin D deficiency, unspecified
CPT/HCPCS: 36415; 80053; 80061; 82306; 84443

== ENCOUNTER 2019-06-13 07:29 | Emergency (ER) | payer MEDICARE, SELFPAY ==
[2019-05-12 07:57] VITALS: BMI 39.9
[2019-06-13 07:30] VITALS: BP 135/80; PULSE 60; RESP 16; TEMP 36.8; O2SAT 98; BMI 38.2
--- NOTE | 2019-06-13 07:42 | CT_ITS ---
STUDY: CT ABDOMEN AND PELVIS WITH CONTRAST REASON FOR EXAM: Female, 58 years old. Left lower quadrant pain. RADIATION DOSAGE (If Supplied By Facility): CTDIvol = ( 20.23 ) mGy, DLP = ( 1291.85 ) mGycm TECHNIQUE: Transaxial images were obtained from the dome of the diaphragm to the symphysis pubis without oral contrast. 100 IV Isovue 300 was administered. Sagittal and coronal images were reconstructed. Individualized dose optimization techniques were used for this CT. COMPARISON: Comparison is made with prior examination dated March 07, 2012. FINDINGS: The visualized lung bases are unremarkable. Prior CABG. Dual chamber pacemaker in situ. There is decreased attenuation of the liver consistent with steatosis. There are surgical clips in the gallbladder fossa consistent with a prior cholecystectomy. Normal spleen. There is diffuse atrophy of the pancreas. Normal bilateral adrenal glands. Normal right kidney. Normal left kidney. Normal visualized stomach. Normal small intestine. Mild degree of inflammatory changes seen in the region of the descending colon at the junction with the sigmoid colon in keeping with a mild degree of noncomplicated diverticulitis. There are multiple colonic diverticula of the sigmoid colon consistent with diverticulosis. The appendix is visualized and appears normal. There is diffuse atherosclerotic calcification of the abdominal aorta, without a demonstrated aneurysm. Normal inferior vena cava. Normal retroperitoneum. Normal urinary bladder. There is absence of the uterus consistent with a prior hysterectomy. Normal abdominal wall. There are diffuse degenerative changes of the visualized lumbar spine. CT/Abdomen/Pelvis W IV Cont ONLY IMPRESSION: Mild degree of diverticulitis at the junction of the descending colon and sigmoid colon. Sigmoid diverticulosis. Electronically Signed: Fabian Rebollar, at 9:31 EDT , Service support ,
--- NOTE | 2019-06-13 07:43 | ED.VIS.GEN ---
History of Present Illness Chief Complaint: Abd Pain Informant: Patient Onset: Yesterday Context: Sudden Onset Timing: Continuous Quality: Pain Location: Left lower quadrant Current Severity: Mild Maximum Severity: Moderate Worsened by: Walking Relieved by: Remaining still Associated Symptoms: No deviated symptoms Narrative: Patient is a 58-year-old woman who presents with left lower quadrant pain that started last evening. She reports increased severity of pain with walking. Pain is less when she is still. She has history of diverticulosis. There is no history diverticulitis. She denies dysuria, frequency, urgency or hematuria. She denies history of renal ureterolithiasis. She denies fever, chills or night sweats. She denies anorexia. There is no history of trauma. Prior similar symptoms: No Recent Illness/Hospitalization: No - Past Medical History (1) VICENTE (acute kidney injury) Status: Acute (2) Afib Status: Chronic (3) CAD (coronary artery disease) Status: Chronic (4) Cardiomyopathy, ischemic Status: Chronic (5) Congestive heart failure (CHF) Status: Chronic (6) DM2 (diabetes mellitus, type 2) Status: Chronic (7) History of CVA (cerebrovascular accident) Status: Chronic Comment: 2006 (8) History of breast cancer Status: Chronic Comment: Right (9) Hyperlipidemia Status: Chronic (10) Hypertension Status: Chronic (11) Hypothyroidism Status: Chronic (12) ICD (implantable cardioverter-defibrillator) in place Status: Chronic Comment: 2002 (13) Obesity (BMI 30-39.9) Status: Chronic (14) Peripheral neuropathy Status: Chronic (15) SVT (supraventricular tachycardia) Status: Resolved Past Medical History - Allergies and Home Meds Allergies/Adverse Reactions: Allergies Iodinated Contrast- Oral and IV Dye Allergy (Verified 06/13/19 07:52) Nausea levofloxacin [From Levaquin] Allergy (Verified 06/13/19 07:30) Unknown ranolazine [From Ranexa] Allergy (Verified 06/13/19 07:30) Unknown sulfamethoxazole [From Bactrim] Allergy (Verified 06/13/19 07:30) Unknown trimethoprim [From Bactrim] Allergy (Verified 06/13/19 07:30) Unknown Primary Care Physician: Erik Barton MD [Primary Care Provider] - Prior records reviewed: Yes Surgical History: angioplasty, coronary bypass surgery, - - Pituitary surgery, right breast mastectomy (2000), hysterectomy, knee arthroscopy, implanted pacemaker/defibrillator, coronary revascularization in 1998, and coronary angioplasties ?18 with 5 implanted coronary stents. Lives: Spouse/ Significant Other Smoking Status: Former smoker Alcohol: None - Family History Offspring Family History: Reports: Heart Disease - 5 heart attacks and her daughter Maternal Family History: Reports: Heart Disease, - - Patient's mother at the age of 58 with a history of breast cancer and myocardial infarction. Paternal Family History: Reports: Heart Disease, - - Patient's father at the age of 56, with a history of cardial infarction. Review of Systems General: Denies: Chills, Fever, Malaise, Sweats Eyes: Denies: Visual changes - bilaterally, Blurred Vision - bilaterally, Diplopia ENT: Denies: Rhinorrhea, Sore throat Cardiovascular: Denies: Chest pain, Palpitations Respiratory: Denies: Dyspnea, Cough, Dyspnea on exertion Gastrointestinal: Reports: Abdominal pain. Denies: Nausea, Vomiting, Diarrhea, Constipation, Melena, Hematochezia Genitourinary: Denies: Dysuria, Hematuria, Frequency Musculoskeletal: Denies: Myalgias, Arthralgias, Neck pain, Back pain, Swelling, Extremity Pain, -, - Skin: Denies: Rash, Wounds Neurological: Denies: Headache, Weakness, Numbness Psych: Reports: Depression Endocrine: Denies: Polyuria, Polydipsia Hematologic: Denies: Easy bruising, Easy bleeding Physical Exam Vital Signs/Narrative: Vital Signs Temp Pulse Resp BP Pulse Ox 06/13/19 07:30 98.3 F 60 16 135/80 H 98 Inital Vital Signs reviewed: Yes General: Well nourished, Well developed, No Acute Distress Head: Normocephalic, Atraumatic Eyes: Perrl, EOMI ENT: Moist mucous membranes, No rhinorrhea Neck: Supple, Nontender Cardiovascular: Regular rate, Regular rhythm, No murmurs Respiratory: No distress, CTA bilaterally, Chest nontender Abdomen: Soft, Nondistended, No masses, Tender, Guarding, Rebound tenderness - Localized to the left lower quadrant, Hypoactive bowel sounds. Negative for: Nontender, Normal bowel sounds, Hepatomegaly, Splenomegaly, Mass Rectal: Deferred Back: Nontender, Normal Inspection. Negative for: CVA tenderness Extremities: Nontender, No edema Skin: Normal color, No rash, Trauma - Small abrasions and bruising secondary to pet dog. Negative for: Cyanosis, Diaphoresis, Jaundice Neurological: Alert, Oriented x3, Cranial nerves II-XII grossly intact, Normal Strength, Normal Sensation Psychological: Normal affect, Normal Mood Diagnostic/Tx/Re-eval Impressions Abdomen/Pelvis CT 06/13/19 07:42 IMPRESSION: Mild degree of diverticulitis at the junction of the descending colon and sigmoid colon. Sigmoid diverticulosis. Electronically Signed: Fabian Smooth, at 9:31 EDT , Service support , 06/13/19 07:42 Abdomen/Pelvis W IV Cont ONLY [CT] Stat Laboratory Results 06/13/19 06/13/19 08:10 08:10 WBC 10.5 RBC 3.75 L Hgb 12.1 Hct 36.9 L MCV 98.4 MCH 32.3 H MCHC 32.8 RDW Std Deviation 49.5 H RDW Coeff of Yared 13.8 Plt Count 206 MPV 10.6 Immature Gran % (Auto) 0.200 Neut % (Auto) 71.2 H Lymph % (Auto) 17.9 L Jack % (Auto) 9.2 Eos % (Auto) 1.1 Baso % (Auto) 0.4 Absolute Neuts (auto) 7.5 Absolute Lymphs (auto) 1.88 Sodium 133 L Potassium 3.9 Chloride 97 L Carbon Dioxide 33.0 H Anion Gap 3 L BUN 23 H Creatinine 1.04 H Estim Creat Clear Calc 51.76 Est GFR (MDRD) Af Amer 69 Est GFR (MDRD) Non-Af 57 L BUN/Creatinine Ratio 22.1 H Glucose 97 Calcium 9.4 - Medical Decision Making With history of diverticulosis and findings of left lower quadrant abdominal pain with localized peritonitis concern patient has diverticulitis. Appropriate blood work was obtained as well as scanned. In the differential would include ureterolithiasis since pain started abruptly. Would not expect peritoneal findings, however. Urinary tract infection is also in the differential. I was informed at 0748 by radiology that she has an allergy to iodinated contrast. The reaction is unknown. Patient was questioned what her reaction was. She states she becomes nauseous and feels slightly warm. Since this is not an IgE mediated response will proceed with CAT scan. ED Disposition - Plan for ED Patient: Disposition: Home or Assisted Living Diagnosis: Diverticulitis large intestine Instructions: Diverticulitis Prescriptions: Amox/Clavulanate Tablet [Augmentin Tablet] 875 mg PO Q12H #14 tab Prescription Printed Hydrocodone Bitart/Apap 5-325 [[place] 5MG-325MG] 1 tab PO Q6H PRN PRN 3 Days #10 tab PRN Reason: Pain Prescription Printed Referrals: rEik Barton MD [Primary Care Provider] - 3-5 Days
[2019-06-13 08:22] LABS: Absolute Lymphocyte Count 1.88 X10^3/ul (0.83-4.51); Absolute Neutrophil Count 7.5 X10^3/uL (2.0-7.7); Basophil# 0.04 X10^3/uL; Basophil% 0.4 % (0-1); Eosinophil# 0.12 X10^3/uL; Eosinophils% 1.1 % (0-5); Hematocrit 36.9 % (37-47); Hemoglobin 12.1 g/dl (12.0-15.0); Lymphocyte # 1.88 X10^3/ul (4.0); Lymphocyte % 17.9 % (19-41); Mean Corp Hgb Conc 32.8 g/gl (32-36); Mean Corpuscular Hgb 32.3 pg (27.0-32.0); Mean Corpuscular Volume 98.4 fL (81-99); Mean Platelet Vol. 10.6 fl (6.2-12.0); Monocyte# 0.96 X10^3/uL; Monocyte% 9.2 % (0-10); Neutrophil # 7.47 X10^3/uL (2.7-7.7); Neutrophil % 71.2 % (47-70); Platelet Count 206 K/mm3 (150-450); RBC Distribution Width CV 13.8 % (11.6-14.6); RBC Distribution Width SD 49.5 fl (35.1-43.9); Red Blood Count 3.75 M/mm3 (4.2-5.4); White Blood Count 10.5 K/mm3 (4.4-11.0)
[2019-06-13 08:23] LABS: POSITIVE COUNT NO; POSITIVE DIFFERENTIAL NO; POSITIVE MORPHOLOGY NO
[2019-06-13 08:26] LABS: Anion Gap 3 (5-15); BUN 23 mg/dL (7-18); BUN/Creat Ratio 22.1 RATIO (10-20); Calcium,Total 9.4 mg/dL (8.5-10.1); Chloride 97 mmol/L (98-107); Creatinine, Serum 1.04 mg/dL (0.55-1.02); EST Glomerular Filtration Rate 57 mL/min (>60); Est Glom Filt Rate - Afr Amer 69 mL/min (>60); Estimated Creatinine Clearance 51.76 ml/min; Glucose 97 mg/dL (74-106); Potassium 3.9 mmol/L (3.5-5.1); Sodium Level 133 mmol/L (136-145)
[2019-06-13 09:37] VITALS: BP 110/72; PULSE 60; RESP 14; O2SAT 96
[2019-06-13] MEDS: Amox/Clavulanate 875 MG Tablet PO (09:47)
== END 2019-06-13 10:09 | disposition home or self-care (01) ==
PROVIDERS: Emergency Provider Emergency Medicine; Family Provider Family Medicine; PCP Family Medicine
DX: K57.32 Diverticulitis of large intestine without perforation or abscess without bleeding (principal); K57.30 Diverticulosis of large intestine without perforation or abscess without bleeding; I48.91 Unspecified atrial fibrillation; I25.10 Atherosclerotic heart disease of native coronary artery without angina pectoris; I25.5 Ischemic cardiomyopathy; I11.0 Hypertensive heart disease with heart failure; I50.9 Heart failure, unspecified; E78.5 Hyperlipidemia, unspecified; E03.9 Hypothyroidism, unspecified; E66.9 Obesity, unspecified; E11.42 Type 2 diabetes mellitus with diabetic polyneuropathy; I47.1 Supraventricular tachycardia; F32.9 Major depressive disorder, single episode, unspecified; T14.90XA Injury, unspecified, initial encounter; X58.XXXA Exposure to other specified factors, initial encounter; Y93.9 Activity, unspecified; Y92.9 Unspecified place or not applicable; Z87.448 Personal history of other diseases of urinary system; Z86.73 Personal history of transient ischemic attack (TIA), and cerebral infarction without residual deficits; Z85.3 Personal history of malignant neoplasm of breast; Z95.810 Presence of automatic (implantable) cardiac defibrillator; Z95.1 Presence of aortocoronary bypass graft; Z79.82 Long term (current) use of aspirin; Z79.899 Other long term (current) drug therapy; Z87.891 Personal history of nicotine dependence
CPT/HCPCS: 74177; 80048; 85025; 99285; Q9967; A4216

== ENCOUNTER 2019-06-19 14:46 | Emergency (ER) | payer MEDICARE, SELFPAY ==
[2019-06-19 14:47] VITALS: BP 123/63; PULSE 60; RESP 16; TEMP 36.7; O2SAT 96; BMI 39.4
--- NOTE | 2019-06-19 15:08 | RAD_ITS ---
STUDY: X-RAY - RIGHT KNEE REASON FOR EXAM: Female, 58 years old. Pain after a fall TECHNIQUE: 3 view(s) of the knee. COMPARISON: None. FINDINGS: Normal visualized distal femur. Normal visualized proximal tibia and fibula. Normal proximal tibiofibular articulation. There is mild degenerative arthrosis of the medial femorotibial compartment. There is mild degenerative arthrosis of the lateral femorotibial compartment. There is moderate degenerative arthrosis of the patellofemoral articulation. Degenerative spurs noted along with chondrocalcinosis. RAD/Knee 3 Views IMPRESSION: Degenerative changes, no acute findings Electronically Signed: Rahul Pagan MD at 15:27 EDT , Service support ,
--- NOTE | 2019-06-19 15:52 | ED.DCSUM_ITS ---
- ER Visit Summary Date of Service: 06/19/19 Chief Complaint: Fall with leg injury History of Present Illness: The patient is a 58 F who states that she tripped over the dog's bed and fell causing laceration and skin tears to the left knee. She states that she has balance issues. No loss of consciousness. No nausea or vomiting. No headache. No neck pain. Tetanus was updated in 2016. She is on Lovenox. Physical Examination: Afebrile vital signs stable Gen: Well-nourished well-developed obese Head: Normocephalic Eyes: Perrl EOMI ENT: TMs clear no rhinorrhea moist mucous membranes Neck: Supple no lymphadenopathy no JVD nontender CVS: Regular rate rhythm no murmurs normal S1-S2 Respiratory: No distress clear to auscultation bilaterally chest nontender Abdomen: Soft nontender nondistended normal bowel sounds no masses Back: Nontender Extremity: The right knee demonstrates a 6 cm anterior lateral laceration with macerated tissue that is gaping of approximately 1 cm. There are 2 4 cm superficial skin tears on the anterior inferior aspect of the knee and on the anterior medial aspect of the knee. There is no significant joint effusion. Joint appears stable. Skin: Normal color patient has numerous bruises of various ages across her body some green and yellow some purple and blue. Neuro: alert orientated ?3 CN II-XII intact normal strength sensation reflexes gait cerebellar Psych: Normal affect normal mood Test Results: Knee x-rays demonstrated degenerative joint disease Emergency Department Course and Treatment: The skin tears I had the skin smoothed out and covering the wounds. The laceration was locally anesthetized using 1% lidocaine. He was washed with Shur-Clens irrigated with sterile saline and explored. No foreign bodies were noted. Was closed using a total of 12 simple interrupted 4-0 Ethilon sutures. Dressing applied as well as an Pedro wrap. Stitches will need to be taken out in 10 to 14 days. Impression: 1. Mechanical fall 2. 6 cm right knee laceration with repair 3. #2 skin tears 4 cm right knee This note was generated with [employer] dictation software. It may contain incorrect words, spelling, and punctuation that were not noted in review of the chart prior to signing ED Disposition - Plan for ED Patient: Disposition: Home or Assisted Living Instructions: LACERATION, Extrem (Suture, Staple or Tape), Skin Avulsion Referrals: Erik Barton MD [Primary Care Provider] - 10-14 Days suture removal
--- NOTE | 2019-06-19 16:25 | CM.ED ---
Social Work Consult: Resources/Discharge Planning Informant: HERON Hubbard Met with patient in room. Patient requesting to have home health care for retirement and physical therapy. Collaborating with Dr. York, Dr. York agreeable to referral. Patient requesting for home health care to be set up through [facility] ([facility]). Patient stating to live at home with spouse and to be weak. Patient spouse present and supportive. Patient stating no further needs. Telephone call to [facility], Silvina. This certified social workers in health care making referral. Sarah ELIAS, ZEE
[2019-06-19 16:32] VITALS: BP 139/78; PULSE 81; RESP 16; O2SAT 96
== END 2019-06-19 16:38 | disposition home or self-care (01) ==
PROVIDERS: Emergency Provider Emergency Medicine; Family Provider Family Medicine; PCP Family Medicine
DX: S81.011A Laceration without foreign body, right knee, initial encounter (principal); W01.0XXA Fall on same level from slipping, tripping and stumbling without subsequent striking against object, initial encounter; Y93.9 Activity, unspecified; Y92.9 Unspecified place or not applicable; E66.9 Obesity, unspecified; I25.10 Atherosclerotic heart disease of native coronary artery without angina pectoris; E11.40 Type 2 diabetes mellitus with diabetic neuropathy, unspecified; I10 Essential (primary) hypertension; E78.00 Pure hypercholesterolemia, unspecified; E03.9 Hypothyroidism, unspecified; I48.91 Unspecified atrial fibrillation; Z86.73 Personal history of transient ischemic attack (TIA), and cerebral infarction without residual deficits; Z95.1 Presence of aortocoronary bypass graft; Z79.01 Long term (current) use of anticoagulants; Z79.82 Long term (current) use of aspirin; Z79.899 Other long term (current) drug therapy
CPT/HCPCS: 12005; 73562; 99285

== ENCOUNTER → 2019-09-14 07:23 | Outpatient (CLI) | payer MEDICARE, SELFPAY ==
[2019-06-21 09:52] VITALS: BMI 39.4
[2019-09-14 09:40] LABS: AST(SGOT) 21 U/L (15-37); Alanine Aminotransfer ALT/SGPT 32 U/L (13-56); Albumin, Serum 3.5 g/dL (3.2-5.0); Alkaline Phosphatase 118 U/L (45-117); Anion Gap 8 (5-15); BUN 21 mg/dL (7-18); BUN/Creat Ratio 18.9 RATIO (10-20); Calcium,Total 9.4 mg/dL (8.5-10.1); Chloride 96 mmol/L (98-107); Creatinine, Serum 1.11 mg/dL (0.55-1.02); EST Glomerular Filtration Rate 53 mL/min (>60); Est Glom Filt Rate - Afr Amer 64 mL/min (>60); Globulin 3.6 g/dL (2.2-4.2); Glucose 108 mg/dL (74-106); Protein, Total 7.1 g/dL (6.4-8.2); Sodium Level 135 mmol/L (136-145); Thyroid Stim Hormone (TSH) 2.22 uIU/mL (0.358-3.74)
[2019-09-14 10:50] LABS: PTHIN 88.8 pg/mL (18.4-80.1); Vitamin D,25 Hydroxy 76.4 ng/mL (29.95-100.01)
== END ==
PROVIDERS: Family Provider Family Medicine; PCP Family Medicine; Referring Provider Internal Medicine Endocrinology, Diabetes & Metabolism; Visit Provider Internal Medicine Endocrinology, Diabetes & Metabolism
DX: M81.0 Age-related osteoporosis without current pathological fracture (principal); E03.8 Other specified hypothyroidism; E21.1 Secondary hyperparathyroidism, not elsewhere classified; E55.9 Vitamin D deficiency, unspecified
CPT/HCPCS: 36415; 80053; 82306; 83970; 84443

== ENCOUNTER → 2019-10-10 09:49 | Outpatient (CLI) | payer MEDICARE, SELFPAY ==
[2019-06-21 09:52] VITALS: BMI 39.4
[2019-10-10 10:45] LABS: Anion Gap 7 (5-15); BUN 26 mg/dL (7-18); Calcium,Total 9.7 mg/dL (8.5-10.1); Chloride 97 mmol/L (98-107); EST Glomerular Filtration Rate 44 mL/min (>60); Est Glom Filt Rate - Afr Amer 54 mL/min (>60); Glucose 114 mg/dL (74-106); Potassium 4.1 mmol/L (3.5-5.1); Sodium Level 137 mmol/L (136-145)
== END ==
PROVIDERS: Family Provider Family Medicine; PCP Family Medicine; Referring Provider Internal Medicine Endocrinology, Diabetes & Metabolism; Visit Provider Internal Medicine Endocrinology, Diabetes & Metabolism
DX: M81.0 Age-related osteoporosis without current pathological fracture (principal)
CPT/HCPCS: 36415; 80048

== ENCOUNTER → 2019-11-28 07:20 | Outpatient (CLI) | payer MEDICARE, SELFPAY ==
[2019-06-21 09:52] VITALS: BMI 39.4
[2019-11-28 08:49] LABS: AST(SGOT) 25 U/L (15-37); Alanine Aminotransfer ALT/SGPT 38 U/L (13-56); Albumin, Serum 3.7 g/dL (3.2-5.0); Alkaline Phosphatase 118 U/L (45-117); Anion Gap 6 (5-15); BUN 19 mg/dL (7-18); Calcium,Total 9.4 mg/dL (8.5-10.1); Chloride 96 mmol/L (98-107); Cholesterol 136 mg/dL (200); Creatinine, Serum 1.27 mg/dL (0.55-1.02); EST Glomerular Filtration Rate 45 mL/min (>60); Est Glom Filt Rate - Afr Amer 55 mL/min (>60); Globulin 3.7 g/dL (2.2-4.2); Glucose 104 mg/dL (74-106); High Density Lipoprotein 53 mg/dL; PTHIN 72.9 pg/mL (18.4-80.1); Potassium 3.7 mmol/L (3.5-5.1); Protein, Total 7.4 g/dL (6.4-8.2); Sodium Level 135 mmol/L (136-145); Thyroid Stim Hormone (TSH) 2.14 uIU/mL (0.358-3.74); Triglycerides 154 mg/dL; Very Low Density Lipoprotein 31 mg/dL (5-40); Vitamin D,25 Hydroxy 71.6 ng/mL (29.95-100.01)
== END ==
PROVIDERS: Family Provider Family Medicine; PCP Family Medicine; Referring Provider Internal Medicine Endocrinology, Diabetes & Metabolism; Visit Provider Internal Medicine Endocrinology, Diabetes & Metabolism
DX: M81.0 Age-related osteoporosis without current pathological fracture (principal); E78.2 Mixed hyperlipidemia; E03.8 Other specified hypothyroidism; E21.1 Secondary hyperparathyroidism, not elsewhere classified; E55.9 Vitamin D deficiency, unspecified; E61.2 Magnesium deficiency
CPT/HCPCS: 36415; 80053; 80061; 82306; 83735; 83970; 84443

== ENCOUNTER → 2020-05-20 07:11 | Outpatient (CLI) | payer MEDICARE, SELFPAY ==
[2019-06-21 09:52] VITALS: BMI 39.4
[2020-05-20 08:28] LABS: PTHIN 150.5 pg/mL (18.4-80.1)
[2020-05-20 08:29] LABS: ALB/GLOB Ratio 1.1 RATIO (0.9-2.4); AST(SGOT) 14 U/L (15-37); Alanine Aminotransfer ALT/SGPT 27 U/L (13-56); Albumin, Serum 3.5 g/dL (3.2-5.0); Alkaline Phosphatase 101 U/L (45-117); Anion Gap 5 (5-15); BUN 26 mg/dL (7-18); BUN/Creat Ratio 27.2 RATIO (10-20); Chloride 100 mmol/L (98-107); Cholesterol 134 mg/dL (200); Creatinine, Serum 0.96 mg/dL (0.55-1.02); EST Glomerular Filtration Rate 63 mL/min (>60); Est Glom Filt Rate - Afr Amer 76 mL/min (>60); Globulin 3.3 g/dL (2.2-4.2); Glucose 92 mg/dL (74-106); High Density Lipoprotein 62 mg/dL; Potassium 3.7 mmol/L (3.5-5.1); Protein, Total 6.8 g/dL (6.4-8.2); Sodium Level 138 mmol/L (136-145); Thyroid Stim Hormone (TSH) 1.77 uIU/mL (0.358-3.74); Triglycerides 133 mg/dL; Very Low Density Lipoprotein 27 mg/dL (5-40)
[2020-05-20 08:42] LABS: Vitamin D,25 Hydroxy 69.4 ng/mL
== END ==
PROVIDERS: PCP Family Medicine; Referring Provider Internal Medicine Endocrinology, Diabetes & Metabolism; Visit Provider Internal Medicine Endocrinology, Diabetes & Metabolism
DX: M81.0 Age-related osteoporosis without current pathological fracture (principal); E78.2 Mixed hyperlipidemia; E03.8 Other specified hypothyroidism; E21.1 Secondary hyperparathyroidism, not elsewhere classified; E55.9 Vitamin D deficiency, unspecified
CPT/HCPCS: 36415; 80053; 80061; 82306; 83970; 84443

== ENCOUNTER → 2020-06-11 07:03 | Outpatient (CLI) | payer MEDICARE, SELFPAY ==
[2019-06-21 09:52] VITALS: BMI 39.4
[2020-06-11 08:22] LABS: Anion Gap 6 (5-15); BUN 38 mg/dL (7-18); BUN/Creat Ratio 32.8 RATIO (10-20); Calcium,Total 9.8 mg/dL (8.5-10.1); Chloride 95 mmol/L (98-107); Creatinine, Serum 1.16 mg/dL (0.55-1.02); EST Glomerular Filtration Rate 50 mL/min (>60); Est Glom Filt Rate - Afr Amer 61 mL/min (>60); Glucose 117 mg/dL (74-106); Sodium Level 135 mmol/L (136-145)
== END ==
PROVIDERS: PCP Family Medicine; Referring Provider Internal Medicine Endocrinology, Diabetes & Metabolism; Visit Provider Internal Medicine Endocrinology, Diabetes & Metabolism
DX: E03.8 Other specified hypothyroidism (principal)
CPT/HCPCS: 36415; 80048

== ENCOUNTER → 2020-07-15 07:14 | Outpatient (CLI) | payer MEDICARE, SELFPAY ==
[2019-06-21 09:52] VITALS: BMI 39.4
[2020-07-15 08:19] LABS: PTHIN 87.6 pg/mL (18.4-80.1)
[2020-07-15 08:38] LABS: ALB/GLOB Ratio 1.1 RATIO (0.9-2.4); AST(SGOT) 17 U/L (15-37); Alanine Aminotransfer ALT/SGPT 28 U/L (13-56); Albumin, Serum 3.8 g/dL (3.2-5.0); Alkaline Phosphatase 108 U/L (45-117); Anion Gap 5 (5-15); BUN 30 mg/dL (7-18); BUN/Creat Ratio 23.1 RATIO (10-20); Calcium,Total 9.6 mg/dL (8.5-10.1); Chloride 97 mmol/L (98-107); EST Glomerular Filtration Rate 44 mL/min (>60); Est Glom Filt Rate - Afr Amer 53 mL/min (>60); Globulin 3.6 g/dL (2.2-4.2); Glucose 108 mg/dL (74-106); Potassium 4.1 mmol/L (3.5-5.1); Protein, Total 7.4 g/dL (6.4-8.2); Sodium Level 135 mmol/L (136-145); Thyroid Stim Hormone (TSH) 2.17 uIU/mL (0.358-3.74)
== END ==
LOC: LAB.FUTURE 07:15 → LAB 07:18
PROVIDERS: PCP Family Medicine; Referring Provider Internal Medicine Endocrinology, Diabetes & Metabolism; Visit Provider Internal Medicine Endocrinology, Diabetes & Metabolism
DX: E03.8 Other specified hypothyroidism (principal); M81.0 Age-related osteoporosis without current pathological fracture; E21.1 Secondary hyperparathyroidism, not elsewhere classified
CPT/HCPCS: 36415; 80053; 83970; 84443

== ENCOUNTER → 2020-09-09 07:01 | Outpatient (CLI) | payer MEDICARE, SELFPAY ==
[2019-06-21 09:52] VITALS: BMI 39.4
[2020-09-09 10:16] LABS: PTHIN 82.3 pg/mL (18.4-80.1)
[2020-09-09 10:17] LABS: ALB/GLOB Ratio 1.1 RATIO (0.9-2.4); AST(SGOT) 17 U/L (15-37); Alanine Aminotransfer ALT/SGPT 30 U/L (13-56); Albumin, Serum 3.8 g/dL (3.2-5.0); Alkaline Phosphatase 112 U/L (45-117); Anion Gap 6 (5-15); BUN 32 mg/dL (7-18); BUN/Creat Ratio 23.5 RATIO (10-20); Calcium,Total 9.9 mg/dL (8.5-10.1); Chloride 96 mmol/L (98-107); Cholesterol 161 mg/dL (200); Creatinine, Serum 1.36 mg/dL (0.55-1.02); EST Glomerular Filtration Rate 42 mL/min (>60); Est Glom Filt Rate - Afr Amer 51 mL/min (>60); Globulin 3.5 g/dL (2.2-4.2); Glucose 99 mg/dL (74-106); High Density Lipoprotein 68 mg/dL; Potassium 4.1 mmol/L (3.5-5.1); Protein, Total 7.3 g/dL (6.4-8.2); Sodium Level 136 mmol/L (136-145); Thyroid Stim Hormone (TSH) 2.73 uIU/mL (0.358-3.74); Triglycerides 111 mg/dL; Very Low Density Lipoprotein 22 mg/dL (5-40)
[2020-09-09 12:02] LABS: Vitamin D,25 Hydroxy 75.2 ng/mL
== END ==
PROVIDERS: PCP Family Medicine; Referring Provider Internal Medicine Endocrinology, Diabetes & Metabolism; Visit Provider Internal Medicine Endocrinology, Diabetes & Metabolism
DX: E03.8 Other specified hypothyroidism (principal); E78.2 Mixed hyperlipidemia; E21.1 Secondary hyperparathyroidism, not elsewhere classified
CPT/HCPCS: 36415; 80053; 80061; 82306; 83735; 83970; 84443

== ENCOUNTER 2020-10-07 23:36 | Observation (INO) | payer MEDICARE, SELFPAY ==
[2019-06-21 09:52] VITALS: BMI 39.4
[2020-10-07 23:37] VITALS: BP 113/52; PULSE 57; PULSE 61; RESP 16; TEMP 36.7; O2SAT 96; O2SAT 98; BMI 40.5
[2020-10-07 23:51] VITALS: O2SAT 98
--- NOTE | 2020-10-07 23:51 | EKG12_ITS ---
Test Reason : CP ADMIT Blood Pressure : / mmHG Vent. Rate : 063 BPM Atrial Rate : 063 BPM P-R Int : 208 ms QRS Dur : 114 ms QT Int : 432 ms P-R-T Axes : 085 031 262 degrees QTc Int : 442 ms Atrial-paced rhythm with occasional Premature ventricular complexes ST & T wave abnormality, consider anterolateral ischemia Abnormal ECG Confirmed by VLADIMIR ELIAS, TALIB ([id number]), loan expeditor ELIEZER VELÁSQUEZ ([id number]) on 10/09/2020 9:05:12 AM Referred By: Aaron Bui Confirmed By:TALIB GILBERT MD
--- NOTE | 2020-10-07 23:52 | ED.DCSUM_ITS ---
History of Present Illness Chief Complaint: Chest Pain Informant: Patient Narrative: Stated she developed left-sided chest pain approximately 1 hour ago. It lasted for about 1/2-hour and went away after 2 nitroglycerin. It was sharp left-sided pain rating to the left shoulder arm and into her neck. It happened while she was at rest. She is asymptomatic currently. It did take her breath away when it came on. Denies any pulmonary embolism or dissection risk factors. No history of pulmonary embolism or dissection as well. She does have history of coronary artery disease status post NC in the remote past. She is status post stents x5 remotely as well as cardiac bypass multivessel greater than 10 years ago. Patient state her last stress test was approximately a year and a half and was normal here at our facility. Patient stated her last heart cath was greater than 2 and half years ago and was also showing no acute disease. - Past Medical History (1) VICENTE (acute kidney injury) Status: Acute (2) Chest pain Status: Acute (3) Chest pain Status: Acute (4) Fluttering heart Status: Acute (5) Palpitations Status: Acute (6) Afib Status: Chronic (7) Atrial fibrillation and flutter Status: Chronic (8) CAD (coronary artery disease) Status: Chronic (9) CKD (chronic kidney disease), stage III Status: Chronic (10) Cardiomyopathy, ischemic Status: Chronic (11) Chronic ulcer of left leg with fat layer exposed Status: Chronic (12) Congestive heart failure (CHF) Status: Chronic (13) Cushings syndrome Status: Chronic (14) DM2 (diabetes mellitus, type 2) Status: Chronic (15) Delayed wound healing Status: Chronic (16) History of CVA (cerebrovascular accident) Status: Chronic Comment: 2006 (17) History of TIA (transient ischemic attack) and stroke Status: Chronic (18) History of breast cancer Status: Chronic Comment: Right (19) History of percutaneous transluminal coronary angioplasty Status: Chronic (20) Hx of CABG Status: Chronic (21) Hyperlipidemia Status: Chronic (22) Hypertension Status: Chronic (23) Hypothyroidism Status: Chronic (24) ICD (implantable cardioverter-defibrillator) in place Status: Chronic Comment: 2002 (25) Leg edema Status: Chronic (26) Malnutrition Status: Chronic (27) Obesity (BMI 30-39.9) Status: Chronic (28) Paroxysmal a-fib Status: Chronic (29) Peripheral neuropathy Status: Chronic (30) Renal insufficiency Status: Chronic (31) Type II diabetes mellitus, uncontrolled Status: Chronic (32) Venous insufficiency Status: Chronic Comment: I87.2 (33) Cellulitis, leg Status: Resolved (34) SVT (supraventricular tachycardia) Status: Resolved Past Medical History - Allergies and Home Meds Allergies/Adverse Reactions: Allergies Iodinated Contrast Media Allergy (Verified 06/19/19 14:58) Nausea levofloxacin [From Levaquin] Allergy (Verified 06/19/19 14:58) Unknown ranolazine [From Ranexa] Allergy (Verified 06/19/19 14:58) Unknown sulfamethoxazole [From Bactrim] Allergy (Verified 06/19/19 14:58) Unknown trimethoprim [From Bactrim] Allergy (Verified 06/19/19 14:58) Unknown Prior records reviewed: Yes Past Medical History: - - See problem list Surgical History: angioplasty, coronary bypass surgery, - - Pituitary surgery, right breast mastectomy (2000), hysterectomy, knee arthroscopy, implanted pacemaker/defibrillator, coronary revascularization in 1998, and coronary angioplasties ?18 with 5 implanted coronary stents. Smoking Status: Former smoker Alcohol: None Drugs: None - Family History Offspring Family History: Reports: Heart Disease - 5 heart attacks and her daughter Maternal Family History: Reports: Heart Disease, - - Patient's mother at the age of 58 with a history of breast cancer and myocardial infarction. Paternal Family History: Reports: Heart Disease, - - Patient's father at the age of 56, with a history of cardial infarction. Review of Systems General: Denies: Chills, Fever, Sweats Eyes: Denies: Visual changes - bilaterally, Diplopia ENT: Denies: Rhinorrhea, Sore throat Cardiovascular: Reports: Chest pain. Denies: Palpitations Respiratory: Denies: Dyspnea, Cough, Dyspnea on exertion Gastrointestinal: Denies: Abdominal pain, Nausea, Vomiting, Diarrhea, Melena, Hematochezia Genitourinary: Denies: Dysuria, Hematuria, Frequency Musculoskeletal: Denies: Back pain, Extremity Pain Skin: Denies: Rash, Wounds Neurological: Denies: Headache, Weakness, Numbness Physical Exam Vital Signs/Narrative: Vital Signs Temp Pulse Resp BP Pulse Ox 10/07/20 23:37 98.0 F 61 16 113/52 L 96 General: Well nourished, Well developed, No Acute Distress Head: Normocephalic, Atraumatic Eyes: Perrl, EOMI ENT: Moist mucous membranes, No rhinorrhea Neck: Supple, Nontender Cardiovascular: Regular rate, Regular rhythm, No murmurs Respiratory: No distress, CTA bilaterally, Chest nontender Abdomen: Soft, Nontender, Nondistended, Normal bowel sounds Back: Nontender, Normal Inspection Extremities: Nontender, No edema Skin: Normal color, No rash Neurological: Alert, Oriented x3, Cranial nerves II-XII grossly intact, Normal Strength, Normal Sensation Psychological: Normal affect, Normal Mood Diagnostic/Tx/Re-eval - Medical Decision Making EKG upon arrival shows atrial paced rhythm at a rate of 63. PAC and PVC x1. Patient has widespread T wave inversion that is unchanged from prior EKG in December 2018. No acute STEMI. Patient given 243 mg of aspirin upon arrival. She received 81 mg at home today. She takes a baby aspirin every third day per patient. She did take a dose today. Patient is pain-free upon arrival. Lab work and chest x-ray obtained. Lab work shows mild calcemic. Troponin negative. However this is a 1 hour level. Patient has a very mild leukocytosis. The patient has mildly elevated creatinine but does have a history of this in the past mildly worse than previous. On reevaluation she remains pain-free. At this time I feel she should be admitted for further cardiac evaluation. She has risk factors and history of NC in the past stents and a CABG. I have a low suspicion for pulmonary embolism or dissection. Chest x-ray shows chronic cardiomegaly. No new widened mediastinum to suggest a dissection. I do not feel she needs a CT angio of her chest at this time. ED Disposition - Plan for ED Patient: Disposition: [facility] Diagnosis: Chest pain at rest
[2020-10-08] VITALS (8 sets, daily range): BP systolic 94–126; BP diastolic 48–70; PULSE 57–64; RESP 12–17; TEMP 35.8–36.6; O2SAT 94–98; BMI 39.9
--- NOTE | 2020-10-08 | RAD_ITS ---
STUDY: X-RAY CHEST REASON FOR EXAM: Female, 60 years old. C/O CHEST PAIN RADIATING TO LEFT ARM AND LEFT NECK. -- C/O SOB WITH PAIN. TECHNIQUE: PA and lateral views of the chest. COMPARISON: 01/19/2019 FINDINGS: There is a multilead permanent pacemaker. The lungs are clear and expanded. There is no demonstrated pleural abnormality. Sternal cerclage wires and vascular clips are present from a prior sternotomy and coronary artery bypass graft procedure (CABG). Stable cardiac enlargement. Normal mediastinum and anny. Normal visualized pulmonary arteries. There is atherosclerotic calcification of the aortic arch with tortuosity. There is demineralization of the osseous structures. Normal visualized ribs, clavicles, and shoulders. There is no demonstrated abnormality of the visualized soft tissue structures of the upper abdomen. RAD/Chest PA and Lateral IMPRESSION: Stable cardiomegaly and postsurgical changes. Electronically Signed: Latricia Licea MD at 0:38 EST , Service support ,
[2020-10-08] MEDS: Aspirin 81 MG TAB.CHEW 243 MG PO (00:01)
[2020-10-08 00:05] LABS: Absolute Lymphocyte Count 2.81 X10^3/uL (0.83-4.51); Absolute Neutrophil Count 7.5 X10^3/uL (2.0-7.7); Basophil# 0.07 X10^3/uL; Basophil% 0.6 % (0-1); Eosinophil# 0.21 X10^3/uL; Eosinophils% 1.8 % (0-5); Hematocrit 36.6 % (37-47); Lymphocyte # 2.81 X10^3/ul (4.0); Lymphocyte % 23.7 % (19-41); Mean Corp Hgb Conc 32.8 g/dL (32-36); Mean Corpuscular Volume 97.6 fL (81-99); Mean Platelet Vol. 11.2 fl (6.2-12.0); Monocyte# 1.18 X10^3/uL; Monocyte% 9.9 % (0-10); NRBC Flagged by Analyzer 0 % (0-5); Neutrophil # 7.54 X10^3/uL (2.7-7.7); Neutrophil % 63.6 % (47-70); Platelet Count 199 K/mm3 (150-450); RBC Distribution Width CV 12.7 % (11.6-14.6); RBC Distribution Width SD 45.1 fl (35.1-43.9); Red Blood Count 3.75 M/mm3 (4.2-5.4); White Blood Count 11.9 K/mm3 (4.4-11.0)
[2020-10-08 00:27] LABS: Anion Gap 7 (5-15); BUN 35 mg/dL (7-18); Calcium,Total 10.5 mg/dL (8.5-10.1); Chloride 97 mmol/L (98-107); Creatinine, Serum 1.67 mg/dL (0.55-1.02); EST Glomerular Filtration Rate 33 mL/min (>60); Est Glom Filt Rate - Afr Amer 40 mL/min (>60); Estimated Creatinine Clearance 30.16 ml/min; Glucose 107 mg/dL (74-106); Potassium 3.9 mmol/L (3.5-5.1); Sodium Level 137 mmol/L (136-145)
--- NOTE | 2020-10-08 01:55 | HP.PCM_ITS ---
Problem List (1) Fluttering heart Status: Chronic (2) CKD (chronic kidney disease), stage III Status: Chronic (3) DM2 (diabetes mellitus, type 2) Status: Chronic (4) Palpitations Status: Chronic (5) Chest pain Status: Acute Qualifiers: Chest pain type: unspecified Qualified Code(s): R07.9 - Chest pain, uns pecified (6) Chest pain at rest Status: Acute (7) History of TIA (transient ischemic attack) and stroke Status: Chronic (8) History of percutaneous transluminal coronary angioplasty Status: Chronic (9) Peripheral neuropathy Status: Chronic Qualifiers: Peripheral neuropathy type: polyneuropathy, unspecified Qualified Code(s): G62.9 - Polyneuropathy, unspecified (10) History of breast cancer Status: Chronic Comment: Right (11) Obesity (BMI 30-39.9) Status: Chronic (12) Venous insufficiency Status: Chronic Comment: I87.2 (13) Leg edema Status: Chronic (14) Delayed wound healing Status: Chronic (15) Malnutrition Status: Chronic (16) Cellulitis, leg Status: Resolved Qualifiers: Laterality: left Qualified Code(s): L03.116 - Cellulitis of left lower limb (17) Chronic ulcer of left leg with fat layer exposed Status: Chronic (18) Renal insufficiency Status: Chronic (19) Cardiomyopathy, ischemic Status: Chronic (20) CAD (coronary artery disease) Status: Chronic Qualifiers: Coronary Disease-Associated Artery/Lesion type: unspecified vessel or lesion type [place] vs. transplanted heart: unspecified whether [place] or transplanted heart Associated angina: angina presence unspecified Qualified Code(s): I25.10 - Atherosclerotic heart disease of [place] coronary artery without angina pectoris (21) Type II diabetes mellitus, uncontrolled Status: Chronic (22) Atrial fibrillation and flutter Status: Chronic (23) SVT (supraventricular tachycardia) Status: Resolved (24) Afib Status: Chronic (25) VICENTE (acute kidney injury) Status: Acute (26) Chest pain Status: Acute (27) Congestive heart failure (CHF) Status: Chronic Qualifiers: Heart failure type: systolic Heart failure chronicity: chronic Qualified Code(s): I50.22 - Chronic systolic (congestive) heart failure (28) Cushings syndrome Status: Chronic (29) Hypothyroidism Status: Chronic Qualifiers: Hypothyroidism type: unspecified Qualified Code(s): E03.9 - Hypothyroidism, unspecified (30) Hyperlipidemia Status: Chronic Qualifiers: Hyperlipidemia type: unspecified Qualified Code(s): E78.5 - Hyperlipidemia, unspecified (31) Hypertension Status: Chronic Qualifiers: Hypertension type: essential hypertension Qualified Code(s): I10 - Essential (primary) hypertension (32) History of CVA (cerebrovascular accident) Status: Chronic Comment: 2006 (33) ICD (implantable cardioverter-defibrillator) in place Status: Chronic Comment: 2002 (34) Paroxysmal a-fib Status: Chronic (35) Hx of CABG Status: Chronic History of Present Illness Date of Admission: 10/08/20 Chief Complaint: chest pain The patient is a 60 year old F with a significant history of CAD status post CABG and chronic A. fib s/p ablation x2; permanent pacemaker and congestive heart failure who presents emergency department with excruciating substernal chest pain that started about 25 minutes prior to presentation. Her chest pain occurred at rest. Patient took 2 nitroglycerin tablets and had improvement in her chest pain. Associated with her symptoms is shortness of breath. She denied any nausea, vomiting or diaphoresis. Her chest pain radiates down to her left forearm and into her neck. At the emergency department when patient walked to the bathroom her chest pain re-occurred Also she had palpitation and shortness of breath as she walked to the bathroom. Past Medical History Past Medical History (Chronic Problems): Chronic Problems Fluttering heart (Chronic) CKD (chronic kidney disease), stage III (Chronic) DM2 (diabetes mellitus, type 2) (Chronic) Palpitations (Chronic) History of TIA (transient ischemic attack) and stroke (Chronic) History of percutaneous transluminal coronary angioplasty (Chronic) Peripheral neuropathy (Chronic) History of breast cancer (Chronic) Right Obesity (BMI 30-39.9) (Chronic) Venous insufficiency (Chronic) I87.2 Leg edema (Chronic) Delayed wound healing (Chronic) Malnutrition (Chronic) Chronic ulcer of left leg with fat layer exposed (Chronic) Renal insufficiency (Chronic) Cardiomyopathy, ischemic (Chronic) CAD (coronary artery disease) (Chronic) Type II diabetes mellitus, uncontrolled (Chronic) Atrial fibrillation and flutter (Chronic) Afib (Chronic) Congestive heart failure (CHF) (Chronic) Cushings syndrome (Chronic) Hypothyroidism (Chronic) Hyperlipidemia (Chronic) Hypertension (Chronic) History of CVA (cerebrovascular accident) (Chronic) 2006 ICD (implantable cardioverter-defibrillator) in place (Chronic) 2003 Paroxysmal a-fib (Chronic) Hx of CABG (Chronic) Allergies Iodinated Contrast Media Allergy (Verified 06/19/19 14:58) Nausea levofloxacin [From Levaquin] Allergy (Verified 06/19/19 14:58) Unknown ranolazine [From Ranexa] Allergy (Verified 06/19/19 14:58) Unknown sulfamethoxazole [From Bactrim] Allergy (Verified 06/19/19 14:58) Unknown trimethoprim [From Bactrim] Allergy (Verified 06/19/19 14:58) Unknown Home Medications: Ambulatory Orders Medication Instructions Recorded Atorvastatin Calcium [Lipitor] 40 mg PO QHS 09/09/14 Levothyroxine [Synthroid] 88 mcg PO DAILY 09/09/14 Lisinopril [Zestril] 5 mg PO QHS 09/09/14 Gabapentin [Neurontin] 600 mg PO 4X/DAY 01/02/16 Furosemide [Lasix] 40 mg PO BID@1000,1800 #60 tablet 10/25/16 Multivitamins,Therapeutic 1 tablet PO DAILY 07/21/17 [Multivitamin] Spironolactone [Aldactone] 25 mg PO DAILY 07/21/17 Calcium Carbonate [Calcium] 1,200 mg PO DAILY 01/04/18 Metoprolol Tartrate 100 mg PO BID 01/04/18 Aspirin [Adult Aspirin Regimen] 81 mg PO QODAY 05/01/18 Paroxetine [Paxil] 20 mg PO DAILY #30 tablet 05/01/18 Calcitriol 0.25 mcg PO BID 10/07/20 Diazepam [Valium] 5 mg PO PRN PRN 10/07/20 Indapamide 2.5 mg PO DAILY 10/07/20 Surgical History: angioplasty, coronary bypass surgery, - - Pituitary surgery, right breast mastectomy (2000), hysterectomy, knee arthroscopy, implanted pacemaker/defibrillator, coronary revascularization in 1998, and coronary angioplasties ?18 with 5 implanted coronary stents. Psychiatric History: No pertinent psych hx RN PROGRESSIVE CARE History: No pertinent RN PROGRESSIVE CARE history Smoking Status: Former smoker Alcohol: None Drugs: None - *Family History Offspring History Items: Heart Disease - 5 heart attacks and her daughter Maternal History Items: Heart Disease, - - Patient's mother at the age of 58 with a history of breast cancer and myocardial infarction. Paternal History Items: Heart Disease, - - Patient's father at the age of 56, with a history of cardial infarction. Review of Systems Constitutional: Denies: Chills, Fever, Weight Change HEENT: Denies: Head Aches, Sinus Congestion, Sinus Drainage Cardiovascular: Reports: Chest Pain, Palpitations Respiratory: Reports: Shortness of Breath. Denies: Cough, Sputum production Gastrointestinal: Denies: Abdominal Pain, Nausea, Vomiting Genitourinary: Denies: Dysuria Musculoskeletal: Denies: Joint Pain, Joint Tenderness Skin: Denies: Rash, Wounds Neurological: Denies: Numbness, Tingling, Focal weakness Psychiatric: Denies: Anxiety, Depression, Homicidal Ideations, Suicidal Ideations Hematologic/ Lymphatic: Denies: Easy Bruising, Easy Bleeding VTE Information - Inpt Only VTE Present on Admission: No VTE Mechan Device Prophylaxis: SCD's VTE Pharm Prophylaxis ordered?: No Patient Problems: Active and Suspected Problems Chest pain (Acute) Chest pain at rest (Acute) VICENTE (acute kidney injury) (Acute) Chest pain (Acute) - Physical Exam Vitals/I&O's: Vital Signs Temp Pulse Resp BP Pulse Ox 97.5 F L 57 L 16 126/70 H 95 10/08/20 01:46 10/08/20 01:46 10/08/20 01:46 10/08/20 01:46 10/08/20 01:46 Oxygen Delivery Method Room Air Weight: 107.2 kg Body Mass Index (BMI) 40.5 General: Alert, Oriented x3, Cooperative HEENT: Atraumatic, PERRLA, EOMI, Normocephalic Neck: Supple, No JVD, Negative Carotid Bruits Lungs: Clear to auscultation, Normal air movement Cardiovascular: Regular rate, Normal S1, Normal S2, No murmurs Abdomen: Bowel Sounds Present, Soft, Non Tender Extremities: No edema, Capillary Refill Less than 3 Seconds Skin: No rashes, No breakdown Musculoskeletal: No Tenderness to Palpation of Joints or Extremities Neurological: Cranial nerves II-XII grossly intact Psych/Mental Status: Normal Affect, Appropriate Laboratory Results 10/07/20 23:58: WBC 11.9 H, RBC 3.75 L, Hgb 12.0, Hct 36.6 L, MCV 97.6, MCH 32.0, MCHC 32.8, RDW Std Deviation 45.1 H, RDW Coeff of Yared 12.7, Plt Count 199, MPV 11.2, Immature Gran % (Auto) 0.400, Neut % (Auto) 63.6, Lymph % (Auto) 23.7, [place] % (Auto) 9.9, Eos % (Auto) 1.8, Baso % (Auto) 0.6, Absolute Neuts (auto) 7.5, Absolute Lymphs (auto) 2.81, Nucleated RBC % 0 10/07/20 23:58: Sodium 137, Potassium 3.9, Chloride 97 L, Carbon Dioxide 33.0 H, Anion Gap 7, BUN 35 H, Creatinine 1.67 H, Estim Creat Clear Calc 30.16, Est GFR (MDRD) Af Amer 40 L, Est GFR (MDRD) Non-Af 33 L, BUN/Creatinine Ratio 21.0 H, Glucose 107 H, Calcium 10.5 H, Troponin I < 0.015 Assessment/Plan All Active Problems Chest pain (Acute) Chest pain at rest (Acute) Cellulitis, leg (Resolved) SVT (supraventricular tachycardia) (Resolved) VICENTE (acute kidney injury) (Acute) Chest pain (Acute) Chest pain Place on a monitored bed at PCU Actual CXR image was independently visualized. No acute cardiopulmonary process was noted. Actual EKG tracing was independently visualized. EKG tracing showed T wave inversions unchanged from previous. Patient take aspirin every 3 days.ASA 81 mg p.o. daily ordered SL NTG 0.4 mg prn as needed for chest pain ordered We will check lipid panel. Initial troponin was negative. Serial cardiac enzymes ordered Stat EKG as needed for chest pain Chemical stress test in the AM if the cardiac enzymes are negative Old records reviewed: Negative stress test in December 2018. Congestive heart failure Echocardiogram on 09/24/2018: Estimated ejection fraction was 40 to 45%. Stage II diastolic dysfunction. Hold home diuretics secondary to VICENTE. VICENTE on CKD stage III Creatinine 1.67 Creatinine baseline is around 1.25-1.3. Hold home diuretics. Avoid nephrotoxins. De-escalate dose of gabapentin. Gentle IV hydration. Hypercalcemia Calcium of 10.5, mildly elevated IV hydration Trend BMP. Leukocytosis Mild likely reactive Trend. Morbid obesity: Complicates care. Recommend lifestyle modifications DVT Prophylaxis No chemical chemoprophylaxis in the setting of cardiac work-up for chest pain. SCD ordered. OBSV E&M: 08151 Initial observation care L2
--- NOTE | 2020-10-08 02:15 | EKG12_ITS ---
Test Reason : CP Blood Pressure : / mmHG Vent. Rate : 063 BPM Atrial Rate : 063 BPM P-R Int : 196 ms QRS Dur : 110 ms QT Int : 416 ms P-R-T Axes : 076 030 239 degrees QTc Int : 425 ms Atrial-paced rhythm with Premature atrial complexes with Aberrant conduction Possible Inferior infarct , age undetermined ST & T wave abnormality, consider anterolateral ischemia Abnormal ECG Confirmed by VLADIMIR ELIAS, TALIB ([id number]), senior editor ELIEZER VELÁSQUEZ ([id number]) on 10/09/2020 8:39:57 AM Referred By: Aaron Bui Confirmed By:TALIB GILBERT MD
[2020-10-08] MEDS: 0.9% Normal Saline 1,000 ML 75 ML IV (03:55)
[2020-10-08 06:06] LABS: Absolute Lymphocyte Count 2.63 X10^3/uL (0.83-4.51); Basophil# 0.06 X10^3/uL; Basophil% 0.6 % (0-1); Eosinophils% 1.8 % (0-5); Hematocrit 35.1 % (37-47); Hemoglobin 11.3 g/dL (12.0-15.0); Lymphocyte # 2.63 X10^3/ul (4.0); Lymphocyte % 24.2 % (19-41); Mean Corp Hgb Conc 32.2 g/dL (32-36); Mean Corpuscular Hgb 31.8 pg (27.0-32.0); Mean Corpuscular Volume 98.9 fL (81-99); Mean Platelet Vol. 10.9 fl (6.2-12.0); Monocyte# 0.95 X10^3/uL; Monocyte% 8.8 % (0-10); NRBC Flagged by Analyzer 0 % (0-5); Neutrophil # 6.97 X10^3/uL (2.7-7.7); Neutrophil % 64.2 % (47-70); Platelet Count 184 K/mm3 (150-450); RBC Distribution Width CV 12.5 % (11.6-14.6); RBC Distribution Width SD 45.1 fl (35.1-43.9); Red Blood Count 3.55 M/mm3 (4.2-5.4); White Blood Count 10.9 K/mm3 (4.4-11.0)
[2020-10-08] MEDS: Levothyroxine 88 MCG Tablet PO (06:45)
[2020-10-08] MEDS: Aspirin E.C. 81 MG Tablet PO (06:45)
[2020-10-08 06:54] LABS: Anion Gap 6 (5-15); BUN 34 mg/dL (7-18); BUN/Creat Ratio 22.4 RATIO (10-20); Calcium,Total 9.8 mg/dL (8.5-10.1); Chloride 97 mmol/L (98-107); Cholesterol 128 mg/dL (200); Creatinine, Serum 1.52 mg/dL (0.55-1.02); EST Glomerular Filtration Rate 37 mL/min (>60); Est Glom Filt Rate - Afr Amer 45 mL/min (>60); Estimated Creatinine Clearance 33.14 ml/min; Glucose 108 mg/dL (74-106); High Density Lipoprotein 57 mg/dL; Potassium 4.1 mmol/L (3.5-5.1); Sodium Level 134 mmol/L (136-145); Triglycerides 83 mg/dL; Very Low Density Lipoprotein 17 mg/dL (5-40)
[2020-10-08] MEDS: Calcitriol 0.25 MCG Capsule PO (11:19)
[2020-10-08] MEDS: Gabapentin 100 MG Capsule 200 MG PO (11:19)
[2020-10-08] MEDS: Calcium (Elemental) 500 MG Tablet 1000 MG PO (11:19)
--- NOTE | 2020-10-08 12:23 | STRESSREP ---
Stress Test Report Date: 10-08-2020 Procedure: Pharmacologic stress nuclear imaging study Indications: Complications; chest pain; shortness of breath/dyspnea; CAD; PCI; CABG; status post ablation; ICD Consent: Per the patient Procedure: The patient underwent pharmacologic (Regadenoson) evaluation with a peak heart rate of 71 beats per minute (44%predicted maximal heart rate) and a peak blood pressure of 116/54 mmHg. The baseline ECG demonstrated sinus bradycardia; PVCs; ST/T wave abnormality. The peak pharmacologic ECG demonstrated no obvious ECG changes. There were occasional PVCs pretest and during recovery and an isolated ventricular couplet pretest and a rare electronic ventricular paced beat/ventricular couplet during recovery. There was notation of chest heaviness and dyspnea in early recovery. The examination was discontinued secondary to completion of protocol. Impression: 1. Pharmacologic (Regadenoson) evaluation 2. Peak pharmacologic ECG with no obvious ECG changes. 3. There were occasional PVCs pretest and during recovery and an isolated ventricular couplet pretest and a rare electronic ventricular paced beat/ventricular couplet during recovery. 4. Nuclear images pending Myocardial perfusion imaging study: Technique: The patient was injected with 14.3 millicuries of technetium 99m Cardiolite and subsequently rest SPECT Cardiolite nuclear imaging was obtained in the horizontal long, vertical long, and short axis views. The patient underwent pharmacologic (Regadenoson) evaluation with a peak heart rate of 71 beats per minute (44% percent predicted maximal heart rate) and a peak blood pressure of 116/54 mmHg. The patient was injected with 44.4 millicuries of technetium 99m Cardiolite and subsequently stress SPECT Cardiolite nuclear imaging was obtained in the horizontal long, vertical long, and short axis views. A gated Cardiolite study at peak stress was obtained. Interpretation: Rest and stress SPECT Cardiolite nuclear imaging status post realignment, normalization, and attenuation correction demonstrate the appearance of diminished absence of myocardial perfusion/tracer uptake in portions of the basal lateral segments, mid inferolateral segments, and distal inferior segments without significant change between rest and stress. There is diminished end systolic thickening and brightening. The gated Cardiolite study demonstrates diminished myocardial thickening and inward wall motion. The reported LVEF is 50%. Impression: 1. Rest and stress SPECT Cardiolite nuclear imaging demonstrate myocardial perfusion changes compatible with an area of previous myocardial injury/infarction with no myocardial perfusion changes considered diagnostic for associated stress-induced myocardial ischemia. 2. The gated Cardiolite study reports an LVEF of 50%. This note was generated with [employer] software. It may contain incorrect words, spelling, and punctuation that were not noted in checking the note before signing.
--- NOTE | 2020-10-08 12:59 | DCINST_ITS ---
- Discharge Diagnoses Current Active Problems: Current Active and Chronic Problems Fluttering heart (Chronic) CKD (chronic kidney disease), stage III (Chronic) DM2 (diabetes mellitus, type 2) (Chronic) Palpitations (Chronic) Chest pain (Acute) Chest pain at rest (Acute) History of TIA (transient ischemic attack) and stroke (Chronic) History of percutaneous transluminal coronary angioplasty (Chronic) Peripheral neuropathy (Chronic) History of breast cancer (Chronic) Right Obesity (BMI 30-39.9) (Chronic) Venous insufficiency (Chronic) I87.2 Leg edema (Chronic) Delayed wound healing (Chronic) Malnutrition (Chronic) Chronic ulcer of left leg with fat layer exposed (Chronic) Renal insufficiency (Chronic) Cardiomyopathy, ischemic (Chronic) CAD (coronary artery disease) (Chronic) Type II diabetes mellitus, uncontrolled (Chronic) Atrial fibrillation and flutter (Chronic) Afib (Chronic) VICENTE (acute kidney injury) (Acute) Chest pain (Acute) Congestive heart failure (CHF) (Chronic) Cushings syndrome (Chronic) Hypothyroidism (Chronic) Hyperlipidemia (Chronic) Hypertension (Chronic) History of CVA (cerebrovascular accident) (Chronic) 2006 ICD (implantable cardioverter-defibrillator) in place (Chronic) 2002 Paroxysmal a-fib (Chronic) Hx of CABG (Chronic) You will use the following diet at home:: No restrictions Your food should be the consistency of: Regular Your liquids should be the consistency of: Regular/Thin Discharge Activity: Return to Normal Activity Weight Bearing Status: Full weight bearing Allergies/Adverse Reactions: Allergies Iodinated Contrast Media Allergy (Verified 06/19/19 14:58) Nausea levofloxacin [From Levaquin] Allergy (Verified 06/19/19 14:58) Unknown ranolazine [From Ranexa] Allergy (Verified 06/19/19 14:58) Unknown sulfamethoxazole [From Bactrim] Allergy (Verified 06/19/19 14:58) Unknown trimethoprim [From Bactrim] Allergy (Verified 06/19/19 14:58) Unknown Medications to take at Discharge Atorvastatin Calcium [Lipitor] 40 mg PO QHS 09/09/14 Levothyroxine [Synthroid] 88 mcg PO DAILY 09/09/14 Lisinopril [Zestril] 5 mg PO QHS 09/09/14 Gabapentin [Neurontin] 600 mg PO 4X/DAY 01/02/16 Furosemide [Lasix] 40 mg PO BID@1000,1800 #60 tablet 10/25/16 Multivitamins,Therapeutic [Multivitamin] 1 tablet PO DAILY 07/21/17 Spironolactone [Aldactone] 25 mg PO DAILY 07/21/17 Calcium Carbonate [Calcium] 1,200 mg PO DAILY 01/04/18 Metoprolol Tartrate 100 mg PO BID 01/04/18 Aspirin [Adult Aspirin Regimen] 81 mg PO QODAY 05/01/18 Paroxetine [Paxil] 20 mg PO DAILY #30 tablet 05/01/18 Calcitriol 0.25 mcg PO BID 10/07/20 Diazepam [Valium] 5 mg PO PRN PRN 10/07/20 Primary Care Physician: Erik Barton MD [Primary Care Provider] - Please follow up with your Primary Care Physician in: in 2 weeks Test Results: Test results from this visit will be discussed in further detail at your follow- up appointment, if applicable.
--- NOTE | 2020-10-08 18:12 | DS.PCM_ITS ---
Discharge Date and Diagnosis - Problem List Patient Problems: Active and Suspected Problems Chest pain (Acute) Chest pain at rest (Acute) VICENTE (acute kidney injury) (Acute) Chest pain (Acute) Date of Admission: 10/08/20 Date of Discharge: 10/08/20 - Primary Discharge Diagnosis Acute Problems: Active Problems #1 musculoskeletal chest pain #2 coronary artery disease #3 ischemic cardiomyopathy #4 Stage III chronic kidney disease No evidence of acute kidney injury - Secondary Discharge Diagnosis Chronic Problems: Chronic Problems Fluttering heart (Chronic) CKD (chronic kidney disease), stage III (Chronic) DM2 (diabetes mellitus, type 2) (Chronic) Palpitations (Chronic) History of TIA (transient ischemic attack) and stroke (Chronic) History of percutaneous transluminal coronary angioplasty (Chronic) Peripheral neuropathy (Chronic) History of breast cancer (Chronic) Right Obesity (BMI 30-39.9) (Chronic) Venous insufficiency (Chronic) I87.2 Leg edema (Chronic) Delayed wound healing (Chronic) Malnutrition (Chronic) Chronic ulcer of left leg with fat layer exposed (Chronic) Renal insufficiency (Chronic) Cardiomyopathy, ischemic (Chronic) CAD (coronary artery disease) (Chronic) Type II diabetes mellitus, uncontrolled (Chronic) Atrial fibrillation and flutter (Chronic) Afib (Chronic) Congestive heart failure (CHF) (Chronic) Cushings syndrome (Chronic) Hypothyroidism (Chronic) Hyperlipidemia (Chronic) Hypertension (Chronic) History of CVA (cerebrovascular accident) (Chronic) 2006 ICD (implantable cardioverter-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 Work-up in the emergency room included an EKG which showed a paced rhythm, patient's cardiac enzymes were unremarkable, patient's chest x-ray showed no acute process. Patient was placed in observation status on PCU and cardiac enzymes were cycled and these remain normal. Patient underwent a pharmacological nuclear stress test which was negative for reversible ischemia. On 10/08/2020, patient was seen and examined: On examination she appeared in good health and spirits, she does not appear to be in any distress. Vital signs as documented. Skin warm and dry and without overt rashes. Neck without JVD, thyroid appears normal, trachea is midline, neck is supple. Lungs clear, normal air movement was noted. Heart exam notable for regular rhythm, normal sounds and absence of murmurs, rubs or gallops. Abdomen unremarkable and without evidence of organomegaly, masses, or abdominal aortic enlargement, bowel sounds are present in all 4 quadrants, no abdominal tenderness was noted. Extremities nonedematous, no cyanosis was noted, no clubbing was noted. Neuro: Cranial nerves II through XII are grossly intact, no focal motor deficits were noted, sensation to light touch and pinprick is intact, motor exam 5/5 throughout. Psych: Patient is alert and oriented x3, she does not appear anxious or depressed, she does not appear agitated. On 10/08/2020, patient was seen and examined and felt to be in stable condition for discharge home Patient Problems: Active and Suspected Problems Chest pain (Acute) Chest pain at rest (Acute) VICENTE (acute kidney injury) (Acute) Chest pain (Acute) - Physical Exam Vitals/I&O's: Vital Signs Temp Pulse Resp BP Pulse Ox 97.8 F 60 16 94/48 L 98 10/08/20 11:11 10/08/20 11:11 10/08/20 11:11 10/08/20 11:11 10/08/20 11:11 Oxygen Delivery Method Room Air Weight: 105.4 kg Body Mass Index (BMI) 39.9 Intake and Output for Last 24 Hours 10/06/20 10/07/20 10/08/20 23:59 23:59 23:59 Intake Total 671.25 / 671.25 Balance 671.25 / 671.25 Laboratory Results 10/07/20 23:58: WBC 11.9 H, RBC 3.75 L, Hgb 12.0, Hct 36.6 L, MCV 97.6, MCH 32.0, MCHC 32.8, RDW Std Deviation 45.1 H, RDW Coeff of Yared 12.7, Plt Count 199, MPV 11.2, Immature Gran % (Auto) 0.400, Neut % (Auto) 63.6, Lymph % (Auto) 23.7, [place]ink[place] % (Auto) 9.9, Eos % (Auto) 1.8, Baso % (Auto) 0.6, Absolute Neuts (auto) 7.5, Absolute Lymphs (auto) 2.81, Nucleated RBC % 0 10/07/20 23:58: Sodium 137, Potassium 3.9, Chloride 97 L, Carbon Dioxide 33.0 H, Anion Gap 7, BUN 35 H, Creatinine 1.67 H, Estim Creat Clear Calc 30.16, Est GFR (MDRD) Af Amer 40 L, Est GFR (MDRD) Non-Af 33 L, BUN/Creatinine Ratio 21.0 H, Glucose 107 H, Calcium 10.5 H, Troponin I < 0.015 10/08/20 02:50: Troponin I < 0.015 10/08/20 05:50: WBC 10.9, RBC 3.55 L, Hgb 11.3 L, Hct 35.1 L, MCV 98.9, MCH 31.8, MCHC 32.2, RDW Std Deviation 45.1 H, RDW Coeff of Yared 12.5, Plt Count 184, MPV 10.9, Immature Gran % (Auto) 0.400, Neut % (Auto) 64.2, Lymph % (Auto) 24.2, Winkler % (Auto) 8.8, Eos % (Auto) 1.8, Baso % (Auto) 0.6, Absolute Neuts (auto) 7.0, Absolute Lymphs (auto) 2.63, Nucleated RBC % 0 10/08/20 05:50: Sodium 134 L, Potassium 4.1, Chloride 97 L, Carbon Dioxide 31.0, Anion Gap 6, BUN 34 H, Creatinine 1.52 H, Estim Creat Clear Calc 33.14, Est GFR (MDRD) Af Amer 45 L, Est GFR (MDRD) Non-Af 37 L, BUN/Creatinine Ratio 22.4 H, Glucose 108 H, Calcium 9.8, Triglycerides 83, Cholesterol 128, LDL Cholesterol 54, VLDL Cholesterol 17, HDL Cholesterol 57 10/08/20 05:50: Troponin I < 0.015 Discharge Activity: Return to Normal Activity Weight Bearing Status: Full weight bearing Home Medications: Medications to take at Discharge Atorvastatin Calcium [Lipitor] 40 mg PO QHS 09/09/14 Levothyroxine [Synthroid] 88 mcg PO DAILY 09/09/14 Lisinopril [Zestril] 5 mg PO QHS 09/09/14 Gabapentin [Neurontin] 600 mg PO 4X/DAY 01/02/16 Furosemide [Lasix] 40 mg PO BID@1000,1800 #60 tablet 10/25/16 Multivitamins,Therapeutic [Multivitamin] 1 tablet PO DAILY 07/21/17 Spironolactone [Aldactone] 25 mg PO DAILY 07/21/17 Calcium Carbonate [Calcium] 1,200 mg PO DAILY 01/04/18 Metoprolol Tartrate 100 mg PO BID 01/04/18 Aspirin [Adult Aspirin Regimen] 81 mg PO QODAY 05/01/18 Paroxetine [Paxil] 20 mg PO DAILY #30 tablet 05/01/18 Calcitriol 0.25 mcg PO BID 10/07/20 Diazepam [Valium] 5 mg PO PRN PRN 10/07/20 Primary Care Physician: Erik Barton MD [Primary Care Provider] - Please follow up with your Primary Care Physician in: in 2 weeks Disposition: Home Minutes spent on discharge:: 31 Patient Condition:: Stable Medical Necessity - Tobacco Use Smoking Status: Former smoker Meaningful Use Info Meaningful Use Diagnoses (Choose all that apply): None applicable OBSV E&M: 82297 Observation care discharge
== END 2020-10-08 13:00 | disposition home or self-care (01) ==
LOC: ED 10-08 00:58 → PCU 10-08 01:43
PROVIDERS: Admitting Provider Hospitalist; Emergency Provider Emergency Medicine; PCP Family Medicine; Referring Provider Hospitalist; Visit Provider Internal Medicine
DX: R07.89 Other chest pain (principal); N17.9 Acute kidney failure, unspecified; M54.2 Cervicalgia; M25.512 Pain in left shoulder; I25.10 Atherosclerotic heart disease of native coronary artery without angina pectoris; I25.2 Old myocardial infarction; I48.92 Unspecified atrial flutter; I25.5 Ischemic cardiomyopathy; E11.22 Type 2 diabetes mellitus with diabetic chronic kidney disease; I13.0 Hypertensive heart and chronic kidney disease with heart failure and stage 1 through stage 4 chronic kidney disease, or unspecified chronic kidney disease; N18.30 Chronic kidney disease, stage 3 unspecified; I50.22 Chronic systolic (congestive) heart failure; E78.5 Hyperlipidemia, unspecified; E03.9 Hypothyroidism, unspecified; I48.0 Paroxysmal atrial fibrillation; E11.42 Type 2 diabetes mellitus with diabetic polyneuropathy; Z87.891 Personal history of nicotine dependence; Z79.899 Other long term (current) drug therapy; Z95.810 Presence of automatic (implantable) cardiac defibrillator; Z95.1 Presence of aortocoronary bypass graft; Z79.82 Long term (current) use of aspirin; E66.01 Morbid (severe) obesity due to excess calories; Z68.41 Body mass index [BMI] 40.0-44.9, adult
CPT/HCPCS: 36415; 71046; 78452; 80048; 80061; 84484; 85025; 93005; 93017; 96360; 96361; 99218; 99285; 99406; A9500; J7030; A4216; G0378; J2785

== ENCOUNTER → 2020-10-25 07:24 | Outpatient (CLI) | payer MEDICARE, SELFPAY ==
[2020-10-08 02:18] VITALS: BMI 39.9
[2020-10-25 09:18] LABS: Anion Gap 6 (5-15); BUN 22 mg/dL (7-18); BUN/Creat Ratio 17.2 RATIO (10-20); Chloride 104 mmol/L (98-107); Creatinine, Serum 1.28 mg/dL (0.55-1.02); EST Glomerular Filtration Rate 45 mL/min (>60); Est Glom Filt Rate - Afr Amer 54 mL/min (>60); Glucose 108 mg/dL (74-106); Sodium Level 138 mmol/L (136-145)
== END ==
PROVIDERS: PCP Family Medicine
DX: N28.9 Disorder of kidney and ureter, unspecified (principal)
CPT/HCPCS: 36415; 80048

== ENCOUNTER → 2020-12-19 07:40 | Outpatient (CLI) | payer MEDICARE, SELFPAY ==
[2019-06-21 09:52] VITALS: BMI 39.4
[2020-10-08 02:18] VITALS: BMI 39.9
[2020-12-19 08:47] LABS: ALB/GLOB Ratio 1.1 RATIO (0.9-2.4); AST(SGOT) 20 U/L (15-37); Alanine Aminotransfer ALT/SGPT 32 U/L (13-56); Albumin, Serum 3.7 g/dL (3.2-5.0); Alkaline Phosphatase 118 U/L (45-117); Anion Gap 5 (5-15); BUN 32 mg/dL (7-18); BUN/Creat Ratio 19.5 RATIO (10-20); Calcium,Total 10.7 mg/dL (8.5-10.1); Chloride 99 mmol/L (98-107); Creatinine, Serum 1.64 mg/dL (0.55-1.02); EST Glomerular Filtration Rate 34 mL/min (>60); Est Glom Filt Rate - Afr Amer 41 mL/min (>60); Globulin 3.3 g/dL (2.2-4.2); Glucose 122 mg/dL (74-106); Potassium 4.3 mmol/L (3.5-5.1); Sodium Level 135 mmol/L (136-145); Thyroid Stim Hormone (TSH) 2.33 uIU/mL (0.358-3.74)
[2020-12-19 09:02] LABS: PTHIN 21.8 pg/mL (18.4-80.1)
== END ==
PROVIDERS: PCP Family Medicine; Referring Provider Internal Medicine Endocrinology, Diabetes & Metabolism; Visit Provider Internal Medicine Endocrinology, Diabetes & Metabolism
DX: E21.1 Secondary hyperparathyroidism, not elsewhere classified (principal); E03.8 Other specified hypothyroidism
CPT/HCPCS: 36415; 80053; 83970; 84443

== ENCOUNTER → 2020-12-25 08:29 | Outpatient (CLI) | payer MEDICARE, SELFPAY ==
[2020-10-08 02:18] VITALS: BMI 39.9
[2020-12-25 09:51] LABS: Anion Gap 6 (5-15); BUN 29 mg/dL (7-18); BUN/Creat Ratio 17.6 RATIO (10-20); Calcium,Total 11.4 mg/dL (8.5-10.1); Chloride 97 mmol/L (98-107); Creatinine, Serum 1.65 mg/dL (0.55-1.02); EST Glomerular Filtration Rate 34 mL/min (>60); Est Glom Filt Rate - Afr Amer 41 mL/min (>60); Glucose 123 mg/dL (74-106); Sodium Level 136 mmol/L (136-145)
== END ==
PROVIDERS: PCP Family Medicine; Referring Provider Internal Medicine Endocrinology, Diabetes & Metabolism; Visit Provider Internal Medicine Endocrinology, Diabetes & Metabolism
DX: E21.1 Secondary hyperparathyroidism, not elsewhere classified (principal)
CPT/HCPCS: 36415; 80048

== ENCOUNTER → 2020-12-30 12:49 | Outpatient (CLI) | payer MEDICARE, SELFPAY ==
[2020-10-08 02:18] VITALS: BMI 39.9
[2020-12-30 14:50] LABS: Anion Gap 8 (5-15); BUN 32 mg/dL (7-18); BUN/Creat Ratio 20.8 RATIO (10-20); Chloride 101 mmol/L (98-107); Creatinine, Serum 1.54 mg/dL (0.55-1.02); EST Glomerular Filtration Rate 36 mL/min (>60); Est Glom Filt Rate - Afr Amer 44 mL/min (>60); Glucose 157 mg/dL (74-106); Potassium 4.3 mmol/L (3.5-5.1); Sodium Level 137 mmol/L (136-145)
== END ==
PROVIDERS: PCP Family Medicine; Referring Provider Internal Medicine Endocrinology, Diabetes & Metabolism; Visit Provider Internal Medicine Endocrinology, Diabetes & Metabolism
DX: E21.1 Secondary hyperparathyroidism, not elsewhere classified (principal)
CPT/HCPCS: 36415; 80048

== ENCOUNTER → 2021-01-28 07:19 | Outpatient (CLI) | payer MEDICARE, SELFPAY ==
[2020-10-08 02:18] VITALS: BMI 39.9
[2021-01-28 08:37] LABS: AST(SGOT) 20 U/L (15-37); Alanine Aminotransfer ALT/SGPT 33 U/L (13-56); Albumin, Serum 3.6 g/dL (3.2-5.0); Alkaline Phosphatase 129 U/L (45-117); Anion Gap 6 (5-15); BUN 26 mg/dL (7-18); BUN/Creat Ratio 21.1 RATIO (10-20); Chloride 101 mmol/L (98-107); Creatinine, Serum 1.23 mg/dL (0.55-1.02); EST Glomerular Filtration Rate 47 mL/min (>60); Est Glom Filt Rate - Afr Amer 57 mL/min (>60); Globulin 3.5 g/dL (2.2-4.2); Glucose 116 mg/dL (74-106); Potassium 4.5 mmol/L (3.5-5.1); Protein, Total 7.1 g/dL (6.4-8.2); Sodium Level 138 mmol/L (136-145)
[2021-01-28 08:38] LABS: PTHIN 98.2 pg/mL (18.4-80.1)
[2021-01-28 08:42] LABS: Vitamin D,25 Hydroxy 53.8 ng/mL
== END ==
PROVIDERS: PCP Family Medicine
DX: E21.1 Secondary hyperparathyroidism, not elsewhere classified (principal); E55.9 Vitamin D deficiency, unspecified
CPT/HCPCS: 36415; 80053; 82306; 83970

== ENCOUNTER → 2021-05-13 09:00 | Outpatient (CLI) | payer MEDICARE, SELFPAY ==
[2020-10-08 02:18] VITALS: BMI 39.9
[2021-05-13 09:56] LABS: PTHIN 99.7 pg/mL (18.4-80.1)
[2021-05-13 09:58] LABS: Vitamin D,25 Hydroxy 64.9 ng/mL
[2021-05-13 10:07] LABS: AST(SGOT) 27 U/L (15-37); Alanine Aminotransfer ALT/SGPT 34 U/L (13-56); Albumin, Serum 3.5 g/dL (3.2-5.0); Alkaline Phosphatase 153 U/L (45-117); Anion Gap 7 (5-15); BUN 22 mg/dL (7-18); BUN/Creat Ratio 16.7 RATIO (10-20); Calcium,Total 9.7 mg/dL (8.5-10.1); Chloride 102 mmol/L (98-107); Creatinine, Serum 1.32 mg/dL (0.55-1.02); EST Glomerular Filtration Rate 43 mL/min (>60); Est Glom Filt Rate - Afr Amer 52 mL/min (>60); Globulin 3.5 g/dL (2.2-4.2); Glucose 153 mg/dL (74-106); Potassium 3.9 mmol/L (3.5-5.1); Sodium Level 138 mmol/L (136-145); Thyroid Stim Hormone (TSH) 1.85 uIU/mL (0.358-3.74)
[2021-05-16 16:09] LABS: Alkaline Phosphatase, Serum 147 IU/L (48-121); Bone Fraction 28 % (14-68); Liver Fraction 71 % (18-85)
[2021-05-16 16:53] LABS: Intestinal Fraction 1 % (0-18)
== END ==
PROVIDERS: PCP Family Medicine; Referring Provider Internal Medicine Endocrinology, Diabetes & Metabolism; Visit Provider Internal Medicine Endocrinology, Diabetes & Metabolism
DX: E21.1 Secondary hyperparathyroidism, not elsewhere classified (principal); E03.8 Other specified hypothyroidism; M81.0 Age-related osteoporosis without current pathological fracture
CPT/HCPCS: 36415; 80053; 82306; 83735; 83970; 84075; 84080; 84443

== ENCOUNTER → 2021-05-29 09:36 | Outpatient (CLI) | payer MEDICARE, SELFPAY ==
[2020-10-08 02:18] VITALS: BMI 39.9
--- NOTE | 2021-05-29 09:39 | US_ITS ---
STUDY: ABDOMINAL ULTRASOUND REASON FOR EXAM: Female, 60 years old. ABNORMAL LFT TECHNIQUE: Transabdominal ultrasound was performed with real-time and static shultz scale imaging. TECHNICAL QUALITY: Adequate. COMPARISON: None. FINDINGS: Liver: The liver measures 15.1 cm. There is increased echogenicity consistent with fatty infiltration. The bile ducts are within normal limits. There is hepatic color flow. The direction of portal flow is hepatopetal. There is no demonstrated mass lesion. Gallbladder: The patient is status post cholecystectomy. Common Bile Duct (C.B.D.): The common bile duct measures 8.1 mm. Pancreas: Normal size of the head, body of the pancreas. The tail portion of the pancreas is obscured due to overlying bowel gas. There is normal echogenicity of the pancreas. There is no demonstrated pancreatic mass or cyst. Spleen: Normal size of the spleen. The spleen measures 10.7 cm x 5.6 cm x 3.8 cm. Right Kidney: Normal size of the right kidney. The right kidney measures 10.5 cm x 5.7 cm x 5.9 cm. Normal renal cortex. The right cortex measures 1.1 cm. There is no demonstrated renal mass or cyst. There is no right hydronephrosis. Left Kidney: Normal size of the left kidney. The left kidney measures 10.2 cm x 5.8 cm x 4.7 cm. Normal renal cortex. The left cortex measures 1.0 cm. There is no demonstrated renal mass or cyst. There is no left hydronephrosis. Aorta: Unremarkable I.V.C.: The IVC is patent. There is no ascites. US/Abdomen Complete IMPRESSION: Fatty infiltration of the liver. Electronically Signed: Fabian Rebollar MD at 14:25 EDT , Service support ,
== END ==
PROVIDERS: Nurse Practitioner Adult Health; PCP Family Medicine; Referring Provider Internal Medicine Endocrinology, Diabetes & Metabolism; Visit Provider Internal Medicine Endocrinology, Diabetes & Metabolism
DX: R94.5 Abnormal results of liver function studies (principal); M81.0 Age-related osteoporosis without current pathological fracture
CPT/HCPCS: 76700; 81050

== ENCOUNTER 2021-06-01 11:01 | Emergency (ER) | payer MEDICARE, SELFPAY ==
[2020-10-08 02:18] VITALS: BMI 39.9
[2021-06-01 11:01] VITALS: BP 119/90; PULSE 60; RESP 18; TEMP 36.8; O2SAT 93; BMI 39.9
--- NOTE | 2021-06-01 11:08 | EKG12_ITS ---
Test Reason : CP Blood Pressure : / mmHG Vent. Rate : 060 BPM Atrial Rate : 060 BPM P-R Int : 190 ms QRS Dur : 110 ms QT Int : 406 ms P-R-T Axes : 073 043 -32 degrees QTc Int : 406 ms Atrial-paced rhythm T wave abnormality, consider inferior ischemia T wave abnormality, consider anterolateral ischemia Abnormal ECG Confirmed by ROD ELIAS, SUPRIYA ([id number]), civil manager CASSANDRA GAN ([id number]) on 06/04/2021 2:19:17 PM Referred By: DEB Confirmed By:SUPRIYA VELASCO MD
--- NOTE | 2021-06-01 11:09 | RAD_ITS ---
STUDY: X-RAY CHEST REASON FOR EXAM: Female, 60 years old. chest pain TECHNIQUE: Single AP portable view of the chest. COMPARISON: 10/08/2020 FINDINGS: All left subclavian dual-lead AICD which is unchanged. Status post median sternotomy. The lungs are clear and expanded. There is no demonstrated pleural abnormality. There is moderate cardiac enlargement. Normal mediastinum and anny. Normal visualized pulmonary arteries. Normal visualized aortic arch and descending thoracic aorta. Normal visualized thoracic spine. Normal visualized ribs, clavicles, and shoulders. There is no demonstrated abnormality of the visualized soft tissue structures of the upper abdomen. RAD/Chest 1 View (Portable) IMPRESSION: No active disease. Electronically Signed: Pérez Montague MD at 12:08 EDT Tel , Service support ,
--- NOTE | 2021-06-01 11:14 | EX.ED.DYSGE1 ---
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 In general her cardiac condition has been very stable she is not describing any type of exertional chest pain, she has no history of DVT or PE she indicates she has had normal bowel bladder habits, no obvious exposures to coronavirus Indicates that her physicians are working her up for some type of a renal mass recently had ultrasound the cause bruising to the right upper quadrant Past medical history is as above includes CAD cardiac stents A. fib unspecified abdominal mass [facility] Medical History (Updated 06/01/21 @ 11:45 by Annie Ivory) Chest pain Hypertension Home Medications atorvastatin 40 mg PO QHS 09/09/14 [History Last Taken 01/18/19 21:00] levothyroxine 88 mcg PO DAILY 09/09/14 [History Last Taken 01/19/19 07:00] lisinopril 5 mg PO QHS 09/09/14 [History Last Taken 01/18/19 21:00] gabapentin 600 mg PO 4X/DAY 01/02/16 [History Last Taken 01/19/19 19:00] multivitamin with folic acid [Thera] 1 tab PO DAILY 07/21/17 [History Last Taken 01/19/19 09:00] spironolactone 25 mg PO DAILY 07/21/17 [History Last Taken 01/19/19 09:00] calcium carbonate 1,200 mg PO DAILY 01/04/18 [History Last Taken 01/19/19 09:00] metoprolol tartrate 100 mg PO BID 01/04/18 [History Last Taken 01/19/19 10:00] aspirin [Adult Aspirin Regimen] 81 mg PO QODAY 05/01/18 [History Last Taken 01/19/19 09:00] calcitriol 0.25 mcg PO BID 10/07/20 [History Last Taken Unknown] diazepam 5 mg PO PRN PRN 10/07/20 [History Last Taken Unknown] furosemide 40 mg PO DAILY 06/01/21 [History Last Taken Unknown] furosemide [Lasix] 20 mg PO 1800 06/01/21 [History Last Taken Unknown] Allergy/AdvReac Type Severity Reaction Status Date / Time Iodinated Contrast Media Allergy Nausea Verified 06/19/19 14:58 levofloxacin [From Levaquin] Allergy Unknown Verified 06/19/19 14:58 ranolazine [From Ranexa] Allergy Unknown Verified 06/19/19 14:58 sulfamethoxazole Allergy Unknown Verified 06/19/19 14:58 [From Bactrim] trimethoprim [From Bactrim] Allergy Unknown Verified 06/19/19 14:58 Social History (Updated 06/21/19 @ 12:[address] Aaron Fernandez, ) Smoking Status: Former smoker ROS ROS ED ROS Narrative Fleeting chest pain as above otherwise her health condition has been stable Constitutional Constitutional ED: Reports subjective, sweats and other; Denies chills, fever(s) or weight loss Eyes Eyes: Denies blurry vision or change in vision ENT ENT ED: Denies ear pain Cardiovascular Cardiovascular: Denies chest pain or palpitations Respiratory/Chest Respiratory/Chest: Denies dyspnea Gastrointestinal Gastrointestinal: Denies abdominal pain, nausea or vomiting Genitourinary Genitourinary ED: Denies dysuria or hematuria Musculoskeletal Musculoskeletal: Denies arthralgias or myalgias Integumentary Reports rash; Denies abscess Neurologic Neurologic: Denies weakness Psychiatric Psychiatric: Denies anxiety or depression Endocrine Endocrinology: Denies polydipsia or polyuria Allergic/Immunologic Allergic/Immunologic ED: Denies urticaria EXAM Physical Exam Narrative Exam Narrative: She has a skin discoloration and bruise to the right upper quad related to the ultrasound this is been there for about a week the rest of her physical exam is really unremarkable she does have a cardiac defibrillator pacemaker left upper chest that has not fired recently heart tones are normal the lungs are clear the abdomen is otherwise soft nontender lower extremities unremarkable Const Vital Signs: 06/01/21 11:01 06/01/21 11:36 06/01/21 12:09 Temperature 98.3 F Temperature Source Oral Pulse Rate 60 64 Respiratory Rate 18 16 Blood Pressure 119/90 H 104/74 Blood Pressure Mean 99 84 Pulse Ox 93 99 94 Oxygen Delivery Method Room Air Room Air Room Air 06/01/21 13:00 Temperature Temperature Source Pulse Rate 62 Respiratory Rate 16 Blood Pressure 104/61 Blood Pressure Mean 75 Pulse Ox 95 Oxygen Delivery Method Room Air Positive well developed General Appearance ED: well developed HEENT Reports normocephalic Negative for trauma Eyes EOMs intact bilaterally Neck supple Chest Wall inspection of chest normal Resp normal respiratory effort Cardio regular rate GI non-tender and non-distended Back/Spine Back/Spine Narrative: unremarkable Extremity normal to inspection Neuro oriented x3 and CN's II-XII intact bilaterally Sensorium / Orientation: alert Psych mental status grossly normal Skin no rashes or lesions noted MDM MDM MDM Narrative Medical decision making narrative: Chest pain given all the above ED evaluation 1 view chest x-ray to my review shows nothing acute radiology concurs see that report, EKG shows atrial paced rhythm versus sinus nothing acute nonspecific changes Patient does have history of A. fib a flutter or SVT, ED screen evaluation of labs are all generally unremarkable she does not wish to have any repeat labs done, she has had no recurrence of her chest discomfort we discussed inpatient versus outpatient management given her complicated history she understands the risks of sudden etc. but she does not wish to be admitted she wants to go home follow with outpatient providers return for change in symptoms Home stable declined admission Final impression transient chest pain resolved history of CAD cardiac defibrillator A. fib flutter Lab Data Labs: Laboratory Results - last 24 hr 06/01/21 06/01/21 10:35 10:35 WBC 9.8 RBC 4.39 Hgb 13.5 Hct 42.0 MCV 95.7 MCH 30.8 MCHC 32.1 RDW Std Deviation 44.5 H RDW Coeff of Yared 12.6 Plt Count 217 MPV 11.7 Immature Gran % (Auto) 0.200 Neut % (Auto) 70.1 H Lymph % (Auto) 19.0 [place] % (Auto) 8.6 Eos % (Auto) 1.4 Baso % (Auto) 0.7 Absolute Neuts (auto) 6.9 Absolute Lymphs (auto) 1.86 Nucleated RBC % 0 Sodium 137 Potassium 4.4 Chloride 101 Carbon Dioxide 31.0 Anion Gap 5 BUN 28 H Creatinine 1.05 H Estim Creat Clear Calc 47.97 Est GFR (MDRD) Af Amer 68 Est GFR (MDRD) Non-Af 56 L BUN/Creatinine Ratio 26.7 H Glucose 81 Calcium 9.4 Troponin I High Sens 5.9 Radiography Diagnostic Testing: Radiology Impression Chest X-Ray 06/01/21 11:09 IMPRESSION: No active disease. Electronically Signed: Pérez Montague MD at 12:08 EDT Tel , Service support , Discharge Plan Triage Chief Complaint: Chest Pain ED Provider: Hazel Castillo Dx/Rx/DC Orders Instructions: ED Chest Pain, Uncertain Cause Prescriptions: No Action atorvastatin 40 MG tablet 40 mg PO QHS RF: 0 levothyroxine 88 MCG tablet 88 mcg PO DAILY RF: 0 lisinopril 10 MG tablet 5 mg PO QHS RF: 0 gabapentin 400 MG capsule 600 mg PO 4X/DAY RF: 0 spironolactone 25 MG tablet 25 mg PO DAILY RF: 0 multivitamin with folic acid [Thera] 1 TABLET tablet 1 tab PO DAILY RF: 0 calcium carbonate 500 MG tablet 1,200 mg PO DAILY RF: 0 metoprolol tartrate 25 MG tablet 100 mg PO BID RF: 0 aspirin [Adult Aspirin Regimen] 81 MG tablet,delayed release (DR/EC) 81 mg PO QODAY RF: 0 calcitriol 0.25 MCG capsule 0.25 mcg PO BID RF: 0 diazepam 5 MG tablet 5 mg PO PRN PRN (Reason: Anxiety) RF: 0 furosemide [Lasix] 20 mg Tablet 20 mg PO 1800 RF: 0 furosemide 40 MG tablet 40 mg PO DAILY RF: 0 Primary Care Provider: Erik Barton Referrals: Erik Barton MD [Primary Care Provider] -
[2021-06-01 11:22] LABS: Absolute Lymphocyte Count 1.86 X10^3/uL (0.83-4.51); Absolute Neutrophil Count 6.9 X10^3/uL (2.0-7.7); Basophil# 0.07 X10^3/uL; Basophil% 0.7 % (0-1); Eosinophil# 0.14 X10^3/uL; Eosinophils% 1.4 % (0-5); Hemoglobin 13.5 g/dL (12.0-15.0); Lymphocyte # 1.86 X10^3/ul (0.83-4.51); Mean Corp Hgb Conc 32.1 g/dL (32-36); Mean Corpuscular Hgb 30.8 pg (27.0-32.0); Mean Corpuscular Volume 95.7 fL (81-99); Mean Platelet Vol. 11.7 fl (6.2-12.0); Monocyte# 0.84 X10^3/uL; Monocyte% 8.6 % (0-10); NRBC Flagged by Analyzer 0 % (0-5); Neutrophil # 6.86 X10^3/uL (2.7-7.7); Neutrophil % 70.1 % (47-70); Platelet Count 217 K/mm3 (150-450); RBC Distribution Width CV 12.6 % (11.6-14.6); RBC Distribution Width SD 44.5 fl (35.1-43.9); Red Blood Count 4.39 M/mm3 (4.2-5.4); White Blood Count 9.8 K/mm3 (4.4-11.0)
[2021-06-01] MEDS: Ondansetron 4 MG/2 ML Vial IV (11:35)
[2021-06-01] MEDS: morphine 8 MG/ML Syringe IV (11:35)
[2021-06-01 11:36] VITALS: O2SAT 99
[2021-06-01 11:39] LABS: Anion Gap 5 (5-15); BUN 28 mg/dL (7-18); BUN/Creat Ratio 26.7 RATIO (10-20); Calcium,Total 9.4 mg/dL (8.5-10.1); Chloride 101 mmol/L (98-107); Creatinine, Serum 1.05 mg/dL (0.55-1.02); EST Glomerular Filtration Rate 56 mL/min (>60); Est Glom Filt Rate - Afr Amer 68 mL/min (>60); Estimated Creatinine Clearance 47.97 ml/min; Glucose 81 mg/dL (74-106); Potassium 4.4 mmol/L (3.5-5.1); Sodium Level 137 mmol/L (136-145); Troponin-I HS 5.9 pg/mL (3.0-53.7)
[2021-06-01 12:09] VITALS: BP 104/74; PULSE 64; RESP 16; O2SAT 94
--- NOTE | 2021-06-01 12:38 | ED.RN ---
Physician informed of potential A-flutter rhythm. Monitor shows HR at 130's -150's. Palpated at 58-60, radial.
[2021-06-01 13:00] VITALS: BP 104/61; PULSE 62; RESP 16; O2SAT 95
[2021-06-01 14:10] VITALS: BP 90/63; PULSE 63; RESP 14; O2SAT 96
== END 2021-06-01 14:21 | disposition home or self-care (01) ==
PROVIDERS: Emergency Provider Emergency Medicine; PCP Family Medicine
DX: R07.89 Other chest pain (principal); I48.91 Unspecified atrial fibrillation; I48.92 Unspecified atrial flutter; Z95.810 Presence of automatic (implantable) cardiac defibrillator; I10 Essential (primary) hypertension; E24.9 Cushing's syndrome, unspecified; I25.2 Old myocardial infarction; I25.10 Atherosclerotic heart disease of native coronary artery without angina pectoris; E11.9 Type 2 diabetes mellitus without complications; N28.89 Other specified disorders of kidney and ureter; Z79.82 Long term (current) use of aspirin; Z79.899 Other long term (current) drug therapy; Z87.891 Personal history of nicotine dependence
CPT/HCPCS: 71045; 80048; 84484; 85025; 93005; 96374; 96375; 99285; A4216; J2405

== ENCOUNTER → 2021-08-13 | Outpatient (CLI) | payer MEDICARE, SELFPAY ==
[2021-08-19 12:09] LABS: Cortisol, Urinary Free < 1 ug/L (Undefined)
[2021-08-19 13:12] LABS: Cortisol, Free 24Ur < 3 ug/24 hr (6-42)
== END | disposition home or self-care (01) ==
LOC: LABSPEC 09:42
PROVIDERS: PCP Family Medicine; Visit Provider Internal Medicine Endocrinology, Diabetes & Metabolism
DX: E23.7 Disorder of pituitary gland, unspecified (principal)
CPT/HCPCS: 81050; 82530

== ENCOUNTER → 2021-08-20 09:42 | Outpatient (CLI) | payer MEDICARE, SELFPAY ==
[2021-08-20 13:25] LABS: Follicle Stimulating Hormone 12.8 mIU/mL; Free T3 2.7 pg/mL (2.18-3.98); Prolactin 10.8 ng/mL; T4 Free Direct 1.14 ng/dL (0.76-1.46)
[2021-08-22 08:29] LABS: Adrenocorticotropic Hormone 13.7 pg/mL (7.2-63.3); Insulin Like Growth Factor 103 ng/mL (57-202)
== END ==
PROVIDERS: PCP Family Medicine; Referring Provider Internal Medicine Endocrinology, Diabetes & Metabolism; Visit Provider Internal Medicine Endocrinology, Diabetes & Metabolism
DX: R10.9 Unspecified abdominal pain (principal); M54.9 Dorsalgia, unspecified; E23.7 Disorder of pituitary gland, unspecified; E03.9 Hypothyroidism, unspecified; I13.0 Hypertensive heart and chronic kidney disease with heart failure and stage 1 through stage 4 chronic kidney disease, or unspecified chronic kidney disease; I50.9 Heart failure, unspecified; N18.30 Chronic kidney disease, stage 3 unspecified; H26.9 Unspecified cataract; M10.9 Gout, unspecified; M81.0 Age-related osteoporosis without current pathological fracture; E21.3 Hyperparathyroidism, unspecified; K57.30 Diverticulosis of large intestine without perforation or abscess without bleeding; E66.9 Obesity, unspecified; Z68.39 Body mass index [BMI] 39.0-39.9, adult; Z85.3 Personal history of malignant neoplasm of breast; Z87.440 Personal history of urinary (tract) infections; Z95.810 Presence of automatic (implantable) cardiac defibrillator; Z79.82 Long term (current) use of aspirin; Z79.899 Other long term (current) drug therapy; Z87.891 Personal history of nicotine dependence
CPT/HCPCS: 36415; 74176; 80048; 81001; 82024; 82533; 83001; 83002; 84146; 84305; 84439; 84443; 84481; 85025; 87086; 87088; 96361; 96374; 96375; 96376; 99285; J7030; A4216; J2405

== ENCOUNTER 2021-08-20 15:35 | Emergency (ER) | payer MEDICARE, SELFPAY ==
[2021-08-20 15:35] VITALS: BP 123/59; PULSE 60; RESP 18; TEMP 36.4; O2SAT 96; BMI 39.4
--- NOTE | 2021-08-20 16:18 | EDS_ITS ---
HPI History of Present Illness Chief Complaint: Flank Pain Detail of Chief Complaint: Right flank pain that started approximately 2:30 PM Informant: patient Onset/Context/Timing Current Severity: 07/08 Narrative Narrative: Patient presents to the emergency department complaint of right flank pain that started around 2:30 PM. Patient states that she was sitting when the pain started suddenly. She rates her pain an 8 out of 10. Patient states the pain wraps around to the front of the lower abdomen. She not had any nausea or vomiting. She denies urinary symptoms. She is never had pain like this before. No history of abdominal aortic aneurysm. She is not had recent illness. Prior similar symptoms: No PFSH PFSH Medical History (Updated 08/20/21 @ 21:[address] Lester Collazo, DO) Anterior pituitary disease Back problem Bone fracture Breast cyst Cardiac defibrillator in place Cardiac pacemaker Cataracts, bilateral Chest pain Gout H/O emotional problems Heart disease Heart failure Hyperparathyroidism Hypertension Hypothyroidism (acquired) Obesity Osteoporosis Seasonal allergies Stage 3 chronic kidney disease UTI (urinary tract infection) Home Medications atorvastatin 10 mg tablet 10 mg PO DAILY 06/23/21 [History Last Taken Unknown] calcitriol 0.5 mcg capsule 1 mcg PO BID cap 06/23/21 [History Last Taken Unknown] cholecalciferol (vitamin D3) 125 mcg (5,000 unit) capsule 125 mcg PO DAILY 06/23/21 [History Last Taken Unknown] furosemide 40 mg tablet 40 mg PO BID 06/23/21 [History Last Taken Unknown] gabapentin 600 mg tablet 600 mg PO .qid tab 06/23/21 [History Last Taken Unknown] levothyroxine 50 mcg tablet 50 mcg PO DAILY 06/23/21 [History Last Taken Unknown] lisinopril 10 mg tablet 10 mg PO DAILY 06/23/21 [History Last Taken Unknown] metoprolol tartrate 100 mg tablet tablet PO 06/23/21 [History Last Taken Unk nown] gxfhsvbejsjk-Yy-acel-minerals tab PO 06/23/21 [History Last Taken Unknown] pravastatin 40 mg tablet 40 mg PO DAILY 06/23/21 [History Last Taken Unknown] spironolactone 25 mg-hydrochlorothiazide 25 mg tablet 1 tab PO DAILY 06/23/21 [History Last Taken Unknown] tramadol 50 mg tablet 50 mg PO BID tab 06/23/21 [History Last Taken Unknown] aspirin 81 mg tablet,delayed release 81 mg PO DAILY 08/01/21 [History Last Taken Unknown] multivitamin 1 tab PO DAILY 08/01/21 [History Last Taken Unknown] cephalexin 500 mg PO Q6 #40 capsule 08/20/21 [Rx Last Taken Unknown] hydrocodone-acetaminophen 1 tab PO Q4H PRN PRN 2 Days #10 tablet 08/20/21 [Rx Last Taken Unknown] Allergy/AdvReac Type Severity Reaction Status Date / Time Iodinated Contrast Media Allergy Nausea Verified 08/20/21 15:37 levofloxacin [From Levaquin] Allergy Unknown Verified 08/20/21 15:37 ranolazine [From Ranexa] Allergy Unknown Verified 08/20/21 15:37 sulfamethoxazole Allergy Unknown Verified 08/20/21 15:37 [From Bactrim] trimethoprim [From Bactrim] Allergy Unknown Verified 08/20/21 15:37 amoxicillin AdvReac Mild diarrhea Verified 08/20/21 15:37 Family History Other Angina at rest Arthritis Bowel disease Breast cancer CVA (cerebral vascular accident) Terry disease Heart disease High cholesterol Hypertension Myocardial infarction Osteoporosis Thyroid disorder Surgical History H/O angioplasty H/O: hysterectomy History of surgical removal of pituitary gland Social History Smoking Status: Former smoker alcohol intake: current alcohol intake frequency: holidays/special occasions only Alcohol type: wine substance use type: does not use what type of physical activity do you participate in: walking ROS ROS ED Constitutional Constitutional ED: Reports systems reviewed and no addt'l complaints, except as documented; Denies body ache(s), change in weight or chills Eyes Eyes: Denies acute decrease in peripheral vision, change in vision, double vision or loss of vision ENT ENT ED: Reports none; Denies ear pain, lip swelling, loss taste/smell, neck pain, otalgia or sore throat Cardiovascular Cardiovascular: Reports none; Denies abdominal pain, chest pain with activity, leg edema, lightheadedness, palpitations, rapid heart rate or syncope Respiratory/Chest Respiratory/Chest: Reports none; Denies change in mental status, dry cough, dyspnea, hemoptysis, shortness of breath at rest or shortness of breath with exertion Gastrointestinal Gastrointestinal: Reports none and abdominal pain; Denies change in stool character, diarrhea, hematemesis, hematochezia, melena, rectal bleeding or vomiting Genitourinary Genitourinary ED: Reports none; Denies abdominal discomfort, anuria, dysuria, genital pain or polyuria Musculoskeletal Musculoskeletal: Reports none and back pain; Denies arthralgias, difficulty walking, extremity pain, muscle weakness or myalgias Integumentary Reports none; Denies abscess or rash Neurologic Neurologic: Reports none; Denies abnormal gait, confusion, focal weakness, frequent falls, headache(s), loss of vision, numbness, paresthesias, radicular pain, vertigo or weakness Psychiatric Psychiatric: Reports systems reviewed and no addt'l complaints, except as documented and none; Denies behavioral changes, confusion, difficulty concentrating, hallucinations, suicidal ideation, tactile hallucinations or visual hallucinations Endocrine Endocrinology: Denies none, cold intolerance, excessive sweating, fatigue or heat intolerance Hematologic/Lymphatic Hematologic/Lymphatic: Reports none; Denies anemia, easy bleeding or easy bruising Allergic/Immunologic Allergic/Immunologic ED: Denies as per HPI, none, lip swelling, mouth swelling, throat swelling, tongue swelling or hives EXAM Physical Exam Const Vital Signs: 08/20/21 15:35 08/20/21 16:37 08/20/21 17:36 Temperature 97.6 F L Temperature Source Temporal Pulse Rate 60 59 L Respiratory Rate 18 18 Respiratory Effort Normal Non-Labored Blood Pressure 123/59 H 119/56 L Blood Pressure Mean 80 77 Pulse Ox 96 95 Oxygen Delivery Method Room Air Room Air 08/20/21 18:00 08/20/21 20:00 08/20/21 21:00 Temperature Temperature Source Pulse Rate 57 L 53 L 59 L Respiratory Rate 18 18 18 Respiratory Effort Blood Pressure 106/47 L 114/56 L Blood Pressure Mean 66 75 Pulse Ox 100 98 97 Oxygen Delivery Method Room Air Room Air Positive well nourished and well developed General Appearance ED: well developed and NAD HEENT Reports TM's clear and moist mucous membranes normocephalic and atraumatic; Negative for trauma or tenderness Tympanic Membrane ED: Yes TM's clear Eyes PERRL and EOMs intact bilaterally General Eye ED: Negative for pale conjunctiva or scleral icterus Neck no lymphadenopathy, supple and no JVD General: Negative for tenderness Chest Wall inspection of chest normal and palpation of chest normal Chest: Negative for tenderness Resp normal respiratory effort and clear to auscultation bilaterally Effort and Inspection: Negative for respiratory distress or pain with movement Auscultation: Negative for rhonchi, wheezes or diminished lung sounds Cardio regular rate, regular rhythm, S1 normal heart sound, S2 normal heart sound and no murmurs Peripheral Pulses: pulses 2+ throughout GI normal to inspection, nondistended, normoactive bowel sounds, soft to palpation, non-distended and no masses GI Narrative: Patient is in diffuse tenderness to the right lower quadrant. There is no rebound, rigidity, or peritoneal signs. Palpation: soft Back/Spine no thoracic nor lumbar tenderness Back/Spine Narrative: Patient has CVA tenderness on the right. General Back: CVA tenderness Extremity normal to inspection General Extremety ED: Negative for edema General Extremity: Negative for edema Neuro oriented x3, CN's II-XII intact bilaterally, no sensory deficits noted and gait normal Sensorium / Orientation: awake, alert, oriented to person, oriented to place and oriented to time Motor Exam: strength 5/5 throughout and strength abnormal Psych mental status grossly normal Skin no rashes or lesions noted and no wounds MDM MDM MDM Narrative Medical decision making narrative: Patient was medicated with morphine and Zofran on arrival. She had to be remedicated with 4 more milligrams of morphine. CT result did not show any kidney stones or anything acute intra- abdominal he. On my interpretation of the CT I had suspicion of possible proximal ureteral calculus so I had the radiologist relook at the CT scan and apply an addendum and they feel this calcification is a vascular calcification. Patient will be discharged home with a prescription for [place] and I will treat her with Keflex as the urine did have 500 the cassette esterase and 10-25 WBCs with rare bacteria. Patient is asked to follow-up with her primary care physician within next 3 to 5 days. She is to return if worsening pain, fever, vomiting, or condition should worsen anyway. On repeat exam patient has significant tenderness on the right lumbar paraspinal musculature therefore raising the possibility that this may be more musculoskeletal type pain. Lab Data Attestation: I reviewed the patient's lab results. Labs: Laboratory Results - last 24 hr 08/20/21 08/20/21 08/20/21 16:31 16:31 16:47 WBC 10.6 RBC 4.13 L Hgb 12.7 Hct 39.9 MCV 96.6 MCH 30.8 MCHC 31.8 L RDW Std Deviation 47.6 H RDW Coeff of Yared 13.2 Plt Count 186 MPV 11.2 Immature Gran % (Auto) 0.300 Neut % (Auto) 67.7 Lymph % (Auto) 20.7 [place] % (Auto) 9.3 Eos % (Auto) 1.4 Baso % (Auto) 0.6 Absolute Neuts (auto) 7.2 Absolute Lymphs (auto) 2.19 Nucleated RBC % 0 Sodium 137 Potassium 4.4 Chloride 105 Carbon Dioxide 28.0 Anion Gap 4 L BUN 22 H Creatinine 1.09 H Estim Creat Clear Calc 45.62 Est GFR (MDRD) Af Amer 65 Est GFR (MDRD) Non-Af 54 L BUN/Creatinine Ratio 20.2 H Glucose 86 Calcium 9.5 Urine Color Yellow Urine Clarity Sl. Cloudy Urine pH 5.0 Ur Specific [place] 1.025 Urine Protein Negative Urine Glucose (UA) Normal Urine Ketones Negative Urine Occult Blood Negative Urine Nitrite Negative Urine Bilirubin Negative Urine Urobilinogen Normal Ur Leukocyte Esterase 500 H Urine RBC 0 SEEN Urine WBC 10-25 SEEN Ur Squamous Epith Cells 0 SEEN Urine Bacteria RARE Urine Mucus 0 SEEN Radiography Diagnostic Testing: Radiology Impression Abdomen/Pelvis CT 08/20/21 16:18 IMPRESSION: No acute abnormality identified. Colonic diverticulosis without pericolonic inflammation. Individualized dose optimization techniques were used for this CT. at 1649 Reported and signed by: Fely Yepez MD Electronically Signed: Fely Yepez MD at 16:48 EDT Tel , Service support , ADDENDUM: 08/20/212120 IMPRESSION: 1. Colonic diverticulosis. 2. Vascular calcification seen in the pelvic region of the right kidney on images 65 and 66 series 2. No calyceal or ureteral stones are present. Vascular calcifications are also present in the left renal hilum. These are unchanged in size since the prior study. No hydronephrosis demonstrated. Electronically Signed: Fam Frey MD at 21:14 EDT , Service support , Discharge Plan Triage Chief Complaint: Flank Pain ED Provider: Lester Collazo Dx/Rx/DC Orders Clinical Impression: Back pain, Abdominal pain Instructions: ED Flank Pain, Uncertain Cause, ED Back and Neck Pain, General Prescriptions: New cephalexin [cephalexin] 500 MG capsule 500 mg PO Q6 Qty: 40 RF: 0 hydrocodone-acetaminophen [hydrocodone-acetaminophen] 1 TABLET tablet 1 tab PO Q4H PRN PRN (Reason: Pain) 2 Days Qty: 10 RF: 0 No Action atorvastatin 10 mg tablet 10 mg PO DAILY RF: 0 gabapentin 600 mg tablet 600 mg PO .qid RF: 0 tramadol 50 mg tablet 50 mg PO BID RF: 0 metoprolol tartrate 100 mg tablet PO RF: 0 calcitriol 0.5 mcg capsule 1 mcg PO BID RF: 0 Multiple Vitamin, Womens Tablet PO RF: 0 furosemide 40 mg tablet 40 mg PO BID RF: 0 levothyroxine [Levo-T] 50 mcg tablet 50 mcg PO DAILY RF: 0 spironolacton-hydrochlorothiaz 25-25 mg tablet 1 tab PO DAILY RF: 0 lisinopril 10 mg tablet 10 mg PO DAILY RF: 0 cholecalciferol (vitamin D3) 125 mcg (5,000 unit) capsule 125 mcg PO DAILY RF: 0 pravastatin 40 mg tablet 40 mg PO DAILY RF: 0 aspirin [Adult Low Dose Aspirin] 81 mg tablet,delayed release (DR/EC) 81 mg PO DAILY RF: 0 multivitamin [Daily Multi-Vitamin] Tablet 1 tab PO DAILY RF: 0 Primary Care Provider: Erik Barton Referrals: Erik Barton MD [Primary Care Provider] - 5-7 Days
--- NOTE | 2021-08-20 16:18 | CT_ITS ---
HISTORY: Pain. TECHNIQUE: Helically acquired images were obtained of the abdomen and pelvis without oral or IV contrast as per renal stone protocol. A radiation dose optimization technique was used for this scan. # of images incl. paperwork: 521. COMPARISON: 06/13/2019. FINDINGS: LUNG BASES: Clear. Cardiac pacemaker noted. Right mastectomy. BOWEL: Bowel including appendix nondilated. Colonic diverticulosis without pericolonic inflammation. PERITONEUM: No significant ascites. LIVER/BILIARY TRACT: Unremarkable liver.Cholecystectomy. SPLEEN: Non-enlarged. PANCREAS: No peripancreatic inflammation. KIDNEYS AND URETERS: No nephrolithiasis or obstructing ureterolithiasis. ADRENAL GLANDS: Non-enlarged. VESSELS: No abdominal aortic aneurysm. Atherosclerosis. PELVIC ORGANS: Absent uterus. BONES: Degenerative change. CT/Abdomen/Pelvis without Cont IMPRESSION: No acute abnormality identified. Colonic diverticulosis without pericolonic inflammation. Individualized dose optimization techniques were used for this CT. at 1649 Reported and signed by: Fely Yepez MD Electronically Signed: Fely Yepez MD at 16:48 EDT Tel , Service support ,
[2021-08-20 16:39] LABS: Absolute Lymphocyte Count 2.19 X10^3/uL (0.83-4.51); Absolute Neutrophil Count 7.2 X10^3/uL (2.0-7.7); Basophil# 0.06 X10^3/uL; Basophil% 0.6 % (0-1); Eosinophil# 0.15 X10^3/uL; Eosinophils% 1.4 % (0-5); Hematocrit 39.9 % (37-47); Hemoglobin 12.7 g/dL (12.0-15.0); Lymphocyte # 2.19 X10^3/ul (0.83-4.51); Lymphocyte % 20.7 % (19-41); Mean Corp Hgb Conc 31.8 g/dL (32-36); Mean Corpuscular Hgb 30.8 pg (27.0-32.0); Mean Corpuscular Volume 96.6 fL (81-99); Mean Platelet Vol. 11.2 fl (6.2-12.0); Monocyte# 0.98 X10^3/uL; Monocyte% 9.3 % (0-10); NRBC Flagged by Analyzer 0 % (0-5); Neutrophil # 7.16 X10^3/uL (2.7-7.7); Neutrophil % 67.7 % (47-70); Platelet Count 186 K/mm3 (150-450); RBC Distribution Width CV 13.2 % (11.6-14.6); RBC Distribution Width SD 47.6 fl (35.1-43.9); Red Blood Count 4.13 M/mm3 (4.2-5.4); White Blood Count 10.6 K/mm3 (4.4-11.0)
[2021-08-20] MEDS: 0.9% Normal Saline 1,000 ML 125 ML IV (16:47)
[2021-08-20] MEDS: Morphine 4 MG/ML Syringe IV ×2 (16:48→20:25)
[2021-08-20] MEDS: Ondansetron 4 MG/2 ML Vial IV (16:48)
[2021-08-20 16:54] LABS: Mucous, Urine 0 SEEN /hpf (<or=2+); Red Blood Cells-Urine 0 SEEN /hpf (0-5); Squamous Epithelial Cells - UA 0 SEEN /hpf (5-10)
[2021-08-20 16:55] LABS: Anion Gap 4 (5-15); BUN 22 mg/dL (7-18); BUN/Creat Ratio 20.2 RATIO (10-20); Calcium,Total 9.5 mg/dL (8.5-10.1); Chloride 105 mmol/L (98-107); Creatinine, Serum 1.09 mg/dL (0.55-1.02); EST Glomerular Filtration Rate 54 mL/min (>60); Est Glom Filt Rate - Afr Amer 65 mL/min (>60); Estimated Creatinine Clearance 45.62 ml/min; Glucose 86 mg/dL (74-106); Potassium 4.4 mmol/L (3.5-5.1); Sodium Level 137 mmol/L (136-145)
[2021-08-20 17:03] LABS: Color, Urine Yellow (Yellow); Glucose, Dipstick Normal (Normal); Ketone-Dipstick Negative (Negative); Leukocyte Esterase-Dipstick 500 /ul (Negative); Nitrite-Dipstick Negative (Negative); Occult Blood-Urine Negative /ul (Negative); Protein-Dipstick Negative (Negative); Specific Gravity, Urine 1.025 (1.002-1.030); Urine Bilirubin Dipstick Negative (Negative); Urine Clarity Sl. Cloudy (Clear); Urine Urobilinogen Normal (Normal)
[2021-08-20 17:19] LABS: Bacteria RARE /hpf (None Seen); White Blood Cells 10-25 SEEN /hpf (0-5)
[2021-08-20 17:36] VITALS: BP 119/56; PULSE 59; RESP 18; O2SAT 95
[2021-08-20 18:00] VITALS: BP 106/47; PULSE 57; RESP 18; O2SAT 100
[2021-08-20 20:00] VITALS: PULSE 53; RESP 18; O2SAT 98
[2021-08-20 21:00] VITALS: BP 114/56; PULSE 59; RESP 18; O2SAT 97
[2021-08-20 21:38] VITALS: BP 114/56; PULSE 60; RESP 18; O2SAT 95
== END 2021-08-20 21:39 | disposition home or self-care (01) ==
LOC: ED 16:58
PROVIDERS: Emergency Provider Emergency Medicine; PCP Family Medicine
DX: M54.9 Dorsalgia, unspecified (principal); R10.9 Unspecified abdominal pain; E03.9 Hypothyroidism, unspecified; I13.0 Hypertensive heart and chronic kidney disease with heart failure and stage 1 through stage 4 chronic kidney disease, or unspecified chronic kidney disease; I50.9 Heart failure, unspecified; N18.30 Chronic kidney disease, stage 3 unspecified; H26.9 Unspecified cataract; M10.9 Gout, unspecified; M81.0 Age-related osteoporosis without current pathological fracture; E21.3 Hyperparathyroidism, unspecified; K57.30 Diverticulosis of large intestine without perforation or abscess without bleeding; E66.9 Obesity, unspecified; Z68.39 Body mass index [BMI] 39.0-39.9, adult; Z85.3 Personal history of malignant neoplasm of breast; Z87.440 Personal history of urinary (tract) infections; Z95.810 Presence of automatic (implantable) cardiac defibrillator; Z79.82 Long term (current) use of aspirin; Z79.899 Other long term (current) drug therapy; Z87.891 Personal history of nicotine dependence
CPT/HCPCS: 74176; 80048; 81001; 85025; 87086; J7030; A4216; J2405

== ENCOUNTER 2021-08-24 12:05 | Emergency (ER) | payer MEDICARE, SELFPAY ==
[2021-08-24 12:06] VITALS: BP 145/101; PULSE 58; RESP 16; TEMP 36.2; O2SAT 99; BMI 39.4
--- NOTE | 2021-08-24 12:08 | RAD_ITS ---
STUDY: X-RAY - RIGHT KNEE REASON FOR EXAM: Female, 61 years old. Status post fall, pain. TECHNIQUE: 3 view(s) of the knee. COMPARISON: None. FINDINGS: Normal visualized distal femur. Normal visualized proximal tibia and fibula. Normal proximal tibiofibular articulation. There is no demonstrated fracture. There is mild degenerative arthrosis of the medial femorotibial compartment. There is mild degenerative arthrosis of the lateral femorotibial compartment. Normal patellofemoral articulation. There is no demonstrated joint effusion. There is chondrocalcinosis bilaterally. There is prepatellar soft tissue swelling and hematoma. RAD/Knee 3 Views IMPRESSION: Prepatellar soft tissue swelling and hematoma. No demonstrated acute osseous injury. Electronically Signed: Rohit Oseguera MD at 12:33 EDT Tel , Service support ,
--- NOTE | 2021-08-24 12:49 | EDS_ITS ---
HPI History of Present Illness Chief Complaint: Lower Extremity Injury Detail of Chief Complaint: Fell last night. Informant: patient Occured/Mechanism Mechanism/Context: Yes injury Onset/Context/Timing Onset: Yesterday Context: Sudden Onset Timing: Continuous Current Severity: Mild Maximum Severity: Mild Narrative Narrative: 58-year-old female history of prior [place] pacemaker and defibrillator and prior cardiac stents. Takes aspirin only no other blood thinners. Was at a friend's house last night missed a step fell injuring her right small finger and right knee. She was seen in an area urgent care they x-rayed her right small finger and reduce the dislocation. She is now on aluminum splint. She has appointment to see an orthopedic physician the first week of August. The concern is she may have an extensor tendon injury of the right small finger. Said today when she woke up she had swelling of her right knee. Denies any knee history. Or surgery on her right knee. Did not hit her head. Prior similar symptoms: No Recent Illness/Hospitalization: No PFSH PFSH Medical History Anterior pituitary disease Back problem Bone fracture Breast cyst Cardiac defibrillator in place Cardiac pacemaker Cataracts, bilateral Chest pain Gout H/O emotional problems Heart disease Heart failure Hyperparathyroidism Hypertension Hypothyroidism (acquired) Obesity Osteoporosis Seasonal allergies Stage 3 chronic kidney disease UTI (urinary tract infection) Home Medications atorvastatin 10 mg tablet 10 mg PO DAILY 06/23/21 [History Last Taken Unknown] calcitriol 0.5 mcg capsule 1 mcg PO BID cap 06/23/21 [History Last Taken Unknown] cholecalciferol (vitamin D3) 125 mcg (5,000 unit) capsule 125 mcg PO DAILY 06/23/21 [History Last Taken Unknown] furosemide 40 mg tablet 40 mg PO BID 06/23/21 [History Last Taken Unknown] gabapentin 600 mg tablet 600 mg PO .qid tab 06/23/21 [History Last Taken Unknown] levothyroxine 50 mcg tablet 50 mcg PO DAILY 06/23/21 [History Last Taken Unknown] lisinopril 10 mg tablet 10 mg PO DAILY 06/23/21 [History Last Taken Unknown] metoprolol tartrate 100 mg tablet tablet PO 06/23/21 [History Last Taken Unknown] auzkmpcopoxi-Rc-odvy-minerals tab PO 06/23/21 [History Last Taken Unknown] pravastatin 40 mg tablet 40 mg PO DAILY 06/23/21 [History Last Taken Unknown] spironolactone 25 mg-hydrochlorothiazide 25 mg tablet 1 tab PO DAILY 06/23/21 [History Last Taken Unknown] tramadol 50 mg tablet 50 mg PO BID tab 06/23/21 [History Last Taken Unknown] aspirin 81 mg tablet,delayed release 81 mg PO DAILY 08/01/21 [History Last Taken Unknown] multivitamin 1 tab PO DAILY 08/01/21 [History Last Taken Unknown] cephalexin 500 mg PO Q6 #40 capsule 08/20/21 [Rx Last Taken Unknown] hydrocodone-acetaminophen 1 tab PO Q4H PRN PRN 2 Days #10 tablet 08/20/21 [Rx Last Taken Unknown] Allergy/AdvReac Type Severity Reaction Status Date / Time Iodinated Contrast Media Allergy Nausea Verified 08/24/21 12:07 levofloxacin [From Levaquin] Allergy Unknown Verified 08/24/21 12:07 ranolazine [From Ranexa] Allergy Unknown Verified 08/24/21 12:07 sulfamethoxazole Allergy Unknown Verified 08/24/21 12:07 [From Bactrim] trimethoprim [From Bactrim] Allergy Unknown Verified 08/24/21 12:07 amoxicillin AdvReac Mild diarrhea Verified 08/24/21 12:07 Family History Other Angina at rest Arthritis Bowel disease Breast cancer CVA (cerebral vascular accident) Terry disease Heart disease High cholesterol Hypertension Myocardial infarction Osteoporosis Thyroid disorder Surgical History H/O angioplasty H/O: hysterectomy History of surgical removal of pituitary gland Social History Smoking Status: Former smoker alcohol intake: current alcohol intake frequency: holidays/special occasions only Alcohol type: wine substance use type: does not use what type of physical activity do you participate in: walking ROS ROS ED ROS Narrative Denies recent illness. Review of Systems ROS Unobtainable: Denies due to encephalopathy Constitutional Constitutional ED: Denies chills or fever(s) ENT ENT ED: Denies ear pain or sore throat Cardiovascular Cardiovascular: Denies chest pain Respiratory/Chest Respiratory/Chest: Denies cough or dyspnea Gastrointestinal Gastrointestinal: Denies abdominal pain, diarrhea, nausea or vomiting Genitourinary Genitourinary ED: Denies dysuria or hematuria Musculoskeletal Musculoskeletal: Denies myalgias Integumentary Denies rash Neurologic Neurologic: Denies headache(s) Psychiatric Psychiatric: Denies depression Endocrine Endocrinology: Denies polyuria Hematologic/Lymphatic Hematologic/Lymphatic: Denies easy bruising Allergic/Immunologic Allergic/Immunologic ED: Denies urticaria EXAM Physical Exam Narrative Exam Narrative: 1-rraf-rat-year-old female no acute distress. HEENT exam unremarkable atraumatic. C-spine nontender. Lungs are clear. Heart regular rhythm. Chest wall nontender. Abdomen soft nontender. Pelvic girdle intact. Const Vital Signs: 08/24/21 12:06 Temperature 97.1 F L Temperature Source Temporal Pulse Rate 58 L Respiratory Rate 16 Blood Pressure 145/101 H Blood Pressure Mean 115 Pulse Ox 99 Oxygen Delivery Method Room Air Positive well nourished, well developed and obese; Negative for cachectic, contractures or unkempt General Appearance ED: well developed and NAD; Negative for unkempt, cachectic or contractures Nutritional Appearance: obese; Negative for cachectic HEENT Reports moist mucous membranes normocephalic and atraumatic; Negative for trauma or tenderness Neck full ROM and supple Thyroid: Negative for tender Chest Wall inspection of chest normal and palpation of chest normal Resp normal respiratory effort, no retractions and clear to auscultation bilaterally Auscultation: Negative for rales, rhonchi or wheezes Cardio regular rate, regular rhythm, S1 normal heart sound, S2 normal heart sound and no murmurs GI non-tender, non-distended and no masses Auscultation: normoactive bowel sounds Palpation: soft; Negative for tender, guarding or rebound tenderness present Back/Spine no CVA tenderness Cervical Spine: Negative for cervical spine tenderness Thoracic Spine / Upper Back: Negative for thoracic spinal tenderness Lumbar Spine / Lower Back: Negative for lumbar spinal tenderness Extremity Extremity Narrative: Right finger decreased extension of the DIP joint concern for extensor tendon injury. Patient did not want a adrian-rayed. She had this evaluated in urgent care yesterday. Right knee has a traumatic prepatellar bursitis with bruising. And left knee has a mild bruise medially. Range of motion is intact in both. No bony deformities of the knees. Neuro oriented x3 and moves all extremities Sensorium / Orientation: alert, oriented to person, oriented to place and oriented to time; Negative for orientation impaired, confused, lethargic or stuporous Motor Exam: strength 5/5 throughout Psych mental status grossly normal Appearance: Negative for unkempt Skin no wounds Lesions: no lesions Rashes: no rashes MDM MDM MDM Narrative Medical decision making narrative: 60-year-old female fall as a prepatella t raumatic bursitis with bruising of the right knee. She has a potential extensor tendon injury of the right small finger. X-ray was obtained of the right knee. Radiography Diagnostic Testing: Radiology Impression Knee X-Ray 08/24/21 12:08 IMPRESSION: Prepatellar soft tissue swelling and hematoma. No demonstrated acute osseous injury. Electronically Signed: Rohit Oseguera MD at 12:33 EDT Tel , Service support , Right knee x-rays 3 views read by myself and radiologist shows soft tissue swelling consistent with a prepatellar traumatic bursitis with hematoma. No bony abnormality. Chronic changes consistent with arthritis. Discharge Plan Triage Chief Complaint: Lower Extremity Injury ED Provider: Mark Romero Dx/Rx/DC Orders Clinical Impression: Traumatic bursitis Instructions: ED Bursitis Prescriptions: No Action atorvastatin 10 mg tablet 10 mg PO DAILY RF: 0 gabapentin 600 mg tablet 600 mg PO .qid RF: 0 tramadol 50 mg tablet 50 mg PO BID RF: 0 metoprolol tartrate 100 mg tablet PO RF: 0 calcitriol 0.5 mcg capsule 1 mcg PO BID RF: 0 Multiple Vitamin, Womens Tablet PO RF: 0 furosemide 40 mg tablet 40 mg PO BID RF: 0 levothyroxine [Levo-T] 50 mcg tablet 50 mcg PO DAILY RF: 0 spironolacton-hydrochlorothiaz 25-25 mg tablet 1 tab PO DAILY RF: 0 lisinopril 10 mg tablet 10 mg PO DAILY RF: 0 cholecalciferol (vitamin D3) 125 mcg (5,000 unit) capsule 125 mcg PO DAILY RF: 0 pravastatin 40 mg tablet 40 mg PO DAILY RF: 0 aspirin [Adult Low Dose Aspirin] 81 mg tablet,delayed release (DR/EC) 81 mg PO DAILY RF: 0 multivitamin [Daily Multi-Vitamin] Tablet 1 tab PO DAILY RF: 0 cephalexin [cephalexin] 500 MG capsule 500 mg PO Q6 Qty: 40 RF: 0 hydrocodone-acetaminophen [hydrocodone-acetaminophen] 1 TABLET tablet 1 tab PO Q4H PRN PRN (Reason: Pain) 2 Days Qty: 10 RF: 0 Primary Care Provider: Erik Barton Referrals: Erik Barton MD [Primary Care Provider] - As Needed Activity Restrictions/Additional Instructions: Keep your scheduled appointment with your orthopedic physician. Ice and elevate your right knee to decrease pain and swelling. You have a traumatic bursitis of your right knee from the fall. This should improve but may take weeks to do so. You can discuss with your orthopedic physician if he would like to drain it. Typically they do not have his drain these in the emergency department due to risk of reaccumulation or infection developing. Tylenol and Motrin for pain. Also discussed with the orthopedic doctor when you see him the right small finger the concern for an extensor tendon injury. Disposition Disposition: Home, Self Care
== END 2021-08-24 13:10 | disposition home or self-care (01) ==
PROVIDERS: Emergency Provider Emergency Medicine; PCP Family Medicine
DX: M70.41 Prepatellar bursitis, right knee (principal); Y93.9 Activity, unspecified; E03.9 Hypothyroidism, unspecified; E21.3 Hyperparathyroidism, unspecified; I13.0 Hypertensive heart and chronic kidney disease with heart failure and stage 1 through stage 4 chronic kidney disease, or unspecified chronic kidney disease; N18.30 Chronic kidney disease, stage 3 unspecified; I50.9 Heart failure, unspecified; I25.2 Old myocardial infarction; M10.9 Gout, unspecified; M81.0 Age-related osteoporosis without current pathological fracture; H26.9 Unspecified cataract; Z87.440 Personal history of urinary (tract) infections; Z95.810 Presence of automatic (implantable) cardiac defibrillator; Z79.82 Long term (current) use of aspirin; Z79.899 Other long term (current) drug therapy; Z87.891 Personal history of nicotine dependence
CPT/HCPCS: 73562; 99282

== ENCOUNTER → 2021-09-22 | Outpatient (CLI) | payer MEDICARE, SELFPAY ==
--- NOTE | 2021-09-22 12:40 | COLBX_PTH ---
PATIENT: LENNOX SNELL LOC: [facility] U#:[id number] AGE/SX: 61/F ROOM: RE09/22/[address]: Dr. Bart Hernández MD : 1960 BED: DIS: 09/22/2021 SPEC #: [id number] RECD: 09/22/21 15:08 STATUS: CHRISTIN KNOTT #: [id number] DALTON: 09/22/21 12:[address]: Bart Hernández DEPT: SURGICAL PATHOLOGY RECD BY: Jana Wright ENTERED: 09/23/21 09:55 SP TYPE: COLON BX OTHR DR: Dr. Erik Batron MD [facility] Tissues: A - Cecum, NOS B - Rectum, NOS Procedures: Surgery Specimen Level IV HEADER OPERATION: Colonoscopy with cold snare biopsy PRE-OP DIAGNOSIS: Positive Cologuard stool DNA test TISSUE SUBMITTED: A ? Polyp cecum, rule out adenoma, B ? Rectal/anal biopsy, rule out adenoma MICROSCOPIC DIAGNOSIS A. Polyp cecum, biopsy: Fragments of tubular adenoma. B. Rectal/anal, biopsy: Polypoid fragments of colonic mucosa with extensive ulceration, associated acute inflammation and fibrinous exudation and focal changes consistent with tubular adenoma. See comment. SJ:rg 09/24/2021 COMMENT A. Findings may represent mucosal prolapse/solitary rectal ulcer. B. Correlation with clinical, endoscopic findings and appropriate follow up are necessary. Case has been reviewed in consultation with Dr. Guzman who concurs with the above diagnosis. IDC:AM MICROSCOPIC DESCRIPTION Slides are reviewed. GROSS DESCRIPTION A - Received in fixative is one container labeled with the patient's name and designated cecum. The specimen consists of multiple irregular fragments of light guillen soft tissue that in aggregate measure 1.5 x 0.2 x 0.1 cm. The specimen is totally submitted in one cassette. B - Received in fixative is one container labeled with the patient's name and designated rectal/anal biopsy. The specimen consists of two irregular fragments of light guillen soft tissue that in aggregate measure 0.6 x 0.3 x 0.1 cm. The specimen is totally submitted in one cassette. / NITA:slava 09/23/21 TC:1 CPT: 63837 x2
== END | disposition home or self-care (01) ==
LOC: LABSPEC 15:24
PROVIDERS: PCP Family Medicine; Referring Provider Internal Medicine Gastroenterology; Visit Provider Internal Medicine Gastroenterology
DX: D12.0 Benign neoplasm of cecum (principal); K62.1 Rectal polyp
CPT/HCPCS: 88305

== ENCOUNTER 2022-01-05 08:16 | Outpatient (CLI) | payer MEDICARE, SELFPAY ==
--- NOTE | 2022-01-05 08:22 | US_ITS ---
STUDY: RENAL ULTRASOUND - COMPLETE REASON FOR EXAM: Female, 61 years old. CKD3 TECHNIQUE: Ultrasound evaluation of the kidneys was performed with real-time and static tsang-scale imaging. COMPARISON: Comparison is made with prior examination dated 05/29/2021. FINDINGS: RIGHT KIDNEY: Normal location of the right kidney, which is normal in size. The right kidney measures 10.1 cm x 6.3 cm x 5.4 cm. There is a normal cortex of the right kidney. The renal cortex measures 1.5 cm. There is no right renal mass or cyst. There are no right renal calculi. There is no right hydronephrosis. DISTAL RIGHT URETER: There is non-visualization of the distal right ureter. There is no demonstrated right ureterovesical junction calculus. There is a visualized right ureteral jet. LEFT KIDNEY: Normal location of the left kidney, which is normal in size. The left kidney measures 10.3 cm x 5.2 cm x 4.9 cm. There is a normal cortex of the left kidney. The renal cortex measures 1.6 cm. There is no left renal mass or cyst. There are no left renal calculi. There is no left hydronephrosis. DISTAL LEFT URETER: There is non-visualization of the distal left ureter. There is no demonstrated left ureterovesical junction calculus. There is a visualized left ureteral jet. BLADDER: The distended urinary bladder has a volume of 72 ml. There is a normal wall thickness of the distended urinary bladder. There is no demonstrated mass within the urinary bladder. There are no demonstrated bladder calculi. US/Kidney and Bladder IMPRESSION: Normal ultrasound of the kidneys and urinary bladder. Electronically Signed: Fabian Rebollar MD at 12:38 EST ,
== END 2022-01-05 23:59 | disposition home or self-care (01) ==
PROVIDERS: PCP Family Medicine; Referring Provider Internal Medicine Nephrology; Visit Provider Internal Medicine Nephrology
DX: N18.31 Chronic kidney disease, stage 3a (principal)
CPT/HCPCS: 76770

== ENCOUNTER 2022-01-09 06:36 | Emergency (ER) | payer MEDICARE, SELFPAY ==
[2022-01-09 06:37] VITALS: PULSE 57; RESP 17; TEMP 36.6; O2SAT 95
[2022-01-09 06:39] VITALS: BP 136/64; PULSE 62; RESP 17; TEMP 36.6; O2SAT 99; BMI 40.1
--- NOTE | 2022-01-09 07:03 | EX.ED.UPPERE ---
HPI History of Present Illness Chief Complaint: Upper Extremity Injury Narrative Narrative: Patient is a 61-year-old female who states she noticed some pain in her right wrist yesterday around 7 PM with no trauma. She states she was able to go to bed but awoke in the middle the night with increased pain and swelling. She states she has tried [id number] medications with no symptom improvement and secondary to this comes in for evaluation. [facility] Medical History Anterior pituitary disease Back problem Bone fracture Breast cyst Cardiac defibrillator in place Cardiac pacemaker Cataracts, bilateral Chest pain Gout H/O emotional problems Heart disease Heart failure Hyperparathyroidism Hypertension Hypothyroidism (acquired) Obesity Osteoporosis Seasonal allergies Stage 3 chronic kidney disease UTI (urinary tract infection) Home Medications atorvastatin 10 mg tablet 10 mg PO DAILY 06/23/21 [History Last Taken Unknown] cholecalciferol (vitamin D3) 125 mcg (5,000 unit) capsule 125 mcg PO DAILY 06/23/21 [History Last Taken Unknown] furosemide 40 mg tablet 40 mg PO BID 06/23/21 [History Last Taken Unknown] gabapentin 600 mg tablet 600 mg PO .qid tab 06/23/21 [History Last Taken Unknown] levothyroxine 50 mcg tablet 50 mcg PO DAILY 06/23/21 [History Last Taken Unknown] lisinopril 10 mg tablet 10 mg PO DAILY 06/23/21 [History Last Taken Unknown] metoprolol tartrate 100 mg tablet tablet PO 06/23/21 [History Last Taken Unknown] pravastatin 40 mg tablet 40 mg PO DAILY 06/23/21 [History Last Taken Unknown] spironolactone 25 mg-hydrochlorothiazide 25 mg tablet 1 tab PO DAILY 06/23/21 [History Last Taken Unknown] tramadol 50 mg tablet 50 mg PO BID tab 06/23/21 [History Last Taken Unknown] aspirin 81 mg tablet,delayed release 81 mg PO DAILY 08/01/21 [History Last Taken Unknown] multivitamin 1 tab PO DAILY 08/01/21 [History Last Taken Unknown] cephalexin 500 mg PO Q6 #40 capsule 08/20/21 [Rx Last Taken Unknown] hydrocodone-acetaminophen 1 tab PO Q4H PRN PRN 2 Days #10 tablet 08/20/21 [Rx Last Taken Unknown] colchicine 0.6 mg PO BID #15 tab 01/09/22 [Rx Last Taken Unknown] oxycodone-acetaminophen [Percocet] 1 tab PO Q6H PRN 3 Days #12 tab 01/09/22 [Rx Last Taken Unknown] Allergy/AdvReac Type Severity Reaction Status Date / Time Iodinated Contrast Media Allergy Nausea Verified 01/09/22 06:38 levofloxacin [From Levaquin] Allergy Unknown Verified 01/09/22 06:38 ranolazine [From Ranexa] Allergy Unknown Verified 01/09/22 06:38 sulfamethoxazole Allergy Unknown Verified 01/09/22 06:38 [From Bactrim] trimethoprim [From Bactrim] Allergy Unknown Verified 01/09/22 06:38 amoxicillin AdvReac Mild diarrhea Verified 01/09/22 06:38 Family History Other Angina at rest Arthritis Bowel disease Breast cancer CVA (cerebral vascular accident) [place] disease Heart disease High cholesterol Hypertension Myocardial infarction Osteoporosis Thyroid disorder Surgical History H/O angioplasty H/O: hysterectomy History of surgical removal of pituitary gland Social History Smoking Status: Former smoker alcohol intake: current alcohol intake frequency: holidays/special occasions only Alcohol type: wine substance use type: does not use what type of physical activity do you participate in: walking ROS ROS ED Constitutional Constitutional ED: Denies chills or fever(s) ENT ENT ED: Denies sore throat Cardiovascular Cardiovascular: Denies chest pain Respiratory/Chest Respiratory/Chest: Denies cough or dyspnea Gastrointestinal Gastrointestinal: Denies abdominal pain, diarrhea, nausea or vomiting Genitourinary Genitourinary ED: Denies dysuria Musculoskeletal Musculoskeletal: Reports other Details: Positive right wrist/hand pain ; Denies myalgias Integumentary Denies Abrasions or rash Neurologic Neurologic: Denies headache(s) Hematologic/Lymphatic Hematologic/Lymphatic: Denies easy bleeding or easy bruising EXAM Physical Exam Const Vital Signs: 01/09/22 06:37 01/09/22 06:39 Temperature 97.8 F 97.8 F Temperature Source Temporal Temporal Pulse Rate 57 L 62 Respiratory Rate 17 17 Blood Pressure 136/64 H Blood Pressure Mean 88 Pulse Ox 95 99 Oxygen Delivery Method Room Air Room Air Positive well nourished, well developed and obese General Appearance ED: well developed Nutritional Appearance: obese Eyes PERRL and EOMs intact bilaterally Neck full ROM and supple Resp normal respiratory effort and clear to auscultation bilaterally Cardio regular rate and regular rhythm Extremity Extremity Narrative: Right upper extremity is neurovascularly intact. Patient has asymmetric soft tissue swelling to the dorsal aspect of the right wrist compared to the left. There is asymmetric warmth of the right wrist as well when compared to left but no overlying erythema induration fluctuance or lymphangitic streaking. Active and passive range of motion of the right wrist is decreased secondary to pain. Neuro oriented x3 and CN's II-XII intact bilaterally Sensorium / Orientation: alert Psych mental status grossly normal Skin no rashes or lesions noted Skin Narrative: Soft tissue swelling with asymmetric warmth the dorsal aspect of the right wrist as documented above but otherwise no secondary changes to suggest trauma or infection Lesions: no lesions Rashes: no rashes MDM MDM MDM Narrative Medical decision making narrative: Patient presented to the ER afebrile with localized swelling to the dorsal aspect of her right wrist and no report of injury or repetitive trauma. She does not have overlying soft tissue changes to suggest cellulitis nor is there findings to suggest abscess. At this time with the spontaneous onset of pain with no trauma asymmetric swelling and warmth localized to a joint space I do feel this is most likely a gout flare. As she does not have a fever or reported history of immunosuppression and there is been no recent trauma I do not feel there is need for imaging or laboratory studies as my concern for septic joint is low. Therefore this time we will start the patient on colchicine and Percocet and should be advised to return to the hospital if she develops a fever at home or there is worsening symptoms despite symptomatic care. Patient states she is comfortable with this plan of care and therefore be discharged at this time. Discharge Plan Triage Chief Complaint: Upper Extremity Injury ED Provider: Devendra Oropeza Dx/Rx/DC Orders Clinical Impression: Acute gout of right wrist Instructions: ED Gout, ED Gout Diet Prescriptions: New oxycodone-acetaminophen [Percocet] 5-325 mg tablet 1 tab PO Q6H PRN (Reason: pain) 3 Days Qty: 12 RF: 0 colchicine 0.6 mg tablet 0.6 mg PO BID Qty: 15 RF: 0 No Action atorvastatin 10 mg tablet 10 mg PO DAILY RF: 0 gabapentin 600 mg tablet 600 mg PO .qid RF: 0 tramadol 50 mg tablet 50 mg PO BID RF: 0 metoprolol tartrate 100 mg tablet PO RF: 0 furosemide 40 mg tablet 40 mg PO BID RF: 0 levothyroxine [Levo-T] 50 mcg tablet 50 mcg PO DAILY RF: 0 spironolacton-hydrochlorothiaz 25-25 mg tablet 1 tab PO DAILY RF: 0 lisinopril 10 mg tablet 10 mg PO DAILY RF: 0 cholecalciferol (vitamin D3) 125 mcg (5,000 unit) capsule 125 mcg PO DAILY RF: 0 pravastatin 40 mg tablet 40 mg PO DAILY RF: 0 aspirin [Adult Low Dose Aspirin] 81 mg tablet,delayed release (DR/EC) 81 mg PO DAILY RF: 0 multivitamin [Daily Multi-Vitamin] Tablet 1 tab PO DAILY RF: 0 cephalexin [cephalexin] 500 MG capsule 500 mg PO Q6 Qty: 40 RF: 0 hydrocodone-acetaminophen [hydrocodone-acetaminophen] 1 TABLET tablet 1 tab PO Q4H PRN PRN (Reason: Pain) 2 Days Qty: 10 RF: 0 Primary Care Provider: Erik Barton Referrals: Erik Barton MD [Primary Care Provider] - Disposition Disposition: Home, Self Care
[2022-01-09] MEDS: Ketorolac 30 MG/ML Syringe IM (07:10)
[2022-01-09] MEDS: Colchicine 0.6 MG TABLET 1.2 MG PO (07:35)
== END 2022-01-09 07:40 | disposition home or self-care (01) ==
PROVIDERS: Emergency Provider Emergency Medicine; PCP Family Medicine; Visit Provider Emergency Medicine
DX: M10.031 Idiopathic gout, right wrist (principal); I13.0 Hypertensive heart and chronic kidney disease with heart failure and stage 1 through stage 4 chronic kidney disease, or unspecified chronic kidney disease; I50.9 Heart failure, unspecified; Z68.41 Body mass index [BMI] 40.0-44.9, adult; N18.30 Chronic kidney disease, stage 3 unspecified; Z87.891 Personal history of nicotine dependence; Z87.440 Personal history of urinary (tract) infections; M81.0 Age-related osteoporosis without current pathological fracture; Z95.810 Presence of automatic (implantable) cardiac defibrillator; E03.9 Hypothyroidism, unspecified; E66.9 Obesity, unspecified; Z79.899 Other long term (current) drug therapy; Z79.82 Long term (current) use of aspirin
CPT/HCPCS: 96372; 99284

== ENCOUNTER 2022-02-04 23:11 | Emergency (ER) | payer MEDICARE, SELFPAY ==
[2022-02-04 23:13] VITALS: BP 129/67; PULSE 59; RESP 18; TEMP 36.6; O2SAT 95; BMI 39.5
--- NOTE | 2022-02-04 23:28 | EKG12_ITS ---
Test Reason : CP Blood Pressure : / mmHG Vent. Rate : 060 BPM Atrial Rate : 060 BPM P-R Int : 158 ms QRS Dur : 112 ms QT Int : 420 ms P-R-T Axes : -14 020 124 degrees QTc Int : 420 ms Atrial-paced rhythm ST & T wave abnormality, consider anterolateral ischemia Abnormal ECG Confirmed by ROD ELIAS, SUPRIYA ([id number]), editorial cartoonist ELIEZER VELÁSQUEZ ([id number]) on 02/06/2022 8:37:35 AM Referred By: WHIT Confirmed By:SUPRIYA VELASCO MD
--- NOTE | 2022-02-04 23:33 | RAD_ITS ---
STUDY: X-RAY CHEST REASON FOR EXAM: Female, 61 years old. Chest pain TECHNIQUE: Single AP portable view of the chest. COMPARISON: June 01, 2021 chest x-ray FINDINGS: There is a left-sided defibrillator. The lungs are clear and expanded. There is no demonstrated pleural abnormality. Sternal cerclage wires are present from a prior sternotomy. Normal mediastinum and anny. Normal visualized pulmonary arteries. Normal visualized aortic arch and descending thoracic aorta. Normal visualized thoracic spine. Normal visualized ribs, clavicles, and shoulders. There is no demonstrated abnormality of the visualized soft tissue structures of the upper abdomen. RAD/Chest 1 View (Portable) IMPRESSION: Mild cardiomegaly. Status post sternotomy. Defibrillator. No visualized focal infiltrate. Electronically Signed: Kristi Najera MD at 1:03 [facility] ,
[2022-02-04 23:43] LABS: Absolute Lymphocyte Count 2.71 X10^3/uL (0.83-4.51); Absolute Neutrophil Count 8.8 X10^3/uL (2.0-7.7); Basophil# 0.08 X10^3/uL; Basophil% 0.6 % (0-1); Eosinophil# 0.14 X10^3/uL; Eosinophils% 1.1 % (0-5); Hematocrit 42.1 % (37-47); Hemoglobin 13.9 g/dL (12.0-15.0); Lymphocyte # 2.71 X10^3/ul (0.83-4.51); Lymphocyte % 21.2 % (19-41); Mean Corpuscular Hgb 30.6 pg (27.0-32.0); Mean Corpuscular Volume 92.7 fL (81-99); Mean Platelet Vol. 11.6 fl (6.2-12.0); Monocyte# 1.05 X10^3/uL; Monocyte% 8.2 % (0-10); NRBC Flagged by Analyzer 0 % (0-5); Neutrophil # 8.76 X10^3/uL (2.7-7.7); Neutrophil % 68.6 % (47-70); Platelet Count 186 K/mm3 (150-450); RBC Distribution Width CV 12.9 % (11.6-14.6); Red Blood Count 4.54 M/mm3 (4.2-5.4); White Blood Count 12.8 K/mm3 (4.4-11.0)
[2022-02-04] MEDS: Orphenadrine 60 MG/2 ML Ampul IV (23:58)
[2022-02-05 00:04] LABS: Anion Gap 4 (5-15); BUN 25 mg/dL (7-18); BUN/Creat Ratio 20.7 RATIO (10-20); Calcium,Total 9.9 mg/dL (8.5-10.1); Chloride 103 mmol/L (98-107); Creatinine, Serum 1.21 mg/dL (0.55-1.02); EST Glomerular Filtration Rate 48 mL/min (>60); Est Glom Filt Rate - Afr Amer 58 mL/min (>60); Estimated Creatinine Clearance 41.09 ml/min; Glucose 116 mg/dL (74-106); Magnesium 1.8 mg/dL (1.6-2.6); Potassium 5.3 mmol/L (3.5-5.1); Sodium Level 138 mmol/L (136-145); Troponin-I HS 6 pg/mL (3.0-54.0)
[2022-02-05 00:11] VITALS: PULSE 60; RESP 22; O2SAT 96
[2022-02-05 00:44] VITALS: BP 127/67; PULSE 60; RESP 15; O2SAT 96
[2022-02-05 01:00] VITALS: BP 107/67; PULSE 63; RESP 16; O2SAT 94
[2022-02-05 02:07] LABS: Troponin-I HS 5 pg/mL (3.0-54.0)
[2022-02-05 02:49] VITALS: BP 107/67; PULSE 60; RESP 15; O2SAT 96
--- NOTE | 2022-02-05 02:49 | EX.ED.DYSGE1 ---
HPI History of Present Illness Chief Complaint: Chest Pain Narrative Narrative: Patient is a 61-year-old female with past medical history of CAD as well as need for cardiac pacemaker/defibrillator placement. She also has history of hypertension and is on medication for this. She states that she has been monitoring her blood pressure and today she reported that her home cuff was reading low and when she called her doctor they advised her not to take her nighttime lisinopril. Patient states this evening she was sitting around watching TV when she developed a sharp left-sided chest discomfort with some radiation towards the arm. She states there was no trauma or increased activity. She denies any nausea vomiting shortness of breath or diaphoresis associated with this. She states because of her cardiac history she did elect to call EMS at this time and come in for evaluation. Patient reports that upon arrival to the ER the pain has resolved [facility] Medical History Anterior pituitary disease Back problem Bone fracture Breast cyst Cardiac defibrillator in place Cardiac pacemaker Cataracts, bilateral Chest pain Gout H/O emotional problems Heart disease Heart failure Hyperparathyroidism Hypertension Hypothyroidism (acquired) Obesity Osteoporosis Seasonal allergies Stage 3 chronic kidney disease UTI (urinary tract infection) Home Medications atorvastatin 10 mg tablet 5 mg PO DAILY 06/23/21 [History Last Taken Unknown] cholecalciferol (vitamin D3) 125 mcg (5,000 unit) capsule 125 mcg PO DAILY 06/23/21 [History Last Taken Unknown] gabapentin 600 mg tablet 600 mg PO .qid tab 06/23/21 [History Last Taken Unknown] levothyroxine 50 mcg tablet 50 mcg PO DAILY 06/23/21 [History Last Taken Unknown] lisinopril 10 mg tablet 5 mg PO DAILY 06/23/21 [History Last Taken Unknown] metoprolol tartrate 100 mg tablet 100 tablet PO BID 06/23/21 [History Last Taken Unknown] pravastatin 40 mg tablet 40 mg PO DAILY 06/23/21 [History Last Taken Unknown] spironolactone 25 mg-hydrochlorothiazide 25 mg tablet 1 tab PO DAILY 06/23/21 [History Last Taken Unknown] tramadol 50 mg tablet 50 mg PO 4X/DAY tab 06/23/21 [History Last Taken Unknown] aspirin 81 mg tablet,delayed release 81 mg PO Q3D 08/01/21 [History Last Taken Unknown] multivitamin 1 tab PO DAILY 08/01/21 [History Last Taken Unknown] Allergy/AdvReac Type Severity Reaction Status Date / Time Iodinated Contrast Media Allergy Nausea Verified 02/04/22 23:17 levofloxacin [From Levaquin] Allergy Unknown Verified 02/04/22 23:17 ranolazine [From Ranexa] Allergy Unknown Verified 02/04/22 23:17 sulfamethoxazole Allergy Unknown Verified 02/04/22 23:17 [From Bactrim] trimethoprim [From Bactrim] Allergy Unknown Verified 02/04/22 23:17 amoxicillin AdvReac Mild diarrhea Verified 02/04/22 23:17 Family History Other Angina at rest Arthritis Bowel disease Breast cancer CVA (cerebral vascular accident) [place] disease Heart disease High cholesterol Hypertension Myocardial infarction Osteoporosis Thyroid disorder Surgical History H/O angioplasty H/O: hysterectomy History of surgical removal of pituitary gland Social History Smoking Status: Former smoker alcohol intake: current alcohol intake frequency: holidays/special occasions only Alcohol type: wine substance use type: does not use what type of physical activity do you participate in: walking ROS ROS ED Constitutional Constitutional ED: Denies chills or fever(s) ENT ENT ED: Denies sore throat Cardiovascular Cardiovascular: Reports chest pain; Denies palpitations or racing heartbeat Respiratory/Chest Respiratory/Chest: Denies cough or dyspnea Gastrointestinal Gastrointestinal: Denies abdominal pain, diarrhea, nausea or vomiting Genitourinary Genitourinary ED: Denies dysuria Musculoskeletal Musculoskeletal: Denies myalgias Integumentary Denies rash Neurologic Neurologic: Denies headache(s) EXAM Physical Exam Const Vital Signs: 02/04/22 23:13 02/05/22 00:11 02/05/22 00:44 Temperature 97.9 F Temperature Source Oral Pulse Rate 59 L 60 60 Respiratory Rate 18 22 H 15 Blood Pressure 129/67 H 127/67 H Blood Pressure Mean 87 87 Pulse Ox 95 96 96 Oxygen Delivery Method Room Air Room Air Room Air 02/05/22 01:00 02/05/22 02:49 Temperature Temperature Source Pulse Rate 63 60 Respiratory Rate 16 15 Blood Pressure 107/67 107/67 Blood Pressure Mean 80 Pulse Ox 94 96 Oxygen Delivery Method Room Air Positive well nourished, well developed and obese General Appearance ED: well developed Nutritional Appearance: obese Eyes PERRL and EOMs intact bilaterally Neck supple and no JVD Chest Wall Chest Narrative: There is reproducible left anterior chest wall pain with palpation that patient states is the same pain she was experiencing. Otherwise no bony deformity or crepitance noted Resp normal respiratory effort and clear to auscultation bilaterally Cardio regular rate and regular rhythm Rate: other Other Details: Radial pulses are plus 2 out of 4 bilaterally are equal and symmetric GI normal to inspection, nondistended, normoactive bowel sounds, non-tender, non-distended and no masses GI Narrative: No voluntary guarding or rigidity no pulsatile mass Auscultation: normoactive bowel sounds Palpation: soft Back/Spine Back/Spine Narrative: No bony deformity or step-off of the thoracic or lumbar spine no midline pain on palpation. There is slight spasm and tenderness noted with palpation along the left upper parathoracic muscle belly which patient states is also similar to the pain she has been experiencing Extremity Extremity Narrative: Trace to +1 pitting edema to the bilateral lower extremities that is equal and symmetric with negative Homans' sign bilaterally Neuro oriented x3 and CN's II-XII intact bilaterally Sensorium / Orientation: alert Psych mental status grossly normal Skin no rashes or lesions noted Skin Narrative: No overlying soft tissue changes to suggest trauma or infection MDM MDM MDM Narrative Medical decision making narrative: Patient presented to the ER with spontaneous resolution of her chest pain. Her symptoms were not classic cardiac in nature and even though she reported low blood pressure readings at home are values have been normal. Because of her cardiac history I did elect to perform a basic work-up. White count is slightly elevated but her chest x-ray does not show any type of pneumonia she denies any urinary symptoms and she has no soft tissue skin changes to suggest cellulitis or abscess as a cause. Her potassium is slightly elevated at 5.3 but this is only 0.2 above upper limit of normal. Therefore should be given IV fluids to help reduce this but overall that value is not clinically significant. With her report of chest pain she has a normal initial and delta troponin. On reevaluation she continues to report resolution of the chest discomfort. Therefore at this time with spontaneous resolution of her chest discomfort and 2 normal troponins I do not feel there is need for inpatient evaluation and patient is safe for discharge Lab Data Attestation: I reviewed the patient's lab results. Labs: Laboratory Results - last 24 hr 02/04/22 02/04/22 02/05/22 23:35 23:35 01:40 WBC 12.8 H RBC 4.54 Hgb 13.9 Hct 42.1 MCV 92.7 MCH 30.6 MCHC 33.0 RDW Std Deviation 44.0 H RDW Coeff of Yared 12.9 Plt Count 186 MPV 11.6 Immature Gran % (Auto) 0.300 Neut % (Auto) 68.6 Lymph % (Auto) 21.2 [place] % (Auto) 8.2 Eos % (Auto) 1.1 Baso % (Auto) 0.6 Absolute Neuts (auto) 8.8 H Absolute Lymphs (auto) 2.71 Nucleated RBC % 0 Sodium 138 Potassium 5.3 H Chloride 103 Carbon Dioxide 31.0 Anion Gap 4 L BUN 25 H Creatinine 1.21 H Estim Creat Clear Calc 41.09 Est GFR (MDRD) Af Amer 58 L Est GFR (MDRD) Non-Af 48 L BUN/Creatinine Ratio 20.7 H Glucose 116 H Calcium 9.9 Magnesium 1.8 Troponin I High Sens 6 5 Radiography Diagnostic Testing: Clinical Impression(s) from Imaging Studies Chest X-Ray 02/04/22 23:33 IMPRESSION: Mild cardiomegaly. Status post sternotomy. Defibrillator. No visualized focal infiltrate. Electronically Signed: Kristi Najera MD at 1:03 EST Reading Location ID and State: [facility] / [place] Tel , Service support , Discharge Plan Triage Chief Complaint: Chest Pain ED Provider: Devendra Oropeza Dx/Rx/DC Orders Clinical Impression: Nonspecific chest pain Instructions: ED Chest Pain [facility] Prescriptions: No Action atorvastatin 10 mg tablet 5 mg PO DAILY RF: 0 gabapentin 600 mg tablet 600 mg PO .qid RF: 0 tramadol 50 mg tablet 50 mg PO 4X/DAY RF: 0 metoprolol tartrate 100 mg tablet 100 tablet PO BID RF: 0 levothyroxine [Levo-T] 50 mcg tablet 50 mcg PO DAILY RF: 0 spironolacton-hydrochlorothiaz 25-25 mg tablet 1 tab PO DAILY RF: 0 lisinopril 10 mg tablet 5 mg PO DAILY RF: 0 cholecalciferol (vitamin D3) 125 mcg (5,000 unit) capsule 125 mcg PO DAILY RF: 0 pravastatin 40 mg tablet 40 mg PO DAILY RF: 0 aspirin [Adult Low Dose Aspirin] 81 mg tablet,delayed release (DR/EC) 81 mg PO Q3D RF: 0 multivitamin [Daily Multi-Vitamin] Tablet 1 tab PO DAILY RF: 0 Primary Care Provider: Erik Barton Referrals: Erik Barton MD [Primary Care Provider] - Disposition Disposition: Home, Self Care Discharge Date/Time: 02/05/22 02:52
== END 2022-02-05 02:52 | disposition home or self-care (01) ==
PROVIDERS: Emergency Provider Emergency Medicine; PCP Family Medicine; Visit Provider Emergency Medicine
DX: R07.89 Other chest pain (principal); I13.0 Hypertensive heart and chronic kidney disease with heart failure and stage 1 through stage 4 chronic kidney disease, or unspecified chronic kidney disease; I50.9 Heart failure, unspecified; N18.30 Chronic kidney disease, stage 3 unspecified; Z87.891 Personal history of nicotine dependence; I25.10 Atherosclerotic heart disease of native coronary artery without angina pectoris; M81.0 Age-related osteoporosis without current pathological fracture; Z95.810 Presence of automatic (implantable) cardiac defibrillator; M10.9 Gout, unspecified; H26.9 Unspecified cataract; E03.9 Hypothyroidism, unspecified; E66.9 Obesity, unspecified; Z87.440 Personal history of urinary (tract) infections; Z79.82 Long term (current) use of aspirin; Z79.899 Other long term (current) drug therapy; Z68.39 Body mass index [BMI] 39.0-39.9, adult
CPT/HCPCS: 71045; 80048; 83735; 84484; 85025; 93005; 96361; 96374; 99285; J7040; A4216

== ENCOUNTER 2022-03-17 09:10 | Outpatient (CLI) | payer MEDICARE, SELFPAY ==
[2022-03-17 09:15] LABS: Bacteria 0 SEEN /hpf (None Seen); Mucous, Urine 0 SEEN /hpf (<or=2+); Red Blood Cells-Urine 0 SEEN /hpf (0-5); Squamous Epithelial Cells - UA 0 SEEN /hpf (5-10); White Blood Cells 0 SEEN /hpf (0-5)
[2022-03-17 12:11] LABS: Color, Urine Yellow (Yellow); Glucose, Dipstick Normal (Normal); Ketone-Dipstick Negative (Negative); Leukocyte Esterase-Dipstick 25 /ul (Negative); Nitrite-Dipstick Negative (Negative); Occult Blood-Urine Negative /ul (Negative); Protein-Dipstick Negative (Negative); Urine Bilirubin Dipstick Negative (Negative); Urine Clarity Clear (Clear); Urine Urobilinogen Normal (Normal)
[2022-03-17 12:18] LABS: Hematocrit 46.7 % (37-47); Hemoglobin 14.5 g/dL (12.0-15.0); Mean Corpuscular Hgb 29.9 pg (27.0-32.0); Mean Corpuscular Volume 96.3 fL (81-99); Mean Platelet Vol. 11.9 fl (6.2-12.0); Platelet Count 117 K/mm3 (150-450); RBC Distribution Width CV 13.3 % (11.6-14.6); RBC Distribution Width SD 47.4 fl (35.1-43.9); Red Blood Count 4.85 M/mm3 (4.2-5.4); White Blood Count 8.9 K/mm3 (4.4-11.0)
[2022-03-17 12:23] LABS: Protein, Urine (Random) 10.8 mg/dL (<11.9); Protein:Creat Ratio 127 mg/g CRE (0-200)
[2022-03-17 12:26] LABS: Follicle Stimulating Hormone 14.2 mIU/mL; Free T3 2.5 pg/mL (2.18-3.98); Luteinizing Hormone 6.8 mIU/mL; Prolactin 4.4 ng/mL
[2022-03-17 12:31] LABS: PTHIN 91.2 pg/mL (18.4-80.1)
[2022-03-17 12:51] LABS: AST(SGOT) 21 U/L (15-37); Alanine Aminotransfer ALT/SGPT 28 U/L (13-56); Albumin, Serum 3.7 g/dL (3.2-5.0); Alkaline Phosphatase 121 U/L (45-117); Anion Gap 7 (5-15); BUN 19 mg/dL (7-18); BUN/Creat Ratio 19.4 RATIO (10-20); Calcium,Total 9.5 mg/dL (8.5-10.1); Chloride 104 mmol/L (98-107); Creatinine, Serum 0.98 mg/dL (0.55-1.02); EST Glomerular Filtration Rate 61 mL/min (>60); Est Glom Filt Rate - Afr Amer 74 mL/min (>60); Globulin 3.6 g/dL (2.2-4.2); Glucose 92 mg/dL (74-106); Phosphorus 3.2 mg/dL (2.5-4.9); Potassium 4.6 mmol/L (3.5-5.1); Protein, Total 7.3 g/dL (6.4-8.2); Sodium Level 137 mmol/L (136-145); T4 Free Direct 1.13 ng/dL (0.76-1.46); Thyroid Stim Hormone (TSH) 1.75 uIU/mL (0.358-3.74)
[2022-03-19 12:57] LABS: Insulin Like Growth Factor 73 ng/mL (57-202)
== END 2022-03-17 23:59 | disposition home or self-care (01) ==
LOC: BIMLAB 09:11
PROVIDERS: Internal Medicine Nephrology; Nurse Practitioner Family; PCP Family Medicine; Referring Provider Internal Medicine Endocrinology, Diabetes & Metabolism; Visit Provider Internal Medicine Endocrinology, Diabetes & Metabolism
DX: E21.3 Hyperparathyroidism, unspecified (principal); N18.31 Chronic kidney disease, stage 3a; E03.9 Hypothyroidism, unspecified
CPT/HCPCS: 36415; 80053; 81001; 82306; 82533; 82570; 83001; 83002; 83970; 84100; 84146; 84156; 84305; 84439; 84443; 84481; 85027

== ENCOUNTER → 2022-03-24 | Outpatient (CLI) | payer MEDICARE, SELFPAY ==
--- NOTE | 2022-03-24 11:03 | BD_ITS ---
STUDY: DUAL ENERGY X-RAY ABSORPTIOMETRY / DXA REASON FOR EXAM: Female, 61 years old. Hyperparathyroidism, osteopenia TECHNIQUE: Bone Mineral Density (BMD) measurements of lumbar spine and bilateral hips were obtained. COMPARISON: None. FINDINGS: Lumbar Spine (L1-L4): g/cm2 (0.879) / T-score (-1.6) / Z-score (0.1) Findings are suggestive of osteopenia with a moderate fracture risk. Left Femur Total: g/cm2 (0.740) / T-score (-1.7) / Z-score (-0.5) Left Femoral Neck: g/cm2 (0.493) / T-score (-3.2) / Z-score (-1.8) Right Femur Total: g/cm2 (0.644) / T-score (-2.4) / Z-score (-1.3) Right Femoral Neck: g/cm2 (0.447) / T-score (-3.6) / Z-score (-2.2) BD/Dexa Bone Density Study IMPRESSION: The patient is considered osteoporotic as outlined below according to World Bharat Organization (WHO) criteria with a high fracture risk. Reference Information: The T-score is the number of standard deviations above or below the standard which is normal for young adults at their peak bone mineral density. The World Health Organization (WHO) interprets the T-scores as follows: Above -1 Normal bone density Between -1 and -2.5 Osteopenia Equal to / or below -2.5 Osteoporosis As a practical clinical guideline, osteopenia may be graded as follows: Mild -1 through -1.5 Moderate -1.6 through -2.0 Severe -2.1 through -2.4 The Z-score is the number of standard deviations above or below age-matched controls. A Z-score of less than -1.5 would be considered abnormal. References: 1. NIH Osteoporosis and Related Bone Diseases www osteo.org 2. International Society for Clinical Densitometry www iscd.org 3. National Osteoporosis Foundation www nof.org Electronically Signed: Fabian Rebollar MD at 13:11 EDT ,
== END | disposition home or self-care (01) ==
LOC: OPBD 10:58
PROVIDERS: PCP Family Medicine; Visit Provider Internal Medicine Endocrinology, Diabetes & Metabolism
DX: M81.0 Age-related osteoporosis without current pathological fracture (principal); E21.3 Hyperparathyroidism, unspecified
CPT/HCPCS: 77080

== ENCOUNTER → 2022-04-30 | Outpatient (CLI) | payer MEDICARE, SELFPAY ==
[2022-04-30 14:25] VITALS: BP 127/73; PULSE 60; RESP 16; TEMP 35.9; O2SAT 99; BMI 37.5
[2022-04-30] MEDS: DENOSUMAB 60 MG/ML SC (14:29)
== END | disposition home or self-care (01) ==
LOC: MEDOUTP 14:18
PROVIDERS: PCP Family Medicine; Referring Provider Internal Medicine Endocrinology, Diabetes & Metabolism; Visit Provider Internal Medicine Endocrinology, Diabetes & Metabolism
DX: M81.0 Age-related osteoporosis without current pathological fracture (principal)
CPT/HCPCS: 96372; J0897

== ENCOUNTER 2022-05-08 17:47 | Emergency (ER) | payer MEDICARE, SELFPAY ==
[2022-05-08 17:49] VITALS: BP 147/82; PULSE 63; RESP 14; TEMP 36.6; O2SAT 96; BMI 37.8
[2022-05-08] MEDS: Lidocaine 1% /Epi 1:100 (20ml) 20 ML Vial 3 ML INFILT (18:10)
[2022-05-08] MEDS: Diphth,Pertuss(Acell),Tet Vac 0.5 ML Vial IM (18:13)
--- NOTE | 2022-05-08 18:39 | EDS_ITS ---
HPI <CHAU Beasley - Last Filed: 05/08/22 18:45> History of Present Illness Chief Complaint: Laceration Narrative Narrative: 61-year-old female presents to the emergency department a laceration to the left leg. Patient states that she was in her garden, she has multiple metal tobias for decoration, she struck one of them on the inside of her leg resulting in a laceration. Patient's tetanus vaccination status is not up-to-date. Patient is currently not on any blood thinners. Patient is here for evaluation. [facility] <CHAU Beasley - Last Filed: 05/08/22 18:45> [facility] Medical History Anterior pituitary disease Back problem Bone fracture Breast cyst Cardiac defibrillator in place Cardiac pacemaker Cataracts, bilateral Chest pain Gout H/O emotional problems Heart disease Heart failure Hyperparathyroidism Hypertension Hypothyroidism (acquired) Obesity Osteoporosis Prediabetes Seasonal allergies Stage 3 chronic kidney disease UTI (urinary tract infection) Home Medications gabapentin 600 mg tablet 600 mg PO .qid tab 06/23/21 [History Last Taken Unknown] lisinopril 10 mg tablet 5 mg PO DAILY 06/23/21 [History Last Taken Unknown] metoprolol tartrate 100 mg tablet 100 tablet PO BID 06/23/21 [History Last Taken Unknown] pravastatin 40 mg tablet 40 mg PO DAILY 06/23/21 [History Last Taken Unknown] spironolactone 25 mg-hydrochlorothiazide 25 mg tablet 1 tab PO DAILY 06/23/21 [History Last Taken Unknown] tramadol 50 mg tablet 50 mg PO 4X/DAY tab 06/23/21 [History Last Taken Unknown] aspirin 81 mg tablet,delayed release 81 mg PO Q3D 08/01/21 [History Last Taken Unknown] multivitamin 1 tab PO DAILY 08/01/21 [History Last Taken Unknown] atorvastatin 40 mg tablet 40 mg PO DAILY #90 tab 03/17/22 [Rx Last Taken Unknown] cholecalciferol (vitamin D3) 50 mcg (2,000 unit) capsule 50 mcg PO DAILY #1 cap 03/17/22 [Rx Last Taken Unknown] levothyroxine 88 mcg tablet 88 mcg PO DAILY #90 tab 03/17/22 [Rx Last Taken Unknown] denosumab 60 mg/mL subcutaneous syringe 60 mg SUBCUT [id number] #1 ml 04/13/22 [Rx Last Taken Unknown] Allergy/AdvReac Type Severity Reaction Status Date / Time Iodinated Contrast Media Allergy Nausea Verified 04/30/22 14:24 levofloxacin [From Levaquin] Allergy Unknown Verified 04/30/22 14:24 ranolazine [From Ranexa] Allergy Unknown Verified 04/30/22 14:24 sulfamethoxazole Allergy Unknown Verified 04/30/22 14:24 [From Bactrim] trimethoprim [From Bactrim] Allergy Unknown Verified 04/30/22 14:24 amoxicillin AdvReac Mild diarrhea Verified 04/30/22 14:24 Family History Other Angina at rest Arthritis Bowel disease Breast cancer CVA (cerebral vascular accident) [place] disease Heart disease High cholesterol Hypertension Myocardial infarction Osteoporosis Thyroid disorder Surgical History H/O angioplasty H/O: hysterectomy History of surgical removal of pituitary gland Social History Smoking Status: Former smoker alcohol intake: current alcohol intake frequency: holidays/special occasions only Alcohol type: wine substance use type: does not use what type of physical activity do you participate in: walking ROS <CHAU Baesley - Last Filed: 05/08/22 18:45> [facility] ROS Narrative Constitutional: Negative for fever, chills, weight loss, weakness Eyes: Negative for vision loss, vision change, double vision ENT: Negative for any sore throat, ear pain, congestion Cardiovascular: Negative for any chest pain, tightness, palpitations Respiratory: Negative for any cough, sputum production, hemoptysis, dyspnea, dyspnea on exertion, orthopnea Gastrointestinal: Negative for any abdominal pain, nausea, vomiting, diarrhea, constipation, blood in stool, blood in vomit : Negative for any urinary frequency, dysuria, retention, blood in urine Muscle skeletal: Negative for any muscle joint pain, stiffness, myalgias, arthralgias, neck pain, back pain Neurological: Negative for any headache, syncope, numbness or tingling, dizziness Skin: Negative for any rashes, lumps, itching, abrasions. Positive for laceration to the left leg Psychiatric: Negative for any depression, anxiety, stress, suicidal ideation, homicidal ideation Hematologic: Negative for any easy bruising, excessive bruising, easy bleeding Allergies: Negative for any eczema, hives, rash EXAM <CHAU Beasley - Last Filed: 05/08/22 18:45> Physical Exam Narrative Exam Narrative: Vital signs reviewed. Extremities: No peripheral edema, no signs of gross trauma or deformity. Active full range of motion of all extremities. Neuro: Cranial nerves II through XII intact, no focal neurological deficits. Skin: Clean dry and intact with no rash, purpura, petechiae, vesicles or pustules. Patient has a V shape laceration to the medial aspect of the left lower extremity below the knee above the ankle. There is subcutaneous tissue exposed. Patient's skin is thin. There is no foreign body noted. No neurological focal deficit. Full range of motion of the left lower extremity. Laceration approximately 3 cm in a V shape formation Backs/flank: No CVA tenderness, no midline spinal tenderness, no deformity. Psych: Normal mood and affect. No SI, HI or acute psychosis. Const Vital Signs: 05/08/22 17:49 Temperature 98 F Temperature Source Temporal Pulse Rate 63 Respiratory Rate 14 Blood Pressure 147/82 H Blood Pressure Mean 103 Pulse Ox 96 Oxygen Delivery Method Room Air Positive well nourished and well developed General Appearance ED: well developed <Dr. Abner Coleman, DO - Last Filed: 05/08/22 18:55> Physical Exam Const Vital Signs: 05/08/22 17:49 Temperature 98 F Temperature Source Temporal Pulse Rate 63 Respiratory Rate 14 Blood Pressure 147/82 H Blood Pressure Mean 103 Pulse Ox 96 Oxygen Delivery Method Room Air MDM <CHAU Beasley - Last Filed: 05/08/22 18:45> [facility] MDM Narrative Medical decision making narrative: Patient appears well, patient appears nontoxic, vital signs are stable. Patient presents to the emergency department with complaints of a 3 cm laceration V-shaped to the left lower extremity. This area was anesthetized, irrigated copiously with normal saline. Edges approximate nicely, sterile gloves, sterile drapes were used. No foreign body noted. I was able place 6 simple interrupted sutures of 5-0 Ethilon. Patient tolerated well. Patient will keep this clean and dry. We will have these removed in 10 to 12 days. Instructed return for any worsening pain, redness, infection <Dr. Abner Coleman DO - Last Filed: 05/08/22 18:55> [facility] Narrative Medical decision making narrative: I have personally performed a face to face assessment of the patient and have reviewed the CORIN Note. I performed a substantive portion of the visit including all aspects of the following. My lopez findings include: History: Patient presents with laceration to her left lower leg that occurred today. Patient cut her leg on the metal edge of a metal flower shape. Patient is unsure of her last tetanus. Patient states the bleeding stopped after several minutes of pressure. Patient denies any paresthesias or weakness. Patient denies any other injuries. Exam: Vital signs are stable. Patient is afebrile. Patient is in no acute distress. Skin is warm and dry. There is a 3 cm V-shaped laceration over the medial aspect of the left lower leg. There is mild gapping of the wound margins. There are no foreign bodies. There is no active bleeding noted. Sensation was intact to light touch bilaterally in the lower extremities. Strength is 5/5 bilaterally in the lower extremities. There is good range of motion. Medical Decision Making: The wound was cleaned and irrigated with copious amounts normal saline. The wound was anesthetized 1% lidocaine locally. The wound was closed with 6 simple interrupted #5-0 nylon sutures under sterile technique. Patient tolerated the procedure well. Patient was instructed to keep the wound clean and dry. Patient was instructed to follow-up with her primary care physician in 7 days for wound recheck and suture removal. Patient understood and was agreeable with the plan. All questions were answered Procedures <CHAU Beasley - Last Filed: 05/08/22 18:45> Lacerations Leg laceration: Length: 3 cm Depth: Sub Q Shape: Flap Laceration repair: Irrigated and Lidocaine with epi Irrigated (ml): 200 Suture Information: Ethilon Comment: Patient tolerated well. Sterile gloves, sterile drapes were used Discharge Plan Triage Chief Complaint: Laceration ED Midlevel Provider: Hever Hair ED Provider: Abner Coleman Dx/Rx/DC Orders Clinical Impression: Laceration of leg Instructions: ED Wound Check (No Infection) Prescriptions: No Action gabapentin 600 mg tablet 600 mg PO .qid RF: 0 tramadol 50 mg tablet 50 mg PO 4X/DAY RF: 0 metoprolol tartrate 100 mg tablet 100 tablet PO BID RF: 0 spironolacton-hydrochlorothiaz 25-25 mg tablet 1 tab PO DAILY RF: 0 lisinopril 10 mg tablet 5 mg PO DAILY RF: 0 pravastatin 40 mg tablet 40 mg PO DAILY RF: 0 aspirin [Adult Low Dose Aspirin] 81 mg tablet,delayed release (DR/EC) 81 mg PO Q3D RF: 0 multivitamin [Daily Multi-Vitamin] Tablet 1 tab PO DAILY RF: 0 levothyroxine 88 mcg tablet 88 mcg PO DAILY Qty: 90 RF: 3 atorvastatin 40 mg tablet 40 mg PO DAILY Qty: 90 RF: 3 cholecalciferol (vitamin D3) 50 mcg (2,000 unit) capsule 50 mcg PO DAILY Qty: 1 RF: 0 Prolia 60 mg/mL syringe 60 mg subcut [id number] Qty: 1 RF: 1 Primary Care Provider: Erik Barton Referrals: Erik Barton MD [Primary Care Provider] - Activity Restrictions/Additional Instructions: Please have these removed in 10 to 12 days. Keep the area clean and dry. Return for any signs of infection. Print Language: Burmese Disposition Disposition: Home, Self Care
== END 2022-05-08 18:55 | disposition home or self-care (01) ==
PROVIDERS: Emergency Provider Emergency Medicine; PCP Family Medicine; Visit Provider Emergency Medicine
DX: S81.812A Laceration without foreign body, left lower leg, initial encounter (principal); I13.0 Hypertensive heart and chronic kidney disease with heart failure and stage 1 through stage 4 chronic kidney disease, or unspecified chronic kidney disease; I50.9 Heart failure, unspecified; N18.30 Chronic kidney disease, stage 3 unspecified; Z95.810 Presence of automatic (implantable) cardiac defibrillator; M10.9 Gout, unspecified; E03.9 Hypothyroidism, unspecified; Z87.440 Personal history of urinary (tract) infections; M81.0 Age-related osteoporosis without current pathological fracture; W26.8XXA Contact with other sharp object(s), not elsewhere classified, initial encounter; E66.9 Obesity, unspecified; Z79.82 Long term (current) use of aspirin; Z79.899 Other long term (current) drug therapy; Z87.891 Personal history of nicotine dependence; Z68.37 Body mass index [BMI] 37.0-37.9, adult; Z23 Encounter for immunization
CPT/HCPCS: 12002; 90471; 90715; 99282

== ENCOUNTER 2022-05-24 10:14 | Emergency (ER) | payer MEDICARE, SELFPAY ==
[2022-05-24 10:15] VITALS: BP 138/106; PULSE 60; RESP 18; TEMP 36.3; O2SAT 95; BMI 39.8
--- NOTE | 2022-05-24 10:22 | CT_ITS ---
EXAM: CT SPINE - CERVICAL WITHOUT IV REASON FOR EXAM: Female, 61 years old. NECK PAIN head injury HISTORY: NECK PAIN head injury Individualized dose optimization techniques were used for this CT. TECHNIQUE: Multiplanar images were obtained of the cervical spine. IV contrast was not utilized. COMPARISON: None. FINDINGS: The vertebral bodies do maintain their height. The odontoid process is intact. There is no anterolisthesis or fracture. No pre-vertebral soft tissue swelling is seen. The intravertebral disc height is lost. There are scattered lymph nodes in the neck. There are degenerative changes of the osseous structures. There is bilateral facet arthropathy. There are scattered levels of foraminal stenosis. There are vascular calcifications. There is mild straightening of the normal cervical lordosis. This can suggest neck strain. CT/Spine Cervical without Contras IMPRESSION: Degenerative changes of the cervical spine. There is mild straightening of the normal cervical lordosis. This can suggest neck strain. Electronically Signed: Basim Perera MD at 11:23 EDT ,
--- NOTE | 2022-05-24 10:22 | CT_ITS ---
STUDY: CT BRAIN WITHOUT CONTRAST REASON FOR EXAM: Female, 61 years old. Head injury. RADIATION DOSAGE (If Supplied By Facility): CTDIvol = ( 44.99 ) mGy, DLP = ( 863.6 ) mGycm TECHNIQUE: Transaxial CT imaging of the brain was performed without administration of intravenous contrast material. Individualized dose optimization techniques were used for this CT. COMPARISON: 04/23/2019. FINDINGS: Normal soft tissue structures. Normal calvarium. There is mild cerebral atrophy with widening of the extra-axial spaces and ventricular dilatation. There are areas of decreased attenuation within the white matter tracts of the supratentorial brain, consistent with microvascular disease changes. Old lacunar infarct in the right basal ganglia is again seen. Normal brainstem. Normal cerebellum. There is no intracranial hemorrhage. There are no findings of an acute ischemic infarction. Atherosclerotic calcifications of the cavernous internal carotid arteries. Previous sphenoid sinus surgery. Opacification of the sphenoid sinuses. CT/Brain/Head without Contrast IMPRESSION: 1. No acute intracranial process. 2. Chronic involutional changes of the brain. 3. Old lacunar infarct in right basal ganglia. 4. Sinus disease. Electronically Signed: Rohit Oseguera MD at 11:15 EDT ,
--- NOTE | 2022-05-24 10:25 | EDS_ITS ---
HPI HPI - Fall History of Present Illness Chief Complaint: Fall Informant: patient and EMS Narrative Narrative: Brought in by EMS mechanical fall at [facility]. Walking back from restroom when her foot got caught on the carpet. She is unable to ambulate when she fell. She takes a baby aspirin every 3 days with coronary history and CABG. She did hit her head. She denies loss of consciousness. There is laceration to her left elbow and large wound to her left knee dressed by EMS. Tetanus was recently due to left lower leg laceration with suturing. She follows orthopedics at [facility], she cannot recall the name. She is supposed to walk with a cane and walker however did not have it at [facility]. No chest or back pain. Patient brought in a vacuum splint to the left lower extremity with a c- collar. No medications given by EMS. Tetanus Immunization: <5 years [facility] Medical History Anterior pituitary disease Back problem Bone fracture Breast cyst Cardiac defibrillator in place Cardiac pacemaker Cataracts, bilateral Chest pain Gout H/O emotional problems Heart disease Heart failure Hyperparathyroidism Hypertension Hypothyroidism (acquired) Obesity Osteoporosis Prediabetes Seasonal allergies Stage 3 chronic kidney disease UTI (urinary tract infection) Home Medications gabapentin 600 mg tablet 600 mg PO .qid 06/23/21 [History Last Taken Unknown] lisinopril 10 mg tablet 5 mg PO DAILY 06/23/21 [History Last Taken Unknown] metoprolol tartrate 100 mg tablet 100 tablet PO BID 06/23/21 [History Last Taken Unknown] pravastatin 40 mg tablet 40 mg PO DAILY 06/23/21 [History Last Taken Unknown] spironolactone 25 mg-hydrochlorothiazide 25 mg tablet 1 tab PO DAILY 06/23/21 [History Last Taken Unknown] tramadol 50 mg tablet 50 mg PO 4X/DAY 06/23/21 [History Last Taken Unknown] aspirin 81 mg tablet,delayed release (Adult Low Dose Aspirin) 81 mg PO Q3D 08/01/21 [History Last Taken Unknown] multivitamin (Daily Multi-Vitamin) 1 tab PO DAILY 08/01/21 [History Last Taken Unknown] atorvastatin 40 mg tablet 40 mg PO DAILY #90 tabs 03/17/22 [Rx Last Taken Unknown] cholecalciferol (vitamin D3) 50 mcg (2,000 unit) capsule 50 mcg PO DAILY #1 cap 03/17/22 [Rx Last Taken Unknown] levothyroxine 88 mcg tablet 88 mcg PO DAILY #90 tabs 03/17/22 [Rx Last Taken Unknown] denosumab 60 mg/mL subcutaneous syringe (Prolia) 60 mg subcut [id number] #1 mL 04/13/22 [Rx Last Taken Unknown] Allergy/AdvReac Type Severity Reaction Status Date / Time Iodinated Contrast Media Allergy Nausea Verified 05/24/22 10:22 levofloxacin [From Levaquin] Allergy Unknown Verified 05/24/22 10:22 ranolazine [From Ranexa] Allergy Unknown Verified 05/24/22 10:22 sulfamethoxazole Allergy Unknown Verified 05/24/22 10:22 [From Bactrim] trimethoprim [From Bactrim] Allergy Unknown Verified 05/24/22 10:22 amoxicillin AdvReac Mild diarrhea Verified 05/24/22 10:22 Family History Other Angina at rest Arthritis Bowel disease Breast cancer CVA (cerebral vascular accident) [place] disease Heart disease High cholesterol Hypertension Myocardial infarction Osteoporosis Thyroid disorder Surgical History H/O angioplasty H/O: hysterectomy History of surgical removal of pituitary gland Social History Smoking Status: Former smoker alcohol intake: current alcohol intake frequency: holidays/special occasions only Alcohol type: wine substance use type: does not use what type of physical activity do you participate in: walking ROS ROS ED Constitutional Constitutional ED: Denies chills, fever(s) or sweats Eyes Eyes: Denies change in vision ENT ENT ED: Denies dysphagia or sore throat Cardiovascular Cardiovascular: Denies chest pain, leg edema, palpitations or racing heartbeat Respiratory/Chest Respiratory/Chest: Denies cough, dyspnea or dyspnea on exertion Gastrointestinal Gastrointestinal: Denies abdominal pain, diarrhea, nausea or vomiting Genitourinary Genitourinary ED: Denies dysuria, hematuria or urinary frequency Musculoskeletal Musculoskeletal: Reports other Details: Injury left elbow left knee ; Denies back pain, extremity pain or neck pain Integumentary Reports wounds; Denies rash Neurologic Neurologic: Denies headache(s), paresthesias or weakness EXAM Physical Exam Const Vital Signs: 05/24/22 10:15 05/24/22 10:19 Temperature 97.3 F L Temperature Source Oral Pulse Rate 60 Respiratory Rate 18 Respiratory Effort Normal Non-Labored Blood Pressure 138/106 H Blood Pressure Mean 116 Pulse Ox 95 Oxygen Delivery Method Room Air Positive well nourished and well developed Constitutional Narrative: GCS 15. General Appearance ED: well developed and NAD HEENT Reports TM's normal bilaterally and moist mucous membranes HEENT Narrative: No hemotympanums. No facial swelling or ecchymosis. normocephalic and atraumatic Eyes PERRL, EOMs intact bilaterally and conjunctivae normal General Eye ED: Yes normal appearance of both eyes Neck no lymphadenopathy Neck Narrative: C-collar, no midline tenderness or step-offs. General: Negative for tenderness Chest Wall Chest: Negative for tenderness Resp normal respiratory effort and normal air movement Resp Narrative: No chest wall tenderness. Effort and Inspection: symmetric chest movement; Negative for respiratory distress Cardio regular rate, regular rhythm and no murmurs Peripheral Pulses: pulses 2+ throughout GI normal to inspection, nondistended, normoactive bowel sounds and non-tender Palpation: Negative for guarding or rebound tenderness present Back/Spine no CVA tenderness and no thoracic nor lumbar tenderness Extremity Extremity Narrative: Right upper extremity: Full range of motion, no deformities, nontender neuro vas intact distally. Left upper extremity: Full range of motion no tenderness of the clavicles humerus. Elbow had a superficial skin tear with no bony tenderness bleeding controlled. There is dried blood down the forearm to the hand however there was no lacerations noted. Neuro vas intact distally. Right lower extremity: Negative logroll, knee extensors intact, no deformities. Skin intact. Neuro vas intact. Left lower extremity: Vacuum splint noted. Negative logroll. Removal splint dressing anterior knee large skin tear across the knee medially with subcu exposure, there is no active bleeding no ligamentous or muscle exposure. No deformities noted. There is healing wound distal medial lower leg. Neuro vas intact distally. Measurement after closure of wound notes to be skin tear flap of 5.5 cm x 17.5 cm. General Extremety ED: Negative for edema or tenderness General Extremity: Negative for edema Neuro oriented x3 and no sensory deficits noted Sensorium / Orientation: awake and alert Skin no rashes or lesions noted and no wounds MDM MDM MDM Narrative Medical decision making narrative: Trauma scans head and neck. X-ray left femur and tib-fib ordered. IM fentanyl. Trauma scans negative. X-ray left femur 2 views and tib-fib 2 views reviewed by myself and read by radiology no fracture dislocation degenerative changes noted. Discussed suture versus jurgen with the patient, recommending jurgen will hold better with skin for which patient agreed with. This was placed without complications total 26 jurgen and one suture at the corner of the flap was placed. Wound approximated well. Discussed wound care with the patient follow-up with her PCP in 1 week for wound check, jurgen to stay likely for 2 weeks. Patient placed in a knee immobilizer to decrease tension on the laceration and she was ambulated with a walker for stability she has a cane and walker at home to use. All questions were answered. Procedure note: Normal sterile conditions. Verbal consent with the patient. Total of 15 cc 1% lidocaine used for local analgesia around the wound edges and subcutaneous skin. The wound was copiously flushed with large syringe with 1 L of sterile water. I initially placed anchors 3-0 nylon stitch at the flap corner to bring the skin closer. Stapler device was used to approximate the skin with a total of 26 placed. [place] stitch was removed, one 4-0 nylon single interrupted sutures placed at the corner of the flap. Wound was additionally cleansed. Xeroform dressing was placed over the wound by myself with 4 x 4's, Kerlix dressing. Patient tolerated procedure well. Radiography Diagnostic Testing: Clinical Impression(s) from Imaging Studies Brain CT 05/24/22 10:22 IMPRESSION: 1. No acute intracranial process. 2. Chronic involutional changes of the brain. 3. Old lacunar infarct in right basal ganglia. 4. Sinus disease. Electronically Signed: Rohit Oseguera MD at 11:15 EDT , Cervical Spine CT 05/24/22 10:22 IMPRESSION: Degenerative changes of the cervical spine. There is mild straightening of the normal cervical lordosis. This can suggest neck strain. Electronically Signed: Basim Perera MD at 11:23 EDT , Femur X-Ray 05/24/22 10:50 IMPRESSION: Osteopenia with osteoarthritic changes of the hip and knee. No acute osseous abnormality. Electronically Signed: Ruy Alejo MD at 11:22 EDT , Tibia/Fibula X-Ray 05/24/22 10:50 IMPRESSION: Osteopenia with no acute osseous abnormality. Electronically Signed: Ruy Alejo MD at 11:23 EDT , Discharge Plan Triage Chief Complaint: Fall ED Provider: Krishan Robins Dx/Rx/DC Orders Clinical Impression: Laceration of knee, left, complicated, CHI (closed head injury), Fall, Skin tear of left elbow without complication Instructions: ED Head Injury (Adult), ED Laceration: All Closures, ED Skin Avulsion Prescriptions: No Action gabapentin 600 mg tablet 600 mg PO .qid tramadol 50 mg tablet 50 mg PO 4X/DAY metoprolol tartrate 100 mg tablet 100 tablet PO BID spironolacton-hydrochlorothiaz 25-25 mg tablet 1 tab PO DAILY lisinopril 10 mg tablet 5 mg PO DAILY Label Comments: 10MG AT NIGHT pravastatin 40 mg tablet 40 mg PO DAILY aspirin [Adult Low Dose Aspirin] 81 mg tablet,delayed release (DR/EC) 81 mg PO Q3D multivitamin [Daily Multi-Vitamin] Tablet 1 tab PO DAILY levothyroxine 88 mcg tablet 88 mcg PO DAILY Qty: 90 3RF atorvastatin 40 mg tablet 40 mg PO DAILY Qty: 90 3RF cholecalciferol (vitamin D3) 50 mcg (2,000 unit) capsule 50 mcg PO DAILY Qty: 1 0RF Prolia 60 mg/mL syringe 60 mg subcut [id number] Qty: 1 1RF Primary Care Provider: Erik Barton Referrals: Erik Barton MD [Primary Care Provider] - 1 Week Activity Restrictions/Additional Instructions: CT scan head and neck negative. X-ray left hip and lower leg negative. Complex laceration to her left knee with total 26 jurgen and one stitch. Maintain knee immobilizer to decrease tension on the laceration [place] to stay on for 2 weeks. Wound check in 1 week with your PCP. Continue wound care as discussed. Use your walker or cane for stability with the knee immobilizer. Disposition Disposition: Home, Self Care Discharge Date/Time: 05/24/22 12:20
[2022-05-24] MEDS: Lidocaine 1% (20 ml mdv) 20 ML Vial INFILT (10:32)
[2022-05-24] MEDS: fentaNYL 100 MCG/2 ML Ampul 50 MCG IM (10:32)
--- NOTE | 2022-05-24 10:50 | RAD_ITS ---
STUDY: X-RAY - LEFT TIBIA AND FIBULA REASON FOR EXAM: Female, 61 years old. Injury. Pain. TECHNIQUE: 2 view(s) of the tibia and fibula were obtained. COMPARISON: None. FINDINGS: Osteopenia. 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 Normal visualized tibia. Normal visualized fibula. Clips projected medially, likely from saphenous vein graft harvesting. RAD/Tibia & Fibula 2 Views IMPRESSION: Osteopenia with no acute osseous abnormality. Electronically Signed: Ruy Alejo MD at 11:23 EDT ,
--- NOTE | 2022-05-24 10:50 | RAD_ITS ---
STUDY: X-RAY - LEFT FEMUR REASON FOR STUDY: Female, 61 years old. Injury. Pain. TECHNIQUE: 4 view(s) of the femur. COMPARISON: None. FINDINGS: Osteopenia. Osteoarthritic changes of the left hip and left knee. Normal visualized femur. Normal visualized soft tissue structure. RAD/Femur Min 2 Views IMPRESSION: Osteopenia with osteoarthritic changes of the hip and knee. No acute osseous abnormality. Electronically Signed: Ruy Alejo MD at 11:22 EDT ,
== END 2022-05-24 12:20 | disposition home or self-care (01) ==
PROVIDERS: Emergency Provider Emergency Medicine; PCP Family Medicine; Visit Provider Emergency Medicine
DX: S81.012A Laceration without foreign body, left knee, initial encounter (principal); I50.9 Heart failure, unspecified; I13.0 Hypertensive heart and chronic kidney disease with heart failure and stage 1 through stage 4 chronic kidney disease, or unspecified chronic kidney disease; N18.30 Chronic kidney disease, stage 3 unspecified; S51.012A Laceration without foreign body of left elbow, initial encounter; W18.09XA Striking against other object with subsequent fall, initial encounter; Y93.01 Activity, walking, marching and hiking; Y92.22 Religious institution as the place of occurrence of the external cause; M10.9 Gout, unspecified; Z95.810 Presence of automatic (implantable) cardiac defibrillator; E03.9 Hypothyroidism, unspecified; M81.0 Age-related osteoporosis without current pathological fracture; Z87.440 Personal history of urinary (tract) infections; E66.9 Obesity, unspecified; Z79.899 Other long term (current) drug therapy; Z79.82 Long term (current) use of aspirin; Z87.891 Personal history of nicotine dependence; S09.90XA Unspecified injury of head, initial encounter; Z68.39 Body mass index [BMI] 39.0-39.9, adult
CPT/HCPCS: 12006; 70450; 72125; 73552; 73590; 96372; 99285

== ENCOUNTER → 2022-05-26 | Outpatient (CLI) | payer MEDICARE, SELFPAY ==
--- NOTE | 2022-05-26 09:50 | ECHOD_ITS ---
Reason For Study: SOB Procedure This was a 2D Doppler, Color Flow transthoracic echocardiogram. The study was technically difficult. Exam performed in department. Left Ventricle Moderate segmental systolic dysfunction (see wall motion). The estimated ejection fraction is 35 %. There is evidence of diastolic dysfunction. Posterior-Basal: Hypokinetic. Infero-Basal: Akinetic. Basal inferoseptal: Akinetic. Mid-Posterior: Hypokinetic. Mid-Inferior: Akinetic. Mid-inferoseptal : Hypokinetic. Inferior Blaine : Hypokinetic. Septal Blaine : Hypokinetic. Right Ventricle Normal RV size. ICD or pacer leads identified within the right ventricle. Normal systolic function. Atria The left atrium is mildly enlarged. Normal right atrium. ICD or pacer leads identified within the right atrium. No doppler evidence for ASD. Mitral Valve There is no mitral annular calcification. Normal mitral valve. Trivial mitral valve insufficiency. Tricuspid Valve Normal tricuspid valve. Mild tricuspid valve insufficiency. Right ventricular systolic pressure estimated to be 28 mmHg. Aortic Valve The aortic valve is not well visualized. Trivial aortic valve insufficiency. Pulmonic Valve The pulmonic valve is not well visualized. Great Vessels Normal sized aortic root. Pericardium/Pleural No pericardial effusion. MMode/2D Measurements & Calculations Ao root diam: 3.6 cm LAV(MOD-bp): 82.6 ml LVAd ap4: 36.8 cm2 LAV(MOD-sp2): 91.1 ml LVLd ap4: 9.0 cm LAV(MOD-sp4): 74.3 ml EDV(MOD-sp4): 130.2 ml EDV(sp4-el): 128.2 ml LVAs ap4: 24.9 cm2 LVLs ap4: 8.4 cm ESV(MOD-sp4): 64.5 ml ESV(sp4-el): 63.2 ml EF(MOD-sp4): 50.5 % EF(sp4-el): 50.7 % SV(MOD-sp4): 65.8 ml SV(sp4-el): 65.1 ml LA A4 area: 23.0 cm2 LA dimension(2D): 5.6 cm RA A4 area: 16.9 cm2 Doppler Measurements & Calculations MV E max hola: 89.3 cm/sec Lat Peak E' Hola: 8.5 cm/sec Med Peak E' Hola: 4.0 cm/sec MV A max hola: 54.8 cm/sec E/E' lat: 10.6 E/E' med: 22.3 MV E/A: 1.6 Ao V2 max: 153.0 cm/sec AI max hola: 313.9 cm/sec LV V1 max: 134.1 cm/sec Ao max P.4 mmHg AI max P.4 mmHg LV V1 max P.2 mmHg AI dec slope: 150.5 cm/sec2 AI P1/2t: 610.8 msec PA V2 max: 77.6 cm/sec TR max hola: 248.4 cm/sec TR max P.7 mmHg ECHO/Echo Complete Interpretation Summary The study was technically difficult. Moderate segmental systolic dysfunction (see wall motion). The estimated ejection fraction is 35 %. The left atrium is mildly enlarged. Trivial mitral valve insufficiency. Mild tricuspid valve insufficiency. Trivial aortic valve insufficiency. Right ventricular systolic pressure estimated to be 28 mmHg. There is evidence of diastolic dysfunction. Ordering Physician: Amanda Cutler Referring Physician: Amanda Cutler Performed By: Roxanne Madrigal RCS
== END | disposition home or self-care (01) ==
LOC: CVS 09:49
PROVIDERS: PCP Family Medicine; Referring Provider Nurse Practitioner Family; Visit Provider Nurse Practitioner Family
DX: R06.02 Shortness of breath (principal)
CPT/HCPCS: 93306

== ENCOUNTER → 2022-06-08 | Outpatient (CLI) | payer MEDICARE, SELFPAY ==
--- NOTE | 2022-06-08 18:31 | STRESSREP ---
Stress Test Report Pharmacologic myocardial perfusion stress test. 61-year-old lady with a history of coronary artery disease. Stress protocol: Resting EKG demonstrates normal sinus rhythm with a rate of 60 bpm normal intervals are noted resting blood pressure is 134/78 mmHg. 0.4 mg of regadenoson was infused per usual protocol followed by rapid intravenous saline flush injection continuous EKG monitoring was performed. Pharmacologic myocardial perfusion stress test. 61-year-old lady with a history of coronary artery disease. Stress protocol: Resting EKG demonstrates normal sinus rhythm with a rate of 60 bpm normal intervals are noted resting blood pressure is 134/78 mmHg. 0.4 mg of regadenoson was infused per usual protocol followed by rapid intravenous saline flush injection continuous EKG monitoring was performed. At rest there were no ST or T wave changes noted to suggest abnormal flow reserve and at peak infusion nonspecific ST changes were noted with did not meet the criteria for ischemia. The final blood pressure was 124/76 mmHg. Myocardial perfusion protocol. 14.3 mCi of technetium 99m sestamibi was injected at rest. 0.4 mg of regadenoson was infused per usual protocol. At peak infusion 44.1 mCi of technetium 99m sestamibi was injected. Stress images were obtained stress and rest images were reconstructed and compared in the short axis vertical long and horizontal long axis. Gated images were also obtained. Perfusion SPECT analysis: Review of the stress imaging demonstrate normal perfusion noted in the anterior wall septum and lateral wall. The entire inferior wall has a perfusion defect extending slightly to the lateral wall. The resting images demonstrate a similar pattern. The above is suggestive of an extensive previous inferior infarct with inferolateral extension. There is mild inferoapical extension as well. No ischemia however is noted. Gated SPECT analysis: The gated ejection fraction is 39%. 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 Ischemic cardiomyopathy present.
== END | disposition home or self-care (01) ==
LOC: CVS 06:55
PROVIDERS: PCP Family Medicine; Referring Provider Nurse Practitioner Family; Visit Provider Nurse Practitioner Family
DX: I25.5 Ischemic cardiomyopathy (principal); I25.10 Atherosclerotic heart disease of native coronary artery without angina pectoris; Z13.6 Encounter for screening for cardiovascular disorders
CPT/HCPCS: 78452; 93017; A9500; A4216; J2785

== ENCOUNTER 2022-06-25 12:56 | Outpatient (RCR) | payer MEDICARE, SELFPAY ==
[2022-06-25 13:10] VITALS: BP 163/69; PULSE 77; TEMP 36.6; BMI 42.9
--- NOTE | 2022-06-25 14:12 | HP.PCM_ITS ---
History of Present Illness Date of Service: 06/25/22 Chief Complaint: Left medial knee/left proximal leg History of Wound: Patient is a 60 year old female who presents with a left medial knee/proximal leg wound that occurred when she tripped and fell 3 weeks ago at [employer] and scrapped her knee. She was supposed to have the battery of her AICD changed when Dr. Kaplan discovered that she had an open wound that looked infected, she was started on Doxycycline, which she completes today. She has been washing the wound with antibacterial soap and water and covering with dry gauze. She has a significant cardiac history with CABG x 3, cardiac stents x 5, hypothyroid, breast cancer. Today she denies any fever, chills, nausea and vomiting. Progress of Wound: Left medial knee/proximal leg wound is beefy pink. It looks clean, her periwound is clear. The wound is superficial in depth and appears dry. [facility] Medical History Anterior pituitary disease Back problem Bone fracture Breast cyst Cardiac defibrillator in place Cardiac pacemaker Cataracts, bilateral Chest pain Gout H/O emotional problems Heart disease Heart failure Hyperparathyroidism Hypertension Hypothyroidism (acquired) Obesity Osteoporosis Prediabetes Seasonal allergies Stage 3 chronic kidney disease UTI (urinary tract infection) Home Medications gabapentin 600 mg tablet 600 mg PO .qid 06/23/21 [History Last Taken Unknown] lisinopril 10 mg tablet 5 mg PO DAILY 06/23/21 [History Last Taken Unknown] metoprolol tartrate 100 mg tablet 100 tablet PO BID 06/23/21 [History Last Taken Unknown] pravastatin 40 mg tablet 40 mg PO DAILY 06/23/21 [History Last Taken Unknown] spironolactone 25 mg-hydrochlorothiazide 25 mg tablet 1 tab PO DAILY 06/23/21 [History Last Taken Unknown] tramadol 50 mg tablet 50 mg PO 4X/DAY 06/23/21 [History Last Taken Unknown] aspirin 81 mg tablet,delayed release (Adult Low Dose Aspirin) 81 mg PO Q3D 08/01/21 [History Last Taken Unknown] multivitamin (Daily Multi-Vitamin tablet) 1 tab PO DAILY 08/01/21 [History Last Taken Unknown] atorvastatin 40 mg tablet 40 mg PO DAILY #90 tabs 03/17/22 [Rx Last Taken Unknown] cholecalciferol (vitamin D3) 50 mcg (2,000 unit) capsule 50 mcg PO DAILY #1 cap 03/17/22 [Rx Last Taken Unknown] levothyroxine 88 mcg tablet 88 mcg PO DAILY #90 tabs 03/17/22 [Rx Last Taken Unknown] denosumab 60 mg/mL subcutaneous syringe (Prolia) 60 mg subcut [id number] #1 mL 04/13/22 [Rx Last Taken Unknown] Allergy/AdvReac Type Severity Reaction Status Date / Time Iodinated Contrast Media Allergy Nausea Verified 05/24/22 10:22 levofloxacin [From Levaquin] Allergy Unknown Verified 05/24/22 10:22 ranolazine [From Ranexa] Allergy Unknown Verified 05/24/22 10:22 sulfamethoxazole Allergy Unknown Verified 05/24/22 10:22 [From Bactrim] trimethoprim [From Bactrim] Allergy Unknown Verified 05/24/22 10:22 amoxicillin AdvReac Mild diarrhea Verified 05/24/22 10:22 Family History Other Angina at rest Arthritis Bowel disease Breast cancer CVA (cerebral vascular accident) [place] disease Heart disease High cholesterol Hypertension Myocardial infarction Osteoporosis Thyroid disorder Surgical History H/O angioplasty H/O: hysterectomy History of surgical removal of pituitary gland Social History Smoking Status: Former smoker alcohol intake: current alcohol intake frequency: holidays/special occasions only Alcohol type: wine substance use type: does not use what type of physical activity do you participate in: walking ROS Constitutional Constitutional: Reports systems reviewed and no addt'l complaints, except as documented Eyes Eyes: Reports none ENT HEENT: Reports none Cardiovascular Cardiovascular: Reports leg ulcers and pedal edema; Denies chest pain at rest, nausea or vomiting Respiratory/Chest Respiratory/Chest: Denies chest tightness or cough Gastrointestinal Gastrointestinal: Denies abdominal pain, diarrhea or vomiting Musculoskeletal Musculoskeletal: Reports joint stiffness Integumentary Integumentary: Reports wounds Neurologic Neurologic: Denies dizziness Psychiatric Psychiatric: Reports none Endocrine Endocrinology: Reports fatigue Hematologic/Lymphatic Hematologic/Lymphatic: Reports easy bruising Vital Signs Vital Signs Vital Signs: 06/25/22 13:10 Temperature 97.9 F Temperature Source Temporal Pulse Rate 77 Blood Pressure 163/69 H Blood Pressure Mean 100 Weight Weight: 250 lb Body Mass Index (BMI) 42.9 Physical Exam Const alert, oriented x3 and no apparent distress General Appearance: cooperative HEENT normocephalic Neck full ROM Cardio regular rate and regular rhythm Peripheral Pulses: dorsalis pedis pulses present left 1+ GI normal to inspection, nondistended, normoactive bowel sounds, soft to palpation and non-tender Extremity normal capillary refill Extremity Narrative: +1 non pitting edema on left lower extremity Skin Wound Narrative: Left medial knee/proximal leg wound that is superficial in depth, the base of the wound is beefy pink, it is dry, faith wound is clear. Neuro oriented x3 Sensorium / Orientation: awake and alert Psych mental status grossly normal Debridement Note Debridement Note Wound debrided: medial knee/proximal leg wound Laterality: Left Wound Grade/Stage: Stage 3 Type of Debridement: Excisional debridement Anesthesia Used: 5% Lidocaine Gel Depth: Down to and including healthy tissue and in the subcutaneous layer Percentage of wound debrided: 100 Instrument Used: 5mm curette Tissue Removed: Non viable tissue and slough Severity: Fat Layer Exposed Amount of bleeding with debridement: Mild Bleeding Controlled with: Pressure and Compression and gauze Patient tolerated procedure: Patient tolerated procedure well Post-Debridement Measurements and Additional Note: Post-Debridement Measurements/Treatment - Nurse 1 - General Ulcer Assessment Start: 06/25/22 13:10 Freq: Status: Active Protocol: RHINA.TORSTEN Activity Type Activity Date Activity User E-sign Co-sign Detail Recorded Client Recorded Date Recorded By Document 06/25/22 13:10 BRIANDA [id number] 06/25/22 13:22 BRIANDA 06/25/22 13:10 - Today's Visit Information Type of service Follow-up Visit (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 ) Arrival Mode Ambulatory Patient Identification Verified (Name & Yes ) Patient Requires Transmission-Based Yes Precautions Safety Precautions NA Height and Weight Height 5 ft 4 in Weight 250 lb Weight in Pounds 250.0 lbs Body Mass Index (BMI) 42.9 BMI Classification Obese BSA - Brittney 2.15 Vital Signs Temperature (97.8 F-99.1 F) 97.9 F Temperature Source Temporal Pulse Rate (60-100) 77 Pulse Location Monitor Blood Pressure (90/60-120/80) 163/69 H Blood Pressure Mean 100 History Since Last Visit- (Skip if this is Patient's initial visit) Left Footwear Regular Shoe Right Footwear Regular Shoe Pain Scale: 0-10 Numeric Is Patient Pain Free? Yes WC - Nurse 1 - General Ulcer Measurement Start: 06/25/22 13:10 Freq: Status: Active Protocol: Activity Type Activity Date Activity User E-sign Co-sign Detail Recorded Client Recorded Date Recorded By Document 06/25/22 13:10 AK [id number] 06/25/22 13:22 AK 06/25/22 13:10 Wound Center Nurse 1 #2 L medial knee -Combined with other wound No -Current Size (cm) - Length 1.2 -Current Size (cm) - Width 3.5 -Current Size (cm) - Depth 0.1 -Total Square Cm 4.20 -Date of Last Picture (Recall this 06/25/22 field) -Photo Taken Yes -Tunneling No -Undermining/Tunneling No -Circular Undermining No -Change in Wound Grade/Stage No -Exudate Amt Medium -Exudate Type Serosanguineous -Wound Margin Distinct, Outline Attached -Granulation Amt Medium (34-66%) -Granulation Quality Red -Slough/Fibrin Yes -Necrosis Amt Small (1-33%) -Necrotic Tissue Type Adherent Slough -Structure Exposed N/A -Texture (Faith-wound Skin Appearance) Assessed, Scarring -Moisture (Faith-wound Skin Appearance) No Abnormality, Assessed -Color (Faith-wound Skin Appearance) No Abnormality, Assessed -Temperature (Faith-wound Skin No Abnormality Appearance) (Pt Warm) -Tenderness on Palpation (Faith-wound No Skin Appearance) -Ulcer Cleansing Soap and Water -Foul Odor after Cleansing No -Anesthetic Used 5% Lidocaine Gel Right Calf (cm) 33 Right Ankle (cm) 19 Left Calf (cm) 35 Left Ankle (cm) 19 WC - Nurse 2 - General Ulcer CM Notes Start: 06/25/22 13:10 Freq: Status: Active Protocol: Activity Type Activity Date Activity User E-sign Co-sign Detail Recorded Client Recorded Date Recorded By Document 06/25/22 13:49 MW [id number] 06/25/22 13:58 MW 06/25/22 13:49 Wound Center Nurse 2 #2 L medial knee -Time 13:51 -Correct Patient Yes -Correct Side, Site, Position Yes -Correct Procedure Yes -Procedure Performed Yes -Type of Procedure Debridement -Clinical Debridement Subcutaneous -Tissue Removed Subcutaneous -Post Debridement (cm) - Length 4.0 -Post Debridement (cm) - Width 1.5 -Post Debridement (cm) - Depth 0.1 -Total Square (Post) (cm) 6.00 -Area of Debridement (cm) - Length 4.0 -Area of Debridement (cm) - Width 1.5 -Total Square (Area) (cm) 6.00 -Tunneling No -Undermining/Tunneling No -Circular Undermining No -Wound/Ulcer Outcome Not Healed -Ulcer Cleansing Rinsed/ Irrigated with Saline -Foul Odor after Cleansing No -Bioengineered Tissue No -Bleeding Controlled with Pressure -Treatment Response Procedure Tolerated Well -Offloading No -Debridement - Subq, 1st 20sq cm Yes Pain Scale: 0-10 Numeric Is Patient Pain Free? Yes Charges/Coding Visit Charges Office Visits / Consults: 87206 OV L4 Est (25 modifier) Procedures Integumentary 111xxx-113xx: 35517 Melissa subq tissue 20 sq cm/< Assessment/Plan Assessment/Plan (1) Open wound of left knee with complication: CODE(S): S81.002A - Unspecified open wound, left knee, initial encounter (2) Prediabetes: CODE(S): R73.03 - Prediabetes (3) Hx of CABG: (4) ICD (implantable cardioverter-defibrillator) in place: CODE(S): Z95.810 - Presence of automatic (implantable) cardiac defibrillator (5) Delayed wound healing: CODE(S): T14.8 - Other injury of unspecified body region (6) Leg edema: CODE(S): R60.0 - Localized edema PLAN: Plan Patient was evaluated at the wound healing center today. A subcutaneous debridement was performed as documented. Wound care - Wash daily with antibacterial soap and pat dry. Apply moistened Mariely, cover with adaptic and top with foam dressing daily. Single layer tubigrip for compression. Encouraged to elevate legs when sitting. Encouraged to increase protein intake and increase vitamin C intake or take Vitamin C supplement 1,000 mg /day. She was started on Doxycycline by another physician which she will finish later today. Follow up one week. Call or come in sooner if develop any questions or concerns.
== END 2022-06-28 23:59 | disposition home or self-care (01) ==
LOC: WC 12:56
PROVIDERS: PCP Family Medicine; Visit Provider Nurse Practitioner Family
DX: S81.002D Unspecified open wound, left knee, subsequent encounter (principal); I13.0 Hypertensive heart and chronic kidney disease with heart failure and stage 1 through stage 4 chronic kidney disease, or unspecified chronic kidney disease; I50.9 Heart failure, unspecified; Z68.41 Body mass index [BMI] 40.0-44.9, adult; N18.30 Chronic kidney disease, stage 3 unspecified; R60.0 Localized edema; W18.09XD Striking against other object with subsequent fall, subsequent encounter; R73.03 Prediabetes; E03.9 Hypothyroidism, unspecified; M81.0 Age-related osteoporosis without current pathological fracture; E66.9 Obesity, unspecified; Z79.82 Long term (current) use of aspirin; Z79.890 Hormone replacement therapy; Z79.899 Other long term (current) drug therapy; Z87.891 Personal history of nicotine dependence; Z85.3 Personal history of malignant neoplasm of breast; Z95.810 Presence of automatic (implantable) cardiac defibrillator; Z95.5 Presence of coronary angioplasty implant and graft; Z95.1 Presence of aortocoronary bypass graft
CPT/HCPCS: 11042; 99213; G0463

== ENCOUNTER 2022-07-16 14:00 | Outpatient (RCR) | payer MEDICARE, SELFPAY ==
[2022-06-29 00:42] VITALS: BP 163/69; PULSE 77; TEMP 36.6; BMI 42.9
[2022-07-02 13:19] VITALS: BP 132/69; PULSE 60; RESP 16; TEMP 35.7; BMI 42.9
--- NOTE | 2022-07-02 14:59 | PCM.WC.PN ---
History of Present Illness Date of Service: 07/02/22 Chief Complaint: Left medial knee/left proximal leg History of Wound: Patient is a 60 year old female who presents with a left medial knee/proximal leg wound that occurred when she tripped and fell 3 weeks ago at [employer] and scrapped her knee. She was supposed to have the battery of her AICD changed when Dr. Kaplan discovered that she had an open wound that looked infected, she was started on Doxycycline, which she completes today. She has been washing the wound with antibacterial soap and water and covering with dry gauze. She has a significant cardiac history with CABG x 3, cardiac stents x 5, hypothyroid, breast cancer. Wound care - Left medial knee is moistened dianne topped with adaptic and covered with gauze daily. Today she denies any fever, chills, nausea and vomiting. Progress of Wound: Left medial knee wound smaller in size and compression is helping decrease swelling. Objective Data Objective Data Vital Signs: Vital Signs Temp Pulse Resp BP O2 Del Method 96.3 F L 60 16 132/69 H Room Air 07/02/22 13:19 07/02/22 13:19 07/02/22 13:19 07/02/22 13:19 07/02/22 13:19 Oxygen Delivery Method Room Air Weight: 250 lb Body Mass Index (BMI) 42.9 Charges/Coding Procedures Integumentary 111xxx-113xx: 23462 Melissa subq tissue 20 sq cm/< Physical Exam Const alert, oriented x3 and no apparent distress General Appearance: cooperative HEENT normocephalic Resp normal respiratory effort Cardio regular rate Extremity normal capillary refill Extremity Narrative: +1 edema of left lower extremity. Skin Wound Narrative: Left medial knee wound, base of wound is beefy pink. She has a new skin tear just distal to the original wound, most likely because by tape. Neuro oriented x3 and moves all extremities Psych affect normal Debridement Note Debridement Note Wound debrided: medial knee/proximal leg wound Laterality: Left Wound Grade/Stage: Stage 3 Type of Debridement: Excisional debridement Anesthesia Used: 5% Lidocaine Gel Depth: Down to and including healthy tissue and in the subcutaneous layer Percentage of wound debrided: 100 Instrument Used: 3mm curette Tissue Removed: Devitalized tissue and slough Severity: Fat Layer Exposed Amount of bleeding with debridement: Mild Bleeding Controlled with: Pressure and Compression and gauze Patient tolerated procedure: Patient tolerated procedure well Post-Debridement Measurements and Additional Note: Post-Debridement Measurements/Treatment - Nurse 1 - General Ulcer Assessment Start: 07/02/22 13:19 Freq: Status: Active Protocol: SHEILA Activity Type Activity Date Activity User E-sign Co-sign Detail Recorded Client Recorded Date Recorded By Document 07/02/22 13:19 [facility] [id number] 07/02/22 13:21 [facility] 07/02/22 13:19 WC - Today's Visit Information Type of service Follow-up Visit (Physician/TUFT MACHINE OPERATOR ) Arrival Mode Ambulatory Transfer Assistance None Patient Identification Verified (Name & Yes ) Patient Requires Transmission-Based No Precautions Height and Weight Body Mass Index (BMI) 42.9 BMI Classification Obese Vital Signs Temperature (97.8 F-99.1 F) 96.3 F L Temperature Source Temporal Pulse Rate (60-100) 60 Pulse Location Monitor Respiratory Rate (12-18) 16 Respiratory rate source Observation Oxygen Delivery Method Room Air Blood Pressure (90/60-120/80) 132/69 H Blood Pressure Mean 90 Source Monitor Position Sitting Blood Pressure Location Left Arm History Since Last Visit- (Skip if this is Patient's initial visit) Have you changed medications since your No last visit? Any new allergies or adverse reactions No Had a fall/change in ADL's that may No increase risk of falls Signs or symptoms of abuse and/or No neglect since last visit Have you been in the hospital since your No last visit? Has dressing in place as prescribed Yes Has compression in place as prescribed Yes Has offloadiing in place as prescribed N/A Experienced any changes in pain level or No management Left Footwear Regular Shoe Right Footwear Regular Shoe Pain Scale: 0-10 Numeric Is Patient Pain Free? Yes - Nurse 1 - General Ulcer Measurement Start: 07/02/22 13:19 Freq: Status: Active Protocol: Activity Type Activity Date Activity User E-sign Co-sign Detail Recorded Client Recorded Date Recorded By Document 07/02/22 13:19 [facility] [id number] 07/02/22 13:21 [facility] 07/02/22 13:19 Wound Center Nurse 1 #2 L medial knee -Combined with other wound No -Current Size (cm) - Length 0.9 -Current Size (cm) - Width 2.7 -Current Size (cm) - Depth 0.1 -Total Square Cm 2.43 -Date of Last Picture (Recall this 07/02/22 field) -Photo Taken Yes -Epithelialization None Present -Tunneling No -Undermining/Tunneling No -Circular Undermining No -Exudate Amt Medium -Exudate Type Serosanguineous -Wound Margin Distinct, Outline Attached -Granulation Amt Small (1-33%) -Granulation Quality Pale -Slough/Fibrin Yes -Necrosis Amt Large (67-100%) -Necrotic Tissue Type Adherent Slough -Texture (Faith-wound Skin Appearance) Assessed, Scarring -Moisture (Faith-wound Skin Appearance) Assessed -Color (Faith-wound Skin Appearance) Assessed -Temperature (Faith-wound Skin No Abnormality Appearance) (Pt Warm) -Tenderness on Palpation (Faith-wound No Skin Appearance) -Ulcer Cleansing Rinsed/ Irrigated with Saline -Foul Odor after Cleansing No -Anesthetic Used 4% Lidocaine Solution Left Calf (cm) 34.4 Left Ankle (cm) 20 - Nurse 3 - General Ulcer D/C NN Start: 07/02/22 13:19 Freq: Status: Active Protocol: Activity Type Activity Date Activity User E-sign Co-sign Detail Recorded Client Recorded Date Recorded By Document 07/02/22 13:43 [facility] [id number] 07/02/22 13:44 [facility] 07/02/22 13:43 Wound Care Nurse 3 #2 L medial knee -Ulcer Cleansing Rinsed/ Irrigated with Saline -Foul Odor after Cleansing No -Primary Dressing Applied Mepilex Border, NonAdherent Contact Layer, Promogran Dianne Matter -Mepilex Border 1 -Promogran Dianne Matter 1 Treatment Response Procedure Tolerated Well Pain Scale: 0-10 Numeric Is Patient Pain Free? Yes WC - Visit Discharge Discharge Condition Stable Ambulatory Status Ambulatory Transportation Private Auto Assessment/Plan Assessment/Plan (1) Open wound of left knee with complication: CODE(S): S81.002A - Unspecified open wound, left knee, initial encounter (2) Prediabetes: CODE(S): R73.03 - Prediabetes (3) Hx of CABG: (4) ICD (implantable cardioverter-defibrillator) in place: CODE(S): Z95.810 - Presence of automatic (implantable) cardiac defibrillator (5) Delayed wound healing: CODE(S): T14.8 - Other injury of unspecified body region (6) Leg edema: CODE(S): R60.0 - Localized edema PLAN: Plan Patient was evaluated at the wound healing center today. A subcutaneous debridement was performed as documented. Wound care - Wash daily with antibacterial soap and pat dry. Apply moistened Dianne, cover with adaptic and top with foam dressing daily. Do the same for the skin tear just distal to the knee wound. Single layer tubigrip for compression, up over her knee to help hold the dressing in place. Encouraged to elevate legs when sitting. Encouraged to increase protein intake and increase vitamin C intake or take Vitamin C supplement 1,000 mg /day. She was started on Doxycycline by another physician which she will finish later today. She would like to get this wound healed soon as possible due to her needing to have her battery and her AICD changed. She has under to 2 months before the battery will no longer work. Follow up one week. Call or come in sooner if develop any questions or concerns.
[2022-07-09 14:14] VITALS: BP 130/69; PULSE 62; RESP 18; TEMP 36.7; BMI 42.9
--- NOTE | 2022-07-09 15:16 | PCM.WC.PN ---
History of Present Illness Date of Service: 07/09/22 Chief Complaint: Left medial knee/left proximal leg History of Wound: Patient is a 60 year old female who presents with a left medial knee/proximal leg wound that occurred when she tripped and fell 3 weeks ago at [employer] and scrapped her knee. She was supposed to have the battery of her AICD changed when Dr. Kaplan discovered that she had an open wound that looked infected, she was started on Doxycycline, which she completes today. She has been washing the wound with antibacterial soap and water and covering with dry gauze. She has a significant cardiac history with CABG x 3, cardiac stents x 5, hypothyroid, breast cancer. Wound care - Left medial knee is moistened andreia topped with adaptic and covered with gauze daily. Today she denies any fever, chills, nausea and vomiting. Progress of Wound: Left medial knee wound smaller in size and compression is helping decrease swelling. Objective Data Objective Data Vital Signs: Vital Signs Temp Pulse Resp BP O2 Del Method 98.1 F 62 18 130/69 H Room Air 07/09/22 14:14 07/09/22 14:14 07/09/22 14:14 07/09/22 14:14 07/02/22 13:19 Oxygen Delivery Method Room Air Weight: 250 lb Body Mass Index (BMI) 42.9 Debridement Note Debridement Note Post-Debridement Measurements and Additional Note: Post-Debridement Measurements/Treatment WC - Nurse 1 - General Ulcer Assessment Start: 07/02/22 13:19 Freq: Status: Active Protocol: WC.LOWEXT Activity Type Activity Date Activity User E-sign Co-sign Detail Recorded Client Recorded Date Recorded By Document 07/02/22 13:19 [facility] [id number] 07/02/22 13:21 BMF Document 07/09/22 14:14 DL [id number] 07/09/22 14:18 DL 07/02/22 07/09/22 13:19 14:14 WC - Today's Visit Information Type of service Follow-up Visit Follow-up Visit (Physician/BATTERY TESTER FIELD (Physician/BATTERY TESTER FIELD ) ) Arrival Mode Ambulatory Ambulatory Transfer Assistance None None Patient Identification Verified (Name & Yes Yes ) Patient Requires Transmission-Based No No Precautions Height and Weight Body Mass Index (BMI) 42.9 42.9 BMI Classification Obese Obese Vital Signs Temperature (97.8 F-99.1 F) 96.3 F L 98.1 F Temperature Source Temporal Temporal Pulse Rate (60-100) 60 62 Pulse Location Monitor Monitor Respiratory Rate (12-18) 16 18 Respiratory rate source Observation Observation Oxygen Delivery Method Room Air Blood Pressure (90/60-120/80) 132/69 H 130/69 H Blood Pressure Mean (mm Hg) 90 89 Source Monitor Monitor Position Sitting Blood Pressure Location Left Arm History Since Last Visit- (Skip if this is Patient's initial visit) Have you changed medications since your No No last visit? Any new allergies or adverse reactions No No Had a fall/change in ADL's that may No No increase risk of falls Signs or symptoms of abuse and/or No No neglect since last visit Have you been in the hospital since your No No last visit? Has dressing in place as prescribed Yes Yes Has compression in place as prescribed Yes Yes Has offloadiing in place as prescribed N/A N/A Experienced any changes in pain level or No No management Left Footwear Regular Shoe Right Footwear Regular Shoe Pain Scale: 0-10 Numeric Is Patient Pain Free? Yes Yes WC - Nurse 1 - General Ulcer Measurement Start: 07/02/22 13:19 Freq: Status: Active Protocol: Activity Type Activity Date Activity User E-sign Co-sign Detail Recorded Client Recorded Date Recorded By Document 07/02/22 13:19 [facility] [id number] 07/02/22 13:21 BM Document 07/09/22 14:14 DL [id number] 07/09/22 14:18 DL 07/02/22 07/09/22 13:19 14:14 Wound Center Nurse 1 #2 L medial knee -Combined with other wound No -Combined with (Name of Wound-Exactly .6 as it is documented) -Current Size (cm) - Length 0.9 2.4 -Current Size (cm) - Width 2.7 0.1 -Current Size (cm) - Depth 0.1 -Total Square Cm 2.43 0.24 -Date of Last Picture (Recall this 07/02/22 field) -Photo Taken Yes No -Epithelialization None Present -Tunneling No -Undermining/Tunneling No -Circular Undermining No -Exudate Amt Medium Small -Exudate Type Serosanguineous Serosanguineous -Wound Margin Distinct, Distinct, Outline Outline Attached Attached -Granulation Amt Small (1-33%) Medium (34-66%) -Granulation Quality Pale Red -Slough/Fibrin Yes -Necrosis Amt Large (67-100%) Medium (34-66%) -Necrotic Tissue Type Adherent Slough Adherent Slough -Structure Exposed N/A -Texture (Faith-wound Skin Appearance) Assessed, Scarring Scarring -Moisture (Faith-wound Skin Appearance) Assessed No Abnormality -Color (Faith-wound Skin Appearance) Assessed No Abnormality -Temperature (Faith-wound Skin No Abnormality No Abnormality Appearance) (Pt Warm) (Pt Warm) -Tenderness on Palpation (Faith-wound No No Skin Appearance) -Ulcer Cleansing Rinsed/ Rinsed/ Irrigated with Irrigated with Saline Saline -Foul Odor after Cleansing No No -Anesthetic Used 4% Lidocaine 5% Lidocaine Solution Gel Left Calf (cm) 34.4 32 Left Ankle (cm) 20 19 WC - Nurse 2 - General Ulcer CM Notes Start: 07/02/22 13:19 Freq: Status: Active Protocol: Activity Type Activity Date Activity User E-sign Co-sign Detail Recorded Client Recorded Date Recorded By Document 07/02/22 15:16 PL [id number] 07/02/22 15:17 PL Document 07/09/22 14:47 MW [id number] 07/09/22 14:49 MW 07/02/22 07/09/22 15:16 14:47 Wound Center Nurse 2 #2 L medial knee -Time 13:31 14:48 -Correct Patient Yes Yes -Correct Side, Site, Position Yes Yes -Correct Procedure Yes Yes -Procedure Performed Yes Yes -Type of Procedure Debridement Debridement -Clinical Debridement Subcutaneous Subcutaneous -Tissue Removed Subcutaneous Subcutaneous -Post Debridement (cm) - Length 0.9 0.4 -Post Debridement (cm) - Width 2.7 1.4 -Post Debridement (cm) - Depth 0.1 0.1 -Total Square (Post) (cm) 2.43 0.56 -Area of Debridement (cm) - Length 0.9 0.4 -Area of Debridement (cm) - Width 2.7 1.4 -Total Square (Area) (cm) 2.43 0.56 -Tunneling No No -Undermining/Tunneling No No -Circular Undermining No No -Wound/Ulcer Outcome Not Healed Not Healed -Ulcer Cleansing Rinsed/ Rinsed/ Irrigated with Irrigated with Saline Saline -Foul Odor after Cleansing No No -Bioengineered Tissue No No -Bleeding Controlled with Pressure Pressure -Treatment Response Procedure Procedure Tolerated Well Tolerated Well -Offloading No -Debridement - Subq, 1st 20sq cm Yes Yes Pain Scale: 0-10 Numeric Is Patient Pain Free? Yes Yes - Nurse 3 - General Ulcer D/C NN Start: 07/02/22 13:19 Freq: Status: Active Protocol: Activity Type Activity Date Activity User E-sign Co-sign Detail Recorded Client Recorded Date Recorded By Document 07/02/22 13:43 [facility] [id number] 07/02/22 13:44 [facility] Document 07/09/22 14:56 [facility] [id number] 07/09/22 14:58 [facility] 07/02/22 07/09/22 13:43 14:56 Wound Care Nurse 3 #2 L medial knee -Ulcer Cleansing Rinsed/ Rinsed/ Irrigated with Irrigated with Saline Saline -Foul Odor after Cleansing No No -Primary Dressing Applied Mepilex Border, Other NonAdherent Contact Layer, Promogran Andreia Matter -Other Dressing ANDREIA, EXCEL BORDER -Mepilex Border 1 -Promogran Andreia Matter 1 Left -Other PT APPLIED OWN SINGLE LAYER TUBI Treatment Response Procedure Procedure Tolerated Well Tolerated Well Pain Scale: 0-10 Numeric Is Patient Pain Free? Yes Yes - Visit Discharge Discharge Condition Stable Stable Ambulatory Status Ambulatory Ambulatory Transportation Private Auto Private Auto
[2022-07-16 14:09] VITALS: BP 137/73; PULSE 110; RESP 20; TEMP 36.5; BMI 42.9
--- NOTE | 2022-07-16 15:23 | PCM.WC.PN ---
History of Present Illness Date of Service: 07/16/22 Chief Complaint: Left medial knee/left proximal leg History of Wound: Patient is a 60 year old female who presents with a left medial knee/proximal leg wound that occurred when she tripped and fell 3 weeks ago at [employer] and scrapped her knee. She was supposed to have the battery of her AICD changed when Dr. Kaplan discovered that she had an open wound that looked infected, she was started on Doxycycline, which she completes today. She has been washing the wound with antibacterial soap and water and covering with dry gauze. She has a significant cardiac history with CABG x 3, cardiac stents x 5, hypothyroid, breast cancer. Wound care - Left knee is healed today. Today she denies any fever, chills, nausea and vomiting. Progress of Wound: Left medial knee wound is healed. The epithelial tissue is very fragile. Edema is much improved with wearing the tubigrip for compression. Objective Data Objective Data Vital Signs: Vital Signs Temp Pulse Resp BP O2 Del Method 97.7 F L 110 H 20 H 137/73 H Room Air 07/16/22 14:09 07/16/22 14:09 07/16/22 14:07/16/22 14:09 07/02/22 13:19 Oxygen Delivery Method Room Air Weight: 250 lb Body Mass Index (BMI) 42.9 Charges/Coding Visit Charges Office Visits / Consults: 71921 OV L3 Est Physical Exam Const alert, oriented x3 and no apparent distress General Appearance: cooperative HEENT normocephalic Resp normal respiratory effort Cardio regular rate Extremity normal capillary refill Extremity Narrative: +1 edema of left lower extremity. It is much improved with wearing compression. Skin Wound Narrative: Left medial knee wound is healed as is the skin tear distal to this wound. The left medial knee wound has fragile epithelial tissue in place. Neuro oriented x3 and moves all extremities Psych affect normal Debridement Note Debridement Note No debridement was completed: No debridement was completed today Post-Debridement Measurements and Additional Note: Post-Debridement Measurements/Treatment RHINA - Nurse 1 - General Ulcer Assessment Start: 07/02/22 13:19 Freq: Status: Active Protocol: RHINA.LOWEXT Activity Type Activity Date Activity User E-sign Co-sign Detail Recorded Client Recorded Date Recorded By Document 07/02/22 13:19 [facility] [id number] 07/02/22 13:21 BMF Document 07/09/22 14:14 DL [id number] 07/09/22 14:18 DL Document 07/16/22 14:09 DL [id number] 07/16/22 14:11 DL 07/02/22 07/09/22 07/16/22 13:19 14:14 14:09 WC - Today's Visit Information Type of service Follow-up Visit Follow-up Visit Follow-up Visit (Physician/LEVELMAN (Physician/LEVELMAN (Physician/LEVELMAN ) ) ) Arrival Mode Ambulatory Ambulatory Ambulatory Transfer Assistance None None None Patient Identification Verified (Name & Yes Yes Yes ) Patient Requires Transmission-Based No No No Precautions Height and Weight Body Mass Index (BMI) 42.9 42.9 42.9 BMI Classification Obese Obese Obese Vital Signs Temperature (97.8 F-99.1 F) 96.3 F L 98.1 F 97.7 F L Temperature Source Temporal Temporal Temporal Pulse Rate (60-100) 60 62 110 H Pulse Location Monitor Monitor Monitor Respiratory Rate (12-18) 16 18 20 H Respiratory rate source Observation Observation Observation Oxygen Delivery Method Room Air Blood Pressure (90/60-120/80) 132/69 H 130/69 H 137/73 H Blood Pressure Mean (mm Hg) 90 89 94 Source Monitor Monitor Monitor Position Sitting Blood Pressure Location Left Arm History Since Last Visit- (Skip if this is Patient's initial visit) Have you changed medications since your No No No last visit? Any new allergies or adverse reactions No No No Had a fall/change in ADL's that may No No No increase risk of falls Signs or symptoms of abuse and/or No No No neglect since last visit Have you been in the hospital since your No No No last visit? Has dressing in place as prescribed Yes Yes Yes Has compression in place as prescribed Yes Yes N/A Has offloadiing in place as prescribed N/A N/A N/A Experienced any changes in pain level or No No No management Left Footwear Regular Shoe Right Footwear Regular Shoe Pain Scale: 0-10 Numeric Is Patient Pain Free? Yes Yes Yes WC - Nurse 1 - General Ulcer Measurement Start: 07/02/22 13:19 Freq: Status: Active Protocol: Activity Type Activity Date Activity User E-sign Co-sign Detail Recorded Client Recorded Date Recorded By Document 07/02/22 13:19 BMF [id number] 07/02/22 13:21 BMF Document 07/09/22 14:14 DL [id number] 07/09/22 14:18 DL Document 07/16/22 14:09 DL [id number] 07/16/22 14:11 DL 07/02/22 07/09/22 07/16/22 13:19 14:14 14:09 Wound Center Nurse 1 #2 L medial knee -Combined with other wound No -Combined with (Name of Wound-Exactly .6 as it is documented) -Current Size (cm) - Length 0.9 2.4 0.3 -Current Size (cm) - Width 2.7 0.1 0.8 -Current Size (cm) - Depth 0.1 0.1 -Total Square Cm 2.43 0.24 0.24 -Date of Last Picture (Recall this 07/02/22 field) -Photo Taken Yes No No -Epithelialization None Present -Tunneling No -Undermining/Tunneling No -Circular Undermining No -Exudate Amt Medium Small Small -Exudate Type Serosanguineous Serosanguineous Serosanguineous -Wound Margin Distinct, Distinct, Distinct, Outline Outline Outline Attached Attached Attached -Granulation Amt Small (1-33%) Medium (34-66%) Small (1-33%) -Granulation Quality Pale [place] -Slough/Fibrin Yes -Necrosis Amt Large (67-100%) Medium (34-66%) Small (1-33%) -Necrotic Tissue Type Adherent Slough Adherent Slough Adherent Slough -Structure Exposed N/A N/A -Texture (Faith-wound Skin Appearance) Assessed, Scarring Scarring Scarring -Moisture (Faith-wound Skin Appearance) Assessed No Abnormality No Abnormality -Color (Faith-wound Skin Appearance) Assessed No Abnormality No Abnormality -Temperature (Faith-wound Skin No Abnormality No Abnormality No Abnormality Appearance) (Pt Warm) (Pt Warm) (Pt Warm) -Tenderness on Palpation (Faith-wound No No No Skin Appearance) -Ulcer Cleansing Rinsed/ Rinsed/ Rinsed/ Irrigated with Irrigated with Irrigated with Saline Saline Saline -Foul Odor after Cleansing No No No -Anesthetic Used 4% Lidocaine 5% Lidocaine 5% Lidocaine Solution Gel Gel Left Calf (cm) 34.4 32 Left Ankle (cm) 20 19 WC - Nurse 2 - General Ulcer CM Notes Start: 07/02/22 13:19 Freq: Status: Active Protocol: Activity Type Activity Date Activity User E-sign Co-sign Detail Recorded Client Recorded Date Recorded By Document 07/02/22 15:16 PL [id number] 07/02/22 15:17 PL Document 07/09/22 14:47 MW [id number] 07/09/22 14:49 MW Document 07/16/22 14:51 MW [id number] 07/16/22 14:52 MW 07/02/22 07/09/22 07/16/22 15:16 14:47 14:51 Wound Center Nurse 2 #2 L medial knee -Time 13:31 14:48 14:51 -Correct Patient Yes Yes Yes -Correct Side, Site, Position Yes Yes Yes -Correct Procedure Yes Yes Yes -Procedure Performed Yes Yes No -Type of Procedure Debridement Debridement -Clinical Debridement Subcutaneous Subcutaneous -Tissue Removed Subcutaneous Subcutaneous -Post Debridement (cm) - Length 0.9 0.4 0 -Post Debridement (cm) - Width 2.7 1.4 0 -Post Debridement (cm) - Depth 0.1 0.1 -Total Square (Post) (cm) 2.43 0.56 0 -Area of Debridement (cm) - Length 0.9 0.4 -Area of Debridement (cm) - Width 2.7 1.4 -Total Square (Area) (cm) 2.43 0.56 -Tunneling No No -Undermining/Tunneling No No -Circular Undermining No No -Wound/Ulcer Outcome Not Healed Not Healed Healed- Epithelialized -Ulcer Cleansing Rinsed/ Rinsed/ Irrigated with Irrigated with Saline Saline -Foul Odor after Cleansing No No -Bioengineered Tissue No No -Bleeding Controlled with Pressure Pressure -Treatment Response Procedure Procedure Tolerated Well Tolerated Well -Offloading No -Debridement - Subq, 1st 20sq cm Yes Yes Pain Scale: 0-10 Numeric Is Patient Pain Free? Yes Yes Yes - Nurse 3 - General Ulcer D/C NN Start: 07/02/22 13:19 Freq: Status: Active Protocol: Activity Type Activity Date Activity User E-sign Co-sign Detail Recorded Client Recorded Date Recorded By Document 07/02/22 13:43 [facility] [id number] 07/02/22 13:44 [facility] Document 07/09/22 14:56 [facility] [id number] 07/09/22 14:58 [facility] Document 07/16/22 15:00 [facility] [id number] 07/16/22 15:01 [facility] 07/02/22 07/09/22 07/16/22 13:43 14:56 15:00 Wound Care Nurse 3 #2 L medial knee -Ulcer Cleansing Rinsed/ Rinsed/ Rinsed/ Irrigated with Irrigated with Irrigated with Saline Saline Saline -Foul Odor after Cleansing No No No -Primary Dressing Applied Mepilex Border, Other NonAdherent Contact Layer, Promogran Andreia Matter -Other Dressing ANDREIA, EXCEL EXCEL BORDER BORDER DRSG -Mepilex Border 1 -Promogran Nadreia Matter 1 Left -Tubular Bandage Single Layer -Size of Tubigrip Used Size D -Size D ($) 1 -Other PT APPLIED OWN SINGLE LAYER TUBI Treatment Response Procedure Procedure Procedure Tolerated Well Tolerated Well Tolerated Well Pain Scale: 0-10 Numeric Is Patient Pain Free? Yes Yes Yes WC - Visit Discharge Discharge Condition Stable Stable Stable Ambulatory Status Ambulatory Ambulatory Ambulatory,Cane Transportation Private Auto Private Auto Private Auto Assessment/Plan Assessment/Plan (1) Open wound of left knee with complication: CODE(S): S81.002A - Unspecified open wound, left knee, initial encounter (2) Prediabetes: CODE(S): R73.03 - Prediabetes (3) Hx of CABG: (4) ICD (implantable cardioverter-defibrillator) in place: CODE(S): Z95.810 - Presence of automatic (implantable) cardiac defibrillator (5) Delayed wound healing: CODE(S): T14.8 - Other injury of unspecified body region (6) Leg edema: CODE(S): R60.0 - Localized edema PLAN: Plan Patient was evaluated at the wound healing center today. She is healed today. Because the wound is very fragile, will have her cover with gauze for one week. She is to continue to wear the tubigrip daily for compression, until she has her pacer battery changed. This will help with her edema and also protect her legs from bumping them since she seems to have issues with skin tears and bruising easily. Encouraged to elevate legs when sitting. Encouraged to increase protein intake and increase vitamin C intake or take Vitamin C supplement 1,000 mg /day. She was treated with Doxycycline by another physician. Follow up as needed.
== END 2022-07-16 16:24 | disposition home or self-care (01) ==
LOC: WC 14:00
PROVIDERS: PCP Family Medicine; Visit Provider Nurse Practitioner Family
DX: S81.002D Unspecified open wound, left knee, subsequent encounter (principal); S81.802A Unspecified open wound, left lower leg, initial encounter; W18.09XD Striking against other object with subsequent fall, subsequent encounter; Y92.22 Religious institution as the place of occurrence of the external cause; R60.0 Localized edema; R73.03 Prediabetes; E03.9 Hypothyroidism, unspecified; Z79.82 Long term (current) use of aspirin; Z79.890 Hormone replacement therapy; Z79.899 Other long term (current) drug therapy; Z95.810 Presence of automatic (implantable) cardiac defibrillator; Z95.1 Presence of aortocoronary bypass graft; Z95.5 Presence of coronary angioplasty implant and graft; Z85.3 Personal history of malignant neoplasm of breast
CPT/HCPCS: 11042; 99213; G0463

== ENCOUNTER → 2022-09-10 | Outpatient (CLI) | payer MEDICARE, SELFPAY ==
[2022-09-10 09:32] LABS: Vitamin D,25 Hydroxy 42.4 ng/mL
[2022-09-10 09:35] LABS: ALB/GLOB Ratio 1.1 RATIO (0.9-2.4); AST(SGOT) 12 U/L (15-37); Alanine Aminotransfer ALT/SGPT 20 U/L (13-56); Albumin, Serum 3.4 g/dL (3.2-5.0); Alkaline Phosphatase 88 U/L (45-117); Anion Gap 4 (5-15); BUN 25 mg/dL (7-18); BUN/Creat Ratio 22.9 RATIO (10-20); Calcium,Total 9.6 mg/dL (8.5-10.1); Chloride 105 mmol/L (98-107); Creatinine, Serum 1.09 mg/dL (0.55-1.02); EST Glomerular Filtration Rate 54 mL/min (>60); Est Glom Filt Rate - Afr Amer 65 mL/min (>60); Globulin 3.2 g/dL (2.2-4.2); Glucose 113 mg/dL (74-106); Potassium 4.5 mmol/L (3.5-5.1); Protein, Total 6.6 g/dL (6.4-8.2); Sodium Level 141 mmol/L (136-145)
== END | disposition home or self-care (01) ==
LOC: LAB 08:21
PROVIDERS: PCP Family Medicine; Visit Provider Internal Medicine Endocrinology, Diabetes & Metabolism
DX: E21.3 Hyperparathyroidism, unspecified (principal); E55.9 Vitamin D deficiency, unspecified
CPT/HCPCS: 36415; 80053; 82306; 83970

== ENCOUNTER 2022-11-03 14:47 | Outpatient (CLI) | payer MEDICARE, SELFPAY ==
[2022-11-03 14:56] VITALS: BP 135/65; PULSE 60; RESP 12; TEMP 35.8; O2SAT 95; BMI 35.6
[2022-11-03] MEDS: DENOSUMAB 60 MG/ML SC (14:59)
== END 2022-11-03 23:59 | disposition home or self-care (01) ==
LOC: MEDOUTP 14:48
PROVIDERS: PCP Family Medicine; Referring Provider Internal Medicine Endocrinology, Diabetes & Metabolism; Visit Provider Internal Medicine Endocrinology, Diabetes & Metabolism
DX: M81.0 Age-related osteoporosis without current pathological fracture (principal)
CPT/HCPCS: 96372; J0897

== ENCOUNTER 2023-02-17 00:34 | Observation (INO) | payer MEDICARE, SELFPAY ==
[2023-02-17] VITALS (12 sets, daily range): BP systolic 68–118; BP diastolic 54–87; PULSE 74–135; RESP 15–19; TEMP 36–36.9; O2SAT 94–100; BMI 36.3; BMI 35.3
--- NOTE | 2023-02-17 01:02 | RAD_ITS ---
EXAM: XR CHEST, 1 VIEW CLINICAL INDICATION: chest pain TECHNIQUE: Frontal view of the chest. This report was created using [employer] report generation technology. COMPARISON: February 04, 2022. FINDINGS: LUNGS AND PLEURAL SPACES: Unremarkable. No pneumothorax. No infiltrates or effusions. Similar mildly prominent perihilar vessels. HEART: Stable moderate cardiomegaly. MEDIASTINUM: Central airways and mediastinal contour are unremarkable. BONES/JOINTS: Stable median sternotomy wires. Stable position of the left subclavian leads. SOFT TISSUES: Unremarkable. RAD/Chest 1 View (Portable) IMPRESSION: Stable chest. Cardiomegaly and postoperative changes. Electronically Signed: Salome Wayne MD at 2:58 EDT ,
--- NOTE | 2023-02-17 01:04 | EDS_ITS ---
HPI History of Present Illness Chief Complaint: Chest Pain Informant: patient Onset/Context/Timing Onset: Hours (1.5) Activity at onset: sudden, onset, activity on onset and rest Timing: Continuous Quality: Positive for Heaviness Location: Substernal Current Severity: Mild Maximum Severity: Moderate Worsened By: Nothing; Not Worsened By Breathing Relieved By: Nothing Associated Symptoms: Positive for Dyspnea, Lightheadedness (no syncope) and Palpitations (fluttering) Narrative Narrative: Patient just started suddenly having chest pressure and fluttering palpitations 1-2 hours prior to arrival. Not as bad now, but still present. Has not gone away. She states she has a history of paroxysmal atrial fibrillation, she is not on any blood thinner. States she has a pacer defibrillator and relates it to when she had A-fib, cannot tell me other reasons why this was placed, but the defibrillator has not fired since her symptoms started. She states she has been having myalgias/body aches for the last couple weeks, but no other recent illness that she knows of specifically. She saw her PCP for this and had some outpatient labs and is due to follow-up later this morning actually for a follow-up and to review the results. Patient sees Dr. Riccardo Lane for cardiology, [facility], [facility]. PE Risk Factors: Negative for Recent Travel/Surgery, Recent Immobilization, Prior DVT or PE, Cancer or OCP + Smoking + >/=35 PFSH PFSH Medical History Anterior pituitary disease Back problem Bone fracture Breast cyst Cardiac defibrillator in place Cardiac pacemaker Cataracts, bilateral Chest pain Gout H/O emotional problems Heart disease Heart failure Hyperparathyroidism Hypertension Hypothyroidism (acquired) Obesity Osteoporosis Prediabetes Seasonal allergies Stage 3 chronic kidney disease UTI (urinary tract infection) Home Medications gabapentin 600 mg tablet 600 mg PO .qid 06/23/21 [History Last Taken Unknown] lisinopril 10 mg tablet 5 mg PO DAILY 06/23/21 [History Last Taken Unknown] metoprolol tartrate 100 mg tablet 100 tablet PO BID 06/23/21 [History Last Taken Unknown] pravastatin 40 mg tablet 40 mg PO DAILY 06/23/21 [History Last Taken Unknown] spironolactone 25 mg-hydrochlorothiazide 25 mg tablet 1 tab PO DAILY 06/23/21 [History Last Taken Unknown] tramadol 50 mg tablet 50 mg PO 4X/DAY 06/23/21 [History Last Taken Unknown] aspirin 81 mg tablet,delayed release (Adult Low Dose Aspirin) 81 mg PO Q3D 08/01/21 [History Last Taken Unknown] multivitamin (Daily Multi-Vitamin tablet) 1 tab PO DAILY 08/01/21 [History Last Taken Unknown] atorvastatin 40 mg tablet 40 mg PO DAILY #90 tabs 03/17/22 [Rx Last Taken Unknown] cholecalciferol (vitamin D3) 50 mcg (2,000 unit) capsule 50 mcg PO DAILY #1 cap 03/17/22 [Rx Last Taken Unknown] denosumab 60 mg/mL subcutaneous syringe (Prolia) 60 mg subcut E3LDIMEY #1 mL 04/13/22 [Rx Last Taken Unknown] levothyroxine 75 mcg tablet 75 mcg PO DAILY #90 tabs 01/04/23 [Rx Last Taken Unknown] Allergy/AdvReac Type Severity Reaction Status Date / Time Iodinated Contrast Media Allergy Nausea Verified 11/03/22 14:58 levofloxacin [From Levaquin] Allergy Unknown Verified 11/03/22 14:58 ranolazine [From Ranexa] Allergy Unknown Verified 11/03/22 14:58 sulfamethoxazole Allergy Unknown Verified 11/03/22 14:58 [From Bactrim] trimethoprim [From Bactrim] Allergy Unknown Verified 11/03/22 14:58 amoxicillin AdvReac Mild diarrhea Verified 11/03/22 14:58 Family History Mother Breast cancer CAD (coronary artery disease) Heart disease High cholesterol Hypertension Myocardial infarction Father Myocardial infarction Hypertension High cholesterol Heart disease CAD (coronary artery disease) Surgical History H/O angioplasty H/O: hysterectomy History of surgical removal of pituitary gland Hx of knee surgery S/P implantation of automatic cardioverter/defibrillator (AICD) S/P mastectomy Social History household members: spouse Smoking Status: Former smoker alcohol intake: current alcohol intake frequency: holidays/special occasions only Alcohol type: wine substance use type: does not use what type of physical activity do you participate in: walking ROS ROS ED Constitutional Constitutional ED: Reports body ache(s); Denies chills or fever(s) Eyes Eyes: Denies change in vision or diplopia ENT ENT ED: Denies rhinorrhea or sore throat Cardiovascular Cardiovascular: Reports chest pain, lightheadedness, palpitations and racing heartbeat; Denies leg edema Respiratory/Chest Respiratory/Chest: Reports dyspnea; Denies cough Gastrointestinal Gastrointestinal: Denies abdominal pain, diarrhea, nausea or vomiting Genitourinary Genitourinary ED: Denies dysuria or hematuria Musculoskeletal Musculoskeletal: Denies back pain or neck pain Integumentary Denies abscess or rash Neurologic Neurologic: Denies headache(s), paresthesias or weakness Psychiatric Psychiatric: Denies anxiety or suicidal thoughts EXAM Physical Exam Const Vital Signs: 02/17/23 00:35 02/17/23 01:51 02/17/23 01:51 Temperature 96.8 F L 98 F Temperature Source Temporal Temporal Pulse Rate 128 H Respiratory Rate 15 19 H Blood Pressure 112/70 68/54 L Blood Pressure Mean 84 58 Pulse Ox 98 98 Oxygen Delivery Method Room Air Room Air 02/17/23 02:20 Temperature 98 F Temperature Source Temporal Pulse Rate 74 Respiratory Rate 15 Blood Pressure 101/74 Blood Pressure Mean 83 Pulse Ox 99 Oxygen Delivery Method Room Air Positive well nourished and well developed General Appearance ED: well developed and NAD HEENT Reports moist mucous membranes normocephalic and atraumatic Eyes PERRL and EOMs intact bilaterally Neck full ROM and supple Resp normal respiratory effort and clear to auscultation bilaterally Cardio regular rate, regular rhythm and no murmurs Rate: tachycardic GI non-tender and non-distended Auscultation: normoactive bowel sounds Palpation: soft Back/Spine no CVA tenderness General Back: other FROM Extremity normal to inspection General Extremety ED: Negative for edema, pulses abnormal or tenderness General Extremity: Negative for edema or pulses abnormal Neuro oriented x3, CN's II-XII intact bilaterally and no sensory deficits noted Sensorium / Orientation: awake and alert Motor Exam: strength 5/5 throughout Skin no rashes or lesions noted and no wounds Heart Score History: Highly Suspicious ECG: Nonspecific Repolarization Age: >45 - <65 years Risk Factors: >/= 3 Risk Factors or History of CAD Troponin: </= Normal Limit Score: 6 MDM MDM MDM Narrative Medical decision making narrative: Patient gave verbal consent to giving adenosine to see if that would break her tachycardia, 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 We gave her adenosine 6 mg, this gave her a pause, which then made her pacemaker kick in which made it difficult to interpret, but it did not break the rhythm. I printed the rhythm strips and on my interpretation they appear to be A-fib underlying. She is still going at the 130s, there was one blood pressure reading that was 68 we think it was incorrect the next reading was 110 systolic, so I am given her Cardizem to slow her down some while awaiting work-up. She is clinically stable. Not long after the Cardizem, heart rate went down to the 70s, I repeated EKG, it does appear to be atrial fibrillation. No acute injury pattern. On reevaluation the patient's pressure is remained stable and she feels much better, her chest discomfort is resolved. We observed her for a while and did a repeat 2-hour troponin. It came back elevated compared with the initial 1 although it is still within the normal range, her initial measurement was 6, the second measurement was 36. On reevaluation her heart rate is in the 90s, she is chest pain-free, blood pressure in the 90s as well. Given this change in her heart score of 6 and her complex medical/cardiac history, I recommend inpatient observation, patient is amenable. History & Record Review Additional record(s) reviewed:: Prior outpatient record (Cardiology 2018: Complex and long cardiac history) Lab Data Attestation: I reviewed the patient's lab results. Labs: Laboratory Results - last 24 hr 02/17/23 02/17/23 02/17/23 01:58 01:58 04:14 WBC 9.1 RBC 4.02 L Hgb 12.2 Hct 39.7 MCV 98.8 MCH 30.3 MCHC 30.7 L RDW Std Deviation 43.8 RDW Coeff of Yared 11.9 Plt Count 168 MPV 11.4 Immature Gran % (Auto) 0.400 Neut % (Auto) 62.3 Lymph % (Auto) 26.5 Cottle % (Auto) 8.1 Eos % (Auto) 1.9 Baso % (Auto) 0.8 Absolute Neuts (auto) 5.7 Absolute Lymphs (auto) 2.40 Nucleated RBC % 0 Sodium 145 Potassium 3.5 Chloride 117 H Carbon Dioxide 22.0 Anion Gap 6 BUN 16 Creatinine 0.64 Estim Creat Clear Calc 76.68 Est GFR (MDRD) Af Amer 121 Est GFR (MDRD) Non-Af 100 BUN/Creatinine Ratio 25.1 H Glucose 88 Calcium 7.4 L Troponin I High Sens 6 36 Radiography Diagnostic Testing: Clinical Impression(s) from Imaging Studies Chest X-Ray 02/17/23 01:02 IMPRESSION: Stable chest. Cardiomegaly and postoperative changes. Electronically Signed: Salome Wayne MD at 2:58 EDT , Rhythm Strip Rhythm Strip: svt Rate: 130 Ectopy: None EKG Initial EKG: Attestation: I personally reviewed and interpreted this EKG as follows: Interpretation: No Acute Injury Pattern, Non-Specific ST Changes and - (narrow-complex tachycardia of unk etiology; regular) Prior EKG tracings: available for review Prior: Unchanged (w/r/t QRS and morphology, axis) Follow-up EKG: Attestation: I personally reviewed and interpreted this EKG as follows: Interpretation: No Acute Injury Pattern, Atrial Fibrillation (rate 84, irreg) and Non-Specific ST Changes Comments: multifocal PVCs Discharge Plan Dx/Rx/DC Orders Clinical Impression: Atrial fibrillation with RVR, Chest pain Disposition Disposition: Acute Care [facility]
[2023-02-17] MEDS: Adenosine 6 MG/2 ML Syringe IV (01:49)
[2023-02-17 02:06] LABS: Absolute Neutrophil Count 5.7 X10^3/uL (2.0-7.7); Basophil# 0.07 X10^3/uL; Basophil% 0.8 % (0-1); Eosinophil# 0.17 X10^3/uL; Eosinophils% 1.9 % (0-5); Hematocrit 39.7 % (37-47); Hemoglobin 12.2 g/dL (12.0-15.0); Lymphocyte % 26.5 % (19-41); Mean Corp Hgb Conc 30.7 g/dL (32-36); Mean Corpuscular Hgb 30.3 pg (27.0-32.0); Mean Corpuscular Volume 98.8 fL (81-99); Mean Platelet Vol. 11.4 fl (6.2-12.0); Monocyte# 0.73 X10^3/uL; Monocyte% 8.1 % (0-10); NRBC Flagged by Analyzer 0 % (0-5); Neutrophil # 5.65 X10^3/uL (2.7-7.7); Neutrophil % 62.3 % (47-70); Platelet Count 168 K/mm3 (150-450); RBC Distribution Width CV 11.9 % (11.6-14.6); RBC Distribution Width SD 43.8 fl (35.1-43.9); Red Blood Count 4.02 M/mm3 (4.2-5.4); White Blood Count 9.1 K/mm3 (4.4-11.0)
[2023-02-17 02:24] LABS: Anion Gap 6 (5-15); BUN 16 mg/dL (7-18); BUN/Creat Ratio 25.1 RATIO (10-20); Calcium,Total 7.4 mg/dL (8.5-10.1); Chloride 117 mmol/L (98-107); Creatinine, Serum 0.64 mg/dL (0.55-1.02); EST Glomerular Filtration Rate 100 mL/min (>60); Est Glom Filt Rate - Afr Amer 121 mL/min (>60); Estimated Creatinine Clearance 76.68 ml/min; Glucose 88 mg/dL (74-106); Potassium 3.5 mmol/L (3.5-5.1); Sodium Level 145 mmol/L (136-145); Troponin-I HS (w/2H Reflex) 6 pg/mL (3.0-54.0)
[2023-02-17] MEDS: dilTIAZem 25 MG/5 ML Vial 15 MG IV BOLUS (02:30)
[2023-02-17 04:01] LABS: Reflex Troponin-HS? (from REC) Y
[2023-02-17 04:47] LABS: Troponin-I HS 36 pg/mL (3.0-54.0)
--- NOTE | 2023-02-17 05:21 | EKG12_ITS ---
Test Reason : CP Blood Pressure : / mmHG Vent. Rate : 123 BPM Atrial Rate : 000 BPM P-R Int : 000 ms QRS Dur : 114 ms QT Int : 288 ms P-R-T Axes : 000 040 236 degrees QTc Int : 412 ms Atrial fibrillation with rapid ventricular response with premature ventricular or aberrantly conducte d complexes Low voltage QRS ST & T wave abnormality, consider inferior ischemia ST & T wave abnormality, consider anterolateral ischemia Abnormal ECG Confirmed by ROD ELIAS, SUPRIYA ([id number]), editor dictionary ELIEZER VELÁSQUEZ ([id number]) on 02/23/2023 9:10:04 AM Referred By: AMIE Confirmed By:SUPRIYA VELASCO MD
[2023-02-17 05:36] LABS: Magnesium 1.6 mg/dL (1.6-2.6)
--- NOTE | 2023-02-17 05:45 | HP.PCM_ITS ---
HPI - General General Date of Admission: 02/17/23 Date of Service: 02/17/23 Chief Complaint: Chest pain, palpitations. HPI Narrative The patient is a 58 y/o F w/ PMHx: Anxiety and Depression, CKD stage III, Morbid Obesity, HTN, HLD, Hypothyroidism, CAD s/p CABG and PCI, History of R Breast CA, Chronic Atrial Fibrillation s/p pacemaker, History of CVA, Cushings Syndrome, Obesity, Chronic Systolic CHF s/p AICD, Diabetes mellitus type II, Former Tobacco use, Gout who presents to the [facility] ED on 02/17/23 with history of onset chest discomfort described as a pressure/chest heaviness in the substernal region like sensation with palpitations/fluttering ongoing for 1 to 2 hours prior to ED arrival which came on suddenly noted to be mild to moderate in severity with associated dyspnea as well as lightheadedness not worsened by activity prompting eventual ED evaluation. Upon eventual ED arrival she notes her symptoms have lessened but still present. She does report of the last couple weeks she has been more fatigued and weak with mild myalgias with recent outpatient PCP evaluation with plan follow-up actually on day of presentation. He notes initial onset at its worst her chest discomfort was 8 out of 10 in severity, currently decreased to 5-6 out of 10 in severity. She notes it continues to komal since improvement of her rate. She notes her most recent evaluation per her java xml developer Dr. Lane was within the last couple months with no concerning issues at that time. Work-up in the ED included T98, heart rate 74, BP 101/74, respiratory rate 15, 99% on room air, CBC with WC 9.1, hemoglobin 12.2, platelet 168 without marked shift, BMP with chloride 117, calcium 7.4 otherwise not marked appearing, initial troponin 6 with repeat delta troponin 36, chest x-ray with stable cardiomegaly with postoperative changes with no ac leroy cardiopulmonary findings otherwise, rhythm strips with telemetry monitoring with significant tachycardia with unclear initial rhythm with adenosine administration with a pause prompting her pacemaker to going to affect within appearance of atrial fibrillation with RVR with Cardizem administration with heart rate decreased following into the 70s with an EKG obtained with atrial fibrillation rate controlled at that time with no acute evidence of ischemia. Following resolution of atrial fibrillation with RVR patient noted the palpitations and chest discomfort to significantly improved. In the ED patient administered 1 L normal saline, adenosine 6 mg IV x1, diltiazem 50 mg IV bolus x1 as well as aspirin 324 mg p.o. x1. [facility] Medical History Anterior pituitary disease Back problem Bone fracture Breast cyst Cardiac defibrillator in place Cardiac pacemaker Cataracts, bilateral Chest pain Gout H/O emotional problems Heart disease Heart failure Hyperparathyroidism Hypertension Hypothyroidism (acquired) Obesity Osteoporosis Prediabetes Seasonal allergies Stage 3 chronic kidney disease UTI (urinary tract infection) Home Medications gabapentin 600 mg tablet 600 mg PO .qid 06/23/21 [History Last Taken Unknown] lisinopril 10 mg tablet 5 mg PO DAILY 06/23/21 [History Last Taken Unknown] metoprolol tartrate 100 mg tablet 100 tablet PO BID 06/23/21 [History Last Taken Unknown] pravastatin 40 mg tablet 40 mg PO DAILY 06/23/21 [History Last Taken Unknown] spironolactone 25 mg-hydrochlorothiazide 25 mg tablet 1 tab PO DAILY 06/23/21 [History Last Taken Unknown] tramadol 50 mg tablet 50 mg PO 4X/DAY 06/23/21 [History Last Taken Unknown] aspirin 81 mg tablet,delayed release (Adult Low Dose Aspirin) 81 mg PO Q3D 08/01/21 [History Last Taken Unknown] multivitamin (Daily Multi-Vitamin tablet) 1 tab PO DAILY 08/01/21 [History Last Taken Unknown] atorvastatin 40 mg tablet 40 mg PO DAILY #90 tabs 03/17/22 [Rx Last Taken Unknown] cholecalciferol (vitamin D3) 50 mcg (2,000 unit) capsule 50 mcg PO DAILY #1 cap 03/17/22 [Rx Last Taken Unknown] denosumab 60 mg/mL subcutaneous syringe (Prolia) 60 mg subcut [id number] #1 mL 04/13/22 [Rx Last Taken Unknown] levothyroxine 75 mcg tablet 75 mcg PO DAILY #90 tabs 01/04/23 [Rx Last Taken U nknown] Allergy/AdvReac Type Severity Reaction Status Date / Time Iodinated Contrast Media Allergy Nausea Verified 11/03/22 14:58 levofloxacin [From Levaquin] Allergy Unknown Verified 11/03/22 14:58 ranolazine [From Ranexa] Allergy Unknown Verified 11/03/22 14:58 sulfamethoxazole Allergy Unknown Verified 11/03/22 14:58 [From Bactrim] trimethoprim [From Bactrim] Allergy Unknown Verified 11/03/22 14:58 amoxicillin AdvReac Mild diarrhea Verified 11/03/22 14:58 Family History Mother Breast cancer CAD (coronary artery disease) Heart disease High cholesterol Hypertension Myocardial infarction Father Myocardial infarction Hypertension High cholesterol Heart disease CAD (coronary artery disease) Surgical History H/O angioplasty H/O: hysterectomy History of surgical removal of pituitary gland Hx of knee surgery S/P implantation of automatic cardioverter/defibrillator (AICD) S/P mastectomy Social History (Updated 02/17/23 @ 05:[address] Sherly Goldberg MD) household members: spouse Smoking Status: Former smoker how long ago did patient quit smoking: Quit ~ 14 years prior, smoked 1 ppd since teen until quit. alcohol intake: current alcohol intake frequency: holidays/special occasions only Alcohol type: wine substance use type: does not use what type of physical activity do you participate in: walking ROS ROS Narrative Admission Review of Systems: CONSTITUTIONAL: No weight loss, fever, chills, + body aches weakness or fatigue. HEENT: Eyes: No visual loss, blurred vision, double vision or yellow sclerae. Ears, Nose, Throat: No hearing loss, sneezing, congestion, runny nose or sore throat. SKIN: No rash or itching, lesions, wounds. CARDIOVASCULAR: + Lightheadedness chest pain, chest pressure or chest discomfort, palpitations, No edema, orthopnea, syncopal events. RESPIRATORY: No shortness of breath, cough or sputum, wheezing, hemoptysis. GASTROINTESTINAL: No anorexia, nausea, vomiting or diarrhea, abdominal pain, melena, BRBPR. GENITOURINARY: No dysuria, frequency, urgency or retention. NEUROLOGICAL: + Lightheadedness, no headache, dizziness, syncope, paralysis, ataxia, numbness or tingling in the extremities, focal weakness, change in bowel or bladder control, seizure. MUSCULOSKELETAL: + muscle, back pain, joint pain or stiffness. HEMATOLOGIC: No anemia, bleeding or bruising. LYMPHATICS: No enlarged nodes. No history of splenectomy. PSYCHIATRIC: + history of depression or anxiety. ENDOCRINOLOGIC: No reports of sweating, cold or heat intolerance. No polyuria or polydipsia. ALLERGIES: No history of asthma, hives, eczema or rhinitis. Vital Signs Vital Signs Vital Signs: 02/17/23 00:35 02/17/23 01:51 02/17/23 01:51 Temperature 96.8 F L 98 F Temperature Source Temporal Temporal Pulse Rate 128 H Respiratory Rate 15 19 H Blood Pressure 112/70 68/54 L Blood Pressure Mean 84 58 Pulse Ox 98 98 Oxygen Delivery Method Room Air Room Air 02/17/23 02:20 Temperature 98 F Temperature Source Temporal Pulse Rate 74 Respiratory Rate 15 Blood Pressure 101/74 Blood Pressure Mean 83 Pulse Ox 99 Oxygen Delivery Method Room Air Weight Weight: 211 lb 13.828 oz Body Mass Index (BMI) 36.3 Physical Exam Narrative Physical Examination: General: Awake, alert, oriented x 3 and cooperative, seated upright in the ED bed, fatigued, anxious, notes her chest discomfort is improving, currently 5-6 out of 10 in severity. Skin: Normal color, normal turgor, no icterus, no cyanosis. HEENT: AT/NC, EOMI, PERRLA, mildly dry MM, no carotid bruits or JVD noted; however, thickened neck makes evaluation very difficult. Lungs: Mildly diminished, greater bases, appropriate effort, no rales, ronchi or wheezing. Heart: Regular, currently rate in the 90s on telemetry but vacillate; no gallop, rub audible. Abdomen: Soft, obese, NTTP, no obvious distention but habitus makes evaluation difficult, distant normal BS, no obvious HSM however habitus makes evaluation difficult Extremities: No cyanosis, clubbing, or edema. Neurological: Patient awake, alert, oriented as noted, cognitive function intact; pupils equally reactive to light and accommodation, cranial nerves II- XII grossly normal, moving all 4 extremities, no focal deficits, strength moderately global decrease secondary to acute complaints/presentation Psychiatric: Affect appears anxious, tearful, notes this event was very scary for her, does have underlying depressive and anxiety history. Results Lab / Micro Data Result Diagrams: 02/17/23 01:58 02/17/23 01:58 Labs: Laboratory Results - last 24 hr 02/17/23 01:58: WBC 9.1, RBC 4.02 L, Hgb 12.2, Hct 39.7, MCV 98.8, MCH 30.3, MCHC 30.7 L, RDW Std Deviation 43.8, RDW Coeff of Yared 11.9, Plt Count 168, MPV 11.4, Immature Gran % (Auto) 0.400, Neut % (Auto) 62.3, Lymph % (Auto) 26.5, Sebastian % (Auto) 8.1, Eos % (Auto) 1.9, Baso % (Auto) 0.8, Absolute Neuts (auto) 5.7, Absolute Lymphs (auto) 2.40, Nucleated RBC % 0 02/17/23 01:58: Sodium 145, Potassium 3.5, Chloride 117 H, Carbon Dioxide 22.0, Anion Gap 6, BUN 16, Creatinine 0.64, Estim Creat Clear Calc 76.68, Est GFR (MDRD) Af Amer 121, Est GFR (MDRD) Non-Af 100, BUN/Creatinine Ratio 25.1 H, Glucose 88, Calcium 7.4 L, Troponin I High Sens 6 02/17/23 04:14: Troponin I High Sens 36 Rhythm Strip Rhythm Strip: svt Rate: 130 Ectopy: None Radiology Impression Chest X-Ray 02/17/23 01:02 IMPRESSION: Stable chest. Cardiomegaly and postoperative changes. Electronically Signed: Salome Wayne MD at 2:58 EDT Reading Location ID and State: [address] [place] [address] Tel , Service support , Assessment & Plan Assessment/Plan (1) Chest pain: PLAN: Plan The patient is a 58 y/o F w/ PMHx: Anxiety and Depression, CKD stage III, Morbid Obesity, HTN, HLD, Hypothyroidism, CAD s/p CABG and PCI, History of R Breast CA, Chronic Atrial Fibrillation s/p pacemaker, History of CVA, Cushings Syndrome, Obesity, Chronic Systolic CHF s/p AICD, Diabetes mellitus type II, Former Tobacco use, Gout who presents to the [facility] ED on 02/17/23 with history of onset chest discomfort described as a pressure/chest heaviness in the substernal region like sensation with palpitations/fluttering ongoing for 1 to 2 hours prior to ED arrival which came on suddenly noted to be mild to moderate in severity with associated dyspnea as well as lightheadedness not worsened by activity prompting eventual ED evaluation. #1. Chest Pain suspected secondary to atrial fibrillation with RVR; however, notable cardiac underlying history: EKG in the ED once rate improved with evidence of atrial fibrillation rate controlled following Cardizem with no acute evidence of skin, CXR w/ no acute findings, initial trop 6 however repeat delta troponin 36 but again certainly could be because for ongoing persistent atrial fibrillation with RVR. Will admit to PCU, place on a monitored bed to assure no acute myocardial infarction with serial cardiac enzymes and EKGs. Most recent cardiac evaluation noted in the system 06/08/2022 cardiac stress testing. Most recent echocardiogram noted 05/26/2022 with EF 35%, mildly enlarged LA, trivial MVI, mild TVI, trivial MIKAELA, RVSP 28 mmHg with evidence of diastolic dysfunction. If repeat serial cardiac enzymes and EKGs remain unremarkable to be cautious we will pursue a.m. cardiac stress testing. FLP in AM. Magnesium level requested. #2. Chronic atrial fibrillation with RVR, resolved in the ED following interventions (rate controlled): Status post AICD/pacemaker remotely, given presentation with atrial fibrillation with RVR will request interrogation to assess onset timeline, Most recent echocardiogram noted 05/26/2022 with EF 35%, mildly enlarged LA, trivial MVI, mild TVI, trivial MIKAELA, RVSP 28 mmHg with evidence of diastolic dysfunction, will request echocardiogram given timeline of last to be cautious, TSH and magnesium level pending, will cycle cardiac e nzymes, will continue patient home metoprolol regimen however if necessary may redose with Cardizem or initiate drip. Given improvement with no drip currently needed will defer cardiology consultation at this time. Maintain on therapeutic lovenox. #3. CAD: s/p CABG and PCI, will maintain on aspirin, statin, metoprolol, lisinopril, planned evaluation of #1 and #2 is noted. #4. Chronic Systolic CHF: Compensated, chest x-ray with no acute cardiopulmonary findings, will maintain on aspirin, statin, spironolactone, lisinopril, metoprolol regimen. #5. Reported prediabetic history: Noted history, not on regimen, obtain HgBA1c, if hemoglobin A1c is appropriate we will transition once diet allowed to ADA diet with Accu-Cheks with insulin sliding scale. #6. Chronic Kidney Disease Stage III, unclear subtype: Admission BUN/Cr 16/0.6, baseline noted prior primarily 0.9-1.5, continue to trend as needed. #7. Hypertension: Continue home regimen including lisinopril, metoprolol, spironolactone, PRN hydralazine. #8. Hyperlipidemia: Continue home statin regimen. AM FLP. #9. Hypothyroidism: Continue home levothyroxine regimen. #10. History CVA: We will continue aspirin, hypertensive regimen, diabetic regimen with alterations as noted, continue statin therapy #11. Morbid Obesity: Weight loss and lifestyle changes encouraged. #12. Anxiety and Depression: Per current list noted not on any regimen, previously been on Paxil and Ativan, clarifying and will add if appropriate. #13. Former Tobacco use: Encourage continued tobacco cessation. #14. History of R Breast CA: s/p mastectomy, considered in remission. #15. DVT prophylaxis: Therapeutic lovenox. #16. CODE status: Patient HCPOA is and living will is currently in place. Discussed CODE status at length including difference between FULL code, DNR-CCA and DNR-CC status. Following discussions about the differences in these status, requested DNR-CCA, no intubation status. Advanced Care Planning Face to Face Time: 16 minutes. Admission Evaluation Time spent evaluating chart, patient history, patient evaluation, care planning and discussion with specialists: 76 minutes. Charges/Coding Visit Charges Inpatient E&M: 64932 Init Hosp L3 Procedures Hospitalists Procedures: 22892 Advncd Care Plan 30 Min
--- NOTE | 2023-02-17 06:18 | ECHOD_ITS ---
Reason For Study: ATRIAL FIB-FLUTTER Procedure This was a 2D Doppler, Color Flow transthoracic echocardiogram. Exam performed portable in patient room. Left Ventricle Mildly dilated left ventricle. The estimated ejection fraction is 25 %. Moderately severe segmental systolic dysfunction (see wall motion). Infero-Basal: Akinetic. Basal inferoseptal: Akinetic. Posterior-Basal: Akinetic. Mid-Posterior: Akinetic. Mid-Lateral : Normal. Lateral-Basal: Normal. The rest of the wall segments are hypokinetic. Right Ventricle Normal RV size. ICD or pacer leads identified within the right ventricle. Normal systolic function. Atria Normal left atrium. Normal right atrium. Mitral Valve Normal mitral valve. Mild (1+) eccentric mitral valve insufficiency. Tricuspid Valve Normal tricuspid valve. Aortic Valve Trisinus/trileaflet aortic valve. Pulmonic Valve The pulmonic valve is not well visualized. Great Vessels Normal aortic root. The pulmonary artery is normal size. Normal inferior vena cava. Pericardium/Pleural No pericardial effusion. MMode/2D Measurements & Calculations LVIDd: 6.1 cm IVSd: 0.96 cm Ao root diam: 3.5 cm LVIDs: 5.5 cm LVPWd: 0.67 cm RVDd: 3.5 cm FS: 9.7 % LAV(MOD-bp): 56.6 ml LVAd ap4: 38.6 cm2 SV(MOD-sp4): 53.1 ml LAV(MOD-bp) Indexed: 28.7 ml/m2 LVLd ap4: 9.0 cm LAV(MOD-sp2): 57.1 ml EDV(MOD-sp4): 142.1 ml LAV(MOD-sp4): 57.1 ml EDV(sp4-el): 141.0 ml LVAs ap4: 29.2 cm2 LVLs ap4: 8.4 cm ESV(MOD-sp4): 88.9 ml ESV(sp4-el): 86.1 ml EF(MOD-sp4): 37.4 % EF(sp4-el): 39.0 % SV(sp4-el): 55.0 ml LA A4 area: 20.5 cm2 LA dimension(2D): 4.4 cm RA A4 area: 17.0 cm2 Doppler Measurements & Calculations Ao V2 max: 112.9 cm/sec LV V1 max: 89.4 cm/sec PA V2 max: 65.5 cm/sec Ao max P.2 mmHg LV V1 max P.3 mmHg ECHO/Echo Complete Interpretation Summary Mildly dilated left ventricle. The estimated ejection fraction is 25 %. Moderately severe segmental systolic dysfunction (see wall motion). Compared to the previous there is segmental wall motion abnormalities similar b ut the left ventricular ejection fraction is reduced. Ordering Physician: Sherly Goldberg Referring Physician: ABY BULLARD Performed By: Cookie Philip RDCS
--- NOTE | 2023-02-17 06:18 | EKG12_ITS ---
Test Reason : CP Blood Pressure : / mmHG Vent. Rate : 114 BPM Atrial Rate : 000 BPM P-R Int : 000 ms QRS Dur : 114 ms QT Int : 332 ms P-R-T Axes : 000 039 246 degrees QTc Int : 457 ms Atrial fibrillation with rapid ventricular response ST & T wave abnormality, consider inferior ischemia ST & T wave abnormality, consider anterolateral ischemia Abnormal ECG When compared with ECG of 17-FEB-2023 02:53, Atrial fibrillation has replaced Electronic ventricular pacemaker Confirmed by ROD ELIAS, SUPRIYA ([id number]), editorial clerk ELIEZER VELÁSQUEZ ([id number]) on 02/23/2023 9:10:17 AM Referred By: AMIE Confirmed By:SUPRIYA VELASCO MD
[2023-02-17] MEDS: 0.9% Normal Saline 1,000 ML 100 ML IV (06:41)
[2023-02-17] MEDS: Acetaminophen 325 MG Tablet 650 MG PO (06:56)
[2023-02-17] MEDS: Levothyroxine 75 MCG Tablet PO (06:57)
[2023-02-17] MEDS: Gabapentin 600 MG Tablet PO ×3 (06:57→22:17)
[2023-02-17] MEDS: 0.9% Saline Lock 10 ML Syringe IV (06:59)
[2023-02-17 07:20] LABS: Bedside Glucose 78 mg/dL (74-106)
--- NOTE | 2023-02-17 07:50 | PCM.HOSP.N ---
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 Patient has history of chronic A-fib and has defibrillator. Follows outside green ware caster Dr. Riccardo du, [facility]. Patient has body aches/myalgia for last couple weeks. No fever. No dysuria or features of acute new LUTS. 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 Twelve-lead EKG shows initial Soules A-fib with RVR at 114 bpm QTc 457 ms. Second EKG at 9:55 AM shows A-fib with RVR 123 bpm. Patient has history of chronic A-fib and had 2 ablations last 1 2 years ago. She also had defibrillator with pacemaker exact indication unclear. She follows outside green ware caster. Patient felt flutter waves at the time of chest pain with radiation to left arm. Serial troponin 2 normal 31, mildly elevated 90. Patient still feels flutter waves but no chest pain or pressure. Stress test was canceled as heart rate is stable around 120s on embryology teacher and the patient not on baseline. I do not think patient had ACS. Echo is ordered. Lungs clear, air entry bilateral equal. heart: Irregular, no murmur gallop or rub. Left subclavicular defibrillator. Patient on metoprolol 100 mg twice daily, enoxaparin therapeutic dose. Cardizem 60 mg every 6 hourly added along with metoprolol 5 mg IV as needed for heart rate more than 120/min. K3.5. Magnesium 1.6. We will try to optimize, serum potassium around 4 and magnesium around 2.0. Laboratory Results 02/17/23 01:58: WBC 9.1, RBC 4.02 L, Hgb 12.2, Hct 39.7, MCV 98.8, MCH 30.3, MCHC 30.7 L, RDW Std Deviation 43.8, RDW Coeff of Yared 11.9, Plt Count 168, MPV 11.4, Immature Gran % (Auto) 0.400, Neut % (Auto) 62.3, Lymph % (Auto) 26.5, Hall % (Auto) 8.1, Eos % (Auto) 1.9, Baso % (Auto) 0.8, Absolute Neuts (auto) 5.7, Absolute Lymphs (auto) 2.40, Nucleated RBC % 0 02/17/23 01:58: Sodium 145, Potassium 3.5, Chloride 117 H, Carbon Dioxide 22.0, Anion Gap 6, BUN 16, Creatinine 0.64, Estim Creat Clear Calc 76.68, Est GFR (MDRD) Af Amer 121, Est GFR (MDRD) Non-Af 100, BUN/Creatinine Ratio 25.1 H, Glucose 88, Calcium 7.4 L, Troponin I High Sens 6 02/17/23 04:14: Troponin I High Sens 36 02/17/23 04:14: Magnesium 1.6 02/17/23 06:46: POC Glucose 78 02/17/23 07:55: Troponin I High Sens 90 H
[2023-02-17 08:44] LABS: Troponin-I HS 90 pg/mL (3.0-54.0)
[2023-02-17] MEDS: traMADol 50 MG Tablet PO ×4 (09:59→22:17)
[2023-02-17] MEDS: Multivitamins,Therapeutic Tablet 1 TABLET PO (09:59)
[2023-02-17] MEDS: Morphine 2 MG/ML Syringe IV (10:00)
[2023-02-17] MEDS: hydroCHLOROthiazide 25 MG Tablet PO (10:30)
[2023-02-17] MEDS: Spironolactone 25 MG Tablet PO (10:30)
[2023-02-17] MEDS: Potassium Chloride Oral Tablet 20 MEQ 40 MEQ PO (10:30)
[2023-02-17] MEDS: Metoprolol Tartrate 100 MG Tablet PO ×2 (10:30→22:06)
[2023-02-17] MEDS: Lactated Ringers 1,000 ML 75 ML IV (12:07)
[2023-02-17] MEDS: dilTIAZem 60 MG Tablet PO ×3 (12:27→23:06)
[2023-02-17 14:15] LABS: Bedside Glucose 104 mg/dL (74-106)
--- NOTE | 2023-02-17 14:40 | CHAPLAIN ---
Type of Pastoral Visit _x__ Initial Visit ___ Follow-up Visit ___ On-call Visit ___ General Patient Visit ___ Spiritual Assessment ___ Family Conference ___ Bereavement ___ Rapid Response ___ Code Blue ___ Other (describe below) Pastoral Care Referral From _x__ Patient ___ Family ___ Nurse ___ Physician ___ Debubblizer ___ Manager Business Development [facility] ___ Other (describe below) Sacrament/Intervention _x__ Active listening ___ Anointing ___ Catholic ___ Bereavement ___ Communion _x__ Rere exploration ___ ___ Life review _x__ Prayer ___ Reconciliation ___ Sacrament of Sick _x__ Supportive presence ___ Wedding ___ Other (describe below) Pastoral Comments patient expresses some anxieties at being in the hospital and not able to sleep/rest; pt concerned about going home soon; pt speaks of medical and spiritual issues in the family as well; pt welcomes presence and prayer
[2023-02-17 18:15] LABS: Bedside Glucose 130 mg/dL (74-106)
[2023-02-17] MEDS: Enoxaparin 100 MG/ML Syringe SC (22:06)
[2023-02-17] MEDS: Atorvastatin Calcium 40 MG Tablet PO (22:07)
[2023-02-17 23:31] LABS: Bedside Glucose 79 mg/dL (74-106)
[2023-02-18] MEDS: dilTIAZem 25 MG/5 ML Vial 10 MG IV BOLUS (01:06)
[2023-02-18 01:10] VITALS: BP 101/60; PULSE 120
[2023-02-18 04:00] VITALS: BP 111/62; PULSE 62; RESP 18; TEMP 36.5; O2SAT 94
[2023-02-18 04:54] VITALS: BMI 35.8
[2023-02-18 04:55] LABS: Absolute Lymphocyte Count 2.81 X10^3/uL (0.83-4.51); Absolute Neutrophil Count 6.3 X10^3/uL (2.0-7.7); Basophil# 0.07 X10^3/uL; Basophil% 0.7 % (0-1); Eosinophil# 0.16 X10^3/uL; Eosinophils% 1.6 % (0-5); Hematocrit 43.3 % (37-47); Hemoglobin 13.6 g/dL (12.0-15.0); Lymphocyte # 2.81 X10^3/ul (0.83-4.51); Lymphocyte % 27.7 % (19-41); Mean Corp Hgb Conc 31.4 g/dL (32-36); Mean Corpuscular Hgb 30.6 pg (27.0-32.0); Mean Corpuscular Volume 97.5 fL (81-99); Monocyte# 0.75 X10^3/uL; Monocyte% 7.4 % (0-10); NRBC Flagged by Analyzer 0 % (0-5); Neutrophil # 6.33 X10^3/uL (2.7-7.7); Neutrophil % 62.4 % (47-70); Platelet Count 165 K/mm3 (150-450); RBC Distribution Width SD 43.2 fl (35.1-43.9); Red Blood Count 4.44 M/mm3 (4.2-5.4); White Blood Count 10.1 K/mm3 (4.4-11.0)
[2023-02-18 05:30] LABS: ALB/GLOB Ratio 1.2 RATIO (0.9-2.4); AST(SGOT) 21 U/L (15-37); Alanine Aminotransfer ALT/SGPT 24 U/L (13-56); Albumin, Serum 3.5 g/dL (3.2-5.0); Alkaline Phosphatase 71 U/L (45-117); Anion Gap 8 (5-15); BUN 15 mg/dL (7-18); BUN/Creat Ratio 20.5 RATIO (10-20); Calcium,Total 9.2 mg/dL (8.5-10.1); Chloride 109 mmol/L (98-107); Cholesterol 120 mg/dL (200); Creatinine, Serum 0.73 mg/dL (0.55-1.02); EST Glomerular Filtration Rate 85 mL/min (>60); Est Glom Filt Rate - Afr Amer 103 mL/min (>60); Estimated Creatinine Clearance 67.23 ml/min; Glucose 102 mg/dL (74-106); High Density Lipoprotein 48 mg/dL; Potassium 4.3 mmol/L (3.5-5.1); Protein, Total 6.5 g/dL (6.4-8.2); Sodium Level 140 mmol/L (136-145); Thyroid Stim Hormone (TSH) 2.22 uIU/mL (0.358-3.74); Triglycerides 118 mg/dL; Very Low Density Lipoprotein 24 mg/dL (5-40)
[2023-02-18] MEDS: Gabapentin 600 MG Tablet PO (06:11)
[2023-02-18] MEDS: Levothyroxine 75 MCG Tablet PO (06:13)
[2023-02-18] MEDS: dilTIAZem 60 MG Tablet PO (06:45)
[2023-02-18 07:10] LABS: Bedside Glucose 99 mg/dL (74-106)
--- NOTE | 2023-02-18 08:30 | PCM.CONS.C ---
Assessment & Plan Assessment/Plan (1) Chest pain: PLAN: Likely angina pectoris secondary to increased heart rate with atrial fibrillation with rapid ventricular response. Relieved with controlling heart rate. (2) Coronary artery disease: PLAN: History of CABG. Also history of percutaneous interventions. Presently asymptomatic. No further work-up at present. Wants to follow-up with her outside service captain. Continue beta-blockers. Continue aspirin. (3) Paroxysmal atrial fibrillation: PLAN: Ventricular rate controlled with beta-blockers and calcium channel blockers. Continue. Risk of thromboembolic phenomenon discussed with patient. Chronic oral anticoagulation offered. Risks and benefit explained. She understands and wishes to proceed. Start on apixaban 5 mg twice daily. (4) Cardiomyopathy: PLAN: Chronic systolic congestive heart failure. Continue beta-blockers. Continue Aldactone. Continue EMMY inhibitor. (5) Hypertension: PLAN: Controlled. (6) Dyslipidemia: PLAN: On atorvastatin. HPI Consult Data Date of Consult: 02/18/23 HPI Narrative Reason for Consultation: Chest pain HPI Narrative: The patient has a past medical history significant for coronary artery disease status post CABG and subsequently percutaneous interventions, he is free of atrial fibrillation status post ablation, chronic systolic congestive heart failure and cardiomyopathy status post ICD placement, diabetes mellitus and history of CVA. She presented to the emergency room with complaints of palpitations and anterior chest discomfort. She was noted to be in atrial fibrillation with rapid ventricular response. After controlling her heart rate, she is had complete resolution of her chest pain. Presently chest pain-free. According to the patient, she has had her last coronary intervention about a year ago. Denies any orthopnea. Denies any ankle edema. No paroxysmal nocturnal dyspnea. Before yesterday, she has not had any angina in a long while. Patient is expressing her wishes to go home today. [facility] Medical History Anterior pituitary disease Back problem Bone fracture Breast cyst Cardiac defibrillator in place Cardiac pacemaker Cataracts, bilateral Chest pain Gout H/O emotional problems Heart disease Heart failure Hyperparathyroidism Hypertension Hypothyroidism (acquired) Obesity Osteoporosis Prediabetes Seasonal allergies Stage 3 chronic kidney disease UTI (urinary tract infection) Home Medications gabapentin 600 mg tablet 600 mg PO .qid 06/23/21 [History Last Taken Unknown] lisinopril 10 mg tablet 5 mg PO DAILY 06/23/21 [History Last Taken Unknown] metoprolol tartrate 100 mg tablet 100 tablet PO BID 06/23/21 [History Last Taken Unknown] spironolactone 25 mg-hydrochlorothiazide 25 mg tablet 1 tab PO DAILY 06/23/21 [History Last Taken Unknown] tramadol 50 mg tablet 50 mg PO 4X/DAY 06/23/21 [History Last Taken Unknown] aspirin 81 mg tablet,delayed release (Adult Low Dose Aspirin) 81 mg PO Q3D 08/01/21 [History Last Taken Unknown] multivitamin (Daily Multi-Vitamin tablet) 1 tab PO DAILY 08/01/21 [History Last Taken Unknown] cholecalciferol (vitamin D3) 50 mcg (2,000 unit) capsule 50 mcg PO DAILY #1 cap 03/17/22 [Rx Last Taken Unknown] denosumab 60 mg/mL subcutaneous syringe (Prolia) 60 mg subcut [id number] #1 mL 04/13/22 [Rx Last Taken Unknown] levothyroxine 75 mcg tablet 75 mcg PO DAILY #90 tabs 01/04/23 [Rx Last Taken Unknown] atorvastatin 80 mg tablet 80 mg PO QHS 02/17/23 [History Last Taken Unknown] diazepam 5 mg tablet 5 mg PO TID PRN Anxiety 02/17/23 [History Last Taken Unknown] nitroglycerin 0.4 mg sublingual tablet 0.4 mg sublingual Q5M PRN Chest Pain 02/17/23 [History Last Taken Unknown] paroxetine HCl 40 mg tablet 40 mg PO DAILY 02/17/23 [History Last Taken Unknown] Allergy/AdvReac Type Severity Reaction Status Date / Time Iodinated Contrast Media Allergy Nausea Verified 11/03/22 14:58 levofloxacin [From Levaquin] Allergy Unknown Verified 11/03/22 14:58 ranolazine [From Ranexa] Allergy Unknown Verified 11/03/22 14:58 sulfamethoxazole Allergy Unknown Verified 11/03/22 14:58 [From Bactrim] trimethoprim [From Bactrim] Allergy Unknown Verified 11/03/22 14:58 amoxicillin AdvReac Mild diarrhea Verified 11/03/22 14:58 Family History Mother Breast cancer CAD (coronary artery disease) Heart disease High cholesterol Hypertension Myocardial infarction Father Myocardial infarction Hypertension High cholesterol Heart disease CAD (coronary artery disease) Surgical History H/O angioplasty H/O: hysterectomy History of surgical removal of pituitary gland Hx of knee surgery S/P implantation of automatic cardioverter/defibrillator (AICD) S/P mastectomy Social History (Updated 02/17/23 @ 05:[address] Sherly Goldberg MD) household members: spouse Smoking Status: Former smoker how long ago did patient quit smoking: Quit ~ 14 years prior, smoked 1 ppd since teen until quit. alcohol intake: current alcohol intake frequency: holidays/special occasions only Alcohol type: wine substance use type: does not use what type of physical activity do you participate in: walking Physical Exam Narrative Comfortable. No distress. Lying flat in the bed. Heart sounds 1 and 2 noted. Irregularly irregular. Chest clear to auscultation. Abdomen soft. Obese. Alert oriented x3. No ankle edema noted. Risk Stratification Risk Stratification Applicable: No Objective Data Vital Signs: Vital Signs Temp Pulse Resp BP Pulse Ox O2 Del Method 97.7 F L 62 18 111/62 94 Room Air 02/18/23 04:00 02/18/23 04:00 02/18/23 04:00 02/18/23 04:00 02/18/23 04:00 02/18/23 08:05 Oxygen Delivery Method Room Air Weight: 208 lb 12.444 oz Body Mass Index (BMI) 35.8 Intake & Output: Intake and Output for Last 24 Hours 02/16/23 02/17/23 02/18/23 23:59 23:59 23:59 Intake Total 2437.33 / 2687.33 1500 / 1500 Balance 2437.33 / 2687.33 1500 / 1500 Lab / Micro Data Result Diagrams: 02/18/23 04:06 02/18/23 04:06 Labs: Laboratory Results - last 24 hr 02/17/23 07:55: Troponin I High Sens 90 H 02/17/23 12:18: POC Glucose 104 02/17/23 17:28: POC Glucose 130 H 02/17/23 22:11: POC Glucose 79 02/18/23 04:06: WBC 10.1, RBC 4.44, Hgb 13.6, Hct 43.3, MCV 97.5, MCH 30.6, MCHC 31.4 L, RDW Std Deviation 43.2, RDW Coeff of Yared 12.0, Plt Count 165, MPV 12.0, Immature Gran % (Auto) 0.200, Neut % (Auto) 62.4, Lymph % (Auto) 27.7, [place] % (Auto) 7.4, Eos % (Auto) 1.6, Baso % (Auto) 0.7, Absolute Neuts (auto) 6.3, Absolute Lymphs (auto) 2.81, Nucleated RBC % 0 02/18/23 04:06: Sodium 140, Potassium 4.3, Chloride 109 H, Carbon Dioxide 23.0, Anion Gap 8, BUN 15, Creatinine 0.73, Estim Creat Clear Calc 67.23, Est GFR (MDRD) Af Amer 103, Est GFR (MDRD) Non-Af 85, BUN/Creatinine Ratio 20.5 H, Glucose 102, Calcium 9.2, Total Bilirubin 0.30, AST 21, ALT 24, Alkaline Phosphatase 71, Total Protein 6.5, Albumin 3.5, Globulin 3.0, Albumin/Globulin Ratio 1.2, Triglycerides 118, Cholesterol 120, LDL Cholesterol 48, VLDL Cholesterol 24, HDL Cholesterol 48, TSH 2.22 02/18/23 06:40: POC Glucose 99 Rhythm Strip Rhythm Strip: A-fib Ectopy: None Cardiology Labs/Tests 02/18/23 04:06: WBC 10.1, RBC 4.44, Hgb 13.6, Hct 43.3, MCV 97.5, MCH 30.6, MCHC 31.4 L, Plt Count 165, MPV 12.0, Immature Gran % (Auto) 0.200, Neut % (Auto) 62.4, Lymph % (Auto) 27.7, [place] % (Auto) 7.4, Eos % (Auto) 1.6, Baso % (Auto) 0.7, Absolute Neuts (auto) 6.3, Nucleated RBC % 0 02/18/23 04:06: Sodium 140, Potassium 4.3, Chloride 109 H, Carbon Dioxide 23.0, Anion Gap 8, BUN 15, Creatinine 0.73, Est GFR (MDRD) Af Amer 103, Est GFR (MDRD) Non-Af 85, BUN/Creatinine Ratio 20.5 H, Glucose 102, Calcium 9.2, Total Bilirubin 0.30, Triglycerides 118, Cholesterol 120, LDL Cholesterol 48, VLDL Cholesterol 24, HDL Cholesterol 48 Rhythm: EKG: Atrial fibrillation. T wave changes. ECHO: Ejection fraction 25%. Stress Test: Cardiac Cath: PCI: CT Surgery: Holter monitor: EPS: PPM: CXR: Chest CT Scan: Radiography Diagnostic Testing: Radiology Impression Echocardiogram 02/17/23 06:18 Interpretation Summary Mildly dilated left ventricle. The estimated ejection fraction is 25 %. Moderately severe segmental systolic dysfunction (see wall motion). Compared to the previous there is segmental wall motion abnormalities similar but the left ventricular ejection fraction is reduced. Ordering Physician: Sherly Goldberg Referring Physician: ABY BULLARD Performed By: Cookie Philip RDCS
--- NOTE | 2023-02-18 08:53 | DCINST_ITS ---
Discharge Instructions Diet Discharge Diet: 2000 mg Sodium Diet Activity Discharge Activity: Return to Normal Activity Weight Bearing Status: Weight bearing as tolerated Dressing / Incision Call your doctor if you observe: Fever of 101 or Higher, Coldness, Increased Pain, Numbness or Tingling, Change in Color, Inability to urinate, Inability to have a bowel movement, Using more than 1 pad per hour, Shortness of breath, Dizziness, Fainting spells, Swelling in the ankles, Chest pain, Prolonged hiccupping, Increased palpitations (irregular heartbeat) and Calf discomfort Follow Up Care When: IN 2 WEEKS Test Results: Test results from this visit will be discussed in further detail at your follow- up appointment, if applicable. Discharge Plan Admission Admit Date/Time: 02/17/23 05:13 Primary Reason for Your Visit: A-fib with RVR. Attending Provider: Elias Patel Primary Care Provider: Erik Barton Consulting Providers: Sherly Goldberg ; Regina Barrera Instructions Additional Instructions / Restrictions: Follow-up outside conductor freight, Dr Lane in 2 weeks. Discharge Orders/Prescriptions Prescriptions: New diltiazem HCl [Cardizem CD] 240 mg capsule,extended release 24hr 240 mg PO DAILY Qty: 30 2RF Eliquis 5 mg tablet 5 mg PO BID 30 Days Qty: 60 0RF Continued gabapentin 600 mg tablet 600 mg PO .qid tramadol 50 mg tablet 50 mg PO 4X/DAY metoprolol tartrate 100 mg tablet 100 tablet PO BID Rx Instructions: pt states she takes 1-2 times daily spironolacton-hydrochlorothiaz 25-25 mg tablet 1 tab PO DAILY lisinopril 10 mg tablet 5 mg PO DAILY Label Comments: 10MG AT NIGHT, pt states she takes 1-2 tabs daily aspirin [Adult Low Dose Aspirin] 81 mg tablet,delayed release (DR/EC) 81 mg PO Q3D multivitamin [Daily Multi-Vitamin] Tablet 1 tab PO DAILY cholecalciferol (vitamin D3) 50 mcg (2,000 unit) capsule 50 mcg PO DAILY Qty: 1 0RF Prolia 60 mg/mL syringe 60 mg subcut [id number] Qty: 1 1RF atorvastatin 80 mg Tablet 80 mg PO QHS nitroglycerin 0.4 mg Tablet, Sublingual 0.4 mg SUBLINGUAL Q5M PRN (Reason: Chest Pain) Rx Instructions: do not exceed 3 doses per episode paroxetine HCl 40 mg Tablet 40 mg PO DAILY diazepam 5 mg Tablet 5 mg PO TID PRN (Reason: Anxiety) levothyroxine 75 mcg tablet 75 mcg PO DAILY Qty: 90 3RF Referrals / Follow Up: Erik Barton MD [Primary Care Provider] - Within 1 Week Disposition Disposition (needs filled in before D/C Order can be placed): Home, Self Care
--- NOTE | 2023-02-18 09:00 | PCM.DC.SUM ---
Providers Date of Admission: 02/17/23 Date of Discharge: 02/18/23 Primary Care Physician: Dr. Erik Bullard MD Consultations 02/18/23 08:03 Consult: Cardiology Routine Consulting Provider: Regina Barrera Reason for Consult: Significant decrease LV, ECHO, Afib RVR EMERGENT Consult: No MD Notified: Yes Date Notified: 02/18/23 Time Notified: 08:03 Method of Notification: Text Reason For Visit: CHEST PAIN, PAF W/ RVR Diagnosis Discharge Diagnosis (1) Chest pain: Status: Acute Code(s): R07.9 - Chest pain, unspecified (2) Coronary artery disease: Status: Acute Code(s): I25.10 - Atherosclerotic heart disease of lummi coronary artery without angina pectoris (3) Paroxysmal atrial fibrillation: Status: Acute Code(s): I48.0 - Paroxysmal atrial fibrillation (4) Cardiomyopathy: Status: Acute Code(s): I42.9 - Cardiomyopathy, unspecified (5) Hypertension: Status: Chronic Code(s): I10 - Essential (primary) hypertension (6) Dyslipidemia: Status: Acute Code(s): E78.5 - Hyperlipidemia, unspecified Plan This 62-year-old female with history of coronary artery status post CABG in 1998 and PCI, paroxysmal A-fib status post ablation was admitted with sudden onset of chest heaviness, palpitations/flutter for 1 to 2 hours prior to ED arrival. Patient has history of chronic A-fib and has defibrillator. Follows outside commercial technician Dr. Riccardo Lane, [facility]. Patient has body aches/myalgia for last couple weeks. No fever. No dysuria or features of acute new LUTS. 1. A-fib with RVR. Patient was admitted in PCU.alarm security or surveillance monitor showed patient A-fib with RVR. Twelve-lead EKG shows initial [place] A-fib with RVR at 114 bpm QTc 457 ms. Second EKG at 9:55 AM shows A-fib with RVR 123 bpm. Patient has history of chronic A-fib and had 2 ablations last 2 years ago. She also had defibrillator with pacemaker exact indication unclear. She follows outside commercial technician. Heart rate was controlled with addition of Cardizem and patient was initially on enoxaparin. Electrolytes were optimized. 2. Atypical chest pressure/pain chronic systolic heart failure status post AICD: Patient felt flutter waves at the time of chest pain with radiation to left arm. Serial troponin 2 normal 31, 31 mildly elevated 90. Patient still feels flutter waves but no chest pain or pressure. Chest pressure resolved with control of the heartbeat. Stress test was canceled as heart rate is stable around 120s on alarm security or surveillance monitor and the patient not on baseline. I do not think patient had ACS. Echo Was done and reported EF 25%, moderately severe segmental systolic dysfunction but compared to previous LV EF has decreased from 35% in April 2022. Travel Med Surg Rn was consulted in view of decreased EF. Was evaluated by commercial technician and patient asymptomatic. No further work-up recommended at this time. Advised to continue metoprolol and aspirin. Cardizem CD 240 mg daily added and started on Eliquis 5 mg twice daily. Of note, patient was on Eliquis for about 1 year but it was discontinued as she was in sinus rhythm. Denies any significant history of GI bleed or external bleeding. Risk and benefits of anticoagulant discussed. Discharge medication reconciliation done. Discharge follow-up instructions completed. Discharge process discussed with the patient and all questions were answered to patient's satisfaction. Total time spent, exact 35 minutes on discharge meds reconciliation, examination, coordination of care with nurses and ancillary staff, review of imaging and blood test and discussion with the patient on follow-up instructions. Medications at Discharge Home Medications gabapentin 600 mg tablet 600 mg PO .qid 06/23/21 lisinopril 10 mg tablet 5 mg PO DAILY 06/23/21 metoprolol tartrate 100 mg tablet 100 tablet PO BID 06/23/21 spironolactone 25 mg-hydrochlorothiazide 25 mg tablet 1 tab PO DAILY 06/23/21 tramadol 50 mg tablet 50 mg PO 4X/DAY 06/23/21 aspirin 81 mg tablet,delayed release (Adult Low Dose Aspirin) 81 mg PO Q3D 08/01/21 multivitamin (Daily Multi-Vitamin tablet) 1 tab PO DAILY 08/01/21 cholecalciferol (vitamin D3) 50 mcg (2,000 unit) capsule 50 mcg PO DAILY #1 cap 03/17/22 denosumab 60 mg/mL subcutaneous syringe (Prolia) 60 mg subcut [id number] #1 mL 04/13/22 levothyroxine 75 mcg tablet 75 mcg PO DAILY #90 tabs 02/06/23 atorvastatin 80 mg tablet 80 mg PO QHS 02/17/23 diazepam 5 mg tablet 5 mg PO TID PRN Anxiety 02/17/23 nitroglycerin 0.4 mg sublingual tablet 0.4 mg sublingual Q5M PRN Chest Pain 02/17/23 paroxetine HCl 40 mg tablet 40 mg PO DAILY 02/17/23 apixaban 5 mg tablet (Eliquis) 5 mg PO BID 30 days #60 tabs 02/18/23 diltiazem HCl 240 mg capsule,extended release 24 hr (Cardizem CD) 240 mg PO DAILY #30 caps 02/18/23 Physical Exam Narrative Seen and examined on the day of discharge. Patient had MRI and had CABG in 1998 and PCI. She also had AICD. Physical exam General: Alert, Oriented x3, Cooperative HEENT: Atraumatic, PERRLA, EOMI, Normocephalic Oral: No Gingival or Mucosal Lesions/ Ulcerations Neck: Supple, No JVD, Negative Carotid Bruits Lungs: Air entry diminished in bilateral lung bases. No crepitation/rhonchi Cardiovascular: alarm security or surveillance monitor paced rhythm. Normal S1, Normal S2, No murmurs Abdomen: Bowel Sounds Present, Soft, Non Tender, Non-Distended : No renal angle tenderness. No suprapubic tenderness. Extremities: No edema, Capillary Refill Less than 3 Seconds Skin: No rashes, No breakdown Musculoskeletal: No Tenderness to Palpation of Joints or Extremities, ROM restricted. Muscle strength 4+/5 at major joints of lower extremities Neurological: Cranial nerves II-XII grossly intact, DTR 2+/4 and Symmetrical, Neuro grossly intact Psych/Mental Status: Normal Affect, Appropriate. Weight / BMI Weight Weight: 208 lb 12.444 oz Body Mass Index (BMI) 35.8 ABG / Lab / Microbiology Data Result Diagrams: 02/18/23 04:06 02/18/23 04:06 Laboratory: Laboratory Results - last 24 hr 02/17/23 12:18: POC Glucose 104 02/17/23 17:28: POC Glucose 130 H 02/17/23 22:11: POC Glucose 79 02/18/23 04:06: WBC 10.1, RBC 4.44, Hgb 13.6, Hct 43.3, MCV 97.5, MCH 30.6, MCHC 31.4 L, RDW Std Deviation 43.2, RDW Coeff of Yared 12.0, Plt Count 165, MPV 12.0, Immature Gran % (Auto) 0.200, Neut % (Auto) 62.4, Lymph % (Auto) 27.7, [place] % (Auto) 7.4, Eos % (Auto) 1.6, Baso % (Auto) 0.7, Absolute Neuts (auto) 6.3, Absolute Lymphs (auto) 2.81, Nucleated RBC % 0 02/18/23 04:06: Sodium 140, Potassium 4.3, Chloride 109 H, Carbon Dioxide 23.0, Anion Gap 8, BUN 15, Creatinine 0.73, Estim Creat Clear Calc 67.23, Est GFR (MDRD) Af Amer 103, Est GFR (MDRD) Non-Af 85, BUN/Creatinine Ratio 20.5 H, Glucose 102, Calcium 9.2, Total Bilirubin 0.30, AST 21, ALT 24, Alkaline Phosphatase 71, Total Protein 6.5, Albumin 3.5, Globulin 3.0, Albumin/Globulin Ratio 1.2, Triglycerides 118, Cholesterol 120, LDL Cholesterol 48, VLDL Cholesterol 24, HDL Cholesterol 48, TSH 2.22 02/18/23 06:40: POC Glucose 99 Radiography Diagnostic Testing: Radiology Impression Echocardiogram 02/17/23 06:18 Interpretation Summary Mildly dilated left ventricle. The estimated ejection fraction is 25 %. Moderately severe segmental systolic dysfunction (see wall motion). Compared to the previous there is segmental wall motion abnormalities similar but the left ventricular ejection fraction is reduced. Ordering Physician: Sherly Goldberg Referring Physician: ERIK BULLARD Performed By: Cookie Philip RDCS D/C Instructions Discharge Diet: 2000 mg Sodium Diet Weight Bearing Status: Weight bearing as tolerated Call your doctor if you observe: Fever of 101 or Higher, Coldness, Increased Pain, Numbness or Tingling, Change in Color, Inability to urinate, Inability to have a bowel movement, Using more than 1 pad per hour, Shortness of breath, Dizziness, Fainting spells, Swelling in the ankles, Chest pain, Prolonged hiccupping, Increased palpitations (irregular heartbeat) and Calf discomfort When: IN 2 WEEKS Meaningful Use Info Meaningful Use Diagnoses (Choose all that apply): None applicable Discharge Plan Admission Admit Date/Time: 02/17/23 05:13 Primary Reason for Your Visit: A-fib with RVR. Attending Provider: Elias Patel Primary Care Provider: Erik Bullard Consulting Providers: Sherly Goldberg ; Regina Barrera Instructions Additional Instructions / Restrictions: Follow-up outside commercial technician, Dr Lane in 2 weeks. Discharge Orders/Prescriptions Prescriptions: New diltiazem HCl [Cardizem CD] 240 mg capsule,extended release 24hr 240 mg PO DAILY Qty: 30 2RF Eliquis 5 mg tablet 5 mg PO BID 30 Days Qty: 60 0RF Continued gabapentin 600 mg tablet 600 mg PO .qid tramadol 50 mg tablet 50 mg PO 4X/DAY metoprolol tartrate 100 mg tablet 100 tablet PO BID Rx Instructions: pt states she takes 1-2 times daily spironolacton-hydrochlorothiaz 25-25 mg tablet 1 tab PO DAILY lisinopril 10 mg tablet 5 mg PO DAILY Label Comments: 10MG AT NIGHT, pt states she takes 1-2 tabs daily aspirin [Adult Low Dose Aspirin] 81 mg tablet,delayed release (DR/EC) 81 mg PO Q3D multivitamin [Daily Multi-Vitamin] Tablet 1 tab PO DAILY cholecalciferol (vitamin D3) 50 mcg (2,000 unit) capsule 50 mcg PO DAILY Qty: 1 0RF Prolia 60 mg/mL syringe 60 mg subcut [id number] Qty: 1 1RF atorvastatin 80 mg Tablet 80 mg PO QHS nitroglycerin 0.4 mg Tablet, Sublingual 0.4 mg SUBLINGUAL Q5M PRN (Reason: Chest Pain) Rx Instructions: do not exceed 3 doses per episode paroxetine HCl 40 mg Tablet 40 mg PO DAILY diazepam 5 mg Tablet 5 mg PO TID PRN (Reason: Anxiety) levothyroxine 75 mcg tablet 75 mcg PO DAILY Qty: 90 3RF Referrals / Follow Up: Erik Bullard MD [Primary Care Provider] - Within 1 Week Disposition Disposition (needs filled in before D/C Order can be placed): Home, Self Care Charges/Coding Visit Charges Inpatient E&M: 48655 Disch Hosp >30min
[2023-02-18 09:32] VITALS: BP 114/58; PULSE 60; RESP 16; TEMP 36.7; O2SAT 96
[2023-02-18 09:36] VITALS: BP 114/58; PULSE 60
[2023-02-18] MEDS: dilTIAZem CD 180 MG Capsule PO (09:36)
[2023-02-18] MEDS: Multivitamins,Therapeutic Tablet 1 TABLET PO (09:36)
[2023-02-18] MEDS: Metoprolol Tartrate 100 MG Tablet PO (09:36)
[2023-02-18] MEDS: Spironolactone 25 MG Tablet PO (09:36)
[2023-02-18] MEDS: Aspirin E.C. 81 MG Tablet PO (09:36)
[2023-02-18] MEDS: hydroCHLOROthiazide 25 MG Tablet PO (09:36)
[2023-02-18] MEDS: Lisinopril 5 MG Tablet PO (09:37)
[2023-02-18] MEDS: Enoxaparin 100 MG/ML Syringe SC (09:37)
[2023-02-18] MEDS: traMADol 50 MG Tablet PO (09:42)
--- NOTE | 2023-02-18 09:50 | CASEMGMT ---
HERON BARTLETT in to complete CARRION form with patient. HERON BARTLETT explained CARRION Form to patient, patient voiced understanding. Patient signed CARRION Form and filed in chart. Patient provided copy of signed CARRION form. Patient had no further questions or concerns at this time.
== END 2023-02-18 08:58 | disposition home or self-care (01) ==
LOC: ED 04:55 → PCU 05:52
PROVIDERS: Admitting Provider Family Medicine; Emergency Provider Emergency Medicine; PCP Family Medicine; Visit Provider Internal Medicine
DX: I48.0 Paroxysmal atrial fibrillation (principal); I42.9 Cardiomyopathy, unspecified; I13.0 Hypertensive heart and chronic kidney disease with heart failure and stage 1 through stage 4 chronic kidney disease, or unspecified chronic kidney disease; I50.22 Chronic systolic (congestive) heart failure; E11.22 Type 2 diabetes mellitus with diabetic chronic kidney disease; E66.01 Morbid (severe) obesity due to excess calories; N18.30 Chronic kidney disease, stage 3 unspecified; Z79.891 Long term (current) use of opiate analgesic; R42 Dizziness and giddiness; F41.9 Anxiety disorder, unspecified; Z87.891 Personal history of nicotine dependence; E78.5 Hyperlipidemia, unspecified; I25.10 Atherosclerotic heart disease of native coronary artery without angina pectoris; Z79.899 Other long term (current) drug therapy; Z79.890 Hormone replacement therapy; F32.A Depression, unspecified; Z95.810 Presence of automatic (implantable) cardiac defibrillator; E03.9 Hypothyroidism, unspecified; Z68.36 Body mass index [BMI] 36.0-36.9, adult
CPT/HCPCS: 36415; 71045; 80048; 80053; 80061; 82962; 83735; 84443; 84484; 85025; 93005; 93306; 96361; 96365; 96366; 96372; 96375; 96376; 97802; 99221; 99285; 99406; J7030; J7120; A4216; G0378; J0153

== ENCOUNTER → 2023-03-18 | Outpatient (CLI) | payer MEDICARE, SELFPAY ==
[2023-03-18 11:32] LABS: PTHIN 115.9 pg/mL (18.4-80.1)
[2023-03-18 11:51] LABS: ALB/GLOB Ratio 1.2 RATIO (0.9-2.4); AST(SGOT) 13 U/L (15-37); Alanine Aminotransfer ALT/SGPT 26 U/L (13-56); Albumin, Serum 3.8 g/dL (3.2-5.0); Alkaline Phosphatase 76 U/L (45-117); Anion Gap 3 (5-15); BUN 18 mg/dL (7-18); Calcium,Total 9.7 mg/dL (8.5-10.1); Chloride 105 mmol/L (98-107); EST Glomerular Filtration Rate 67 mL/min (>60); Est Glom Filt Rate - Afr Amer 81 mL/min (>60); Globulin 3.2 g/dL (2.2-4.2); Glucose 88 mg/dL (74-106); Potassium 4.2 mmol/L (3.5-5.1); Sodium Level 137 mmol/L (136-145); T4 Free Direct 1.04 ng/dL (0.76-1.46)
[2023-03-18 12:31] LABS: Vitamin D,25 Hydroxy 65.9 ng/mL
== END | disposition home or self-care (01) ==
LOC: LAB 09:58
PROVIDERS: PCP Family Medicine; Referring Provider Internal Medicine Endocrinology, Diabetes & Metabolism; Visit Provider Internal Medicine Endocrinology, Diabetes & Metabolism
DX: M81.0 Age-related osteoporosis without current pathological fracture (principal); E21.3 Hyperparathyroidism, unspecified; M18.30 Unilateral post-traumatic osteoarthritis of first carpometacarpal joint, unspecified hand; E03.9 Hypothyroidism, unspecified; E55.9 Vitamin D deficiency, unspecified
CPT/HCPCS: 36415; 80053; 82306; 83970; 84439; 84443

== ENCOUNTER → 2023-09-30 | Outpatient (CLI) | payer MEDICARE, SELFPAY ==
[2023-09-30 10:52] LABS: PTHIN 102.7 pg/mL (18.4-80.1)
[2023-09-30 10:55] LABS: Vitamin D,25 Hydroxy 65.4 ng/mL
[2023-09-30 11:03] LABS: AST(SGOT) 14 U/L (15-37); Alanine Aminotransfer ALT/SGPT 26 U/L (13-56); Albumin, Serum 3.6 g/dL (3.2-5.0); Alkaline Phosphatase 122 U/L (45-117); Anion Gap 3 (5-15); BUN 18 mg/dL (7-18); BUN/Creat Ratio 21.3 RATIO (10-20); Calcium,Total 9.8 mg/dL (8.5-10.1); Chloride 103 mmol/L (98-107); Creatinine, Serum 0.85 mg/dL (0.55-1.02); EST Glomerular Filtration Rate 72 mL/min (>60); Est Glom Filt Rate - Afr Amer 87 mL/min (>60); Globulin 3.7 g/dL (2.2-4.2); Glucose 99 mg/dL (74-106); Potassium 4.1 mmol/L (3.5-5.1); Protein, Total 7.3 g/dL (6.4-8.2); Sodium Level 139 mmol/L (136-145); T4 Free Direct 1.02 ng/dL (0.76-1.46); Thyroid Stim Hormone (TSH) 1.84 uIU/mL (0.358-3.74)
== END | disposition home or self-care (01) ==
LOC: LAB 09:12
PROVIDERS: PCP Family Medicine; Referring Provider Internal Medicine Endocrinology, Diabetes & Metabolism; Visit Provider Internal Medicine Endocrinology, Diabetes & Metabolism
DX: E55.9 Vitamin D deficiency, unspecified (principal); I48.0 Paroxysmal atrial fibrillation; E21.3 Hyperparathyroidism, unspecified; M81.0 Age-related osteoporosis without current pathological fracture; E03.9 Hypothyroidism, unspecified
CPT/HCPCS: 36415; 80053; 82306; 83970; 84439; 84443

== ENCOUNTER 2023-10-25 10:05 | Outpatient (CLI) | payer MEDICARE, SELFPAY ==
[2023-10-25] MEDS: 0.9% NaCl Peripheral Flush Adult/Peds IV (10:38)
[2023-10-25] MEDS: Zoledronic Acid 5 MG 100 ML 300 MG IV (10:45)
[2023-10-25 10:54] VITALS: BP 114/57; PULSE 59; RESP 16; TEMP 35.9; O2SAT 97; BMI 33.7
[2023-10-25 11:14] VITALS: BP 106/45; PULSE 60
== END 2023-10-25 10:06 | disposition home or self-care (01) ==
LOC: MEDOUTP 10:06
PROVIDERS: PCP Family Medicine; Referring Provider Internal Medicine Endocrinology, Diabetes & Metabolism; Visit Provider Internal Medicine Endocrinology, Diabetes & Metabolism
DX: M81.0 Age-related osteoporosis without current pathological fracture (principal)
CPT/HCPCS: 96365; A4216; J3489